=== PATIENT | male | born 1955 | race Caucasian/White ===

== ENCOUNTER → 2017-03-22 05:00 | Outpatient (REF) | payer MEDICARE, MEDICAID, SELFPAY ==
[2017-03-22 08:47] LABS: AST(SGOT) 18 U/L (15-37); Alanine Aminotransfer ALT/SGPT 33 U/L (12-78); Albumin, Serum 3.3 g/dL (3.4-5.0); Alkaline Phosphatase 115 U/L (45-117); Cholesterol 133 mg/dL (200); Globulin 3.8 g/dL (2.2-4.2); Glucose 122 mg/dL (70-110); High Density Lipoprotein 53 mg/dL; Protein, Total 7.1 g/dL (6.4-8.2); Triglycerides 114 mg/dL; Very Low Density Lipoprotein 23 mg/dL (5-40)
[2017-03-22 08:48] LABS: Hemoglobin A1c 6.5 % (4.2-6.3)
== END ==
LOC: OLS.ACH 05:00
PROVIDERS: Visit Provider Family Medicine
DX: E11.9 Type 2 diabetes mellitus without complications (principal); E78.00 Pure hypercholesterolemia, unspecified
CPT/HCPCS: 36415; 80061; 80076; 82947; 83036

== ENCOUNTER → 2017-06-21 05:00 | Outpatient (REF) | payer MEDICARE, MEDICAID, SELFPAY ==
[2017-06-21 07:54] LABS: Hemoglobin A1c 6.6 % (4.2-6.3)
[2017-06-21 07:57] LABS: ALB/GLOB Ratio 0.9 RATIO (0.9-2.4); AST(SGOT) 18 U/L (15-37); Alanine Aminotransfer ALT/SGPT 28 U/L (16-61); Albumin, Serum 3.3 g/dL (3.2-5.0); Alkaline Phosphatase 113 U/L (45-117); Anion Gap 6 (5-15); BUN 7 mg/dL (7-18); BUN/Creat Ratio 8.2 RATIO (10-20); Bilirubin, Direct < 0.05 mg/dL (0.00-0.30); Calcium,Total 8.5 mg/dL (8.5-10.1); Chloride 99 mmol/L (98-107); Creatinine, Serum 0.85 mg/dL (0.70-1.30); EST Glomerular Filtration Rate 97 mL/min (>60); Est Glom Filt Rate - Afr Amer 117 mL/min (>60); Globulin 3.6 g/dL (2.2-4.2); Glucose 117 mg/dL (74-106); Potassium 4.1 mmol/L (3.5-5.1); Protein, Total 6.9 g/dL (6.4-8.2); Sodium Level 135 mmol/L (136-145)
== END ==
LOC: OLS.ACH 05:00
PROVIDERS: Visit Provider Family Medicine
DX: E11.9 Type 2 diabetes mellitus without complications (principal)
CPT/HCPCS: 36415; 80053; 82248; 83036

== ENCOUNTER → 2017-08-16 05:00 | Outpatient (REF) | payer MEDICARE, MEDICAID, SELFPAY ==
[2017-08-16 08:10] LABS: AST(SGOT) 20 U/L (15-37); Alanine Aminotransfer ALT/SGPT 31 U/L (16-61); Albumin, Serum 3.4 g/dL (3.2-5.0); Alkaline Phosphatase 115 U/L (45-117); Bilirubin, Direct 0.07 mg/dL (0.00-0.30); Cholesterol 130 mg/dL (200); Globulin 4.1 g/dL (2.2-4.2); Glucose 126 mg/dL (74-106); High Density Lipoprotein 47 mg/dL; PSA,Total - Annual Screen 3.41 ng/mL (0.00-4.00); Protein, Total 7.5 g/dL (6.4-8.2); Triglycerides 130 mg/dL; Very Low Density Lipoprotein 26 mg/dL (5-40)
[2017-08-16 08:16] LABS: Hemoglobin A1c 6.7 % (4.2-6.3)
== END ==
LOC: OLS.ACH 05:00
PROVIDERS: Visit Provider Family Medicine
DX: E11.9 Type 2 diabetes mellitus without complications (principal); E78.00 Pure hypercholesterolemia, unspecified; Z12.5 Encounter for screening for malignant neoplasm of prostate
CPT/HCPCS: 36415; 80061; 80076; 82947; 83036; 84153; G0103

== ENCOUNTER → 2017-12-21 05:00 | Outpatient (REF) | payer MEDICARE, MEDICAID, SELFPAY ==
[2017-12-21 08:33] LABS: AST(SGOT) 20 U/L (15-37); Alanine Aminotransfer ALT/SGPT 35 U/L (16-61); Albumin, Serum 3.7 g/dL (3.2-5.0); Alkaline Phosphatase 122 U/L (45-117); Bilirubin, Direct 0.09 mg/dL (0.00-0.30); Globulin 4.2 g/dL (2.2-4.2); Glucose 134 mg/dL (74-106); Protein, Total 7.9 g/dL (6.4-8.2)
[2017-12-21 08:38] LABS: Hemoglobin A1c 6.6 % (4.2-6.3)
== END ==
LOC: OLS.ACH 05:00
PROVIDERS: Visit Provider Family Medicine
DX: E11.9 Type 2 diabetes mellitus without complications (principal)
CPT/HCPCS: 36415; 80076; 82947; 83036

== ENCOUNTER → 2018-03-21 05:00 | Outpatient (REF) | payer MEDICARE, MEDICAID, SELFPAY ==
[2018-03-21 08:28] LABS: Hematocrit 34.8 % (40-54); Hemoglobin 11.2 g/dl (13.0-16.5); Mean Corp Hgb Conc 32.2 g/gl (32-36); Mean Corpuscular Volume 90.2 fL (80-94); Mean Platelet Vol. 9.7 fl (6.2-12.0); Platelet Count 247 K/mm3 (150-450); RBC Distribution Width CV 13.3 % (11.6-14.6); RBC Distribution Width SD 43.1 fl (35.1-43.9); Red Blood Count 3.86 M/mm3 (4.6-6.2); White Blood Count 11.5 K/mm3 (4.4-11.0)
[2018-03-21 08:37] LABS: AST(SGOT) 26 U/L (15-37); Alanine Aminotransfer ALT/SGPT 40 U/L (16-61); Albumin, Serum 3.4 g/dL (3.2-5.0); Alkaline Phosphatase 108 U/L (45-117); Anion Gap 7 (5-15); BUN 10 mg/dL (7-18); BUN/Creat Ratio 10.8 RATIO (10-20); Bilirubin, Direct 0.07 mg/dL (0.00-0.30); Calcium,Total 8.7 mg/dL (8.5-10.1); Chloride 97 mmol/L (98-107); Cholesterol 121 mg/dL (200); Creatinine, Serum 0.93 mg/dL (0.70-1.30); EST Glomerular Filtration Rate 87 mL/min (>60); Est Glom Filt Rate - Afr Amer 105 mL/min (>60); Globulin 3.6 g/dL (2.2-4.2); Glucose 120 mg/dL (74-106); High Density Lipoprotein 42 mg/dL; Potassium 4.2 mmol/L (3.5-5.1); Sodium Level 135 mmol/L (136-145); T4 Free Direct 0.77 ng/dL (0.76-1.46); Thyroid Stim Hormone (TSH) 1.64 uIU/mL (0.358-3.74); Triglycerides 140 mg/dL; Very Low Density Lipoprotein 28 mg/dL (5-40)
[2018-03-21 08:40] LABS: Scan Indicated on CBC? Y/N NO
[2018-03-21 08:58] LABS: Hemoglobin A1c 7.3 % (4.2-6.3)
== END ==
LOC: OLS.ACH 05:00
PROVIDERS: Visit Provider Family Medicine
DX: E11.9 Type 2 diabetes mellitus without complications (principal); F25.9 Schizoaffective disorder, unspecified
CPT/HCPCS: 36415; 80048; 80061; 80076; 83036; 84439; 84443; 85027

== ENCOUNTER → 2018-06-20 05:00 | Outpatient (REF) | payer MEDICARE, MEDICAID, SELFPAY ==
[2018-06-20 08:45] LABS: AST(SGOT) 23 U/L (15-37); Alanine Aminotransfer ALT/SGPT 31 U/L (16-61); Albumin, Serum 3.5 g/dL (3.2-5.0); Alkaline Phosphatase 117 U/L (45-117); Bilirubin, Direct 0.07 mg/dL (0.00-0.30); Globulin 3.7 g/dL (2.2-4.2); Glucose 131 mg/dL (74-106); Protein, Total 7.2 g/dL (6.4-8.2)
== END ==
LOC: OLS.ACH 05:00
PROVIDERS: Visit Provider Family Medicine
DX: E11.9 Type 2 diabetes mellitus without complications (principal)
CPT/HCPCS: 36415; 80076; 82947

== ENCOUNTER → 2018-09-19 | Outpatient (REF) | payer MEDICARE, MEDICAID, SELFPAY ==
[2018-09-19 08:34] LABS: Hematocrit 34.2 % (40-54); Hemoglobin 11.2 g/dL (13.0-16.5); Mean Corp Hgb Conc 32.7 g/dL (32-36); Mean Corpuscular Hgb 28.8 pg (27.0-32.0); Mean Corpuscular Volume 87.9 fL (80-94); Mean Platelet Vol. 10.3 fl (6.2-12.0); Platelet Count 218 K/mm3 (150-450); RBC Distribution Width CV 13.4 % (11.6-14.6); RBC Distribution Width SD 42.9 fl (35.1-43.9); Red Blood Count 3.89 M/mm3 (4.6-6.2); White Blood Count 8.9 K/mm3 (4.4-11.0)
[2018-09-19 08:46] LABS: AST(SGOT) 20 U/L (15-37); Alanine Aminotransfer ALT/SGPT 34 U/L (16-61); Albumin, Serum 3.4 g/dL (3.2-5.0); Alkaline Phosphatase 111 U/L (45-117); Anion Gap 7 (5-15); BUN 13 mg/dL (7-18); BUN/Creat Ratio 13.2 RATIO (10-20); Bilirubin, Direct 0.05 mg/dL (0.00-0.30); Calcium,Total 8.9 mg/dL (8.5-10.1); Chloride 99 mmol/L (98-107); Creatinine, Serum 0.98 mg/dL (0.70-1.30); EST Glomerular Filtration Rate 82 mL/min (>60); Est Glom Filt Rate - Afr Amer 99 mL/min (>60); Globulin 3.5 g/dL (2.2-4.2); Glucose 155 mg/dL (74-106); Protein, Total 6.9 g/dL (6.4-8.2); Sodium Level 138 mmol/L (136-145)
== END | disposition home or self-care (01) ==
LOC: OLS.ACH 05:00
PROVIDERS: Visit Provider Family Medicine
DX: E11.9 Type 2 diabetes mellitus without complications (principal); F25.9 Schizoaffective disorder, unspecified
CPT/HCPCS: 36415; 80048; 80076; 83036; 85027

== ENCOUNTER → 2018-12-19 05:00 | Outpatient (REF) | payer MEDICARE, MEDICAID, SELFPAY ==
[2018-12-19 09:12] LABS: AST(SGOT) 15 U/L (15-37); Alanine Aminotransfer ALT/SGPT 29 U/L (16-61); Albumin, Serum 3.5 g/dL (3.2-5.0); Alkaline Phosphatase 116 U/L (45-117); Bilirubin, Direct 0.08 mg/dL (0.00-0.30); Globulin 3.9 g/dL (2.2-4.2); Glucose 116 mg/dL (74-106); Protein, Total 7.4 g/dL (6.4-8.2)
== END ==
LOC: OLS.ACH 05:00
PROVIDERS: Visit Provider Family Medicine
DX: E11.9 Type 2 diabetes mellitus without complications (principal)
CPT/HCPCS: 36415; 80076; 82947

== ENCOUNTER → 2019-02-25 05:00 | Outpatient (REF) | payer MEDICARE, MEDICAID, SELFPAY ==
[2019-02-25 08:23] LABS: Thyroid Stim Hormone (TSH) 0.97 uIU/mL (0.358-3.74); Valproic Acid (Depakene) Level < 3 ug/mL (50-100)
== END ==
LOC: OLS.ACH 05:00
PROVIDERS: Visit Provider Family Medicine
DX: F25.9 Schizoaffective disorder, unspecified (principal); E11.9 Type 2 diabetes mellitus without complications
CPT/HCPCS: 36415; 80164; 84443

== ENCOUNTER → 2019-03-05 16:54 | Outpatient (CLI) | payer MEDICARE, MEDICAID, SELFPAY ==
--- NOTE | 2019-03-05 17:13 | RAD_ITS ---
STUDY: X-RAY - LUMBAR SPINE REASON FOR EXAM: Male, 63 years old. lower back pain TECHNIQUE: 3 view(s) of the lumbar spine were obtained. COMPARISON: None FINDINGS: Normal lumbar lordosis. There is no substantial scoliosis. There is a normal alignment of the vertebrae. There is diffuse demineralization with multi-level endplate spondylosis. There is multi-level degenerative disc disease with multi-level disc space narrowing. Mild compression deformity of T12 and L1 are likely chronic without discrete fracture line is identified. Multilevel facet arthropathy in the mid and lower lumbar spine. There is atherosclerotic calcification of the abdominal aorta without a demonstrated aneurysm. RAD/Lumbar Spine 2 or 3 Views IMPRESSION: Degenerative disc disease and facet arthropathy. No acute appearing compression fracture identified. Electronically Signed: Alan Garcia MD ([place]) at 8:31 EST , Service support ,
== END ==
PROVIDERS: Family Provider Family Medicine; PCP Family Medicine; Referring Provider Anesthesiology Pain Medicine; Visit Provider Anesthesiology Pain Medicine
DX: M54.9 Dorsalgia, unspecified (principal)
CPT/HCPCS: 72100

== ENCOUNTER → 2019-03-12 05:00 | Outpatient (REF) | payer MEDICARE, MEDICAID, SELFPAY ==
[2019-03-12 08:03] LABS: Hematocrit 33.1 % (40-54); Hemoglobin 11.1 g/dL (13.0-16.5); Mean Corp Hgb Conc 33.5 g/dL (32-36); Mean Corpuscular Hgb 29.1 pg (27.0-32.0); Mean Corpuscular Volume 86.6 fL (80-94); Mean Platelet Vol. 9.5 fl (6.2-12.0); Platelet Count 266 K/mm3 (150-450); RBC Distribution Width CV 13.1 % (11.6-14.6); RBC Distribution Width SD 40.9 fl (35.1-43.9); Red Blood Count 3.82 M/mm3 (4.6-6.2); White Blood Count 7.2 K/mm3 (4.4-11.0)
[2019-03-12 08:15] LABS: AST(SGOT) 22 U/L (15-37); Alanine Aminotransfer ALT/SGPT 35 U/L (16-61); Albumin, Serum 3.4 g/dL (3.2-5.0); Alkaline Phosphatase 101 U/L (45-117); Anion Gap 5 (5-15); BUN 26 mg/dL (7-18); BUN/Creat Ratio 31.1 RATIO (10-20); Calcium,Total 8.9 mg/dL (8.5-10.1); Chloride 100 mmol/L (98-107); Creatinine, Serum 0.84 mg/dL (0.70-1.30); EST Glomerular Filtration Rate 98 mL/min (>60); Est Glom Filt Rate - Afr Amer 119 mL/min (>60); Globulin 3.3 g/dL (2.2-4.2); Glucose 100 mg/dL (74-106); PSA,Total - Annual Screen 4.98 ng/mL (0.00-4.00); Potassium 4.3 mmol/L (3.5-5.1); Protein, Total 6.7 g/dL (6.4-8.2); Sodium Level 134 mmol/L (136-145)
== END ==
LOC: OLS.ACH 05:00
PROVIDERS: Family Provider Family Medicine; PCP Family Medicine; Visit Provider Family Medicine
DX: F25.9 Schizoaffective disorder, unspecified (principal); E11.9 Type 2 diabetes mellitus without complications
CPT/HCPCS: 36415; 80053; 84153; 85027; G0103

== ENCOUNTER → 2019-03-12 15:20 | Outpatient (CLI) | payer MEDICARE, MEDICAID, SELFPAY ==
--- NOTE | 2019-03-12 15:23 | MRI_ITS ---
STUDY: MRI LUMBAR SPINE WITHOUT CONTRAST REASON FOR EXAM: Male, 63 years old. BACK PAIN and left leg x 6 months TECHNIQUE: Standardized fat and water weighted pulse sequences were obtained in the sagittal and axial planes. COMPARISON: Lumbar spine X-rays on March 05, 2019 FINDINGS: T12-L1: Degenerative endplate changes.. Narrowed disc space with desiccation of the disc and minimal annular bulge.. Normal bilateral facet joints. Normal central canal and bilateral lateral recesses. Normal bilateral intervertebral neural foramina. Normal lumbar lordosis. There is no substantial scoliosis. Normal conus medullaris that terminates at T12 L1-2: Narrowed disc space with degenerative endplate changes. Desiccation of the disc and mild annular bulge with small bilateral foraminal disc protrusions. Normal bilateral facet joints. Mild to moderate narrowing of the central canal. Normal bilateral recesses. Mild bilateral neuroforaminal stenosis. L2-3: Minor endplate spurring.. Normal disc height, desiccation and normal morphology. Normal bilateral facet joints. Normal central canal and bilateral lateral recesses. Normal bilateral intervertebral neural foramina. L3-4: Minor endplate spurring.. Normal disc height, desiccation and minor annular bulge. Mild facet arthropathy.. Normal central canal and bilateral lateral recesses. Moderate bilateral neural foraminal encroachment. L4-5: Mild endplate spurring.. Normal disc height, hydration and mild annular bulge with small left foraminal disc protrusion.. Bilateral facet arthropathy and thickening of ligamenta flava.. Normal central canal. Moderate bilateral recess stenosis. Moderate right neuroforaminal stenosis and severe narrowing on the left L5-S1: Normal endplates. Normal disc height, desiccation and mild annular bulge.. Bilateral facet arthropathy.. Normal central canal and bilateral lateral recesses. Moderate bilateral neuroforaminal stenosis Normal visualized sacral ala. Normal visualized paraspinous soft tissue structures. No significant change since prior exam considering differences in imaging modality MRI/Spine Lumbar (Routine) IMPRESSION: No evidence for acute fracture or subluxation. Moderate spondylosis. Multilevel spinal stenosis secondary to disc disease and bony hypertrophy most pronounced at L4-5 greater on the left. Other findings as above Electronically Signed: Aaron Dahl MD at 19:29 EST , Service support ,
== END ==
PROVIDERS: Family Provider Family Medicine; PCP Family Medicine; Referring Provider Anesthesiology Pain Medicine; Visit Provider Anesthesiology Pain Medicine
DX: M79.605 Pain in left leg (principal); M54.9 Dorsalgia, unspecified; E11.9 Type 2 diabetes mellitus without complications; F25.9 Schizoaffective disorder, unspecified; Z12.5 Encounter for screening for malignant neoplasm of prostate
CPT/HCPCS: 36415; 72148; 80053; 84153; 85027; G0103

== ENCOUNTER → 2019-03-20 05:00 | Outpatient (REF) | payer MEDICARE, MEDICAID, SELFPAY ==
[2019-03-20 08:00] LABS: Hematocrit 32.5 % (40-54); Hemoglobin 11.4 g/dL (13.0-16.5); Mean Corp Hgb Conc 35.1 g/dL (32-36); Mean Corpuscular Hgb 29.3 pg (27.0-32.0); Mean Corpuscular Volume 83.5 fL (80-94); Mean Platelet Vol. 9.1 fl (6.2-12.0); Platelet Count 324 K/mm3 (150-450); RBC Distribution Width SD 39.5 fl (35.1-43.9); Red Blood Count 3.89 M/mm3 (4.6-6.2); White Blood Count 8.2 K/mm3 (4.4-11.0)
[2019-03-20 08:27] LABS: AST(SGOT) 18 U/L (15-37); Alanine Aminotransfer ALT/SGPT 28 U/L (16-61); Albumin, Serum 3.3 g/dL (3.2-5.0); Alkaline Phosphatase 93 U/L (45-117); Anion Gap 6 (5-15); BUN 12 mg/dL (7-18); Bilirubin, Direct 0.11 mg/dL (0.00-0.30); Calcium,Total 8.8 mg/dL (8.5-10.1); Chloride 90 mmol/L (98-107); Cholesterol 105 mg/dL (200); Creatinine, Serum 0.75 mg/dL (0.70-1.30); EST Glomerular Filtration Rate 111 mL/min (>60); Est Glom Filt Rate - Afr Amer 135 mL/min (>60); Globulin 3.3 g/dL (2.2-4.2); Glucose 96 mg/dL (74-106); High Density Lipoprotein 56 mg/dL; Potassium 4.1 mmol/L (3.5-5.1); Protein, Total 6.6 g/dL (6.4-8.2); Sodium Level 125 mmol/L (136-145); T4 Free Direct 1.23 ng/dL (0.76-1.46); Thyroid Stim Hormone (TSH) 1.52 uIU/mL (0.358-3.74); Triglycerides 82 mg/dL; Very Low Density Lipoprotein 16 mg/dL (5-40)
== END ==
LOC: OLS.ACH 05:00
PROVIDERS: PCP Family Medicine; Visit Provider Family Medicine
DX: E11.9 Type 2 diabetes mellitus without complications (principal); F25.9 Schizoaffective disorder, unspecified
CPT/HCPCS: 36415; 80048; 80061; 80076; 83036; 84439; 84443; 85027

== ENCOUNTER → 2019-03-26 16:40 | Outpatient (REF) | payer MEDICARE, MEDICAID, SELFPAY ==
[2019-03-26 17:50] LABS: Urine Sodium 46 mmol/L (Not Establ.)
[2019-03-26 18:01] LABS: Osmolality, Urine 702 mOsm/KG
== END ==
LOC: OLS.ACH 16:40
PROVIDERS: PCP Family Medicine; Visit Provider Family Medicine
DX: E11.42 Type 2 diabetes mellitus with diabetic polyneuropathy (principal); M62.81 Muscle weakness (generalized)
CPT/HCPCS: 83935; 84300

== ENCOUNTER → 2019-06-16 04:00 | Outpatient (REF) | payer MEDICARE, MEDICAID, SELFPAY ==
[2019-06-16 07:49] LABS: AST(SGOT) 16 U/L (15-37); Alanine Aminotransfer ALT/SGPT 25 U/L (16-61); Albumin, Serum 3.3 g/dL (3.2-5.0); Alkaline Phosphatase 117 U/L (45-117); Bilirubin, Direct 0.08 mg/dL (0.00-0.30); Glucose 94 mg/dL (74-106); Protein, Total 6.3 g/dL (6.4-8.2); Thyroid Stim Hormone (TSH) 1.32 uIU/mL (0.358-3.74)
== END ==
LOC: OLS.ACH 04:00
PROVIDERS: PCP Family Medicine; Visit Provider Family Medicine
DX: E11.9 Type 2 diabetes mellitus without complications (principal); F25.9 Schizoaffective disorder, unspecified
CPT/HCPCS: 36415; 80076; 82947; 84443

== ENCOUNTER → 2019-09-15 04:30 | Outpatient (REF) | payer MEDICARE, SELFPAY ==
[2019-09-15 10:11] LABS: Albumin, Serum 3.5 g/dL (3.2-5.0); BUN 11 mg/dL (7-18); BUN/Creat Ratio 14.3 RATIO (10-20); Chloride 97 mmol/L (98-107); Creatinine, Serum 0.77 mg/dL (0.70-1.30); EST Glomerular Filtration Rate 108 mL/min (>60); Est Glom Filt Rate - Afr Amer 130 mL/min (>60); Glucose 83 mg/dL (74-106); PSA,Total - Annual Screen 4.57 ng/mL (0.00-4.00); Phosphorus 3.6 mg/dL (2.5-4.9); Potassium 4.7 mmol/L (3.5-5.1); Sodium Level 131 mmol/L (136-145); Thyroid Stim Hormone (TSH) 0.79 uIU/mL (0.358-3.74)
== END ==
LOC: OLS.ACH 04:30
PROVIDERS: PCP Family Medicine; Visit Provider Family Medicine
DX: E11.9 Type 2 diabetes mellitus without complications (principal); F25.9 Schizoaffective disorder, unspecified; M62.81 Muscle weakness (generalized); Z12.5 Encounter for screening for malignant neoplasm of prostate
CPT/HCPCS: 36415; 80069; 84153; 84443; G0103

== ENCOUNTER → 2019-09-18 05:00 | Outpatient (REF) | payer MEDICARE, MEDICAID, SELFPAY ==
[2019-09-18 08:45] LABS: Hemoglobin 10.2 g/dL (13.0-16.5); Mean Corpuscular Hgb 29.9 pg (27.0-32.0); Platelet Count 262 K/mm3 (150-450); RBC Distribution Width CV 12.7 % (11.6-14.6); RBC Distribution Width SD 40.5 fl (35.1-43.9); Red Blood Count 3.41 M/mm3 (4.6-6.2); White Blood Count 10.4 K/mm3 (4.4-11.0)
[2019-09-18 08:52] LABS: Anion Gap 5 (5-15); BUN 11 mg/dL (7-18); BUN/Creat Ratio 12.3 RATIO (10-20); Calcium,Total 8.7 mg/dL (8.5-10.1); Chloride 98 mmol/L (98-107); Creatinine, Serum 0.89 mg/dL (0.70-1.30); EST Glomerular Filtration Rate 91 mL/min (>60); Est Glom Filt Rate - Afr Amer 110 mL/min (>60); Glucose 84 mg/dL (74-106); Potassium 3.9 mmol/L (3.5-5.1); Sodium Level 132 mmol/L (136-145)
[2019-09-18 08:59] LABS: Hemoglobin A1c 5.6 % (3.8-5.6)
== END ==
LOC: OLS.ACH 05:00
PROVIDERS: PCP Family Medicine; Referring Provider Family Medicine; Visit Provider Family Medicine
DX: F25.9 Schizoaffective disorder, unspecified (principal); Z79.899 Other long term (current) drug therapy
CPT/HCPCS: 36415; 80048; 83036; 85027

== ENCOUNTER → 2019-11-12 08:51 | Outpatient (REF) | payer MEDICARE, MEDICAID, SELFPAY | LOC: LABSPEC 08:51 | PROVIDERS: PCP Family Medicine; Referring Provider Family Medicine; Visit Provider Family Medicine | DX: Z11.59 Encounter for screening for other viral diseases (principal) | CPT/HCPCS: 87635; U0003 ==

== ENCOUNTER → 2019-11-19 05:00 | Outpatient (REF) | payer MEDICARE, MEDICAID, SELFPAY | LOC: OLS.ACH 05:00 | PROVIDERS: PCP Family Medicine; Referring Provider Family Medicine; Visit Provider Family Medicine | DX: Z11.59 Encounter for screening for other viral diseases (principal) | CPT/HCPCS: 87635; U0003 ==

== ENCOUNTER → 2019-11-24 11:03 | Outpatient (REF) | payer MEDICARE, MEDICAID, SELFPAY | LOC: OLS.ACH 11:03 | PROVIDERS: PCP Family Medicine; Visit Provider Family Medicine | DX: Z11.59 Encounter for screening for other viral diseases (principal) | CPT/HCPCS: 87635; U0003 ==

== ENCOUNTER → 2019-11-28 12:53 | Outpatient (REF) | payer MEDICARE, MEDICAID, SELFPAY | LOC: OLS.ACH 12:53 | PROVIDERS: PCP Family Medicine; Referring Provider Family Medicine; Visit Provider Family Medicine | DX: Z03.818 Encounter for observation for suspected exposure to other biological agents ruled out (principal) | CPT/HCPCS: 87635; U0003 ==

== ENCOUNTER → 2019-12-01 08:00 | Outpatient (REF) | payer MEDICARE, MEDICAID, SELFPAY | LOC: OLS.ACH 08:00 | PROVIDERS: Referring Provider Family Medicine; Visit Provider Family Medicine | DX: Z03.818 Encounter for observation for suspected exposure to other biological agents ruled out (principal) | CPT/HCPCS: 87635; U0003 ==

== ENCOUNTER → 2019-12-05 10:16 | Outpatient (REF) | payer MEDICARE, MEDICAID, SELFPAY | LOC: OLS.ACH 10:16 | PROVIDERS: Referring Provider Family Medicine; Visit Provider Family Medicine | DX: Z03.818 Encounter for observation for suspected exposure to other biological agents ruled out (principal) | CPT/HCPCS: 87635; U0003 ==

== ENCOUNTER → 2019-12-08 14:05 | Outpatient (REF) | payer MEDICARE, MEDICAID, SELFPAY | LOC: OLS.ACH 14:05 | PROVIDERS: Referring Provider Family Medicine; Visit Provider Family Medicine | DX: Z03.818 Encounter for observation for suspected exposure to other biological agents ruled out (principal) | CPT/HCPCS: 87635; U0003 ==

== ENCOUNTER → 2019-12-12 10:46 | Outpatient (REF) | payer MEDICARE, MEDICAID, SELFPAY | LOC: OLS.ACH 10:46 | PROVIDERS: Family Medicine; Referring Provider Family Medicine; Visit Provider Family Medicine | DX: Z03.818 Encounter for observation for suspected exposure to other biological agents ruled out (principal) | CPT/HCPCS: 87635; U0003 ==

== ENCOUNTER → 2019-12-15 04:00 | Outpatient (REF) | payer MEDICARE, MEDICAID, SELFPAY ==
[2019-12-15 08:59] LABS: AST(SGOT) 16 U/L (15-37); Alanine Aminotransfer ALT/SGPT 29 U/L (16-61); Albumin, Serum 3.3 g/dL (3.2-5.0); Alkaline Phosphatase 113 U/L (45-117); Bilirubin, Direct 0.07 mg/dL (0.00-0.30); Globulin 3.3 g/dL (2.2-4.2); Glucose 80 mg/dL (74-106); Protein, Total 6.6 g/dL (6.4-8.2); Thyroid Stim Hormone (TSH) 0.83 uIU/mL (0.358-3.74)
== END ==
LOC: OLS.ACH 04:00
PROVIDERS: Referring Provider Family Medicine; Visit Provider Family Medicine
DX: E11.9 Type 2 diabetes mellitus without complications (principal); F25.9 Schizoaffective disorder, unspecified
CPT/HCPCS: 36415; 80076; 82947; 84443

== ENCOUNTER → 2019-12-16 11:30 | Outpatient (REF) | payer MEDICARE, MEDICAID, SELFPAY | LOC: OLS.ACH 11:30 | PROVIDERS: Family Medicine; Referring Provider Family Medicine; Visit Provider Family Medicine | DX: Z03.818 Encounter for observation for suspected exposure to other biological agents ruled out (principal) | CPT/HCPCS: 87635; U0003 ==

== ENCOUNTER → 2019-12-19 12:25 | Outpatient (REF) | payer MEDICARE, MEDICAID, SELFPAY | LOC: OLS.ACH 12:25 | PROVIDERS: Referring Provider Family Medicine; Visit Provider Family Medicine | DX: Z03.818 Encounter for observation for suspected exposure to other biological agents ruled out (principal) | CPT/HCPCS: 87635; U0003 ==

== ENCOUNTER → 2019-12-23 17:09 | Outpatient (REF) | payer MEDICARE, MEDICAID, SELFPAY | LOC: OLS.ACH 17:09 | PROVIDERS: Family Medicine; Referring Provider Family Medicine; Visit Provider Family Medicine | DX: Z03.818 Encounter for observation for suspected exposure to other biological agents ruled out (principal) | CPT/HCPCS: 87635; U0003 ==

== ENCOUNTER → 2019-12-30 07:35 | Outpatient (REF) | payer MEDICARE, MEDICAID, SELFPAY | LOC: OLS.ACH 07:35 | PROVIDERS: Referring Provider Family Medicine; Visit Provider Family Medicine | DX: Z03.818 Encounter for observation for suspected exposure to other biological agents ruled out (principal) | CPT/HCPCS: 87635; U0003 ==

== ENCOUNTER → 2020-01-06 14:31 | Outpatient (REF) | payer MEDICARE, MEDICAID, SELFPAY | LOC: OLS.ACH 14:31 | PROVIDERS: Visit Provider Family Medicine | DX: Z03.818 Encounter for observation for suspected exposure to other biological agents ruled out (principal) | CPT/HCPCS: 87635; U0003 ==

== ENCOUNTER → 2020-01-13 08:09 | Outpatient (REF) | payer MEDICARE, MEDICAID, SELFPAY | LOC: OLS.ACH 08:09 | PROVIDERS: PCP Family Medicine; Referring Provider Family Medicine; Visit Provider Family Medicine | DX: Z03.818 Encounter for observation for suspected exposure to other biological agents ruled out (principal) | CPT/HCPCS: 87635; U0003 ==

== ENCOUNTER → 2020-01-27 10:06 | Outpatient (REF) | payer MEDICARE, MEDICAID, SELFPAY | LOC: OLS.ACH 10:06 | PROVIDERS: PCP Family Medicine; Referring Provider Family Medicine; Visit Provider Family Medicine | DX: Z03.818 Encounter for observation for suspected exposure to other biological agents ruled out (principal) | CPT/HCPCS: 87635; U0003 ==

== ENCOUNTER → 2020-02-10 08:36 | Outpatient (REF) | payer MEDICARE, MEDICAID, SELFPAY | LOC: OLS.ACH 08:36 | PROVIDERS: Family Medicine; PCP Family Medicine; Referring Provider Family Medicine; Visit Provider Family Medicine | DX: Z03.818 Encounter for observation for suspected exposure to other biological agents ruled out (principal) | CPT/HCPCS: 87635; U0003 ==

== ENCOUNTER → 2020-02-24 08:43 | Outpatient (REF) | payer MEDICARE, MEDICAID, SELFPAY | LOC: OLS.ACH 08:43 | PROVIDERS: PCP Family Medicine; Referring Provider Family Medicine; Visit Provider Family Medicine | DX: Z03.818 Encounter for observation for suspected exposure to other biological agents ruled out (principal) | CPT/HCPCS: 87635; U0003 ==

== ENCOUNTER → 2020-03-09 09:14 | Outpatient (REF) | payer MEDICARE, MEDICAID, SELFPAY | LOC: OLS.ACH 09:14 | PROVIDERS: PCP Family Medicine; Referring Provider Family Medicine; Visit Provider Family Medicine | DX: Z03.818 Encounter for observation for suspected exposure to other biological agents ruled out (principal) | CPT/HCPCS: 87635; U0005; U0003 ==

== ENCOUNTER → 2020-03-16 05:00 | Outpatient (REF) | payer MEDICARE, MEDICAID, SELFPAY ==
[2020-03-16 07:49] LABS: Absolute Lymphocyte Count 2.32 X10^3/uL (0.83-4.51); Absolute Neutrophil Count 5.3 X10^3/uL (2.0-7.7); Basophil# 0.05 X10^3/uL; Basophil% 0.6 % (0-1); Eosinophil# 0.47 X10^3/uL; Eosinophils% 5.3 % (0-5); Hemoglobin 10.7 g/dL (13.0-16.5); Lymphocyte # 2.32 X10^3/ul (4.0); Lymphocyte % 26.2 % (19-41); Mean Corp Hgb Conc 32.4 g/dL (32-36); Mean Corpuscular Hgb 28.9 pg (27.0-32.0); Mean Corpuscular Volume 89.2 fL (80-94); Mean Platelet Vol. 9.8 fl (6.2-12.0); Monocyte# 0.58 X10^3/uL; Monocyte% 6.6 % (0-10); NRBC Flagged by Analyzer 0 % (0-5); Neutrophil # 5.33 X10^3/uL (2.7-7.7); Neutrophil % 60.3 % (47-70); Platelet Count 198 K/mm3 (150-450); RBC Distribution Width CV 12.8 % (11.6-14.6); RBC Distribution Width SD 42.2 fl (35.1-43.9); White Blood Count 8.8 K/mm3 (4.4-11.0)
[2020-03-16 08:28] LABS: AST(SGOT) 19 U/L (15-37); Alanine Aminotransfer ALT/SGPT 23 U/L (16-61); Albumin, Serum 3.3 g/dL (3.2-5.0); Alkaline Phosphatase 114 U/L (45-117); Anion Gap 5 (5-15); BUN 11 mg/dL (7-18); BUN/Creat Ratio 15.2 RATIO (10-20); Bilirubin, Direct 0.09 mg/dL (0.00-0.30); Calcium,Total 8.3 mg/dL (8.5-10.1); Chloride 101 mmol/L (98-107); Creatinine, Serum 0.72 mg/dL (0.70-1.30); EST Glomerular Filtration Rate 115 mL/min (>60); Est Glom Filt Rate - Afr Amer 140 mL/min (>60); Globulin 3.3 g/dL (2.2-4.2); Glucose 79 mg/dL (74-106); Potassium 4.1 mmol/L (3.5-5.1); Protein, Total 6.6 g/dL (6.4-8.2); Sodium Level 136 mmol/L (136-145)
[2020-03-16 08:41] LABS: Hemoglobin A1c 5.6 % (3.8-5.6)
== END ==
LOC: OLS.ACH 05:00
PROVIDERS: PCP Family Medicine; Visit Provider Family Medicine
DX: E11.9 Type 2 diabetes mellitus without complications (principal); N40.0 Benign prostatic hyperplasia without lower urinary tract symptoms; E78.5 Hyperlipidemia, unspecified; Z12.5 Encounter for screening for malignant neoplasm of prostate
CPT/HCPCS: 36415; 80048; 80076; 83036; 84153; 84439; 84443; 85025; G0103

== ENCOUNTER → 2020-03-23 09:36 | Outpatient (REF) | payer MEDICARE, MEDICAID, SELFPAY | LOC: OLS.ACH 09:36 | PROVIDERS: PCP Family Medicine; Visit Provider Family Medicine | DX: Z03.818 Encounter for observation for suspected exposure to other biological agents ruled out (principal) | CPT/HCPCS: 87635; U0003 ==

== ENCOUNTER → 2020-04-20 12:10 | Outpatient (REF) | payer MEDICARE, MEDICAID, SELFPAY | LOC: OLS.ACH 12:10 | PROVIDERS: PCP Family Medicine; Referring Provider Family Medicine; Visit Provider Family Medicine | DX: Z03.818 Encounter for observation for suspected exposure to other biological agents ruled out (principal) | CPT/HCPCS: 87635; U0005; U0003 ==

== ENCOUNTER → 2020-05-04 10:00 | Outpatient (REF) | payer MEDICARE, MEDICAID, SELFPAY | LOC: OLS.ACH 10:00 | PROVIDERS: PCP Family Medicine; Visit Provider Family Medicine | DX: Z03.818 Encounter for observation for suspected exposure to other biological agents ruled out (principal) | CPT/HCPCS: 87635; U0005; U0003 ==

== ENCOUNTER → 2020-06-07 04:00 | Outpatient (REF) | payer MEDICARE, MEDICAID, SELFPAY ==
[2020-06-07 07:36] LABS: AST(SGOT) 18 U/L (15-37); Alanine Aminotransfer ALT/SGPT 28 U/L (16-61); Albumin, Serum 3.3 g/dL (3.2-5.0); Alkaline Phosphatase 94 U/L (45-117); Bilirubin, Direct 0.07 mg/dL (0.00-0.30); Glucose 78 mg/dL (74-106); Protein, Total 6.3 g/dL (6.4-8.2); Thyroid Stim Hormone (TSH) 0.68 uIU/mL (0.358-3.74)
== END ==
LOC: OLS.ACH 04:00
PROVIDERS: PCP Family Medicine; Visit Provider Family Medicine
DX: F25.9 Schizoaffective disorder, unspecified (principal); E11.9 Type 2 diabetes mellitus without complications; D64.9 Anemia, unspecified; E11.42 Type 2 diabetes mellitus with diabetic polyneuropathy
CPT/HCPCS: 36415; 80076; 82947; 84443

== ENCOUNTER → 2020-08-31 04:00 | Outpatient (REF) | payer MEDICARE, MEDICAID, SELFPAY ==
[2020-08-31 08:16] LABS: Absolute Lymphocyte Count 1.61 X10^3/uL (0.83-4.51); Absolute Neutrophil Count 5.2 X10^3/uL (2.0-7.7); Basophil# 0.03 X10^3/uL; Basophil% 0.4 % (0-1); Eosinophil# 0.24 X10^3/uL; Eosinophils% 3.2 % (0-5); Hemoglobin 10.8 g/dL (13.0-16.5); Lymphocyte # 1.61 X10^3/ul (0.83-4.51); Lymphocyte % 21.3 % (19-41); Mean Corp Hgb Conc 32.7 g/dL (32-36); Mean Corpuscular Hgb 29.1 pg (27.0-32.0); Mean Corpuscular Volume 88.9 fL (80-94); Mean Platelet Vol. 9.5 fl (6.2-12.0); Monocyte# 0.49 X10^3/uL; Monocyte% 6.5 % (0-10); NRBC Flagged by Analyzer 0 % (0-5); Neutrophil # 5.17 X10^3/uL (2.7-7.7); Neutrophil % 68.2 % (47-70); Platelet Count 242 K/mm3 (150-450); RBC Distribution Width CV 12.7 % (11.6-14.6); RBC Distribution Width SD 41.5 fl (35.1-43.9); Red Blood Count 3.71 M/mm3 (4.6-6.2); White Blood Count 7.6 K/mm3 (4.4-11.0)
[2020-08-31 08:33] LABS: Hemoglobin A1c 4.9 % (3.8-5.6)
[2020-08-31 08:40] LABS: AST(SGOT) 18 U/L (15-37); Alanine Aminotransfer ALT/SGPT 25 U/L (16-61); Albumin, Serum 3.4 g/dL (3.2-5.0); Alkaline Phosphatase 101 U/L (45-117); Anion Gap 5 (5-15); BUN 9 mg/dL (7-18); BUN/Creat Ratio 12.6 RATIO (10-20); Bilirubin, Direct 0.13 mg/dL (0.00-0.30); Calcium,Total 8.5 mg/dL (8.5-10.1); Chloride 97 mmol/L (98-107); Creatinine, Serum 0.72 mg/dL (0.70-1.30); EST Glomerular Filtration Rate 117 mL/min (>60); Est Glom Filt Rate - Afr Amer 142 mL/min (>60); Globulin 3.3 g/dL (2.2-4.2); Glucose 82 mg/dL (74-106); Potassium 3.9 mmol/L (3.5-5.1); Protein, Total 6.7 g/dL (6.4-8.2); Sodium Level 134 mmol/L (136-145)
== END ==
LOC: OLS.ACH 04:00
PROVIDERS: PCP Family Medicine; Referring Provider Family Medicine; Visit Provider Family Medicine
DX: F25.9 Schizoaffective disorder, unspecified (principal); E11.9 Type 2 diabetes mellitus without complications; D64.9 Anemia, unspecified; E11.42 Type 2 diabetes mellitus with diabetic polyneuropathy
CPT/HCPCS: 36415; 80048; 80076; 83036; 84443; 85025

== ENCOUNTER → 2020-10-15 05:00 | Outpatient (REF) | payer MEDICARE, MEDICAID, SELFPAY ==
[2020-10-15 08:56] LABS: Hemoglobin A1c 5.4 % (3.8-5.6)
[2020-10-15 08:57] LABS: AST(SGOT) 13 U/L (15-37); Alanine Aminotransfer ALT/SGPT 26 U/L (16-61); Albumin, Serum 3.5 g/dL (3.2-5.0); Alkaline Phosphatase 116 U/L (45-117); Anion Gap 5 (5-15); BUN 8 mg/dL (7-18); BUN/Creat Ratio 11.1 RATIO (10-20); Chloride 99 mmol/L (98-107); Cholesterol 143 mg/dL (200); Creatinine, Serum 0.72 mg/dL (0.70-1.30); EST Glomerular Filtration Rate 116 mL/min (>60); Est Glom Filt Rate - Afr Amer 140 mL/min (>60); Globulin 3.6 g/dL (2.2-4.2); Glucose 99 mg/dL (74-106); High Density Lipoprotein 62 mg/dL; PSA,Total - Annual Screen 5.53 ng/mL (0.00-4.00); Potassium 4.5 mmol/L (3.5-5.1); Protein, Total 7.1 g/dL (6.4-8.2); Sodium Level 134 mmol/L (136-145); Triglycerides 94 mg/dL; Very Low Density Lipoprotein 19 mg/dL (5-40)
[2020-10-15 09:58] LABS: Creatinine, Urine (random) < 13.00 mg/dL (NO RANGE EST.); Microalbumin,Random Urine < 5.0 mg/L (NO RANGE EST.)
== END ==
LOC: OLS.ACH 05:00
PROVIDERS: PCP Family Medicine; Visit Provider Family Medicine
DX: E11.9 Type 2 diabetes mellitus without complications (principal); R97.20 Elevated prostate specific antigen [PSA]; E78.00 Pure hypercholesterolemia, unspecified; Z12.5 Encounter for screening for malignant neoplasm of prostate
CPT/HCPCS: 36415; 80053; 80061; 82043; 82570; 83036; 84153; G0103

== ENCOUNTER → 2020-11-22 05:00 | Outpatient (REF) | payer MEDICARE, MEDICAID, SELFPAY ==
[2020-11-22 08:57] LABS: AST(SGOT) 23 U/L (15-37); Alanine Aminotransfer ALT/SGPT 26 U/L (16-61); Albumin, Serum 3.3 g/dL (3.2-5.0); Alkaline Phosphatase 108 U/L (45-117); Bilirubin, Direct 0.08 mg/dL (0.00-0.30); Globulin 3.6 g/dL (2.2-4.2); Glucose 85 mg/dL (74-106); Protein, Total 6.9 g/dL (6.4-8.2); Thyroid Stim Hormone (TSH) 1.39 uIU/mL (0.358-3.74)
== END ==
LOC: OLS.ACH 05:00
PROVIDERS: PCP Family Medicine; Visit Provider Family Medicine
DX: F25.9 Schizoaffective disorder, unspecified (principal); E11.9 Type 2 diabetes mellitus without complications
CPT/HCPCS: 36415; 80076; 82947; 84443

== ENCOUNTER → 2020-12-27 05:00 | Outpatient (REF) | payer MEDICARE, MEDICAID, SELFPAY ==
[2020-12-27 09:24] LABS: AST(SGOT) 18 U/L (15-37); Alanine Aminotransfer ALT/SGPT 22 U/L (16-61); Albumin, Serum 3.1 g/dL (3.2-5.0); Alkaline Phosphatase 106 U/L (45-117); Cholesterol 124 mg/dL (200); Globulin 3.8 g/dL (2.2-4.2); High Density Lipoprotein 54 mg/dL; Protein, Total 6.9 g/dL (6.4-8.2); Triglycerides 77 mg/dL; Very Low Density Lipoprotein 15 mg/dL (5-40)
== END ==
LOC: OLS.ACH 05:00
PROVIDERS: PCP Family Medicine; Visit Provider Family Medicine
DX: F25.9 Schizoaffective disorder, unspecified (principal); E78.5 Hyperlipidemia, unspecified
CPT/HCPCS: 36415; 80061; 80076

== ENCOUNTER → 2021-02-14 04:00 | Outpatient (REF) | payer MEDICARE, MEDICAID, SELFPAY ==
[2021-02-14 06:21] LABS: Absolute Neutrophil Count 4.3 X10^3/uL (2.0-7.7); Basophil# 0.07 X10^3/uL; Basophil% 0.9 % (0-1); Eosinophil# 0.41 X10^3/uL; Eosinophils% 5.4 % (0-5); Hematocrit 32.5 % (40-54); Hemoglobin 10.8 g/dL (13.0-16.5); Mean Corp Hgb Conc 33.2 g/dL (32-36); Mean Corpuscular Hgb 28.7 pg (27.0-32.0); Mean Corpuscular Volume 86.4 fL (80-94); Mean Platelet Vol. 9.7 fl (6.2-12.0); Monocyte# 0.57 X10^3/uL; Monocyte% 7.5 % (0-10); NRBC Flagged by Analyzer 0 % (0-5); Neutrophil % 56.7 % (47-70); Platelet Count 217 K/mm3 (150-450); RBC Distribution Width CV 13.2 % (11.6-14.6); RBC Distribution Width SD 41.2 fl (35.1-43.9); Red Blood Count 3.76 M/mm3 (4.6-6.2); White Blood Count 7.6 K/mm3 (4.4-11.0)
[2021-02-14 07:32] LABS: AST(SGOT) 17 U/L (15-37); Alanine Aminotransfer ALT/SGPT 26 U/L (16-61); Albumin, Serum 3.2 g/dL (3.2-5.0); Alkaline Phosphatase 102 U/L (45-117); Anion Gap 6 (5-15); BUN 14 mg/dL (7-18); BUN/Creat Ratio 18.3 RATIO (10-20); Bilirubin, Direct < 0.05 mg/dL (0.00-0.30); Chloride 98 mmol/L (98-107); Creatinine, Serum 0.77 mg/dL (0.70-1.30); EST Glomerular Filtration Rate 108 mL/min (>60); Est Glom Filt Rate - Afr Amer 130 mL/min (>60); Globulin 3.8 g/dL (2.2-4.2); Glucose 84 mg/dL (74-106); Potassium 4.1 mmol/L (3.5-5.1); Sodium Level 135 mmol/L (136-145); Thyroid Stim Hormone (TSH) 1.12 uIU/mL (0.358-3.74)
[2021-02-14 09:04] LABS: Hemoglobin A1c 5.4 % (3.8-5.6)
== END ==
LOC: OLS.ACH 04:00
PROVIDERS: PCP Family Medicine; Referring Provider Family Medicine; Visit Provider Family Medicine
DX: F25.9 Schizoaffective disorder, unspecified (principal); E11.9 Type 2 diabetes mellitus without complications; D64.9 Anemia, unspecified
CPT/HCPCS: 36415; 80048; 80076; 83036; 84443; 85025

== ENCOUNTER 2021-03-14 05:00 | Outpatient (REF) | payer MEDICARE, MEDICAID, SELFPAY ==
[2021-03-14 11:06] LABS: T4 Free Direct 0.75 ng/dL (0.76-1.46)
== END 2021-03-14 23:59 | disposition home or self-care (01) ==
LOC: OLS.ACH 05:00
PROVIDERS: PCP Family Medicine; Visit Provider Family Medicine
DX: F25.9 Schizoaffective disorder, unspecified (principal); Z79.899 Other long term (current) drug therapy
CPT/HCPCS: 36415; 84439

== ENCOUNTER → 2021-05-09 | Outpatient (REF) | payer MEDICARE, MEDICAID, SELFPAY ==
[2021-05-09 09:07] LABS: AST(SGOT) 15 U/L (15-37); Alanine Aminotransfer ALT/SGPT 23 U/L (16-61); Albumin, Serum 3.4 g/dL (3.2-5.0); Alkaline Phosphatase 110 U/L (45-117); Bilirubin, Direct 0.07 mg/dL (0.00-0.30); Globulin 3.5 g/dL (2.2-4.2); Glucose 104 mg/dL (74-106); Protein, Total 6.9 g/dL (6.4-8.2)
== END | disposition home or self-care (01) ==
LOC: OLS.ACH 05:00
PROVIDERS: PCP Family Medicine; Visit Provider Family Medicine
DX: F25.9 Schizoaffective disorder, unspecified (principal); E11.9 Type 2 diabetes mellitus without complications
CPT/HCPCS: 36415; 80076; 82947; 84443

== ENCOUNTER → 2021-08-01 | Outpatient (REF) | payer MEDICARE, MEDICAID, SELFPAY ==
[2021-08-01 10:00] LABS: Absolute Lymphocyte Count 1.72 X10^3/uL (0.83-4.51); Absolute Neutrophil Count 5.8 X10^3/uL (2.0-7.7); Basophil# 0.05 X10^3/uL; Basophil% 0.6 % (0-1); Eosinophil# 0.26 X10^3/uL; Eosinophils% 3.1 % (0-5); Hematocrit 34.5 % (40-54); Hemoglobin 11.1 g/dL (13.0-16.5); Lymphocyte # 1.72 X10^3/ul (0.83-4.51); Lymphocyte % 20.5 % (19-41); Mean Corp Hgb Conc 32.2 g/dL (32-36); Mean Corpuscular Hgb 28.8 pg (27.0-32.0); Mean Corpuscular Volume 89.6 fL (80-94); Mean Platelet Vol. 9.6 fl (6.2-12.0); Monocyte# 0.54 X10^3/uL; Monocyte% 6.4 % (0-10); NRBC Flagged by Analyzer 0 % (0-5); Neutrophil # 5.79 X10^3/uL (2.7-7.7); Neutrophil % 68.9 % (47-70); Platelet Count 219 K/mm3 (150-450); RBC Distribution Width CV 13.5 % (11.6-14.6); RBC Distribution Width SD 43.8 fl (35.1-43.9); Red Blood Count 3.85 M/mm3 (4.6-6.2); White Blood Count 8.4 K/mm3 (4.4-11.0)
[2021-08-01 10:12] LABS: Hemoglobin A1c 5.7 % (3.8-5.6)
[2021-08-01 10:13] LABS: AST(SGOT) 17 U/L (15-37); Alanine Aminotransfer ALT/SGPT 26 U/L (16-61); Albumin, Serum 3.4 g/dL (3.2-5.0); Alkaline Phosphatase 102 U/L (45-117); Anion Gap 6 (5-15); BUN 13 mg/dL (7-18); BUN/Creat Ratio 16.4 RATIO (10-20); Bilirubin, Direct 0.08 mg/dL (0.00-0.30); Chloride 98 mmol/L (98-107); EST Glomerular Filtration Rate 103 mL/min (>60); Est Glom Filt Rate - Afr Amer 125 mL/min (>60); Globulin 3.4 g/dL (2.2-4.2); Glucose 95 mg/dL (74-106); Potassium 4.3 mmol/L (3.5-5.1); Protein, Total 6.8 g/dL (6.4-8.2); Sodium Level 133 mmol/L (136-145); Thyroid Stim Hormone (TSH) 1.05 uIU/mL (0.358-3.74)
== END | disposition home or self-care (01) ==
LOC: OLS.ACH 05:00
PROVIDERS: PCP Family Medicine; Visit Provider Family Medicine
DX: F25.9 Schizoaffective disorder, unspecified (principal); E11.42 Type 2 diabetes mellitus with diabetic polyneuropathy; D64.9 Anemia, unspecified
CPT/HCPCS: 36415; 80048; 80076; 83036; 84443; 85025

== ENCOUNTER → 2021-10-24 | Outpatient (REF) | payer MEDICARE, MEDICAID, SELFPAY ==
[2021-10-24 08:35] LABS: AST(SGOT) 20 U/L (15-37); Alanine Aminotransfer ALT/SGPT 31 U/L (16-61); Albumin, Serum 3.3 g/dL (3.2-5.0); Alkaline Phosphatase 102 U/L (45-117); Bilirubin, Direct 0.06 mg/dL (0.00-0.30); Globulin 3.6 g/dL (2.2-4.2); Glucose 94 mg/dL (74-106); Protein, Total 6.9 g/dL (6.4-8.2); Thyroid Stim Hormone (TSH) 0.75 uIU/mL (0.358-3.74)
== END ==
LOC: OLS.ACH 05:00
PROVIDERS: PCP Family Medicine; Visit Provider Family Medicine
DX: E11.9 Type 2 diabetes mellitus without complications (principal); F25.9 Schizoaffective disorder, unspecified
CPT/HCPCS: 36415; 80076; 82947; 84443

== ENCOUNTER → 2021-12-26 | Outpatient (REF) | payer MEDICARE, MEDICAID, SELFPAY ==
[2021-12-26 08:33] LABS: AST(SGOT) 24 U/L (15-37); Alanine Aminotransfer ALT/SGPT 26 U/L (16-61); Albumin, Serum 3.7 g/dL (3.2-5.0); Alkaline Phosphatase 110 U/L (45-117); Bilirubin, Direct 0.07 mg/dL (0.00-0.30); Cholesterol 165 mg/dL (200); Globulin 4.2 g/dL (2.2-4.2); High Density Lipoprotein 62 mg/dL; Protein, Total 7.9 g/dL (6.4-8.2); Triglycerides 105 mg/dL; Very Low Density Lipoprotein 21 mg/dL (5-40)
== END ==
LOC: OLS.ACH2 05:00
PROVIDERS: PCP Family Medicine; Visit Provider Family Medicine
DX: F25.9 Schizoaffective disorder, unspecified (principal)
CPT/HCPCS: 36415; 80061; 80076

== ENCOUNTER → 2022-01-16 | Outpatient (REF) | payer MEDICARE, MEDICAID, SELFPAY ==
[2022-01-16 08:56] LABS: Absolute Lymphocyte Count 1.61 X10^3/uL (0.83-4.51); Absolute Neutrophil Count 6.8 X10^3/uL (2.0-7.7); Basophil# 0.07 X10^3/uL; Basophil% 0.7 % (0-1); Eosinophil# 0.33 X10^3/uL; Eosinophils% 3.4 % (0-5); Hemoglobin 11.1 g/dL (13.0-16.5); Lymphocyte # 1.61 X10^3/ul (0.83-4.51); Lymphocyte % 16.6 % (19-41); Mean Corp Hgb Conc 32.6 g/dL (32-36); Mean Corpuscular Hgb 29.3 pg (27.0-32.0); Mean Corpuscular Volume 89.7 fL (80-94); Mean Platelet Vol. 9.8 fl (6.2-12.0); Monocyte% 7.2 % (0-10); NRBC Flagged by Analyzer 0 % (0-5); Neutrophil # 6.84 X10^3/uL (2.7-7.7); Neutrophil % 70.9 % (47-70); Platelet Count 252 K/mm3 (150-450); RBC Distribution Width CV 13.6 % (11.6-14.6); RBC Distribution Width SD 44.5 fl (35.1-43.9); Red Blood Count 3.79 M/mm3 (4.6-6.2); White Blood Count 9.7 K/mm3 (4.4-11.0)
[2022-01-16 09:25] LABS: AST(SGOT) 17 U/L (15-37); Alanine Aminotransfer ALT/SGPT 26 U/L (16-61); Albumin, Serum 3.4 g/dL (3.2-5.0); Alkaline Phosphatase 122 U/L (45-117); Anion Gap 7 (5-15); BUN 11 mg/dL (7-18); BUN/Creat Ratio 13.4 RATIO (10-20); Bilirubin, Direct 0.07 mg/dL (0.00-0.30); Calcium,Total 8.6 mg/dL (8.5-10.1); Chloride 98 mmol/L (98-107); Creatinine, Serum 0.82 mg/dL (0.70-1.30); EST Glomerular Filtration Rate 99 mL/min (>60); Est Glom Filt Rate - Afr Amer 120 mL/min (>60); Globulin 3.7 g/dL (2.2-4.2); Glucose 135 mg/dL (74-106); Potassium 4.8 mmol/L (3.5-5.1); Protein, Total 7.1 g/dL (6.4-8.2); Sodium Level 134 mmol/L (136-145); Thyroid Stim Hormone (TSH) 1.59 uIU/mL (0.358-3.74)
[2022-01-16 09:50] LABS: Hemoglobin A1c 6.1 % (3.8-5.6)
== END ==
LOC: OLS.ACH2 05:00
PROVIDERS: PCP Family Medicine; Visit Provider Family Medicine
DX: D64.9 Anemia, unspecified (principal); F25.9 Schizoaffective disorder, unspecified; E11.42 Type 2 diabetes mellitus with diabetic polyneuropathy; E78.00 Pure hypercholesterolemia, unspecified
CPT/HCPCS: 36415; 80048; 80076; 83036; 84443; 85025

== ENCOUNTER → 2022-03-13 | Outpatient (REF) | payer MEDICARE, MEDICAID, SELFPAY | LOC: OLS.ACH2 04:00 | PROVIDERS: PCP Family Medicine; Referring Provider Family Medicine; Visit Provider Family Medicine | DX: F25.9 Schizoaffective disorder, unspecified (principal); Z79.899 Other long term (current) drug therapy | CPT/HCPCS: 36415; 84439 ==

== ENCOUNTER → 2022-04-12 | Outpatient (REF) | payer MEDICARE, MEDICAID, SELFPAY ==
[2022-05-23 14:54] LABS: Albumin, Serum 3.3 g/dL (3.2-5.0); Globulin 3.7 g/dL (2.2-4.2); Glucose 98 mg/dL (74-106)
[2022-05-23 14:55] LABS: AST(SGOT) 21 U/L (15-37); Alanine Aminotransfer ALT/SGPT 24 U/L (16-61); Alkaline Phosphatase 103 U/L (45-117); Bilirubin, Direct 0.05 mg/dL (0.00-0.30); Thyroid Stim Hormone (TSH) 0.89 uIU/mL (0.358-3.74)
== END ==
LOC: OLS.ACH2 05:00
PROVIDERS: PCP Family Medicine; Visit Provider Family Medicine
DX: F25.9 Schizoaffective disorder, unspecified (principal); E11.9 Type 2 diabetes mellitus without complications
CPT/HCPCS: 36415; 80076; 82947; 84443

== ENCOUNTER → 2022-07-03 | Outpatient (REF) | payer MEDICARE, MEDICAID, SELFPAY ==
[2022-07-03 09:57] LABS: Absolute Lymphocyte Count 1.66 X10^3/uL (0.83-4.51); Absolute Neutrophil Count 5.2 X10^3/uL (2.0-7.7); Basophil# 0.04 X10^3/uL; Basophil% 0.5 % (0-1); Eosinophil# 0.29 X10^3/uL; Eosinophils% 3.8 % (0-5); Hematocrit 35.7 % (40-54); Hemoglobin 11.3 g/dL (13.0-16.5); Lymphocyte # 1.66 X10^3/ul (0.83-4.51); Lymphocyte % 21.6 % (19-41); Mean Corp Hgb Conc 31.7 g/dL (32-36); Mean Corpuscular Hgb 27.8 pg (27.0-32.0); Mean Corpuscular Volume 87.7 fL (80-94); Mean Platelet Vol. 10.2 fl (6.2-12.0); Monocyte# 0.48 X10^3/uL; Monocyte% 6.3 % (0-10); NRBC Flagged by Analyzer 0 % (0-5); Neutrophil # 5.15 X10^3/uL (2.7-7.7); Neutrophil % 67.1 % (47-70); Platelet Count 241 K/mm3 (150-450); RBC Distribution Width CV 13.7 % (11.6-14.6); RBC Distribution Width SD 44.1 fl (35.1-43.9); Red Blood Count 4.07 M/mm3 (4.6-6.2); White Blood Count 7.7 K/mm3 (4.4-11.0)
[2022-07-03 10:16] LABS: Hemoglobin A1c 5.7 % (3.8-5.6)
[2022-07-03 10:23] LABS: AST(SGOT) 15 U/L (15-37); Alanine Aminotransfer ALT/SGPT 22 U/L (16-61); Albumin, Serum 3.3 g/dL (3.2-5.0); Alkaline Phosphatase 107 U/L (45-117); Anion Gap 6 (5-15); BUN 14 mg/dL (7-18); BUN/Creat Ratio 16.4 RATIO (10-20); Bilirubin, Direct < 0.05 mg/dL (0.00-0.30); Calcium,Total 9.1 mg/dL (8.5-10.1); Chloride 102 mmol/L (98-107); Creatinine, Serum 0.86 mg/dL (0.70-1.30); EST Glomerular Filtration Rate 95 mL/min (>60); Est Glom Filt Rate - Afr Amer 115 mL/min (>60); Globulin 3.6 g/dL (2.2-4.2); Glucose 103 mg/dL (74-106); Potassium 4.2 mmol/L (3.5-5.1); Protein, Total 6.9 g/dL (6.4-8.2); Sodium Level 138 mmol/L (136-145); Thyroid Stim Hormone (TSH) 1.02 uIU/mL (0.358-3.74)
== END ==
LOC: OLS.ACH2 04:00
PROVIDERS: PCP Family Medicine; Referring Provider Family Medicine; Visit Provider Family Medicine
DX: D64.9 Anemia, unspecified (principal); E11.42 Type 2 diabetes mellitus with diabetic polyneuropathy; Z79.899 Other long term (current) drug therapy
CPT/HCPCS: 36415; 80048; 80076; 83036; 84443; 85025

== ENCOUNTER → 2022-09-25 | Outpatient (REF) | payer MEDICARE, MEDICAID, SELFPAY ==
[2022-09-25 09:48] LABS: AST(SGOT) 19 U/L (15-37); Alanine Aminotransfer ALT/SGPT 22 U/L (16-61); Albumin, Serum 3.4 g/dL (3.2-5.0); Alkaline Phosphatase 109 U/L (45-117); Bilirubin, Direct 0.11 mg/dL (0.00-0.30); Globulin 3.6 g/dL (2.2-4.2); Glucose 99 mg/dL (74-106); Thyroid Stim Hormone (TSH) 1.11 uIU/mL (0.358-3.74)
== END ==
LOC: OLS.ACH2 04:00
PROVIDERS: PCP Family Medicine; Referring Provider Family Medicine; Visit Provider Family Medicine
DX: F25.9 Schizoaffective disorder, unspecified (principal); E11.9 Type 2 diabetes mellitus without complications; Z79.899 Other long term (current) drug therapy
CPT/HCPCS: 36415; 80076; 82947; 84443

== ENCOUNTER → 2022-12-18 | Outpatient (REF) | payer MEDICARE, MEDICAID, SELFPAY ==
[2022-12-18 09:04] LABS: Absolute Lymphocyte Count 2.06 X10^3/uL (0.83-4.51); Absolute Neutrophil Count 6.8 X10^3/uL (2.0-7.7); Basophil# 0.05 X10^3/uL; Basophil% 0.5 % (0-1); Eosinophil# 0.33 X10^3/uL; Eosinophils% 3.3 % (0-5); Hematocrit 38.1 % (40-54); Hemoglobin 12.4 g/dL (13.0-16.5); Lymphocyte # 2.06 X10^3/ul (0.83-4.51); Lymphocyte % 20.5 % (19-41); Mean Corp Hgb Conc 32.5 g/dL (32-36); Mean Corpuscular Hgb 28.8 pg (27.0-32.0); Mean Corpuscular Volume 88.6 fL (80-94); Mean Platelet Vol. 10.1 fl (6.2-12.0); Monocyte# 0.72 X10^3/uL; Monocyte% 7.2 % (0-10); NRBC Flagged by Analyzer 0 % (0-5); Neutrophil # 6.83 X10^3/uL (2.7-7.7); Neutrophil % 67.9 % (47-70); Platelet Count 255 K/mm3 (150-450); RBC Distribution Width CV 13.3 % (11.6-14.6); RBC Distribution Width SD 43.3 fl (35.1-43.9); White Blood Count 10.1 K/mm3 (4.4-11.0)
[2022-12-18 09:23] LABS: Hemoglobin A1c 5.8 % (3.8-5.6)
[2022-12-18 09:34] LABS: AST(SGOT) 20 U/L (15-37); Alanine Aminotransfer ALT/SGPT 26 U/L (16-61); Albumin, Serum 3.5 g/dL (3.2-5.0); Alkaline Phosphatase 114 U/L (45-117); Anion Gap 7 (5-15); BUN 13 mg/dL (7-18); BUN/Creat Ratio 13.9 RATIO (10-20); Calcium,Total 8.9 mg/dL (8.5-10.1); Chloride 100 mmol/L (98-107); Cholesterol 134 mg/dL (200); Creatinine, Serum 0.94 mg/dL (0.70-1.30); EST Glomerular Filtration Rate 85 mL/min (>60); Est Glom Filt Rate - Afr Amer 103 mL/min (>60); Globulin 4.1 g/dL (2.2-4.2); Glucose 116 mg/dL (74-106); High Density Lipoprotein 57 mg/dL; Potassium 4.6 mmol/L (3.5-5.1); Protein, Total 7.6 g/dL (6.4-8.2); Sodium Level 135 mmol/L (136-145); Triglycerides 85 mg/dL; Very Low Density Lipoprotein 17 mg/dL (5-40)
== END ==
LOC: OLS.ACH2 05:00
PROVIDERS: PCP Family Medicine; Visit Provider Family Medicine
DX: F25.9 Schizoaffective disorder, unspecified (principal); D64.9 Anemia, unspecified; E11.42 Type 2 diabetes mellitus with diabetic polyneuropathy
CPT/HCPCS: 36415; 80048; 80061; 80076; 83036; 84443; 85025

== ENCOUNTER → 2023-03-12 | Outpatient (REF) | payer MEDICARE, MEDICAID, SELFPAY ==
--- OUTSIDE RECORDS SUMMARY | 2023-03-12 04:18 | XMS RPT_ITS | CCD ---
Author Name Unknown Address [address] [place] [address] Organization [facility] Care Team Providers Care Bridge/Structure Inspection Team Leader Name Role Phone Unavailable Primary Care Provider Kaley Franco MD Primary Care Provider Grace BRENNAN, Kaley Deluna Primary Care Provider Kaley Mendenhall MD Primary Care Provider Kaley Mendenhall Primary Care Provider KENNEY LAWRENCE Attending Unavailable KALEY MENDENHALL Primary Care UnavailKaley Kwon MD Primary Care Provider KALEY MENDENHALL Attending Unavailable KALEY MENDENHALL Attending Unavailable KALEY MENDNEHALL Primary Care Unavailable KALEY MENDENHALL Attending Unavailable KALEY MENDENHALL Primary Care Unavailable Allergies Allergy Classification Reported Allergen(s) Allergy Type Date of Onset Reaction(s) Facility (4 sources) bee venom Propensity to adverse reactions to drug 5 Anaphylaxis [facility] (3 sources) Honey bee venom Propensity to adverse reactions 5 Anaphylaxis [facility] (1 source) VENOM-HONEY BEE; Translations: [VENOM-HONEY BEE] Propensity to adverse reactions to drug (disorder) 5 [facility] Repository Medications Current Medications Medication Drug Class(es) Dates Sig (Normalized) Sig (Original) acetaminophen 325 mg oral tablet (7 sources) take 2 tablets by mouth every six hours as needed acetaminophen (Tylenol) 325 MG tablet Take 650 mg by mouth every 6 hours as needed. 0 Active Completed/Discontinued Medications Medication Drug Class(es) Dates Sig (Normalized) Sig (Original) atorvastatin 10 mg oral tablet (7 sources) HMG-CoA Reductase Inhibitor Start: 12-18-2020 atorvastatin (LIPITOR) 10 mg tablet bisacodyl 5 mg delayed release oral tablet (1 source) Stimulant Laxative Start: 01-07-2021 Bisacodyl (DULCOLAX) 5 mg tab Use as directed for Miralax / Gatorade Bowel Prep Kit 4 tablet 0 01/07/2021 Active Problems Active Problems Problem Classification Problem Date Documented Date Episodic/Chronic Anxiety disorders (5 sources) Anxiety; Translations: [Anxiety disorder, unspecified] Onset: 11-07-2022 08-10-2022 Chronic Chronic obstructive pulmonary disease and bronchiectasis (4 sources) Chronic obstructive lung disease; Translations: [Chronic obstructive pulmonary disease, unspecified] Onset: 11-07-2022 11-07-2022 Chronic Diabetes mellitus with complications (4 sources) Type 2 diabetes mellitus; Translations: [Type 2 diabetes mellitus with diabetic polyneuropathy] Onset: 08-28-2016 11-07-2022 Chronic Diabetes mellitus without complication (9 sources) Type 2 diabetes mellitus without complication; Translations: [Type 2 diabetes mellitus without complications] Onset: 09-02-2014 Resolved: 08-28-2016 08-28-2016 Chronic Disorders of lipid metabolism (9 sources) Hyperlipidemia; Translations: [Hyperlipidemia, unspecified] Onset: 09-02-2014 09-02-2014 Chronic Esophageal disorders (1 source) Geronimo's esophagus; 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] Chronic Essential hypertension (9 sources) Essential hypertension; Translations: [Essential (primary) hypertension] Onset: 10-14-2020 10-14-2020 Chronic Other nutritional; endocrine; and metabolic disorders (7 sources) Morbid obesity; Translations: [Morbid (severe) obesity due to excess calories] Onset: 09-17-2018 09-17-2018 Chronic Other nutritional; endocrine; and metabolic disorders (2 sources) Morbid (severe) obesity due to excess calories; Translations: [Morbid (severe) obesity due to excess calories (HCC)] Onset: 12-09-2021 Chronic Other screening for suspected conditions (not mental disorders or infectious disease) (8 sources) Raised prostate specific antigen; Translations: [Elevated prostate specific antigen [PSA]] Onset: 11-07-2022 Episodic Schizophrenia and other psychotic disorders (9 sources) Schizoaffective disorder; Translations: [Schizoaffective disorder, unspecified] Onset: 09-02-2014 09-02-2014 Chronic Past or Other Problems Problem Classification Problem Date Documented Da te Episodic/Chronic Mood disorders (1 source) Mood disorders Onset: 11-06-2022 11-06-2022 Other lower respiratory disease (4 sources) Dyspnea on exertion; Translations: [Other forms of dyspnea] Onset: 02-09-2022 02-09-2022 Episodic Other lower respiratory disease (2 sources) Other forms of dyspnea; Translations: [Other forms of dyspnea] Onset: 02-09-2022 Episodic Other non-traumatic joint disorders (4 sources) Pain in right hip joint; Translations: [Pain in right hip] Onset: 02-09-2022 02-09-2022 Episodic Other non-traumatic joint disorders (2 sources) Pain in right hip; Translations: [Pain in right hip] Onset: 02-09-2022 Episodic Results Test Name Value Interpretation Reference Range Facil ity Vital Signs Date Time Vital Sign Value Performing Clinician Faci lity 11-07-2022 09:16-0400 Body height 164.5 cm Kaley Mendenhall MD Work Phone: [facility] 11-07-2022 09:16-0400 Body mass index (BMI) [Ratio] 39.27 kg/m2 Kaley Mendenhall MD Work Phone: [facility] 11-07-2022 09:16-0400 Body weight 106.23 kg Kaley Mendenhall MD Work Phone: [facility] 11-07-2022 09:16-0400 Diastolic blood pressure 80 mm[Hg] Kaley Mendenhall MD Work Phone: [facility] 11-07-2022 09:16-0400 Heart rate 61 /min Kaley Mendenhall MD Work Phone: [facility] 11-07-2022 09:16-0400 SaO2% (BldA) [Mass fraction] 90 % Kaley Mendenhall MD Work Phone: [facility] 11-07-2022 09:16-0400 Systolic blood pressure 129 mm[Hg] Kaley Mendenhall MD Work Phone: [email or web address] 06-29-2022 13:57-0400 Body height 172.7 cm Kenney Lawrence MD Work Phone: [facility] 06-29-2022 13:57-0400 Body weight 106.14 kg Kenney Lawrence MD Work Phone: [facility] 06-29-2022 13:57-0400 Diastolic blood pressure 78 mm[Hg] Kenney Lawrence MD Work Phone: [facility] 06-29-2022 13:57-0400 Heart rate 68 /min Kenney Lawrence MD Work Phone: [facility] 06-29-2022 13:57-0400 Systolic blood pressure 132 mm[Hg] Kenney Lawrence MD Work Phone: [facility] Encounters Encounter Date Encounter Type Care Provider Facility Start: 11-07-2022 End: 11-07-2022 ambulatory [facility] Start: 11-07-2022 End: 11-07-2022 Encounter for general adult medical examination without abnormal findings [facility] Start: 11-07-2022 End: 11-07-2022 Patient encounter procedure Kaley Mendenhall MD Work Phone: [facility] Procedures Date Procedure Procedure Detail Performing Clinician Start: 11-06-2022 Adult depression scr eening assessment Kaley Mendenhall MD Work Phone: Start: 05-18-2022 Adult depression scr eening assessment Kaley Mendenhall MD Work Phone: Start: 11-22-2021 Us abdominal aorta r eal time screen study aaa Kaley Mendenhall MD Work Phone: Start: 11-01-2021 Lipid 1996 panel - S miguel ángel or Plasma Kaley Mendenhall MD Work Phone: Start: 04-05-2021 Colonoscopy Kaley gold MD Work Phone: Start: 01-06-2021 Assay of prostate sp ecific antigen total Thapaaba Shreyas Troy [employer] 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 Start: 04-05-[address] [facility] Start: 04-05-2026 COLORECTAL CANCER SCREENING COLORECTAL CANCER SCREENING [facility] Start: 01-06-2026 PROSTATE CANCER SCREENING DISCUSSION PROSTATE CANCER SCREENING DISCUSSION [facility] Start: 10-12-2025 Screening for malignant neoplasm of colon Colon cancer screen colonoscopy [facility] Start: 05-18-2025 DIABETES SCREEN DIABETES SCREEN [facility] Start: 11-12-2023 End: 11-12-2023 Patient encounter procedure 11/12/2023 9:30 AM EDT Office Visit [address] [phone] Kaley Mendenhall MD [address] [place] [address] [phone] [facility] Start: 11-07-2023 Depression Screening Depression Screening [facility] Start: 05-19-2023 Depression Screening Depression Screening [facility] Start: 05-19-2023 Hemoglobin A1c measurement Diabetes: Hemoglobin A1C [facility] Start: 02-09-2023 Diabetic foot examination Diabetes: Foot Exam [facility] Start: 11-07-2022 End: 11-07-2023 Comprehensive metabolic 1998 panel - Serum or Plasma Comprehensive metabolic panel Lab Routine Type 2 diabetes mellitus with diabetic polyneuropathy, without long-term current use of insulin (CMS/HCC) (HCC) Expected: 11/07/2022 (Approximate), Expires: 11/07/2023 [facility] Immunizations Immunization Date Immunization Notes Care Provider Fa cility 12-21-2021 Covid-19, Pfizer Biv alent Booster, (Age 12y+), Im, 30 Mcg/0e Kaley Mendenhall MD Work Phone: [facility] 11-01-2021 Pneumococcal conjuga te PCV20, PF (Prevnar 20) Kaley Mendenhall MD Work Phone: [facility] Work Phone: 08-03-2021 COVID-19, PFIZER PUR PLE top, DILUTE for use, (age 12 y+), 30mcg/0.3mL Kaley Mendenhall MD Work Phone: [facility] 12-24-2020 Pfizer SARS-CoV-2 Vaccination Kaley Mendenhall MD Work Phone: [facility] 11-30-2020 influenza, high dose seasonal, preservative-free Kaley Mendenhall MD Work Phone: [facility] 11-30-2020 influenza virus vacc ine, unspecified formulation Kaley Mendenhall MD Work Phone: [facility] 03-25-2020 Pfizer SARS-CoV-2 Vaccination Kaley Mendenhall MD Work Phone: [facility] 03-04-2020 Pfizer SARS-CoV-2 Vaccination Kaley Mendenhall MD Work Phone: [facility] 01-10-2020 pneumococcal conjuga te vaccine, 13 valent Kaley Mendenhall MD Work Phone: [facility] Work Phone: 11-18-2019 Influenza, injectabl e, Madin Shena Canine Kidney, preservative free, quadrivalent Kaley Mendenhall MD Work Phone: [facility] 11-11-2018 Influenza, injectabl e, Madin Shena Canine Kidney, preservative free, quadrivalent Kaley Mendenhall MD Work Phone: [facility] 10-27-2018 influenza virus vacc ine, unspecified formulation Zachsybakari Troy 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 2018 Medicaid [id number] 1986 Medicare [id number] 1986 Medicare [id number] Social History Date Type Detail Facility Tobacco smoking stat [facility] Unknown if ever smoked [facility] Start: 1955 Sex Assigned At Not on file [facility] Start: 08-13-2014 End: 05-18-2022 Tobacco smoking status [facility] Ex-smoker [employer] Work Phone: End: 11-29-2005 History of tobacco use Current smoker [employer] Work Phone: Start: 08-13-2014 End: 11-06-2022 Cigarettes smoked current (pack per day) - Reported 1 [employer] Phone: Start: 08-13-2014 End: 05-18-2022 Tobacco use and exposure Smokeless tobacco non-user [facility] Work Phone: Start: 01-06-2021 End: 11-07-2022 Alcohol intake Current non-drinker of alcohol (finding) [facility] Work Phone: Start: 10-14-2020 End: 01-07-2021 History SDOH Alcohol Frequency 1 [employer] Work Phone: Start: 10-12-2015 History SDOH Alcohol Comment SOBER 20 YEARS [facility] Work Phone: Start: 09-17-2018 End: 10-14-2020 History SDOH Physical Activity DPW 4 [employer] Work Phone: Start: 09-17-2018 History SDOH Physica l Activity MPS 3 [facility] Work Phone: Start: 10-14-2020 End: 10-26-2021 History SDOH Transport Med 2 [facility] Work Phone: End: 11-29-2005 History of tobacco use Cigarette Smoker [facility] Work Phone: Start: 10-26-2021 History SDOH Alcohol Std Drinks 0 [facility] Work Phone: Start: 10-26-2021 History SDOH Financial 5 [facility] Work Phone: Start: 10-28-2021 End: 11-07-2022 Exposure to SARS-CoV-2 (event) Not sure [facility] Start: 06-29-2022 Alcohol intake Lifetime non-d isha (finding) [facility] Start: 05-18-2022 End: 11-06-2022 Tobacco use panel [facility] How often to you hav e a drink containing alcohol? Never [facility] How many standard drinks containing alcohol do you have on a typical day? Patient does not drink [facility] (I/We) worried wheth er (my/our) food would run out before (I/we) got money to buy more. Never true [facility] In the past 12 month s, was there a time when you were not able to pay the mortgage or rent on time? No [facility] Goals Date Patient Goal Desired Activity /State Clinical Notes 05-26-2022 to 11-07-2022 Assessment & Plan Note - Kaley Mendenhall MD - 11/07/2022 9:58 AM EDTAssessment & Plan Note - Kaley Mendenhall MD - 11/07/2022 9:58 AM Nando Ugalde MA - 11/07/2022 9:30 AM EDT Note Date & Type Note Facility 11-07-2022 Evaluation + Plan note Associated Problem(s): Schizoaffective disorder with good prognostic features (CMS/HCC) (HCC) Stable, continue current medications and follow-up with psych as scheduled. [facility] 11-07-2022 Evaluation + Plan note Associated Problem(s): Hyperlipidemia Controlled, continue atorvastatin 10 mg daily [facility] 11-07-2022 Miscellaneous Notes Associated Problem(s): Schizoaffective disorder with good prognostic features (CMS/HCC) (HCC) Stable, continue current medications and follow-up with psych as scheduled. Associated Problem(s): Hyperlipidemia Controlled, continue atorvastatin 10 mg daily Associated Problem(s): Anxiety Stable, continue clonazepam 0.5 mg twice a day and Lexapro 20 mg 2 daily Associated Problem(s): Morbidly obese (HCC) Weight loss has occurred encouraged continued weight loss Associated Problem(s): Essential hypertension Controlled, continue lisinopril 10 mg daily Associated Problem(s): Chronic obstructive pulmonary disease, unspecified COPD type (HCC) Stable, continue albuterol as needed Associated Problem(s): Type 2 diabetes mellitus with diabetic polyneuropathy, without long-term current use of insulin (CMS/HCC) (HCC) Stable, will get repeat lab work today he is to continue metformin 1000 mg twice a day documented in this encounter [facility] 11-07-2022 Evaluation + Plan note Associated Problem(s): Anxiety Stable, continue clonazepam 0.5 mg twice a day and Lexapro 20 mg 2 daily [facility] 11-07-2022 Evaluation + Plan note Associated Problem(s): Morbidly obese (HCC) Weight loss has occurred encouraged continued weight loss [facility] 11-07-2022 Evaluation + Plan note Associated Problem(s): Essential hypertension Controlled, continue lisinopril 10 mg daily [facility] 11-07-2022 Evaluation + Plan note Associated Problem(s): Chronic obstructive pulmonary disease, unspecified COPD type (HCC) Stable, continue albuterol as needed [facility] 11-07-2022 Evaluation + Plan note Associated Problem(s): Type 2 diabetes mellitus with diabetic polyneuropathy, without long-term current use of insulin ([facility]/HCC) (HCC) Stable, will get repeat lab work today he is to continue metformin 1000 mg twice a day [facility] 11-07-2022 History of Presen t illness Narrative Patient verified by last name and date of . Images from the original note were not included. [facility] [address] [facility] [address] [facility] [id number] Visit type: Established Patient Reason for Visit: Medicare Annual Wellness Visit Subsequent, Blood Work, and Health Maintenance (DM eye exam-had one in the past year at Dr. Troncoso in [place]-need to request report/FIT test-agrees/Tetanus-thinks he had one last year/Shingrix-thought he had this last year) Assessment and Plan Problem List Items Addressed This Visit Nervous Type 2 diabetes mellitus with diabetic polyneuropathy, without long-term current use of insulin (CMS/HCC) (HCC) Stable, will get repeat lab work today he is to continue metformin 1000 mg twice a day Relevant Orders Comprehensive metabolic panel Microalbumin / creatinine urine ratio Hemoglobin A1c Respiratory Chronic obstructive pulmonary disease, unspecified COPD type (HCC) Stable, continue albuterol as needed Circulatory Essential hypertension Controlled, continue lisinopril 10 mg daily Endocrine/Metabolic Morbidly obese ([facility]) Weight loss has occurred encouraged continued weight loss Other Anxiety Stable, continue clonazepam 0.5 mg twice a day and Lexapro 20 mg 2 daily Relevant Medications clonazePAM (KlonoPIN) 0.5 MG tablet Schizoaffective disorder with good prognostic features (CMS/HCC) (HCC) Stable, continue current medications and follow-up with psych as scheduled. Hyperlipidemia Controlled, continue atorvastatin 10 mg daily Relevant Orders Lipid panel Other Visit Diagnoses Medicare annual wellness visit, subsequent - Primary Screening for prostate cancer Relevant Orders PSA Total (Screening) Screening for colon cancer Relevant Orders Fecal Immunochemical Test Follow up in about 1 year (around 11/08/2023). Subjective HILLARY Sellers comes in today for his annual Medicare well visit, he is also here for follow-up on his anxiety, schizoaffective disorder COPD, diabetes hypertension and hypercholesterolemia. He says he has no complaints today, see ROS. I have reviewed and reconciled the medication list with the patient today. Current Outpatient Medications Medication Sig Dispense Refill acetaminophen (Tylenol) 325 MG tablet Take 650 mg by mouth every 6 hours as needed. albuterol 108 (90 Base) MCG/ACT inhaler Inhale 2 puffs every 6 hours as needed for wheezing. 1 each 0 ammonium lactate (Amlactin) 12 % cream Apply topically. Ascorbic Acid (vitamin C) 500 MG tablet Take 500 mg by mouth daily. aspirin 325 MG tablet Take 325 mg by mouth daily. atorvastatin (Lipitor) 10 MG tablet Take 10 mg by mouth daily. buPROPion SR (Wellbutrin SR) 150 MG 12 hr tablet Take 150 mg by mouth 2 times daily. Calcium Carbonate-Vitamin D (calcium-vitamin D) 500-200 MG-UNIT tablet Take 1 tablet by mouth daily. carbamide peroxide (Debrox) 6.5 % otic solution 5 drops 2 times daily. cholecalciferol (HM Vitamin D3) 25 MCG (1000 UT) tablet Take by mouth. clobetasol (Temovate) 0.05 % external solution clonazePAM (KlonoPIN) 0.5 MG tablet Take 0.5 tablets (0.25 mg) by mouth 2 times daily. 30 tablet 0 cyanocobalamin (Vitamin B-12) 1000 MCG tablet Take 1,000 mcg by mouth daily. dextran 70-hypromellose PF (Tears Naturale Free) 0.1-0.3 % ophthalmic solution 1 drop. dextromethorphan-guaiFENesin (Robitussin-DM) 10-100 MG/5ML liquid Take 5 mL by mouth. Diclofenac Sodium (Voltaren) 1 % gel Apply topically 2 times daily. docusate sodium (Colace) 100 MG capsule Take 100 mg by mouth if needed. EPINEPHrine (EPIPEN IJ) Inject as directed escitalopram (Lexapro) 20 MG tablet Take 40 mg by mouth daily. ferrous sulfate 325 (65 Fe) MG tablet Take 325 mg by mouth. fluticasone (Flonase) 50 MCG/ACT nasal spray Administer 1 spray into affected nostril(s) daily. gabapentin (Neurontin) 300 MG capsule Take 300 mg by mouth 3 times daily. glucagon 1 MG injection Infuse 1 kit into a venous catheter. haloperidol (Haldol) 20 MG tablet Take 10 mg by mouth 2 times daily. ibuprofen 200 MG tablet Take 400 mg by mouth every 6 hours as needed. ketoconazole (NIZOral) 2 % shampoo lisinopril 10 MG tablet Take 10 mg by mouth daily. loperamide (Imodium) 2 MG capsule Take 2 mg by mouth. Lumigan 0.01 % ophthalmic solution magnesium hydroxide (Milk of Magnesia) 400 MG/5ML suspension Take 30 mL by mouth. Melatonin 5 MG capsule Take by mouth. metFORMIN (Glucophage) 1000 MG tablet Take 1,000 mg by mouth in the morning and 1,000 mg in the evening. Take with meals. naphazoline-pheniramine (Naphcon-A) 0.025-0.3 % ophthalmic solution Administer 1 drop into affected eye(s). Nystatin powder Apply topically 2 times daily. OLANZapine (ZyPREXA) 10 MG tablet Take 10 mg by mouth Nightly. omeprazole (PriLOSEC) [address] capsule Take 20 mg by mouth daily. Probiotic Product (PROBIOTIC-10 PO) Take by mouth. propranolol (Inderal) 10 MG tablet Pseudoephedrine-guaiFENesin (GUAIFENESIN-P PO) Take by mouth. senna-docusate (Celena-Colace) 8.6-50 MG tablet Take by mouth. sodium phosphate (Fleets) 7-19 GM/118ML enema enema Insert into the rectum. tacrolimus (Protopic) 0.1 % ointment traZODone (Desyrel) 100 MG tablet Take 100 mg by mouth Nightly. Zinc Sulfate (ZINC-220 PO) Take by mouth. No current facility-administered medications for this visit. Medications Discontinued During This Encounter Medication Reason clonazePAM (KlonoPIN) 0.5 MG tablet Dose adjustment List of current healthcare providers: Patient Care Team: Kaley Mendenhall MD as PCP - General Over the past 2 weeks, how often have you been bothered by any of the following problems? Trouble falling or staying asleep, or sleeping too much: Not at all Feeling tired or having little energy: Not at all Poor appetite or overeating: Not at all Feeling bad about yourself - or that you are a failure or have let yourself or your family down: Not at all Trouble concentrating on things, such as reading the newspaper or watching television: Not at all Moving or speaking so slowly that other people could have noticed? Or the opposite - being so fidgety or restless that you have been moving around a lot more than usual.: Not at all Thoughts that you would be better off or hurting yourself in some way: Not at all Patient Health Questionnaire-9 Score: 0 The following health maintenance schedule was reviewed with the patient and provided in printed form in the after visit summary: Health Maintenance Topic Date Due Medicare Annual Wellness (AWV) Never done Diabetes: Dental Exam Never done DTaP/Tdap/Td Vaccines (1 - Tdap) Never done Zoster Vaccines (1 of 2) 10/13/2015 Colorectal Cancer Screening 10/14/2021 Diabetes: Retinopathy Screening 07/06/2022 Lipid Panel 11/01/2022 Influenza Vaccine (1) 10/27/2022 Diabetes: Foot Exam 02/09/2023 Diabetes: Hemoglobin A1C 05/19/2023 Depression Screening 11/07/2023 Pneumococcal Vaccine: 65+ Years Completed Hepatitis C Screening Completed COVID-19 Vaccine Completed HIB Vaccines Aged Out Hepatitis B Vaccines Aged Out IPV Vaccines Aged Out Hepatitis A Vaccines Aged Out Meningococcal Vaccine Aged Out Rotavirus Vaccines Aged Out HPV Vaccines Aged Out Orders Placed This Encounter Procedures Fecal Immunochemical Test Standing Status: Future Number of Occurrences: 1 Standing Expiration Date: 11/07/2023 Lipid panel Standing Status: Future Number of Occurrences: 1 Standing Expiration Date: 11/07/2023 Comprehensive metabolic panel Standing Status: Future Number of Occurrences: 1 Standing Expiration Date: 11/07/2023 Microalbumin / creatinine urine ratio Standing Status: Future Number of Occurrences: 1 Standing Expiration Date: 11/07/2023 Hemoglobin A1c Standing Status: Future Number of Occurrences: 1 Standing Expiration Date: 11/07/2023 PSA Total (Screening) Health Risk Assessment: General In general, how would you say your health is?: Good In the past 7 days, have you experienced any of the following: New or Increased Pain, New or Increased Fatigue, Loneliness, Social Isolation, Stress or Anger?: No Do you get the social and emotional suppport you need?: Yes Interventions: Health Habits / Nutrition On average, how many days per week do you engage in moderate to strenous exercise (like a brisk walk)?: (!) 0 days On average, how man minutes do you engage in exercise at this level?: (!) 0 min Have you lost any weight without trying in the past 3 months? : No Have you seen the dentist within the past year?: (!) No Interventions: Hearing / Vision Do you or your family notice any trouble with your hearing that hasn't been managed with hearing aids?: No Do you have difficulty driving, watching TV, or doing any of your daily activities because of your eyesight?: No Have you had an eye exam within the past year?: Yes No results found. Interventions: Safety Do you have a working smoke detector?: Yes Do you have any tripping hazards - loose or unsecured carpets or rugs?: No Do you have any tripping hazards - clutter in doorways, halls, or stairs?: No Do you have either shower bars, grab bars, non-slip mats or non-slip surfaces in your shower or bathtub? : Yes Do all your stairways have a railing or banister? : Yes Do you fasten your seatbelt when you are in a car?: Yes Interventions: ADL In the past 7 days, did you need help from others to perform any of the following everyday activities: Eating, dressing, grooming,bathing, toileting, or walking / balance? : No In the past 7 days, did you need help from others to take care of any of the following: laundry, housekeeping, banking / finances,shopping, telephone use, food preparation, transportation, or taking medications? : Yes Select all that apply: Transportation Interventions: Living Will Do you have a living will?: No Interventions: Advance Care Planning addressed with patient today Cognitive: Cognitive Screening: Mini-Cog Clock Drawing Test (CDT): 2 Words Recalled: 3 Total Score: 5 Total Score Interpretation: Normal Mini-Cog Interventions: Fall Risk: Interventions: No falls Depression Screening: Over the past 2 weeks, how often have you been bothered by any of the following problems? Little interest or pleasure in doing things: Not at all Feeling down, depressed, or hopeless: Not at all Patient Health Questionnaire-2 Score: 0 Over the past 2 weeks, how often have you been bothered by any of the following problems? Trouble falling or staying asleep, or sleeping too much: Not at all Feeling tired or having little energy: Not at all Poor appetite or overeating: Not at all Feeling bad about yourself - or that you are a failure or have let yourself or your family down: Not at all Trouble concentrating on things, such as reading the newspaper or watching television: Not at all Moving or speaking so slowly that other people could have noticed? Or the opposite - being so fidgety or restless that you have been moving around a lot more than usual.: Not at all Thoughts that you would be better off or hurting yourself in some way: Not at all Patient Health Questionnaire-9 Score: 0 If you checked off any problems on this questionnaire so far, How difficult have these problems made it for you to do your work, take care of things at home, or get along with other people?: Not difficult at all Interventions: Tobacco Use: Social History Tobacco Use Smoking Status Former Packs/day: 1.00 Types: Cigarettes Quit date: 11/29/2005 Years since quittin.9 Smokeless Tobacco Never Interventions: Alcohol Use: Audit Alcohol Screening Q1: How often do you have a drink containing alcohol?: Never Q2: How many drinks containing alcohol do you have on a typical day when you are drinking?: Patient does not drink Q3: How often do you have six or more drinks on one occasion?: Never Audit-C Score: 0 Skip to questions 9-10?: 1 Interventions: Drug Use: Interventions: Review of Systems Constitutional: Negative for activity change, appetite change, chills, fever and unexpected weight change. HENT: Negative for ear pain and sore throat. Respiratory: Negative for shortness of breath. Cardiovascular: Negative for chest pain and palpitations. Gastrointestinal: Negative for abdominal pain, blood in stool, constipation and diarrhea. Genitourinary: Negative for dysuria, frequency, hematuria and urgency. Musculoskeletal: Negative for arthralgias and back pain. Skin: Negative. Neurological: Negative for weakness and numbness. Psychiatric/Behavioral: Negative for dysphoric mood. The patient is not nervous/anxious. Immunization History Administered Date(s) Administered Covid-19, Pfizer Bivalent Booster, (Age 12y+), Im, 30 Mcg/0e 12/21/2021 Influenza, High Dose Seasonal, Preservative Free 11/30/2020 Influenza, Unspecified 10/27/2018 Influenza, injectable, MDCK, preservative free, quadrivalent 11/11/2018, 11/18/2019 Pfizer SARS-CoV-2 Vaccination 03/04/2020, 03/25/2020, 12/24/2020, 08/03/2021 Pneumococcal Conjugate PCV 13 01/10/2020 Pneumococcal Conjugate PCV20, Pf (Prevnar 20) 11/01/2021 Pneumococcal Polysaccharide PPSV23 08/29/2008, 08/18/2015 Zoster, live 08/18/2015 Allergies Allergen Reactions Bee Venom Anaphylaxis Outpatient Medications Prior to Visit Medication Sig Dispense Refill acetaminophen (Tylenol) 325 MG tablet Take 650 mg by mouth every 6 hours as needed. albuterol 108 (90 Base) MCG/ACT inhaler Inhale 2 puffs every 6 hours as needed for wheezing. 1 each 0 ammonium lactate (Amlactin) 12 % cream Apply topically. Ascorbic Acid (vitamin C) 500 MG tablet Take 500 mg by mouth daily. aspirin 325 MG tablet Take 325 mg by mouth daily. atorvastatin (Lipitor) 10 MG tablet Take 10 mg by mouth daily. buPROPion SR (Wellbutrin SR) 150 MG 12 hr tablet Take 150 mg by mouth 2 times daily. Calcium Carbonate-Vitamin D (calcium-vitamin D) 500-200 MG-UNIT tablet Take 1 tablet by mouth daily. carbamide peroxide (Debrox) 6.5 % otic solution 5 drops 2 times daily. cholecalciferol (HM Vitamin D3) 25 MCG (1000 UT) tablet Take by mouth. clobetasol (Temovate) 0.05 % external solution cyanocobalamin (Vitamin B-12) 1000 MCG tablet Take 1,000 mcg by mouth daily. dextran 70-hypromellose PF (Tears Naturale Free) 0.1-0.3 % ophthalmic solution 1 drop. dextromethorphan-guaiFENesin (Robitussin-DM) 10-100 MG/5ML liquid Take 5 mL by mouth. Diclofenac Sodium (Voltaren) 1 % gel Apply topically 2 times daily. docusate sodium (Colace) 100 MG capsule Take 100 mg by mouth if needed. EPINEPHrine (EPIPEN IJ) Inject as directed escitalopram (Lexapro) 20 MG tablet Take 40 mg by mouth daily. ferrous sulfate 325 (65 Fe) MG tablet Take 325 mg by mouth. fluticasone (Flonase) 50 MCG/ACT nasal spray Administer 1 spray into affected nostril(s) daily. gabapentin (Neurontin) 300 MG capsule Take 300 mg by mouth 3 times daily. glucagon 1 MG injection Infuse 1 kit into a venous catheter. haloperidol (Haldol) 20 MG tablet Take 10 mg by mouth 2 times daily. ibuprofen 200 MG tablet Take 400 mg by mouth every 6 hours as needed. ketoconazole (NIZOral) 2 % shampoo lisinopril 10 MG tablet Take 10 mg by mouth daily. loperamide (Imodium) 2 MG capsule Take 2 mg by mouth. Lumigan 0.01 % ophthalmic solution magnesium hydroxide (Milk of Magnesia) 400 MG/5ML suspension Take 30 mL by mouth. Melatonin 5 MG capsule Take by mouth. metFORMIN (Glucophage) 1000 MG tablet Take 1,000 mg by mouth in the morning and 1,000 mg in the evening. Take with meals. naphazoline-pheniramine (Naphcon-A) 0.025-0.3 % ophthalmic solution Administer 1 drop into affected eye(s). Nystatin powder Apply topically 2 times daily. OLANZapine (ZyPREXA) 10 MG tablet Take 10 mg by mouth Nightly. omeprazole (PriLOSEC) [address] capsule Take 20 mg by mouth daily. Probiotic Product (PROBIOTIC-10 PO) Take by mouth. propranolol (Inderal) 10 MG tablet Pseudoephedrine-guaiFENesin (GUAIFENESIN-P PO) Take by mouth. senna-docusate (Celena-Colace) 8.6-50 MG tablet Take by mouth. sodium phosphate (Fleets) 7-19 GM/118ML enema enema Insert into the rectum. tacrolimus (Protopic) 0.1 % ointment traZODone (Desyrel) 100 MG tablet Take 100 mg by mouth Nightly. Zinc Sulfate (ZINC-220 PO) Take by mouth. clonazePAM (KlonoPIN) 0.5 MG tablet Take 1 tablet (0.5 mg) by mouth in the morning and 1 tablet (0.5 mg) before bedtime. (Patient taking differently: Take 0.25 mg by mouth 2 times daily.) 60 tablet 2 No facility-administered medications prior to visit. Past Medical History: Diagnosis Date Depression Diverticulosis GERD (gastroesophageal reflux disease) Hyperlipidemia Osteoarthritis Polyp of colon Schizo affective schizophrenia (HCC) Type II or unspecified type diabetes mellitus without mention of complication, not stated as uncontrolled (HCC) Social History Socioeconomic History Marital status: Tobacco Use Smoking status: Former Packs/day: 1.00 Types: Cigarettes Quit date: 11/29/2005 Years since quittin.9 Smokeless tobacco: Never Substance and Sexual Activity Alcohol use: No Drug use: No Social Determinants of Health Financial Resource Strain: Low Risk (11/06/2022) Overall Financial Resource Strain (CARDIA) Difficulty of Paying Living Expenses: Not hard at all Food Insecurity: No Food Insecurity (11/06/2022) Hunger Vital Sign Worried About Running Out of Food in the Last Year: Never true Ran Out of Food in the Last Year: Never true Transportation Needs: No Transportation Needs (11/06/2022) PRAPARE - Transportation Lack of Transportation (Medical): No Lack of Transportation (Non-Medical): No Physical Activity: Inactive (11/06/2022) Exercise Vital Sign Days of Exercise per Week: 0 days Minutes of Exercise per Session: 0 min Housing Stability: Low Risk (11/06/2022) Housing Stability Vital Sign Unable to Pay for Housing in the Last Year: No Number of Places Lived in the Last Year: 1 Unstable Housing in the Last Year: No Past Surgical History: Procedure Laterality Date APPENDECTOMY 2001 COLONOSCOPY UPPER GASTROINTESTINAL ENDOSCOPY 03/2016 Past Surgical History: Procedure Laterality Date APPENDECTOMY 2001 COLONOSCOPY UPPER GASTROINTESTINAL ENDOSCOPY 03/2016 Family History Problem Relation Name Age of Onset Mental illness Father Heart disease Mother Mental illness Mother Cancer Father Prostate Objective BP 129/80 Pulse 61 Ht 5' 4.75 (1.645 m) Wt 234 lb 3.2 oz (106 kg) SpO2 90% BMI 39.27 kg/m Physical Exam Vitals and nursing note reviewed. Constitutional: General: He is not in acute distress. Appearance: Normal appearance. He is obese. HENT: Right Ear: Tympanic membrane, ear canal and external ear normal. Left Ear: Tympanic membrane, ear canal and external ear normal. Mouth/Throat: Mouth: Mucous membranes are moist. Pharynx: Oropharynx is clear. Eyes: Extraocular Movements: Extraocular movements intact. Pupils: Pupils are equal, round, and reactive to light. Neck: Vascular: No carotid bruit. Cardiovascular: Rate and Rhythm: Normal rate and regular rhythm. Heart sounds: Normal heart sounds. No murmur heard. Pulmonary: Effort: Pulmonary effort is normal. Breath sounds: Normal breath sounds. Abdominal: General: Bowel sounds are normal. Palpations: Abdomen is soft. Tenderness: There is no abdominal tenderness. Genitourinary: Prostate: Normal. Rectum: Normal. Musculoskeletal: General: Normal range of motion. Cervical back: Neck supple. Lymphadenopathy: Cervical: No cervical adenopathy. Skin: General: Skin is warm and dry. Neurological: General: No focal deficit present. Mental Status: He is alert and oriented to person, place, and time. Psychiatric: Mood and Affect: Mood normal. Data Reviewed Labs: Imaging/Testing: Kaley Mendenhall MD 11/07/2022 9:59 AM documented in this encounter [facility] 08-11-2022 Telephone encounter Note Notified Ana. [facility] 08-11-2022 Miscellaneous Notes Notified Ana. This medication comes from his psychiatrist Dr. Arechiga CSA not found Medication name: clonazePAM (KlonoPIN) 0.5 MG tablet Medication dosage: 0.5 mg (Miligrams Monthly quantity needed: 60 How many day supply requestin days Medication route: oral (PO) Medication administration time(s): bedtime (HS) If taking medication PRN, reason for taking medication: Anxiety [F41.9] If this is a controlled substance do you receive this or any other controlled medication from any other doctor or facility: N/A Ordering provider: Dr Mendenhall Date of last office visit: 05/18/22 Date of next office visit: 11/07/22 Date of last refill: (see medication tab): Updated/Validated preferred pharmacy: Yes Patient instructed to contact the pharmacy prior to picking up the medication: Yes documented in this encounter [facility] 08-10-2022 Telephone encounter Note This medication comes from his psychiatrist Dr. Arechiga [facility] 08-10-2022 Telephone encounter Note CSA not found [facility] 08-10-2022 Telephone encounter Note Medication name: clonazePAM (KlonoPIN) 0.5 MG tablet Medication dosage: 0.5 mg (Miligrams Monthly quantity needed: 60 How many day supply requestin days Medication route: oral (PO) Medication administration time(s): bedtime (HS) If taking medication PRN, reason for taking medication: Anxiety [F41.9] If this is a controlled substance do you receive this or any other controlled medication from any other doctor or facility: N/A Ordering provider: Dr Mendenhall Date of last office visit: 05/18/22 Date of next office visit: 11/07/22 Date of last refill: (see medication tab): Updated/Validated preferred pharmacy: Yes Patient instructed to contact the pharmacy prior to picking up the medication: Yes T [facility] 06-29-2022 Note HNO ID: [id number] Author: Kenney Lawrence MD Service: ? Author Type: Physician Type: Progress Notes Filed: 06/29/2022 3:24 PM Note Text: Recheck (GERD w/Geronimo's esophagus) HILLARY Moon is a 67 year old male here today for follow-up. 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 Also has h/o- hiatal hernia. Also has h/o- colonic polyps in 2012. However, recent colonoscopy in 2021 did not show any polyps He denies any GI symptoms. No h/o- nausea, vomiting, loss of appetite, hematemesis, bleeding LA, unexplained weight loss, diarrhea, tenesmus, nocturnal diarrhea. Current Outpatient Medications Medication Sig gabapentin (NEURONTIN) 400 mg capsule Clobetasol Propionate (TEMOVATE) 0.05 % external solution ketoconazole (NIZORAL) 2 % shampoo propranolol (INDERAL) 10 mg tablet haloperidol (HALDOL) 10 mg tablet acetaminophen (TYLENOL) 325 mg tablet Take 650 mg by mouth. aspirin 325 mg tablet Take 325 mg by mouth. atorvastatin (LIPITOR) 10 mg tablet buPROPion XL (WELLBUTRIN XL) 150 mg 24 hr tablet escitalopram oxalate (LEXAPRO) 20 mg tablet ferrous sulfate 325 mg (65 mg iron) tablet Take 325 mg by mouth. fluticasone (FLONASE) 50 mcg/actuation nasal spray lisinopril (ZESTRIL, PRINIVIL) 10 mg tablet LUMIGAN 0.01 % drop ophthalmic drops OLANZapine (ZYPREXA) 10 mg tablet omeprazole (PRILOSEC) 20 mg capsule tacrolimus (PROTOPIC) 0.1 % ointment cyanocobalamin (VITAMIN B-12) 1,000 mcg tab Take 1,000 mcg by mouth. bmbfjlk-lctkdhsqy-nwqzmjx D3 500 mg(1,250mg) -200 unit per tablet Take 1 tablet by mouth once daily. clonazePAM (KLONOPIN) 0.5 mg tablet metFORMIN (GLUCOPHAGE) 1,000 mg tablet ammonium lactate (LAC-HYDRIN) 12 % cream Apply to affected area. dextran 70-hypromellose (TEARS PURE) ophthalmic solution 1 Drop. glucagon (GLUCAGEN) 1 mg injection Inject 1 Kit intravenously. guaiFENesin-dextromethorphan (ROBITUSSIN DM) 100-10 mg/5 mL syrup Take 5 mL by mouth. ibuprofen (MOTRIN) 600 mg tablet loperamide (IMODIUM) 2 mg cap(s) Take 2 mg by mouth. Melatonin 5 mg cap Take by mouth. magnesium hydroxide (MOM) 400 mg/5 mL suspension Take 30 mL by mouth. NYAMYC powder senna-docusate (SENNA-S) 8.6-50 mg per tablet Take by mouth. traZODone (DESYREL) 100 mg tablet Take 100 mg by mouth. naphazoline-pheniramine eye drops (NAPHCON-A) 0.025-0.3 % ophthalmic solution 1 Drop. diclofenac (VOLTAREN) 1 % topical gel EPINEPHrine (EPIPEN) 0.3 mg/0.3 mL auto-injector Inject 0.3 mg intramuscularly as needed. polyethylene glycol 3350 (MIRALAX, GLYCOLAX) 17 gram/dose powder Use as directed for Miralax / Gatorade Bowel Prep Kit Gatorade Sports Drink Use as directed for Miralax / Gatorade Bowel Prep Kit Bisacodyl (DULCOLAX) 5 mg tab Use as directed for Miralax / Gatorade Bowel Prep Kit No current facility-administered medications for this visit. ALLERGIES Allergen Reactions Venom-Honey Bee Anaphylaxis Social History Tobacco Use Smoking status: Former Smokeless tobacco: Never Vaping Use Vaping Use: Never used Substance Use Topics Alcohol use: Never Drug use: Never PAST MEDICAL HISTORY Diagnosis Date Geronimo's esophagus Long Segment Diabetes (HCC) GERD (gastroesophageal reflux disease) Hyperlipidemia Osteoarthritis Schizoaffective disorder (HCC) Sciatica Sleep apnea Type 2 diabetes (HCC) PAST SURGICAL HISTORY Procedure Laterality Date COLONOSCOPY GEN ANES 10/13/2015 large obstructive lipoma, sigmoid colon COLONOSCOPY GEN ANES 10/30/2012 tubular adenoma in cecum, diverticulosis, angioectasia in the sigmoid, diverticulosis, lipoma COLONOSCOPY SCREENING 04/05/2021 poor prep, stool in entire colon, diverticulosis EGD 03/16/2016 long segment Geronimo's esophagus, hiatal hernia EGD 01/06/2014 long segment Geronimo's esophagus, hiatal hernia EGD 04/05/2021 long segment Geronimo's esophagus SIGMOIDOSCOPY 03/16/2016 moderate diverticulosis of the sigmoid colon FAMILY HISTORY Problem Relation Age of Onset Colon Cancer No Family History REVIEW OF SYSTEMS Review of Systems No results found for: HB, HCT, WBC, PLT CMP: Glucose 61 10/03/2008 BUN 9 10/03/2008 Creatinine 0.7 10/03/2008 Sodium 127 10/03/2008 Potassium 4.4 10/03/2008 Chloride 90 10/03/2008 CO2 28 10/03/2008 Protein, Total 7.9 10/03/2008 Albumin 4.1 10/03/2008 Calcium 8.9 10/03/2008 Alkaline Phosphatase 68 10/03/2008 Bilirubin, Total 0.2 10/03/2008 AST 13 10/03/2008 ALT 9 10/03/2008 PHYSICAL EXAM There were no vitals taken for this visit. General appearance: Well appearing, alert, in no acute distress, well-hydrated, well nourished. Skin: Skin color, texture, turgor normal Head: Normocephalic, no masses, lesions, tenderness or abnormalities Eyes: Anicteric sclera. Pupils are equally round. Oropharynx: Lips, mucosa, and tongue normal, teeth and gums normal, oropharynx normal Neck: Supple, no adenopa (more content not included)... [facility] 06-29-2022 History of Presen t illness Narrative Recheck (GERD w/Geronimo's esophagus) HILLARY Moon is a 67 year old male here today for follow-up. 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 Also has h/o- hiatal hernia. Also has h/o- colonic polyps in 2012. However, recent colonoscopy in 2021 did not show any polyps He denies any GI symptoms. No h/o- nausea, vomiting, loss of appetite, hematemesis, bleeding LA, unexplained weight loss, diarrhea, tenesmus, nocturnal diarrhea. Current Outpatient Medications Medication Sig gabapentin (NEURONTIN) 400 mg capsule Clobetasol Propionate (TEMOVATE) 0.05 % external solution ketoconazole (NIZORAL) 2 % shampoo propranolol (INDERAL) 10 mg tablet haloperidol (HALDOL) 10 mg tablet acetaminophen (TYLENOL) 325 mg tablet Take 650 mg by mouth. aspirin 325 mg tablet Take 325 mg by mouth. atorvastatin (LIPITOR) 10 mg tablet buPROPion XL (WELLBUTRIN XL) 150 mg 24 hr tablet escitalopram oxalate (LEXAPRO) 20 mg tablet ferrous sulfate 325 mg (65 mg iron) tablet Take 325 mg by mouth. fluticasone (FLONASE) 50 mcg/actuation nasal spray lisinopril (ZESTRIL, PRINIVIL) 10 mg tablet LUMIGAN 0.01 % drop ophthalmic drops OLANZapine (ZYPREXA) 10 mg tablet omeprazole (PRILOSEC) 20 mg capsule tacrolimus (PROTOPIC) 0.1 % ointment cyanocobalamin (VITAMIN B-12) 1,000 mcg tab Take 1,000 mcg by mouth. jygvlpo-xoswrpobo-uxktmud D3 500 mg(1,250mg) -200 unit per tablet Take 1 tablet by mouth once daily. clonazePAM (KLONOPIN) 0.5 mg tablet metFORMIN (GLUCOPHAGE) 1,000 mg tablet ammonium lactate (LAC-HYDRIN) 12 % cream Apply to affected area. dextran 70-hypromellose (TEARS PURE) ophthalmic solution 1 Drop. glucagon (GLUCAGEN) 1 mg injection Inject 1 Kit intravenously. guaiFENesin-dextromethorphan (ROBITUSSIN DM) 100-10 mg/5 mL syrup Take 5 mL by mouth. ibuprofen (MOTRIN) 600 mg tablet loperamide (IMODIUM) 2 mg cap(s) Take 2 mg by mouth. Melatonin 5 mg cap Take by mouth. magnesium hydroxide (MOM) 400 mg/5 mL suspension Take 30 mL by mouth. NYAMYC powder senna-docusate (SENNA-S) 8.6-50 mg per tablet Take by mouth. traZODone (DESYREL) 100 mg tablet Take 100 mg by mouth. naphazoline-pheniramine eye drops (NAPHCON-A) 0.025-0.3 % ophthalmic solution 1 Drop. diclofenac (VOLTAREN) 1 % topical gel EPINEPHrine (EPIPEN) 0.3 mg/0.3 mL auto-injector Inject 0.3 mg intramuscularly as needed. polyethylene glycol 3350 (MIRALAX, GLYCOLAX) 17 gram/dose powder Use as directed for Miralax / Gatorade Bowel Prep Kit Gatorade Sports Drink Use as directed for Miralax / Gatorade Bowel Prep Kit Bisacodyl (DULCOLAX) 5 mg tab Use as directed for Miralax / Gatorade Bowel Prep Kit No current facility-administered medications for this visit. ALLERGIES Allergen Reactions Venom-Honey Bee Anaphylaxis Social History Tobacco Use Smoking status: Former Smokeless tobacco: Never Vaping Use Vaping Use: Never used Substance Use Topics Alcohol use: Never Drug use: Never PAST MEDICAL HISTORY Diagnosis Date Geronimo's esophagus Long Segment Diabetes (HCC) GERD (gastroesophageal reflux disease) Hyperlipidemia Osteoarthritis Schizoaffective disorder (HCC) Sciatica Sleep apnea Type 2 diabetes (HCC) PAST SURGICAL HISTORY Procedure Laterality Date COLONOSCOPY GEN ANES 10/13/2015 large obstructive lipoma, sigmoid colon COLONOSCOPY GEN ANES 10/30/2012 tubular adenoma in cecum, diverticulosis, angioectasia in the sigmoid, diverticulosis, lipoma COLONOSCOPY SCREENING 04/05/2021 poor prep, stool in entire colon, diverticulosis EGD 03/16/2016 long segment Geronimo's esophagus, hiatal hernia EGD 01/06/2014 long segment Geronimo's esophagus, hiatal hernia EGD 04/05/2021 long segment Geronimo's esophagus SIGMOIDOSCOPY 03/16/2016 moderate diverticulosis of the sigmoid colon FAMILY HISTORY Problem Relation Age of Onset Colon Cancer No Family History REVIEW OF SYSTEMS Review of Systems No results found for: HB, HCT, WBC, PLT CMP: Glucose 61 10/03/2008 BUN 9 10/03/2008 Creatinine 0.7 10/03/2008 Sodium 127 10/03/2008 Potassium 4.4 10/03/2008 Chloride 90 10/03/2008 CO2 28 10/03/2008 Protein, Total 7.9 10/03/2008 Albumin 4.1 10/03/2008 Calcium 8.9 10/03/2008 Alkaline Phosphatase 68 10/03/2008 Bilirubin, Total 0.2 10/03/2008 AST 13 10/03/2008 ALT 9 10/03/2008 PHYSICAL EXAM There were no vitals taken for this visit. General appearance: Well appearing, alert, in no acute distress, well-hydrated, well nourished. Skin: Skin color, texture, turgor normal Head: Normocephalic, no masses, lesions, tenderness or abnormalities Eyes: Anicteric sclera. Pupils are equally round. Oropharynx: Lips, mucosa, and tongue normal, teeth and gums normal, oropharynx normal Neck: Supple, no adenopathy; thyroid symmetric, normal size, no bruits Lungs: Lungs clear to auscultation. No wheezing, rhonchi, rales. Heart: RRR without murmur, gallop, or rubs. No ectopy Abdomen: Normal abdominal exam, Abdomen soft, non-tender. Bowel sounds normal. No masses, organomegaly Extremities: No deformities, edema, skin discoloration, clubbing or cyanosis. Good capillary refill. ASSESSMENT: 67 year old male patient who is in our clinic with GERD with Geronimo's esophagus. Doing well PLAN: Repeat EGD in 2023 for Geronimo's surveillance. Discussed the etiology of GERD with patient. Encouraged lifestyle changes and the need for a lifelong regimen of medications to help reduce symptoms. Discussed the potential for serious complications if symptoms are not resolved. Discussed raising the head of the bed 4 to 6 inches; avoiding chocolate, coffee, peppermint, fruit juices, tomatoes, greasy and spicy foods. Encouraged moderation of alcoholic beverages, and avoidance of smoking. Kenney Lawrence MD DATE: 06/29/22 TIME: 1:57 PM documented in this encounter [facility] 05-30-2022 Telephone encounter Note Addressed on hard copy today [facility] 05-30-2022 Miscellaneous Notes Addressed on hard copy today Message printed to be taken to Dr Mendenhall to address Is there someone covering for Dr. Mendenhall at the correction while he is out this week? Name of caller: Kimmie Contact phone number: [phone] Relationship to Patient: [facility] Provider: Dr Mendenhall Practice: [facility] Chief Complaint/Reason for Call: intermediate calling in BP readings. 146/76 on right arm sitting. Please advise. Best time of day caller can be reached: any Patient advised that office/PCP has 24-48 business hours to return their call: No documented in this encounter [facility] 05-30-2022 Telephone encounter Note Message printed to be taken to Dr Mendenhall to address [facility] 05-29-2022 Telephone encounter Note Is there someone covering for Dr. Mendenhall at the correction while he is out this week? [facility] 05-26-2022 Telephone encounter Note Name of caller: Kimmie Contact phone number: [phone] Relationship to Patient: [facility] Provider: Dr Mendenhall Practice: [facility] Chief Complaint/Reason for Call: intermediate calling in BP readings. 146/76 on right arm sitting. Please advise. 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 Diagnosis Anxiety Anxiety state, unspecified [facility] Diagnosis Medicare annual wellness visit, subsequent- Primary Anxiety Anxiety state, unspecified Chronic obstructive pulmonary disease, unspecified COPD type (HCC) Type 2 diabetes mellitus with diabetic polyneuropathy, without long-term current use of insulin (CMS/HCC) (HCC) Essential hypertension Unspecified essential hypertension Morbidly obese (HCC) Morbid obesity Pure hypercholesterolemia Schizoaffective disorder with good prognostic features (CMS/HCC) (HCC) Screening for prostate cancer Special screening for malignant neoplasm of prostate Screening for colon cancer Special screening for malignant neoplasms, colon documented in this encounter [facility] Advance Directives No Advanced Directives Records FoundDocuments on File Type Date Recorded Patient Flavorings Compounder Expl anation ACP-Advance Directive ACP-Power of Television Anchor Latest Code Status on File Code Status Date Activated Date Inactivated Comments Full Code 10/13/2015 10:54 AM 10/14/2015 2:37 AM Latest Code Status on File Code Status Date Activated Date Inactivated Comments Full Code 10/13/2015 10:54 AM 10/14/2015 2:37 AM Summary Purpose Family History No Family History Records FoundNo Family History Records FoundNo Family History Records Found Reason for Referral Specialty Diagnoses / Procedures Referred By Osmani hancock Referred To Contact Radiology Diagnoses Encounter for abdominal aortic aneurysm (AAA) screening Procedures VL AAA SCREENING [place] [address] Referral ID Status Reason Start Date Expiration Date Visits Re quested Visits Authorized [id number] Open 11/01/2021 11/01/2022 1 1 Additional Source Comments Source Comments (unrecognize d section and content) In the event this informatio n is protected by the Federal Confidentiality of Alcohol and Drug Abuse Patient Records regulations: The Federal rules restrict any use of the information to criminally investigate or prosecute any alcohol or drug abuse patient.[facility] event this information is protected by the Federal Confidentiality of Alcohol and Drug Abuse Patient Records regulations: The Federal rules restrict any use of the information to criminally investigate or prosecute any alcohol or drug abuse patient.[facility] Care Teams (unrecognized sec tion and content) Bridge/Structure Inspection Team Leader Relationship Specialty Start Date End Date [facility] [place] [address] PCP - General Family Medicine 08/15/14 Bridge/Structure Inspection Team Leader Relationship Specialty Start Date End Date [facility] [place] [id number] PCP - General 07/27/18 Bridge/Structure Inspection Team Leader Relationship Specialty Start Date End Date Kaley Mendenhall [address] [facility] [place] [id number] PCP - General Family Medicine 12/01/20 Bridge/Structure Inspection Team Leader Relationship Specialty Start Date End Date Kaley Mendenhall MD [address] [place], [place] [address] [id number] PCP - General 07/27/18 Bridge/Structure Inspection Team Leader Relationship Specialty Start Date End Date Kaley Mendenhall MD [address] [place], [place] [address] [phone] PCP - General 07/27/18 (unrecognized sect ion and content) No Status Records FoundNo Status Records FoundNo Status Records Found INFORMATION SOURCE (unrecogn ized section and content) DATE CREATED AUTHOR AUTHOR'S ORGANIZ ATION 07/01/2022 [facility] DATE CREATED AUTHOR AUTHOR'S ORGANIZ ATION 01/25/2023 [facility] Reason for Visit (unrecogniz ed section and content) Reason Comments Recheck GERD w/Geronimo's eso phagus Reason Onset Date Comments Med Refill 08/10/2022 Reason Comments Medicare Annual Wellness Visit Subsequen t Blood Work Health Maintenance DM eye exam-had one in the past year at Dr. [place]ron[place] in [place]-need to request reportFIT [id number] he had one last yearShingrix-thought he had this last year FOR RECORDS PERTAINING TO PATIENTS WHO ARE OR HAVE BEEN ENROLLED IN A CHEMICAL DEPENDENCY/SUBSTANCEABUSE PROGRAM, SOME INFORMATION MAY BE OMITTED. This clinical summary was aggregated from multiple sources. Caution should be exercised in using it in the provision of clinical care. This summary normalizes information from multiple sources, and as a consequence, information in this document may materially change the coding, format and clinical context of patient data. In addition, data may be omitted in some cases. CLINICAL DECISIONS SHOULD BE BASED ON THE PRIMARY CLINICAL RECORDS. [employer] [facility]. provides no warranty or guarantee of the accuracy or completeness of information in this document.
[2023-03-12 10:51] LABS: AST(SGOT) 16 U/L (15-37); Alanine Aminotransfer ALT/SGPT 20 U/L (16-61); Albumin, Serum 3.4 g/dL (3.2-5.0); Alkaline Phosphatase 108 U/L (45-117); Bilirubin, Direct 0.07 mg/dL (0.00-0.30); Globulin 3.5 g/dL (2.2-4.2); Glucose 99 mg/dL (74-106); Protein, Total 6.9 g/dL (6.4-8.2); Thyroid Stim Hormone (TSH) 1.37 uIU/mL (0.358-3.74)
== END ==
LOC: OLS.ACH2 05:00
PROVIDERS: PCP Family Medicine; Visit Provider Family Medicine
DX: F25.9 Schizoaffective disorder, unspecified (principal); E11.9 Type 2 diabetes mellitus without complications
CPT/HCPCS: 36415; 80076; 82947; 84439; 84443

== ENCOUNTER → 2023-06-04 | Outpatient (REF) | payer MEDICARE, MEDICAID, SELFPAY ==
[2023-06-04 09:16] LABS: Absolute Lymphocyte Count 1.73 X10^3/uL (0.83-4.51); Absolute Neutrophil Count 5.9 X10^3/uL (2.0-7.7); Basophil# 0.07 X10^3/uL; Basophil% 0.8 % (0-1); Eosinophil# 0.35 X10^3/uL; Hematocrit 35.5 % (40-54); Hemoglobin 11.4 g/dL (13.0-16.5); Lymphocyte # 1.73 X10^3/ul (0.83-4.51); Lymphocyte % 19.8 % (19-41); Mean Corp Hgb Conc 32.1 g/dL (32-36); Mean Corpuscular Hgb 28.1 pg (27.0-32.0); Mean Corpuscular Volume 87.7 fL (80-94); Mean Platelet Vol. 10.1 fl (6.2-12.0); Monocyte# 0.63 X10^3/uL; Monocyte% 7.2 % (0-10); NRBC Flagged by Analyzer 0 % (0-5); Neutrophil # 5.89 X10^3/uL (2.7-7.7); Neutrophil % 67.4 % (47-70); Platelet Count 252 K/mm3 (150-450); RBC Distribution Width CV 13.5 % (11.6-14.6); RBC Distribution Width SD 43.3 fl (35.1-43.9); Red Blood Count 4.05 M/mm3 (4.6-6.2); White Blood Count 8.7 K/mm3 (4.4-11.0)
[2023-06-04 09:44] LABS: AST(SGOT) 17 U/L (15-37); Alanine Aminotransfer ALT/SGPT 22 U/L (16-61); Albumin, Serum 3.2 g/dL (3.2-5.0); Alkaline Phosphatase 104 U/L (45-117); Anion Gap 5 (5-15); BUN 14 mg/dL (7-18); Bilirubin, Direct 0.06 mg/dL (0.00-0.30); Chloride 104 mmol/L (98-107); Creatinine, Serum 0.87 mg/dL (0.70-1.30); EST Glomerular Filtration Rate 92 mL/min (>60); Est Glom Filt Rate - Afr Amer 112 mL/min (>60); Globulin 3.5 g/dL (2.2-4.2); Glucose 99 mg/dL (74-106); Potassium 4.4 mmol/L (3.5-5.1); Protein, Total 6.7 g/dL (6.4-8.2); Sodium Level 140 mmol/L (136-145); Thyroid Stim Hormone (TSH) 1.39 uIU/mL (0.358-3.74)
[2023-06-04 10:52] LABS: Hemoglobin A1c 5.7 % (3.8-5.6)
== END ==
LOC: OLS.ACH2 05:00
PROVIDERS: PCP Family Medicine; Visit Provider Family Medicine
DX: F25.9 Schizoaffective disorder, unspecified (principal); E11.9 Type 2 diabetes mellitus without complications; D64.9 Anemia, unspecified
CPT/HCPCS: 36415; 80048; 80076; 83036; 84443; 85025

== ENCOUNTER → 2023-08-27 | Outpatient (REF) | payer MEDICARE, MEDICAID, SELFPAY ==
[2023-08-27 09:03] LABS: AST(SGOT) 13 U/L (15-37); Alanine Aminotransfer ALT/SGPT 22 U/L (16-61); Albumin, Serum 3.2 g/dL (3.2-5.0); Alkaline Phosphatase 128 U/L (45-117); Bilirubin, Direct < 0.05 mg/dL (0.00-0.30); Globulin 3.3 g/dL (2.2-4.2); Glucose 127 mg/dL (74-106); Protein, Total 6.5 g/dL (6.4-8.2); Thyroid Stim Hormone (TSH) 1.35 uIU/mL (0.358-3.74)
== END ==
LOC: OLS.ACH2 04:00
PROVIDERS: PCP Family Medicine; Visit Provider Family Medicine
DX: F25.9 Schizoaffective disorder, unspecified (principal); E11.9 Type 2 diabetes mellitus without complications
CPT/HCPCS: 36415; 80076; 82947; 84443

== ENCOUNTER → 2023-11-19 05:00 | Outpatient (REF) | payer MEDICARE, MEDICAID, SELFPAY ==
[2023-11-19 08:17] LABS: Absolute Lymphocyte Count 1.68 X10^3/uL (0.83-4.51); Absolute Neutrophil Count 5.6 X10^3/uL (2.0-7.7); Basophil# 0.06 X10^3/uL; Basophil% 0.7 % (0-1); Eosinophil# 0.28 X10^3/uL; Eosinophils% 3.4 % (0-5); Hematocrit 34.7 % (40-54); Lymphocyte # 1.68 X10^3/ul (0.83-4.51); Lymphocyte % 20.5 % (19-41); Mean Corp Hgb Conc 31.7 g/dL (32-36); Mean Corpuscular Hgb 28.1 pg (27.0-32.0); Mean Corpuscular Volume 88.5 fL (80-94); Mean Platelet Vol. 9.9 fl (6.2-12.0); Monocyte# 0.56 X10^3/uL; Monocyte% 6.8 % (0-10); NRBC Flagged by Analyzer 0 % (0-5); Neutrophil # 5.56 X10^3/uL (2.7-7.7); Neutrophil % 68.1 % (47-70); Platelet Count 217 K/mm3 (150-450); RBC Distribution Width CV 13.7 % (11.6-14.6); RBC Distribution Width SD 44.4 fl (35.1-43.9); Red Blood Count 3.92 M/mm3 (4.6-6.2); White Blood Count 8.2 K/mm3 (4.4-11.0)
[2023-11-19 08:27] LABS: Hemoglobin A1c 5.5 % (3.8-5.6)
[2023-11-19 08:50] LABS: AST(SGOT) 12 U/L (15-37); Alanine Aminotransfer ALT/SGPT 18 U/L (16-61); Albumin, Serum 3.3 g/dL (3.2-5.0); Alkaline Phosphatase 103 U/L (45-117); Anion Gap 7 (5-15); BUN 13 mg/dL (7-18); BUN/Creat Ratio 14.7 RATIO (10-20); Bilirubin, Direct 0.11 mg/dL (0.00-0.30); Calcium,Total 9.2 mg/dL (8.5-10.1); Chloride 102 mmol/L (98-107); Creatinine, Serum 0.88 mg/dL (0.70-1.30); EST Glomerular Filtration Rate 91 mL/min (>60); Est Glom Filt Rate - Afr Amer 110 mL/min (>60); Globulin 3.5 g/dL (2.2-4.2); Glucose 104 mg/dL (74-106); Potassium 4.5 mmol/L (3.5-5.1); Protein, Total 6.8 g/dL (6.4-8.2); Sodium Level 138 mmol/L (136-145)
== END ==
LOC: OLS.ACH2 05:00
PROVIDERS: PCP Family Medicine; Visit Provider Family Medicine
DX: E11.9 Type 2 diabetes mellitus without complications (principal); F25.9 Schizoaffective disorder, unspecified
CPT/HCPCS: 36415; 80048; 80076; 83036; 84443; 85025

== ENCOUNTER → 2023-12-17 | Outpatient (REF) | payer MEDICARE, MEDICAID, SELFPAY ==
[2023-12-17 10:26] LABS: AST(SGOT) 23 U/L (15-37); Alanine Aminotransfer ALT/SGPT 21 U/L (16-61); Albumin, Serum 3.4 g/dL (3.2-5.0); Alkaline Phosphatase 115 U/L (45-117); Bilirubin, Direct 0.11 mg/dL (0.00-0.30); Cholesterol 126 mg/dL (200); Globulin 3.5 g/dL (2.2-4.2); High Density Lipoprotein 57 mg/dL; Protein, Total 6.9 g/dL (6.4-8.2); Triglycerides 67 mg/dL; Very Low Density Lipoprotein 13 mg/dL (5-40)
== END ==
LOC: OLS.ACH2 05:00
PROVIDERS: PCP Family Medicine; Visit Provider Family Medicine
DX: F25.9 Schizoaffective disorder, unspecified (principal); Z79.899 Other long term (current) drug therapy
CPT/HCPCS: 36415; 80061; 80076

== ENCOUNTER → 2024-02-11 | Outpatient (REF) | payer MEDICARE, MEDICAID, SELFPAY ==
[2024-02-11 09:53] LABS: AST(SGOT) 19 U/L (15-37); Alanine Aminotransfer ALT/SGPT 25 U/L (16-61); Albumin, Serum 3.4 g/dL (3.2-5.0); Alkaline Phosphatase 99 U/L (45-117); Bilirubin, Direct 0.09 mg/dL (0.00-0.30); Globulin 3.4 g/dL (2.2-4.2); Glucose 96 mg/dL (74-106); Protein, Total 6.8 g/dL (6.4-8.2)
== END ==
LOC: OLS.ACH2 05:00
PROVIDERS: PCP Family Medicine; Visit Provider Family Medicine
DX: E11.9 Type 2 diabetes mellitus without complications (principal); F25.9 Schizoaffective disorder, unspecified
CPT/HCPCS: 36415; 80076; 82947; 84443

== ENCOUNTER → 2024-03-10 05:00 | Outpatient (REF) | payer MEDICARE, MEDICAID, SELFPAY ==
[2024-03-17 09:44] LABS: T4 Free Direct 0.99 ng/dL (0.76-1.46)
== END ==
LOC: OLS.ACH2 05:00
PROVIDERS: PCP Family Medicine; Visit Provider Internal Medicine
DX: F25.9 Schizoaffective disorder, unspecified (principal)
CPT/HCPCS: 36415; 84439

== ENCOUNTER → 2024-05-05 | Outpatient (REF) | payer MEDICARE, MEDICAID, SELFPAY ==
[2024-05-05 08:19] LABS: Absolute Lymphocyte Count 2.52 X10^3/uL (0.83-4.51); Absolute Neutrophil Count 5.6 X10^3/uL (2.0-7.7); Basophil# 0.09 X10^3/uL; Eosinophil# 0.44 X10^3/uL; Eosinophils% 4.7 % (0-5); Hematocrit 33.6 % (40-54); Hemoglobin 11.3 g/dL (13.0-16.5); Lymphocyte # 2.52 X10^3/ul (0.83-4.51); Lymphocyte % 26.7 % (19-41); Mean Corp Hgb Conc 33.6 g/dL (32-36); Mean Corpuscular Hgb 28.5 pg (27.0-32.0); Mean Corpuscular Volume 84.8 fL (80-94); Mean Platelet Vol. 9.9 fl (6.2-12.0); Monocyte# 0.71 X10^3/uL; Monocyte% 7.5 % (0-10); NRBC Flagged by Analyzer 0 % (0-5); Neutrophil # 5.57 X10^3/uL (2.7-7.7); Platelet Count 203 K/mm3 (150-450); RBC Distribution Width CV 13.2 % (11.6-14.6); RBC Distribution Width SD 40.9 fl (35.1-43.9); Red Blood Count 3.96 M/mm3 (4.6-6.2); White Blood Count 9.4 K/mm3 (4.4-11.0)
[2024-05-05 10:23] LABS: AST(SGOT) 19 U/L (<=37); Alanine Aminotransfer ALT/SGPT 17 U/L (<=46); Albumin, Serum 3.9 g/dL (3.4-4.8); Alkaline Phosphatase 93 U/L (40-129); Anion Gap 12 (5-15); BUN 13 mg/dL (4-19); BUN/Creat Ratio 15.6 RATIO (10-20); Bilirubin, Direct 0.16 mg/dL (0.00-0.30); Calcium,Total 9.1 mg/dL (7.6-11.0); Carbon Dioxide 25.3 mmol/L (21.0-32.0); Chloride 97 mmol/L (98-108); Creatinine, Serum 0.85 mg/dL (0.70-1.20); EST Glomerular Filtration Rate 94 (>60); Globulin 2.8 g/dL (2.2-4.2); Glucose 95 mg/dL (70-99); Potassium 4.2 mmol/L (3.3-5.1); Protein, Total 6.7 g/dL (5.9-8.4); Sodium Level 134 mmol/L (133-145); Total Bilirubin 0.37 mg/dL (0.00-1.30)
== END ==
LOC: OLS.ACH2 05:00
PROVIDERS: PCP Family Medicine; Visit Provider Family Medicine
DX: F25.9 Schizoaffective disorder, unspecified (principal); D64.9 Anemia, unspecified; E11.42 Type 2 diabetes mellitus with diabetic polyneuropathy
CPT/HCPCS: 36415; 80048; 80076; 83036; 84443; 85025

== ENCOUNTER → 2024-07-11 05:00 | Outpatient (REF) | payer MEDICARE, MEDICAID, SELFPAY ==
[2024-07-11 09:14] LABS: Vitamin B12 1152 pg/mL (180-914)
== END ==
LOC: OLS.ACH2 05:00
PROVIDERS: PCP Family Medicine; Visit Provider Family Medicine
DX: K58.0 Irritable bowel syndrome with diarrhea (principal)
CPT/HCPCS: 36415; 82607

== ENCOUNTER → 2024-07-28 | Outpatient (REF) | payer MEDICARE, MEDICAID, SELFPAY ==
[2024-07-28 08:58] LABS: AST(SGOT) 20 U/L (<=37); Alanine Aminotransfer ALT/SGPT 17 U/L (<=46); Albumin, Serum 4.3 g/dL (3.4-4.8); Alkaline Phosphatase 101 U/L (40-129); Bilirubin, Direct 0.15 mg/dL (0.00-0.30); Glucose 92 mg/dL (70-99); Protein, Total 7.3 g/dL (5.9-8.4); Total Bilirubin 0.32 mg/dL (0.00-1.30)
== END ==
LOC: OLS.ACH2 04:00
PROVIDERS: PCP Family Medicine; Referring Provider Family Medicine; Visit Provider Family Medicine
DX: F25.9 Schizoaffective disorder, unspecified (principal); E11.9 Type 2 diabetes mellitus without complications
CPT/HCPCS: 36415; 80076; 82947; 84443

== ENCOUNTER → 2024-10-20 | Outpatient (REF) | payer MEDICARE, MEDICAID, SELFPAY ==
[2024-10-20 08:23] LABS: Hematocrit 39.3 % (40-54); Hemoglobin 13.0 g/dL (13.0-16.5); Immature Granulocytes Count 0.060 X10^3/uL (0.0-0.0); Mean Corp Hgb Conc 33.1 g/dL (32-36); Mean Corpuscular Volume 87.7 fL (80-94); Mean Platelet Vol. 10.1 fl (6.2-12.0); NRBC Flagged by Analyzer 0 % (0-5); Platelet Count 221 K/mm3 (150-450); RBC Distribution Width CV 13.4 % (11.6-14.6); RBC Distribution Width SD 43.1 fl (35.1-43.9); Red Blood Count 4.48 M/mm3 (4.6-6.2); White Blood Count 9.7 K/mm3 (4.4-11.0)
[2024-10-20 08:55] LABS: AST(SGOT) 22 U/L (<=37); Alanine Aminotransfer ALT/SGPT 19 U/L (<=46); Albumin, Serum 4.3 g/dL (3.4-4.8); Alkaline Phosphatase 100 U/L (40-129); Anion Gap 11 (5-15); BUN 11 mg/dL (4-19); BUN/Creat Ratio 13.0 RATIO (10-20); Bilirubin, Direct 0.12 mg/dL (0.00-0.30); Calcium,Total 9.8 mg/dL (7.6-11.0); Carbon Dioxide 30.1 mmol/L (21.0-32.0); Chloride 98 mmol/L (98-108); Globulin 3.0 g/dL (2.2-4.2); Glucose 94 mg/dL (70-99); Potassium 4.7 mmol/L (3.3-5.1)
== END ==
LOC: OLS.ACH2 04:00
PROVIDERS: PCP Family Medicine; Referring Provider Family Medicine; Visit Provider Family Medicine
DX: F25.9 Schizoaffective disorder, unspecified (principal); D64.9 Anemia, unspecified; E11.42 Type 2 diabetes mellitus with diabetic polyneuropathy
CPT/HCPCS: 36415; 80048; 80076; 83036; 84443; 85025

== ENCOUNTER → 2024-12-15 05:00 | Outpatient (REF) | payer MEDICARE, MEDICAID, SELFPAY ==
[2024-12-15 08:34] LABS: AST(SGOT) 19 U/L (<=37); Alanine Aminotransfer ALT/SGPT 18 U/L (<=46); Albumin, Serum 4.0 g/dL (3.4-4.8); Alkaline Phosphatase 89 U/L (40-129); Bilirubin, Direct 0.11 mg/dL (0.00-0.30); Cholesterol 129 mg/dL (<=200); Globulin 2.8 g/dL (2.2-4.2); Low Density Lipoprotein Calc. 60 mg/dL; Triglycerides 84 mg/dL; Very Low Density Lipoprotein 17 mg/dL (5-40); cholesterol:hdl ratio screen 2.44
== END ==
LOC: OLS.ACH2 05:00
PROVIDERS: PCP Family Medicine; Visit Provider Family Medicine
DX: F25.9 Schizoaffective disorder, unspecified (principal)
CPT/HCPCS: 36415; 80061; 80076

== ENCOUNTER → 2025-01-12 | Outpatient (REF) | payer MEDICARE, MEDICAID, SELFPAY ==
--- OUTSIDE RECORDS SUMMARY | 2025-01-12 03:56 | XMS RPT_ITS | CCD ---
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 Name Role Phone Unavailable Primary Care Provider UnavailEfrain Kwon MD Primary Care Provider Efrain Mendenhall MD Primary Care Provider Efrain Mendenhall MD Primary Care Provider Efrain Mendenhall Primary Care Provider [phone] Za BRENNAN, Efrain Deluna Primary Care Provider Efrain Mendenhall Primary Care Provider Efrain Mendenhall MD Primary Care Provider Unavail able Efrain Mendenhall MD Attending Provider UnavailFaisal Ca MD Attending Provider Unavailable Efrain Mendenhall MD Primary Care Provider Unavail able Efrain Mendenhall MD Attending Provider UnavailEfrain Kwon MD Referring Provider UnavailEfrain Kwon Primary Care Provider [phone] EDA CASANOVA Attending Unavailable SILAS MENDENHALLRELL CHERYLE Primary Care UnavailParas Griffin MD Unavailable EFRAIN MENDENHALL Attending Unavailable ZA, EFRAIN Primary Care Unavailable Za OLS, Efrain Primary Care Unavailable Za DAXA Efrain Attending Unavailable Za DAXA Efrain Attending Unavailable Za OLS, Efrain Primary Care Unavailable Za OLS, Efrain Primary Care Unavailable Za OLS, Efrain Attending Unavailable Za OLS, Efrain Primary Care Unavailable Deperro Faisal MITTAL Attending Unavailable Za OLS, Efrain Primary Care Unavailable Za OLS, Efrain Attending Unavailable Za OLS, Efrain Primary Care Unavailable Za OLS, Efrain Attending Unavailable Za DAXA, Efrain Referring Unavailable Za OLS, Efrain Primary Care Unavailable Za OLS, Efrain Attending Unavailable Efrain Maldonado Referring Unavailable Allergies Allergy Classification Reported Allergen(s) Allergy Type Date of Onset Reaction(s) Facility (17 sources) bee venom Propensity to adverse reactions to drug 5 Anaphylaxis [facility] (3 sources) Honey bee venom Propensity to adverse reactions 5 Anaphylaxis [facility] (1 source) VENOM-HONEY BEE; Translations: [VENOM-HONEY BEE] Propensity to adverse reactions to drug (disorder) [address] [facility] (5 sources) brimonidine Drug Allergy 5 [facility] (5 sources) latanoprost Drug Allergy 5 [facility] (5 sources) Timolol Drug Allergy 5 [facility] Medications Current Medications Medication Drug Class(es) Dates Sig (Normalized) Sig (Original) acetaminophen 325 mg oral tablet (20 sources) take 2 tablets by mouth every six hours as needed acetaminophen (Tylenol) 325 MG tablet Take 650 mg by mouth every 6 hours as needed. Active Comment on above: Take 650 mg by mouth . [id number] actuat albuterol 0.09 mg/actuat metered dose inhaler (17 sources) beta2-Adrenergic Agonist Start: 02-09-2022 take 2 puff(s) by inhalation every six hours as needed for wheezing albuterol 108 (90 Base) MCG/ACT inhaler Inhale 2 puffs every 6 hours as needed for wheezing. 1 each 02/09/2022 Active ALBUTEROL INHALA TION Inhale as instructed. Active ALBUTEROL INHALA TION Inhale as instructed. 0 Active Comment on above: Inhale as instructed . atorvastatin 10 mg oral tablet (20 sources) HMG-CoA Reductase Inhibitor Start: 12-18-2020 atorvastatin (LIPITOR) 10 mg tablet 12/18/2020 Active B.animalis,bifid,infanti s,long (PROBIOTIC 4X ORAL) (6 sources) B.animalis,bifid ,infanti s,long (PROBIOTIC 4X ORAL) Take by mouth. Active B.animalis,bifid ,infantis,long (PROBIOTIC 4X ORAL) Take by mouth. 0 Active Comment on above: Take by mouth. bimatoprost 0.1 mg/ml ophthalmic solution (19 sources) Prostaglandin Analog Start: 12-08-2020 Lumigan 0.01 % ophthalmic solution 09/29/2021 Active Start: 12-08-2020 LUMIGAN 0.01 % drop ophthalmic drops 12/08/2020 Active 24 hr buPROPion hydrochloride 150 mg extended release oral tablet (20 sources) Aminoketone Start: 01-03-2021 buPROPion XL ( Wellbutrin XL) 150 MG 24 hr tablet 09/27/2023 Active End: 11-21-2023 take 1 tablet by mouth twice daily buPROPion SR (Wellbutrin SR) 150 MG 12 hr tablet Take 150 mg by mouth 2 times daily. 11/21/2023 Discontinued calcium carbonate 1250 mg / cholecalciferol 200 unt oral tablet (15 sources) Vitamin D take 1 tablet by mouth once daily nhjagms-yrzrafanq-kbflxsl D3 500 mg(1,250mg) -200 unit per tablet Take 1 tablet by mouth once daily. Active Comment on above: Take 1 tablet by bianca once daily. Calcium Carbonate-Vitamin D (calcium-vitamin D) 500-200 MG-UNIT tablet (5 sources) take 1 tablet by mouth once daily Calcium Carbonate-Vitamin D (calcium-vitamin D) 500-200 MG-UNIT tablet Take 1 tablet by mouth daily. Active Avddbzh-Htljuor-Edkz yl Gerald (HM SALONPAS PAIN RELIEF EX) (5 sources) Camphor-Menthol- Methyl Gerald (HM SALONPAS PAIN RELIEF EX) Apply topically. Active carbamide peroxide 65 mg/ml otic solution (11 sources) carbamide peroxi de (Debrox) 6.5 % otic solution 5 drops 2 times daily. Active cholecalciferol 0.025 mg oral tablet (11 sources) Vitamin D cholecalciferol (HM Vitamin D3) 25 MCG (1000 UT) tablet Take by mouth. Active clobetasol propionate 0.5 mg/ml topical solution (18 sources) Corticosteroid Start : 05-10 clobetasol (Temovate) 0.05 % external solution 05/10/2022 Active clonazePAM 0.5 mg oral tablet (19 sources) Benzodiazepine Start : 12-21 End: 10-09 take 0.5 tablet by mouth twice daily clonazePAM (KlonoPIN) 0.5 MG tablet Indications: Anxiety Take 0.5 tablets (0.25 mg) by mouth 2 times daily. 30 tablet 11/07/2022 Active dextran 70 1 mg/ml / hypromellose 3 mg/ml ophthalmic solution (20 sources) Plasma Volume Thread Winder Automatic dextran 70-hypromell ose PF (Tears Naturale Free) 0.1-0.3 % ophthalmic solution 1 drop. Active dextran 70-hypro mellose (TEARS PURE) ophthalmic solution 1 Drop. Active Comment on above: 1 Drop. dextromethorphan hydrobromid e 2 mg/ml / guaiFENesin 20 mg/ml oral suspension (20 sources) Uncompetitive S-fuouei-A-aspartate Receptor Antagonist, Sigma-1 Agonist dextromethorphan-gua i FENesin (Robitussin-DM) 10-100 MG/5ML liquid Take 5 mL by mouth. Active guaiFENesin-dext romethorphan (ROBITUSSIN DM) 100-10 mg/5 mL syrup Take 5 mL by mouth. Active take 5 mL by mouth t hree times daily as needed for cough guaiFENesin-dextromethorphan (ROBITUSSIN DM) 100-10 MG/5ML syrup Take 5 mLs by mouth 3 times daily as needed for Cough 0 Active Comment on above: Take 5 mL by mouth. diclofenac sodium 0.01 mg/mg topical gel (20 sources) Nonsteroidal Anti-inflammatory Drug Start: 1 diclofenac (VOLTAREN) 1 % topical gel 12/28/2020 Active docusate sodium 100 mg oral capsule (19 sources) End: 4 take 1 capsule by mouth in the morning Docusate Sodium (DSS) 100 MG capsule Take 100 mg by mouth in the morning and 100 mg in the evening. Active Docusate Sodium (COLACE PO) Take 100 mg by mouth as needed 0 Active Comment on above: Take 100 mg by mouth two times a day. docusate sodium 50 mg / sennosides, snf 8.6 mg oral tablet (20 sources) senna-docusate (Celena-Colace) 8.6-50 MG tablet Take by mouth. Active senna-docusate ( SENNA-S) 8.6-50 mg per tablet Take by mouth. Active take 2 tablets [facility] once daily at bedtime Sennosides-Docusate Sodium (SENNA) 8.6-5 0 MG TABS Indications: 2 tabs daily and qhs Take by mouth Indications: 2 tabs daily and qhs 0 Active Comment on above: Take by mouth. [id number] 0.3 ml EPINEPHrine 1 mg/ml auto-injector (20 sources) alpha-Adrenergic Agonist, beta-Adrenergic Agonist, Catecholamine EPINEPHrine (Epipen) 0.3 MG/0.3ML injection syringe Inject 0.3 mg into the shoulder, thigh, or buttocks. Active EPINEPHrine (EPI PEN) 0.3 mg/0.3 mL auto-injector Inject 0.3 mg intramuscularly as needed. Active End: 11-21-2023 EPINEPHrine (EPIPEN IJ) Inje ct as directed 11/21/2023 Discontinued EPINEPHrine (EPI PEN IJ) Inject as directed Active EPINEPHrine (EPI PEN IJ) Inject as directed 0 Active Comment on above: Inject 0.3 mg intram uscularly as needed. escitalopram 20 mg oral tablet (20 sources) Serotonin Reuptake Inhibitor Start: 12-18-2020 escitalopram oxalate (LEXAPRO) 20 mg tablet 12/18/2020 Active take 2 tablets by mouth once sarah ly escitalopram (Lexapro) 20 MG tablet Take 40 mg by mouth daily. Active ferrous sulfate 325 mg oral tablet (20 sources) ferrous sulfate 325 (65 Fe) MG tablet Take 325 mg by mouth. Active Comment on above: Take 325 mg by mouth . fluticasone propionate 0.05 mg/actuat metered dose nasal spray (20 sources) Corticosteroid Start: 1 fluticasone (FLONASE) 50 mcg/actuation nasal spray 01/01/2021 Active gabapentin 400 mg oral capsule (20 sources) Anti-epileptic Agent Start: 3 take 1 capsule by mouth three times daily gabapentin (Neurontin) 400 MG capsule Take 400 mg by mouth 3 times daily. 06/01/2022 Active Start: 12-27-2020 End: 11-21-2023 take 1 capsule by mouth three times daily gabapentin (Neurontin) 300 MG capsule Take 300 mg by mouth 3 times daily. 01/20/2022 11/21/2023 Discontinued Start: 01-20-2019 gabapentin (NE URONTIN) 100 MG capsule Indications: Chronic midline low back pain with left-sided sciatica Take 1 capsule by mouth nightly for 30 days. Intended supply: 90 days 30 capsule 0 01/20/2019 Active glucagon (rdna) 1 mg injection (15 sources) Antihypoglycemic Agent glucagon (GLUCAGEN) 1 mg injection Inject 1 Kit intravenously. Active glucagon 1 MG in jection Infuse 1 kit intravenously once 0 Active Comment on above: Inject 1 Kit intrave nously. glucagon 1 MG injection (5 sources) glucagon 1 MG injection Infuse 1 kit into a venous catheter. Active haloperidol 5 mg oral tablet (20 sources) Typical Antipsychotic Start: take 1 tablet by mouth once daily haloperidol (Haldol) 5 MG tablet Take 5 mg by mouth daily. 08/26/2024 Active Start: 01-03-2021 take 1 tablet by bianca th twice daily haloperidol (Haldol) 10 MG tablet Take 10 mg by mouth 2 times daily. 09/27/2023 Active End: 11-21-2023 take 10 mg by mouth twice daily haloperidol (Haldol) 2 0 MG tablet Take 10 mg by mouth 2 times daily. 11/21/2023 Discontinued take 1 tablet by bianca th once daily haloperidol (HALDOL) 20 MG tablet Take 20 mg by mouth nightly 0 Active ibuprofen 600 mg oral tablet (20 sources) Nonsteroidal Anti-inflammatory Drug Start: 10-08-2020 ibuprofen (MOTRIN ) 600 mg tablet 10/08/2020 Active take 2 tablets by mo [facility] every six hours as needed ibuprofen 200 MG tablet Take 400 mg by mouth every 6 hours as needed. Active ketoconazole 20 mg/ml medicated shampoo (18 sources) Azole Antifungal Start: 05-10-2022 ketoconazole (NIZOral) 2 % shampoo Apply to scalp prn for flares- lather and allow to sit for a few minutes before rinsing Apply to scal topically 1 tme per day every M,W, F for dry scalp unsupervised self administration lther and allow to sit for few minutes before rinsing 05/10/2022 Active Start: 05-10-2022 ketoconazole ( NIZOral) 2 % shampoo 05/10/2022 Active ammonium lactate 120 mg/ml topical cream (20 sources) ammonium lactate (Amlactin) 12 % cream Apply topically. Active Comment on above: Apply to affected ar ea. lidocaine 0.04 mg/mg medicated patch (4 sources) Antiarrhythmic, Amide Local Anesthetic apply 1 dose transdermal route once daily Lidocaine (Salonpas Pain Relieving) 4 % patch Place 1 patch on the skin daily. Active lisinopril 20 mg oral tablet (20 sources) Angiotensin Converting Enzyme Inhibitor Start: lisinopril 20 MG tablet 08/26/2024 Active Start: 12-15-2020 End: 12-23-2024 lisinopril (ZESTRIL, PRINIVI L) 10 mg tablet 12/15/2020 10/09/2024 Discontinued loperamide hydrochloride 2 mg oral capsule (20 sources) Opioid Agonist Start: 12-02-2018 loperamide (Im odium) 2 MG capsule Take 2 mg by mouth. 12/02/2018 Active Comment on above: Take 2 mg by mouth. magnesium hydroxide 80 mg/ml oral suspension (20 sources) magnesium hydrox bernie (Milk of Magnesia) 400 MG/5ML suspension Take 30 mL by mouth. Active take 30 mL by mouth four times daily as needed for constipation magnesium hydroxide (MILK OF MAGNESIA) 400 MG/5ML suspension Take 30 mLs by mouth 4 times daily as needed for Constipation 0 Active Comment on above: Take 30 mL by mouth. melatonin 5 mg oral capsule (20 sources) Melatonin 5 MG c apsule Take by mouth. Active Comment on above: Take by mouth. metFORMIN hydrochloride 1000 mg oral tablet (20 sources) Biguanide Start: 01-07-2021 metFORMIN (GLUCOPHAGE) 1,000 mg tablet 01/07/2021 Active naphazoline hydrochloride 0.25 mg/ml / pheniramine maleate 3 mg/ml ophthalmic solution (20 sources) naphazoline-phen iramine (Naphcon-A) 0.025-0.3 % ophthalmic solution Administer 1 drop into affected eye(s). Active naphazoline-phen iramine eye drops (NAPHCON-A) 0.025-0.3 % ophthalmic solution 1 Drop. Active take 1 drop(s) into the eye(s) four times daily as needed naphazoline-pheniramine (NAPHCON-A) 0.02 5-0.3 % ophthalmic solution Place 1 drop into both eyes 4 times daily as needed 0 Active Comment on above: 1 Drop. nystatin 100 unt/mg topical powder (18 sources) Polyene Antifungal Start: 12-20-2020 [facility] [place] 12/20/2020 Active Nystatin powder Apply topically 2 times daily. Active Nystatin powder Apply topically 2 times daily. 0 Active nystatin (MYCOSTATIN) POWD powder (1 source) nystatin (MYCOST ATIN) POWD powder Apply topically 2 times daily 0 Active OLANZapine 10 mg oral tablet (20 sources) Atypical Antipsychotic Start: 01-01-2021 End: 12-23-2024 OLANZapine (ZYPREXA) 10 mg tablet 01/01/2021 Active OLANZapine (ZyPR EXA) 7.5 MG tablet 7.5 mg Nightly. 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 On empty stomach at least 30 minutes before eating. 90 capsule 3 10/09/2024 Active Start: 12-30-2020 End: 06-21-2023 omeprazole (PRILOSEC) 20 mg capsule Probiotic Product (PROBIOTIC DAILY PO) (1 source) Probiotic Produc t (PROBIOTIC DAILY PO) Take by mouth 0 Active Probiotic Product (PROBIOTIC -10 PO) (11 sources) Probiotic Produc t (PROBIOTIC-10 PO) Take by mouth. Active Probiotic Produc t (PROBIOTIC-10 PO) Take by mouth. 0 Active 24 hr propranolol hydrochloride 80 mg extended release oral capsule (20 sources) beta-Adrenergic Mohan Start: 08-26-2024 propra nolol ER (INDERAL LA) 80 mg 24 hr capsule 08/26/2024 Active Start: 05-03-2022 End: 12-23-2024 propranolol (Inderal) 80 MG tablet 05/03/2022 12/23/2024 Discontinued (Therapy completed) Start: 05-03-2022 End: 10-09-2024 propranolol (INDERAL) 10 mg tablet 06/02/2022 10/09/2024 Discontinued take 1 capsule by mo ut once daily propranolol LA (Inderal LA) 80 MG 24 hr capsule Take 80 mg by mouth daily. Do not crush, chew, or split. Active Pseudoephedrine-guaiFENesin (GUAIFENESIN-P PO) (11 sources) Pseudoephedrine- guaiFENesin (GUAIFENESIN-P PO) Take by mouth. Active Pseudoephedrine- guaiFENesin (GUAIFENESIN-P PO) Take by mouth. 0 Active sodium phosphate, dibasic 35.5 mg/ml / sodium phosphate, monobasic 96.4 mg/ml enema (12 sources) sodium phosphate (Fleets) 7-19 GM/118ML enema enema Insert into the rectum. Active tacrolimus 0.001 mg/mg topical ointment (18 sources) Calcineurin Inhibitor Immunosuppressant Start: 021 End: 024 tacrolimus (Protopic) 0.1 % ointment 10/12/2020 Active traZODone hydrochloride 100 mg oral tablet (20 sources) Serotonin Reuptake Inhibitor take 1 tablet by mouth once daily traZODone (Desyrel) 100 MG tablet Take 100 mg by mouth Nightly. Active Comment on above: Take 100 mg by mouth . valbenazine 40 mg oral capsule (6 sources) Start: take 1 capsule by mouth once daily valbenazine tosylate (Ingrezza) 40 MG capsule Take 40 mg by mouth Nightly. 09/24/2024 Active vitamin b12 1 mg oral tablet (20 sources) Vitamin B12 take 1 tablet by mouth once daily cyanocobalamin (Vitamin B-12) 1000 MCG tablet Take 1,000 mcg by mouth daily. Active Comment on above: Take 1,000 mcg by [facility]. Zinc Sulfate (11 sources) Zinc Sulfate (ZINC-220 PO) Take by mouth. Active Zinc Sulfate (ZI NC-220 PO) Take by mouth. 0 Active Completed/Discontinued Medications Medication Drug Class(es) Dates Sig (Normalized) Sig (Original) ascorbic acid 500 mg chewable tablet (10 sources) Vitamin C End: 12-25-2024 take 1 tablet by mouth once daily Ascorbic Acid (vitamin C) 500 MG tablet Take 500 mg by mouth daily. 12/25/2024 Discontinued (Therapy completed) aspirin 325 mg oral tablet (19 sources) Platelet Aggregation Inhibitor, Nonsteroidal Anti-inflammatory Drug End: 12-25-2024 take 1 tablet by mouth once daily aspirin 325 MG tablet Take 325 mg by mouth daily. 12/25/2024 Discontinued (Therapy completed) Comment on above: Take 325 mg by mouth . bisacodyl 5 mg delayed release oral tablet (2 sources) Stimulant Laxative Start: 01-07-2021 End: 05-09-2023 Bisacodyl (DULCOLAX) 5 mg tab Use as directed for Miralax / Gatorade Bowel Prep Kit 4 tablet 0 01/07/2021 05/09/2023 Discontinued Comment on above: Use as directed for Miralax / Gatorade Bowel Prep Kit Gatorade Sports Drink (2 sources) Start: 01-07-2021 End: 05-09-2023 Gatorade Sports Drink Use as directed for Miralax / Gatorade Bowel Prep Kit 0 01/07/2021 05/09/2023 Discontinued Start: 01-07-2021 Gatorade Sport s Drink Use as directed for Miralax / Gatorade Bowel Prep Kit 0 01/07/2021 Active Comment on above: Use as directed for Miralax / Gatorade Bowel Prep Kit polyethylene glycol 3350 42062 mg powder for oral solution (2 sources) Osmotic Laxative Start: 01-07-2021 End: 05-09-2023 polyethylene glycol 3350 (MIRALAX, GLYCOLAX) 17 gram/dose powder Use as directed for Miralax / Gatorade Bowel Prep Kit 238 g 0 01/07/2021 05/09/2023 Discontinued Comment on above: Use as directed for Miralax / Gatorade Bowel Prep Kit Problems Active Problems Problem Classification Problem Date Documented Da te Episodic/Chronic Abdominal hernia (3 sources) Hiatal hernia; Translations: [Diaphragmatic hernia without obstruction or gangrene] Onset: 10-09-2024 10-10-2023 Episodic Anxiety disorders (17 sources) Anxiety; Translations: [Anxiety disorder, unspecified] Onset: 11-07-2022 08-10-2022 Chronic Chronic obstructive pulmonary disease and bronchiectasis (16 sources) Chronic obstructive lung disease; Translations: [Chronic obstructive pulmonary disease, unspecified] Onset: 11-07-2022 11-07-2022 Chronic Deficiency and other anemia (1 source) Anemia, unspecified; Translations: [Anemia, unspecified] Onset: 12-26-2024 Episodic Diabetes mellitus with complications (17 sources) Type 2 diabetes mellitus; Translations: [Type 2 diabetes mellitus with diabetic polyneuropathy] Onset: 08-28-2016 11-07-2022 Chronic Diabetes mellitus without complication (8 sources) Type 2 diabetes mellitus without complication; Translations: [Type 2 diabetes mellitus without complications] Onset: 09-02-2014 Resolved: 08-28-2016 08-28-2016 Chronic Disorders of lipid metabolism (20 sources) Hyperlipidemia; Translations: [Hyperlipidemia, unspecified] Onset: 09-02-2014 09-02-2014 Chronic Esophageal disorders (7 sources) Geronimo's esophagus; 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] Onset: 10-09-2024 Chronic Essential hypertension (20 sources) Essential hypertension; Translations: [Essential (primary) hypertension] Onset: 10-14-2020 10-14-2020 Chronic Other gastrointestinal disorders (1 source) Irritable bowel syndrome with diarrhea; Translations: [Irritable bowel syndrome with diarrhea] Onset: 08-14-2024 Chronic Other gastrointestinal disorders (1 source) Constipation; Translations: [Other constipation] 05-09-2023 Episodic Other nutritional; endocrine; and metabolic disorders (16 sources) Morbid obesity; Translations: [Morbid (severe) obesity due to excess calories] Onset: 09-17-2018 09-17-2018 Chronic Other nutritional; endocrine; and metabolic disorders (7 sources) Severe obesity; Translations: [Class 2 severe obesity due to excess calories with serious comorbidity and body mass index (BMI) of 38.0 to 38.9 in adult] Onset: 12-25-2024 12-25-2024 Chronic Other nutritional; endocrine; and metabolic disorders (2 sources) Morbid (severe) obesity due to excess calories; Translations: [Morbid (severe) obesity due to excess calories (CMS/HCC)] Onset: 12-09-2021 Chronic Other screening for suspected conditions (not mental disorders or infectious disease) (11 sources) Raised prostate specific antigen; Translations: [Elevated prostate specific antigen [PSA]] Onset: 12-23-2024 Episodic Schizophrenia and other psychotic disorders (20 sources) Schizoaffective disorder; Translations: [Schizoaffective disorder, unspecified] Onset: 09-02-2014 09-02-2014 Chronic Past or Other Problems Problem Classification Problem Date Documented Da te Episodic/Chronic Mood disorders (8 sources) Mood disorders Onset: 11-06-2022 11-06-2022 Other lower respiratory disease (11 sources) Dyspnea on exertion; Translations: [Other forms of dyspnea] Onset: 02-09-2022 02-09-2022 Episodic Other non-traumatic joint disorders (5 sources) Pain in right hip joint; Translations: [Pain in right hip] Onset: 02-09-2022 02-09-2022 Episodic Other non-traumatic joint disorders (6 sources) Hip pain; Translations: [Pain in right hip] Onset: 02-09-2022 02-09-2022 Episodic Results Test Name Value Interpretation Reference Range Facility Laboratory - Chemistry and C hemistry - challengeon 12-24-2024 Prostate specific Ag [Mass/Vol] 5.22 ng/mL High < OR = 4.00 [facility] Comment on above: The total PSA value from this assay system is standardized against the WHO standard. The test result will be approximately 20% lower when compared to the equimolar-standardized total PSA (Aurelio Dada). Comparison of serial PSA results should be interpreted with this fact in mind. This test was performed using the Siemens chemiluminescent method. Values obtained from different assay methods cannot be used interchangeably. PSA levels, regardless of value, should not be interpreted as absolute evidence of the presence or absence of disease. No Panel Informationon 12-24 Interpretation and review of laboratory results Abnormal [facility] 29on 12-23-2024 29 Addended by: Rocío UGALDE on: 12/25/2024 07:51 AM Modules accepted: Orders Normal [facility] 29 Addended by: EFRAIN MENDENHALL on: 12/25/2024 01:07 PM Modules accepted: Orders Normal [facility] 37on 12-23-2024 37 Personalized Preventative Plan for Milad Ríos He - 12/23/2024 Medicare offers a range of preventative health benefits. Some of the tests and screenings are paid in full while others may be subject to a deductible, co-insurance, and / or copay. Some of these benefits include a comprehensive review of your medical history including lifestyle, illnesses that may run in your family, and various assessments and screenings as appropriate. After reviewing your medical record and screening and assessments performed today, your provider may have ordered immunizations, labs, imaging, and / or referrals for you. A list of these orders (if applicable) as well as your Preventative Care list are included within your After Visit Summary for your review. Other Preventative Recommendations: A preventive eye exam by an veterinary milk specialist is recommended every 1-2 years to screen for glaucoma, cataracts, macular degeneration, and other eye disorders. A preventive dental visit is recommended every 6 months. Try to get at least 150 minutes of exercise per week or 10,000 steps per day on a pedometer. You need 1200-1500mg of calcium and [id number] international units of vitamin D per day. It is possible to meet your calcium requirement with diet alone, but a vitamin D supplement is usually necessary to meet this goal. When exposed to the sun, use a sunscreen that protects against both UVA and UVB radiation with an SPF of 30 or greater. Reapply every 2-3 hours or after sweating, drying off with a towel, or swimming. Always wear a seat belt when traveling in a car. Always wear a helmet when riding a bicycle or a motorcycle [facility] Office Visiton 12-23-2024 Follow-up visit [id number] EddiejamarMilad Khushbu 1955 [facility] 12/23/2024 [id number] [facility] Family History Problem Relation Age of Onset Mental illness Father Heart disease Mother Mental illness Mother Cancer Father Comments: Prostate Family Status - Relation Status Age at Father Mother Level of Service:G0439 PA PPPS, SUBSEQ VISIT Reason for Visit and Comments: Medicare Annual Wellness Visit Subsequent [817] Blood Work [949799] Health Maintenance [872] - Shingles vaccine-refuse Flu vaccine- done at [facility] 7th covid vaccine- not done Rsv vaccine- not done Eye exam- Dr Carroll Troncoso in [place] will send for record Dental exam- not done Tdap vaccine- refuse Normal [facility] Progress Noteon 12-23-2024 Progress Note Stable, continue albuterol 2 puffs every 6 hours as needed Normal [facility] Progress Note Controlled, continue metformin 1000 mg twice a day Normal [facility] Progress Note Has multiple comorbidities, encourage patient to lose weight with diet and exercise Normal [facility] Progress Note Patient verified by last name and date of . Normal [facility] Progress Note Encourage weight los s with diet and exercise Normal [facility] Progress Note Blood pressure was initially elevated, recheck was even higher continue lisinopril 20 mg daily, propranolol 80 mg daily Normal [facility] Progress Note Controlled, continue atorvastatin 10 mg daily Normal [facility] Progress Note Remission, continue Lexapro 20 mg daily and clonazepam 0.25 mg twice a day Normal [facility] Progress Note [facility] [address] [facility] [address] Dept: [phone] Dept Chief Complaint: Milad Moon is an 69 y.o. male here for an annual wellness visit. Assessment/Plan : Assessment & Plan Routine general medical examination at health care facility Type 2 diabetes mellitus with diabetic polyneuropathy, without long-term current use of insulin (HCC) Controlled, continue metformin 1000 mg twice a day Chronic obstructive pulmonary disease, unspecified COPD type (HCC) Stable, continue albuterol 2 puffs every 6 hours as needed Essential hypertension Blood pressure was initially elevated, recheck was even higher continue lisinopril 20 mg daily, propranolol 80 mg daily Pure hypercholesterolemia Controlled, continue atorvastatin 10 mg daily Schizoaffective disorder with good prognostic features (HCC) Remission, continue Wellbutrin 150 mg daily, Lexapro 20 mg daily Haldol 10 mg daily and 5 mg daily Zyprexa 7.5 mg daily, and Ingrezza 40 mg nightly Anxiety Remission, continue Lexapro 20 mg daily and clonazepam 0.25 mg twice a day Screening for prostate cancer Orders: PSA Total (Screening); Future Class 2 severe obesity due to excess calories with serious comorbidity and body mass index (BMI) of 38.0 to 38.9 in adult Has multiple comorbidities, encourage patient to lose weight with diet and exercise I have reviewed and reconciled the medication list with the patient today. Current Outpatient Medications Medication Sig Dispense Refill acetaminophen (Tylenol) 325 MG tablet Take 650 mg by mouth every 6 hours as needed. albuterol 108 (90 Base) MCG/ACT inhaler Inhale 2 puffs every 6 hours as needed for wheezing. 1 each 0 ammonium lactate (Amlactin) 12 % cream Apply topically. atorvastatin (Lipitor) 10 MG tablet Take 10 mg by mouth daily. buPROPion XL (Wellbutrin XL) 150 MG 24 hr tablet Calcium Carbonate-Vitamin D (calcium-vitamin D) 500-200 MG-UNIT tablet Take 1 tablet by mouth daily. Lskwibd-Fteznry-Ocjoyy Gerald (HM SALONPAS PAIN RELIEF EX) Apply topically. carbamide peroxide (Debrox) 6.5 % otic solution 5 drops 2 times daily. cholecalciferol ( Vitamin D3) 25 MCG (1000 UT) tablet Take by mouth. cyanocobalamin (Vitamin B-12) 1000 MCG tablet Take 1,000 mcg by mouth daily. (Patient taking differently: Take 500 mcg by mouth daily.) Diclofenac Sodium (Voltaren) 1 % gel Apply topically 2 times daily. Docusate Sodium (DSS) 100 MG capsule Take 100 mg by mouth in the morning and 100 mg in the evening. EPINEPHrine (Epipen) 0.3 MG/0.3ML injection syringe Inject 0.3 mg into the shoulder, thigh, or buttocks. escitalopram (Lexapro) 20 MG tablet Take 20 mg by mouth daily. ferrous sulfate 325 (65 Fe) MG tablet Take 325 mg by mouth. fluticasone (Flonase) 50 MCG/ACT nasal spray Administer 1 spray into affected nostril(s) daily. (Patient taking differently: Administer 2 sprays into affected nostril(s) daily.) gabapentin (Neurontin) 400 MG capsule Take 400 mg by mouth 3 times daily. glucagon 1 MG injection Infuse 1 kit into a venous catheter. haloperidol (Haldol) 10 MG tablet Take 10 mg by mouth 2 times daily. (Patient taking differently: Take 10 mg by mouth daily.) haloperidol (Haldol) 5 MG tablet Take 5 mg by mouth daily. ibuprofen 200 MG tablet Take 400 mg by mouth every 6 hours as needed. ketoconazole (NIZOral) 2 % shampoo Apply to scalp prn for flares- lather and allow to sit for a few minutes before rinsing Apply to scal topically 1 tme per day every ,, for dry scalp unsupervised self administration lther and allow to sit for few minutes before rinsing Lidocaine (Salonpas Pain Relieving) 4 % patch Place 1 patch on the skin daily. lisinopril 20 MG tablet loperamide (Imodium) 2 MG capsule Take 2 mg by mouth. Lumigan 0.01 % ophthalmic solution magnesium hydroxide (Milk of Magnesia) 400 MG/5ML suspension Take 30 mL by mouth. OLANZapine (ZyPREXA) 7.5 MG tablet 7.5 mg Nightly. omeprazole (PriLOSEC) [address] capsule Take 40 mg by mouth daily. Probiotic Product (PROBIOTIC-10 PO) Take by mouth. propranolol LA (Inderal LA) 80 MG 24 hr capsule Take 80 mg by mouth daily. Do not crush, chew, or split. Pseudoephedrine-guaiFEN esin (GUAIFENESIN-P PO) Take by mouth. senna-docusate (Celena-Colace) 8.6-50 MG tablet Take by mouth. sodium phosphate (Fleets) 7-19 GM/118ML enema enema Insert into the rectum. tacrolimus (Protopic) 0.1 % ointment valbenazine tosylate (Ingrezza) 40 MG capsule Take 40 mg by mouth Nightly. Ascorbic Acid (vitamin C) 500 MG tablet Take 500 mg by mouth daily. (Patient not taking: Reported on 12/25/2024) aspirin 325 MG tablet Take 325 mg by mouth daily. (Patient not taking: Reported on 12/25/2024) clobetasol (Temovate) 0.05 % external solution (Patient not taking: Reported on 12/25/2024) clonazePAM (KlonoPIN) 0.5 MG tablet Take 0.5 tablets (0.25 mg) by mouth 2 times daily. (more content not included)... Normal [facility] Progress Note Remission, continue Wellbutrin 150 mg daily, Lexapro 20 mg daily Haldol 10 mg daily and 5 mg daily Zyprexa 7.5 mg daily, and Ingrezza 40 mg nightly Normal [facility] Lipid Profileon 12-15-2024 CHOL:HDL 2.44 Normal [facility] Comment on above: Order Comment: 414.1 Performed By: #### L 500.3400, L500.2500, L100.0100, L501.9985, L501.9520 #### [facility] [address] [place], [address] Cholesterol [Mass/Vol] 129 mg/dL Normal <=200 [facility] Comment on above: Order Comment: 414.1 Result Comment: Chol esterol level, Desirable <200 mg/dL Borderline high cholesterol 200-239 mg/dL High cholesterol >=240 mg/dL Recommendations of the NCEP Adult Treatment Panel for the following risk-cutoff thresholds for the [place] population. Performed By: #### L 500.3400, L500.2500, L100.0100, L501.9985, L501.9520 #### [facility] [address], [address] Cholesterol in HDL [Mass/Vol] 53 mg/dL Normal [facility] Comment on above: Order Comment: 414.1 Result Comment: Triny onal Cholesterol Education Program (NCEP) guidelines: <40 mg/dL: Low HDL-cholesterol (major risk factor for CHD) >= 60 mg/dL: High HDL-cholesterol (negative risk factor for CHD) HDL-cholesterol is affected by a number of factors, e.g. smoking, exercise, hormones, sex and age. Performed By: #### L 500.3400, L500.2500, L100.0100, L501.9985, L501.9520 #### [facility] [address] [place], [address] Cholesterol in LDL [Mass/Vol] 60 mg/dL Normal [facility] Comment on above: Order Comment: 414.1 Result Comment: Bord beuygj=323-615 mg/dL Higher Jgsg=072 mg/dL or greater Avila Equation 2020 for LDL-C Performed By: #### L 500.3400, L500.2500, L100.0100, L501.9985, L501.9520 #### [facility] [address] [place], [address] Cholesterol in VLDL [Mass/Vol] 17 mg/dL Normal 5-40 [facility] Comment on above: Order Comment: 414.1 Performed By: #### L 500.3400, L500.2500, L100.0100, L501.9985, L501.9520 #### [facility] [address] [place], [address] Triglyceride [Mass/Vol] 84 mg/dL Normal [facility] Comment on above: Order Comment: 414.1 Result Comment: The drugs N-Acetylcysteine and Metamizole may falsely depress this assay. Normal range: <150 mg/dL Borderline High: 150-199 mg/dL High: 200-499 mg/dL Very High: >500 mg/dL Performed By: #### L 500.3400, L500.2500, L100.0100, L501.9985, L501.9520 #### [facility] [address] [place], [address] Liver Profileon 12-15-2024 Albumin [Mass/Vol] 4.0 g/dL Normal 3.4-4.8 [facility] Comment on above: Order Comment: 414.1 Performed By: #### L 500.3400, L500.2500, L100.0100, L501.9985, L501.9520 #### [facility] [address] [place], [address] ALK PHOS 89 U/L Normal 40-129 [facility] Comment on above: Order Comment: 414.1 Performed By: #### L 500.3400, L500.2500, L100.0100, L501.9985, L501.9520 #### [facility] [address] [place], [address] ALT [Catalytic activity/Vol] 18 U/L Normal <=46 [facility] Comment on above: Order Comment: 414.1 Performed By: #### L 500.3400, L500.2500, L100.0100, L501.9985, L501.9520 #### [facility] [address] [place], [address] AST [Catalytic activity/Vol] 19 U/L Normal <=37 [facility] Comment on above: Order Comment: 414.1 Performed By: #### L 500.3400, L500.2500, L100.0100, L501.9985, L501.9520 #### [facility] [address] [place], [address] Bilirubin [Mass/Vol] 0.27 mg/dL Normal 0.00-1.30 [facility] Comment on above: Order Comment: 414.1 Performed By: #### L 500.3400, L500.2500, L100.0100, L501.9985, L501.9520 #### [facility] [address] [place], [address] Bilirubin.direct [Mass/Vol] 0.11 mg/dL Normal 0.00-0.30 [facility] Comment on above: Order Comment: 414.1 Performed By: #### L 500.3400, L500.2500, L100.0100, L501.9985, L501.9520 #### [facility] [address] [place], [address] Globulin (S) [Mass/Vol] 2.8 g/dL Normal 2.2-4.2 [facility] Comment on above: Order Comment: 414.1 Performed By: #### L 500.3400, L500.2500, L100.0100, L501.9985, L501.9520 #### [facility] [address] [place], [address] T PROT 6.8 g/dL Normal 5.9-8.4 [facility] Comment on above: Order Comment: 414.1 Performed By: #### L 500.3400, L500.2500, L100.0100, L501.9985, L501.9520 #### [facility] [address] [place], [address] Basic Metabolic Profile (BMP )on 10-20-2024 BUN/CRE 13.0 RATIO Normal 10-20 [facility] Comment on above: Order Comment: 414.1 Performed By: #### L 500.3400, L500.2500, L100.0100, L501.9985, L501.9520 #### [facility] [address] [place], [address] Calcium [Mass/Vol] 9.8 mg/dL Normal 7.6-11.0 [facility] Comment on above: Order Comment: 414.1 Performed By: #### L 500.3400, L500.2500, L100.0100, L501.9985, L501.9520 #### [facility] [address] [place], [address] Chloride [Moles/Vol] 98 mmol/L Normal 98-108 [facility] Comment on above: Order Comment: 414.1 Performed By: #### L 500.3400, L500.2500, L100.0100, L501.9985, L501.9520 #### [facility] [address] [place], [address] CO2 [Moles/Vol] 30.1 mmol/L Normal 21.0-32.0 [facility] Comment on above: Order Comment: 414.1 Performed By: #### L 500.3400, L500.2500, L100.0100, L501.9985, L501.9520 #### [facility] [address] [place], [address] Creatinine [Mass/Vol] 0.88 mg/dL Normal 0.70-1.20 [facility] Comment on above: Order Comment: 414.1 Performed By: #### L 500.3400, L500.2500, L100.0100, L501.9985, L501.9520 #### [facility] [address] [place], [address] GAP 11 Normal 5-15 [facility] Comment on above: Order Comment: 414.1 Performed By: #### L 500.3400, L500.2500, L100.0100, L501.9985, L501.9520 #### [facility] [address] [place], [address] GFR/1.73 sq M.predicted among non-blacks MDRD (S/P/Bld) [Vol rate/Area] 93 mL/min/{1.73_m2} Normal >60 [facility] Comment on above: Order Comment: 414.1 Result Comment: mL/m in/1.73m2 CKD-EPI Creatinine Equation (2020) Performed By: #### L 500.3400, L500.2500, L100.0100, L501.9985, L501.9520 #### [facility] [address] [place], [address] Glucose [Mass/Vol] 94 mg/dL Normal 70-99 [facility] Comment on above: Order Comment: 414.1 Performed By: #### L 500.3400, L500.2500, L100.0100, L501.9985, L501.9520 #### [facility] [address] [place], [address] Potassium [Moles/Vol] 4.7 mmol/L Normal 3.3-5.1 [facility] Comment on above: Order Comment: 414.1 Performed By: #### L 500.3400, L500.2500, L100.0100, L501.9985, L501.9520 #### [facility] [address] [place], [address] Sodium [Moles/Vol] 139 mmol/L Normal 133-145 [facility] Comment on above: Order Comment: 414.1 Performed By: #### L 500.3400, L500.2500, L100.0100, L501.9985, L501.9520 #### [facility] [address] [place], [address] Urea nitrogen [Mass/Vol] 11 mg/dL Normal 4-19 [facility] Comment on above: Order Comment: 414.1 Performed By: #### L 500.3400, L500.2500, L100.0100, L501.9985, L501.9520 #### [facility] [address] [place], [address] CBC W/Diff, Automatedon 08-2 5-2024 Absolute Lymph 1.70 X10 3/uL Normal 0.83-4.51 [facility] Comment on above: Order Comment: 414.1 Performed By: #### L 500.3400, L500.2500, L100.0100, L501.9985, L501.9520 #### [facility] [address] [place], [address] Absolute Neut 6.8 X10 3/uL Normal 2.0-7.7 [facility] Comment on above: Order Comment: 414.1 Performed By: #### L 500.3400, L500.2500, L100.0100, L501.9985, L501.9520 #### [facility] [address] [place], [address] Basophils/100 WBC (Bld) 0.9 % Normal 0-1 [facility] Comment on above: Order Comment: 414.1 Performed By: #### L 500.3400, L500.2500, L100.0100, L501.9985, L501.9520 #### [facility] [address] [place], [address] Eosinophils/100 WBC (Bld) 4.0 % Normal 0-5 [facility] Comment on above: Order Comment: 414.1 Performed By: #### L 500.3400, L500.2500, L100.0100, L501.9985, L501.9520 #### [facility] [address] [place], [address] Erythrocyte distribution width (RBC) [Ratio] 13.4 % Normal 11.6-14.6 [facility] Comment on above: Order Comment: 414.1 Performed By: #### L 500.3400, L500.2500, L100.0100, L501.9985, L501.9520 #### [facility] [address] [place], [address] Hematocrit (Bld) [Volume fraction] 39.3 % Low 40-54 [facility] Comment on above: Order Comment: 414.1 Performed By: #### L 500.3400, L500.2500, L100.0100, L501.9985, L501.9520 #### [facility] [address] [place], [address] Hemoglobin (Bld) [Mass/Vol] 13.0 g/dL Normal 13.0-16.5 [facility] Comment on above: Order Comment: 414.1 Performed By: #### L 500.3400, L500.2500, L100.0100, L501.9985, L501.9520 #### [facility] [address] [place], [address] IG% 0.600 Normal 0.0-0.9 [facility] Comment on above: Order Comment: 414.1 Result Comment: IG% - Immature Granulocytes (promyelocytes, myelocytes and metamyelocytes) > 1% indicates that a LEFT SHIFT is Present. Performed By: #### L 500.3400, L500.2500, L100.0100, L501.9985, L501.9520 #### [facility] [address] [place], [address] Lymphocytes/100 WBC (Bld) 17.6 % Low 19-41 [facility] Comment on above: Order Comment: 414.1 Performed By: #### L 500.3400, L500.2500, L100.0100, L501.9985, L501.9520 #### [facility] [address] [place], [address] MCH (RBC) [Entitic mass] 29.0 pg Normal 27.0-32.0 [facility] Comment on above: Order Comment: 414.1 Performed By: #### L 500.3400, L500.2500, L100.0100, L501.9985, L501.9520 #### [facility] [address] [place], [address] MCHC (RBC) [Mass/Vol] 33.1 g/dL Normal 32-36 [facility] Comment on above: Order Comment: 414.1 Performed By: #### L 500.3400, L500.2500, L100.0100, L501.9985, L501.9520 #### [facility] [address] [place], [address] MCV (RBC) [Entitic vol] 87.7 fL Normal 80-94 [facility] Comment on above: Order Comment: 414.1 Performed By: #### L 500.3400, L500.2500, L100.0100, L501.9985, L501.9520 #### [facility] [address] [place], [address] Monocytes/100 WBC (Bld) 6.1 % Normal 0-10 [facility] Comment on above: Order Comment: 414.1 Performed By: #### L 500.3400, L500.2500, L100.0100, L501.9985, L501.9520 #### [facility] [address] [place], [address] Neutrophils/100 WBC (Bld) 70.8 % High 47-70 [facility] Comment on above: Order Comment: 414.1 Performed By: #### L 500.3400, L500.2500, L100.0100, L501.9985, L501.9520 #### [facility] [address] [place], [address] Nucleated RBC (Bld) [#/Vol] 0 10*3/uL Normal 0-5 [facility] Comment on above: Order Comment: 414.1 Performed By: #### L 500.3400, L500.2500, L100.0100, L501.9985, L501.9520 #### [facility] [address] [place], [address] Platelet mean volume (Bld) [Entitic vol] 10.1 fL Normal 6.2-12.0 [facility] Comment on above: Order Comment: 414.1 Performed By: #### L 500.3400, L500.2500, L100.0100, L501.9985, L501.9520 #### [facility] [address] [place], [address] Platelets (Bld) [#/Vol] 221 10*3/uL Normal 150-450 [facility] Comment on above: Order Comment: 414.1 Performed By: #### L 500.3400, L500.2500, L100.0100, L501.9985, L501.9520 #### [facility] [address] [place], [address] RBC (Bld) [#/Vol] 4.48 10*6/uL Low 4.6-6.2 [facility] Comment on above: Order Comment: 414.1 Performed By: #### L 500.3400, L500.2500, L100.0100, L501.9985, L501.9520 #### [facility] [address] [place], [address] RDW SD 43.1 fl Normal 35.1-43.9 [facility] Comment on above: Order Comment: 414.1 Performed By: #### L 500.3400, L500.2500, L100.0100, L501.9985, L501.9520 #### [facility] [address] [place], [address] WBC (Bld) [#/Vol] 9.7 10*3/uL Normal 4.4-11.0 [facility] Comment on above: Order Comment: 414.1 Performed By: #### L 500.3400, L500.2500, L100.0100, L501.9985, L501.9520 #### [facility] [address] [place], [address] Hemoglobin A1con 10-20-2024 HbA1c (Bld) [Mass fraction] 5.7 % Normal <=5.6 [facility] Comment on above: Order Comment: 414.1 Result Comment: Norm al < 5.7 % Prediabetic 5.7 - 6.4 % Diabetic >or= 6.5 % Please note range changes. Performed By: #### L 500.3400, L500.2500, L100.0100, L501.9985, L501.9520 #### [facility] [address] [place], [address] Liver Profileon 10-20-2024 Albumin [Mass/Vol] 4.3 g/dL Normal 3.4-4.8 [facility] Comment on above: Order Comment: 414.1 Performed By: #### L 500.3400, L500.2500, L100.0100, L501.9985, L501.9520 #### [facility] [address] [place], [address] ALK PHOS 100 U/L Normal 40-129 [facility] Comment on above: Order Comment: 414.1 Performed By: #### L 500.3400, L500.2500, L100.0100, L501.9985, L501.9520 #### [facility] [address] [place], [address] ALT [Catalytic activity/Vol] 19 U/L Normal <=46 [facility] Comment on above: Order Comment: 414.1 Performed By: #### L 500.3400, L500.2500, L100.0100, L501.9985, L501.9520 #### [facility] [address] [place], [address] AST [Catalytic activity/Vol] 22 U/L Normal <=37 [facility] Comment on above: Order Comment: 414.1 Performed By: #### L 500.3400, L500.2500, L100.0100, L501.9985, L501.9520 #### [facility] [address] [place], [address] Bilirubin [Mass/Vol] 0.31 mg/dL Normal 0.00-1.30 [facility] Comment on above: Order Comment: 414.1 Performed By: #### L 500.3400, L500.2500, L100.0100, L501.9985, L501.9520 #### [facility] [address] [place], [address] Bilirubin.direct [Mass/Vol] 0.12 mg/dL Normal 0.00-0.30 [facility] Comment on above: Order Comment: 414.1 Performed By: #### L 500.3400, L500.2500, L100.0100, L501.9985, L501.9520 #### [facility] [address] [place], [address] Globulin (S) [Mass/Vol] 3.0 g/dL Normal 2.2-4.2 [facility] Comment on above: Order Comment: 414.1 Performed By: #### L 500.3400, L500.2500, L100.0100, L501.9985, L501.9520 #### [facility] [address] [place], [address] T PROT 7.3 g/dL Normal 5.9-8.4 [facility] Comment on above: Order Comment: 414.1 Performed By: #### L 500.3400, L500.2500, L100.0100, L501.9985, L501.9520 #### [facility] [address] [place], [address] Thyroid Stim Hormone (TSH)on 10-20-2024 TSH 1.790 uIU/mL Normal 0.300-4.200 [facility] Comment on above: Order Comment: 414.1 Performed By: #### L 500.3400, L500.2500, L100.0100, L501.9995, L501.9510 #### [facility] [place], [address] CNOVon 10-09-2024 CNOV Office Visit ([facility] ) MILAD MOON ([id number]) 1955 M Date Time Provider Department 10/09/24 2:40 PM EDA CASANOVA [facility] During your visit today, we recorded the following information about you: Pulse Blood pressure Weight Height 58/minute 132/70 101.7 kg 1.702 m Eda Casanova PA-C 10/09/2024 3:11 PM Signed CHIEF COMPLAINT: Patient presents with: Recheck: Geronimo's Esophagus, Hiatal Hernia, Alternating bowel habits HPI Resident at [facility] Milad Moon is a 69 year old male here PMHx pos for HLD, DM II, schizoaffective disorder today for Recheck (Geronimo's Esophagus, Hiatal Hernia, Alternating bowel habits ). Taking Prilosec 40 mg daily with relief in GERD. Taking Colace BID, having a daily Bms, occasionally alternates in consistency but overall reports Bms have been regular for him, no blood. Denies dysphagia, abd pain, N/V, weight loss. 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 Biopsied. - 5 cm hiatal hernia. - Normal stomach. - Normal duodenal bulb and second portion of the duodenum. Component FINAL DIAGNOSIS A. Esophagus, distal, biopsy: - Geronimo's esophagus, negative for dysplasia. EGD/Colon 2021 Impression: - Esophagogastric landmarks identified. - Esophageal mucosal changes secondary to established long-segment Geronimo's disease. Biopsied. - Normal stomach. - Normal first portion of the duodenum and second portion of the duodenum. Impression: - Preparation of the colon was fair. - Diverticulosis in the sigmoid colon, in the descending colon, in the transverse colon and in the ascending colon. - Internal hemorrhoids. - Stool in the entire examined colon. - No specimens collected. CONVERTED FINAL DIAGNOSIS A. Esophagus, 34 cm, biopsy - Specialized columnar epithelium with goblet cells, consistent with Geronimo's esophagus, negative for dysplasia. - Squamous epithelium is not present. B. Esophagus, at 32 cm, biopsy - Specialized columnar epithelium with goblet cells, consistent with Geronimo's esophagus, negative for dysplasia. - Scant reactive squamous epithelium. OV 2023 Milad Moon is a 68 year old male PMHx pos for HLD, DM II, schizoaffective disorder here today for Procedure Follow Up (EGD 06/19/23). Seen last for h/o Geronimo's, constipation. Taking Prilosec 40 mg daily, Colace BID. Bms improved with dietary fiber. Having a BM daily, formed consistency, no blood. Denies abd pain, N/V, dysphagia, melena, weight loss. Current Outpatient Medications Medication Sig INGREZZA 40 mg capsule haloperidol (HALDOL) 5 mg tablet lisinopril (ZESTRIL) 20 mg tablet propranolol ER (INDERAL LA) 80 mg 24 hr capsule omeprazole (PRILOSEC) 40 mg capsule Take 1 capsule by mouth once daily. On empty stomach at least 30 minutes before eating. ALBUTEROL INHALATION Inhale as instructed. docusate sodium (COLACE) 100 mg capsule Take 100 mg by mouth two times a day. B.animalis,bifid,infant is,long (PROBIOTIC 4X ORAL) Take by mouth. gabapentin (NEURONTIN) 400 mg capsule ketoconazole (NIZORAL) 2 % shampoo haloperidol (HALDOL) 10 mg tablet acetaminophen (TYLENOL) 325 mg tablet Take 650 mg by mouth. atorvastatin (LIPITOR) 10 mg tablet buPROPion XL (WELLBUTRIN XL) 150 mg 24 hr tablet escitalopram oxalate (LEXAPRO) 20 mg tablet ferrous sulfate 325 mg (65 mg iron) tablet Take 325 mg by mouth. fluticasone (FLONASE) 50 mcg/actuation nasal spray LUMIGAN 0.01 % drop ophthalmic drops OLANZapine (ZYPREXA) 10 mg tablet cyanocobalamin (VITAMIN B-12) 1,000 mcg tab Take 1,000 mcg by mouth. ylbzxmg-nwnskmiix-kasjh in D3 500 mg(1,250mg) -200 unit per tablet Take 1 tablet by mouth once daily. ammonium lactate (LAC-HYDRIN) 12 % cream Apply to affected area. dextran 70-hypromellose (TEARS PURE) ophthalmic solution 1 Drop. glucagon (GLUCAGEN) 1 mg injection Inject 1 Kit intravenously. guaiFENesin-dextrometho rphan (ROBITUSSIN DM) 100-10 mg/5 mL syrup Take [...] auto-injector Inject 0.3 mg intramuscularly as needed. Clobetasol Propionate (TEMOVATE) 0.05 % external solution (Patient not taking: Reported on 10/09/2024) aspirin 325 mg tablet Take 325 mg by mouth. (Patient not taking: Reported on 10/09/2024) metFORMIN (GLUCOPHAGE) 1,000 mg tablet (Patient not taking: Reported on 10/09/2024) No (more content not included)... Normal [facility] 08-04-2024 36 [place] nurse at [facility] will speak with pt and see what he needs Normal [facility] 36 Lm to return call Normal [facility] 36on 08-01-2024 36 LM for pt to return call [place] [address] Name of caller: Milad Contact phone number: [phone] Relationship to Patient: [facility] Provider: Dr. Mendenhall Practice: [facility] Chief Complaint/Reason for Call: Requesting call back to clarify lab orders Pt gets LAST 5 and a hepatic function panel test every 85 days Please advise Best time of day caller can be reached: Any Patient advised that office/PCP has 24-48 business hours to return their call: No Normal [facility] Bilirubin directOrdered By: Efrain Mendenhall on 07-28-2024 Bilirubin.direct [Mass/Vol] 0.15 mg/dL 0.00-0.30 [facility] Bilirubin, totalOrdered By: Efrain Mendenhall on 07-28-2024 Bilirubin [Mass/Vol] 0.32 mg/dL 0.00-1.30 [facility] Glucoseon 07-28-2024 Glucose [Mass/Vol] 92 mg/dL Normal 70-99 [facility] Comment on above: Order Comment: 414.1 Performed By: #### L 500.3400, L500.2500, L100.0100, L501.9985, L501.9520 #### [facility] [address] [place], [place], [id number] Laboratory - Chemistry and C hemistry - challengeOrdered By: Efrain Mendenhall on 07-28-2024 AST [Catalytic activity/Vol] 20 U/L <38 [facility] Liver Profileon 07-28-2024 Albumin [Mass/Vol] 4.3 g/dL Normal 3.4-4.8 [facility] Comment on above: Order Comment: 414.1 Performed By: #### L 500.3400, L500.2500, L100.0100, L501.9985, L501.9520 #### [facility] [address] [place], [address] ALK PHOS 101 U/L Normal 40-129 [facility] Comment on above: Order Comment: 414.1 Performed By: #### L 500.3400, L500.2500, L100.0100, L501.9985, L501.9520 #### [facility] [address] [place], [address] ALT [Catalytic activity/Vol] 17 U/L Normal <=46 [facility] Comment on above: Order Comment: 414.1 Performed By: #### L 500.3400, L500.2500, L100.0100, L501.9985, L501.9520 #### [facility] [address] [place], [address] AST [Catalytic activity/Vol] 20 U/L Normal <=37 [facility] Comment on above: Order Comment: 414.1 Performed By: #### L 500.3400, L500.2500, L100.0100, L501.9985, L501.9520 #### [facility] [address] [place], [address] Bilirubin [Mass/Vol] 0.32 mg/dL Normal 0.00-1.30 [facility] Comment on above: Order Comment: 414.1 Performed By: #### L 500.3400, L500.2500, L100.0100, L501.9985, L501.9520 #### [facility] [address] [place], [address] Bilirubin.direct [Mass/Vol] 0.15 mg/dL Normal 0.00-0.30 [facility] Comment on above: Order Comment: 414.1 Performed By: #### L 500.3400, L500.2500, L100.0100, L501.9985, L501.9520 #### [facility] [address] [place], [address] Globulin (S) [Mass/Vol] 3.0 g/dL Normal 2.2-4.2 [facility] Comment on above: Order Comment: 414.1 Performed By: #### L 500.3400, L500.2500, L100.0100, L501.9985, L501.9520 #### [facility] [address] [place], [address] T PROT 7.3 g/dL Normal 5.9-8.4 [facility] Comment on above: Order Comment: 414.1 Performed By: #### L 500.3400, L500.2500, L100.0100, L501.9985, L501.9520 #### [facility] [address] [place], [place], [id number] Serum globulin measurementOr dered By: Efrain Mendenhall on 07-28-2024 Globulin (S) [Mass/Vol] 3.0 g/dL 2.2-4.2 [facility] Serum glucose measurement (m ass/volume)Ordered By: Efrain Mendenhall on 07-28-2024 Glucose [Mass/Vol] 92 mg/dL 70-99 [facility] Serum or plasma alanine sommers otransferase (ALT) measurementOrdered By: Efrain Mendenhall on 07-28-2024 ALT [Catalytic activity/Vol] 17 U/L <47 [facility] Serum or plasma albumin caterina urement (mass/volume)Ordered By: Efrain Mendenhall on 07-28-2024 Albumin [Mass/Vol] 4.3 g/dL 3.4-4.8 [facility] Serum or plasma alkaline petr sphatase measurementOrdered By: Efrain Mendenhall on 07-28-2024 ALP [Catalytic activity/Vol] 101 U/L 40-129 [facility] TSH DL <= 0.005 mIU/L QnOrde red By: Efrain Mendenhall on 07-28-2024 TSH Qn 1.660 uIU/mL 0.300-4.200 [facility] Thyroid Stim Hormone (TSH)on 07-28-2024 TSH 1.660 uIU/mL Normal 0.300-4.200 [facility] Comment on above: Order Comment: 414.1 Performed By: #### L 500.3400, L500.2500, L100.0100, L501.9985, L501.9520 #### [facility] [address] [place], [address] Total proteinOrdered By: Silas Mendenhall on 07-28-2024 Protein [Mass/Vol] 7.3 g/dL 5.9-8.4 [facility] Vitamin B12on 07-11-2024 Cobalamin (Vitamin B12) [Mass/Vol] 1152 pg/mL High 180-914 [facility] Comment on above: Order Comment: 414.1 Performed By: #### L 503.0106 #### [facility] [address] [place], [place], [id number] Vitamin B12 ser/plasOrdered By: Efrain Mendenhall on 07-11-2024 Cobalamin (Vitamin B12) [Mass/Vol] 1152 pg/mL High 180-914 [facility] Absolute lymphocyte countOrd ered By: Efrain Mendenhall on 05-05-2024 Lymphocytes Auto (Unsp spec) [#/Vol] 2.52 10*3/uL 0.83-4.51 [facility] Absolute neutrophil countOrd ered By: Efrain Mendenhall on 05-05-2024 Neutrophils (Bld) [#/Vol] 5.6 10*3/uL 2.0-7.7 [facility] Anion gap in Serum or Plasma Ordered By: Efrain Mendenhall on 05-05-2024 Anion gap [Moles/Vol] 12 mmol/L 07-10 [facility] Automated lymphocyte count a s percentage of total leukocytesOrdered By: Efrain Mendenhall on 05-05-2024 Lymphocytes/100 WBC Auto (Unsp spec) 26.7 % [facility] BUN/creatinine ratioOrdered By: Efrain Mendenhall on 05-05-2024 Urea nitrogen/Creatinine [Mass ratio] 15.6 mg/mg 12-15 [facility] Basic Metabolic Profile (BMP )on 05-05-2024 BUN/CRE 15.6 RATIO Normal 12-15 [facility] Comment on above: Order Comment: 414.1 Performed By: #### L 500.3400, L500.2500, L100.0100, L501.9985, L501.9520 #### [facility] [address] [place], [address] Calcium [Mass/Vol] 9.1 mg/dL Normal 7.6-11.0 [facility] Comment on above: Order Comment: 414.1 Performed By: #### L 500.3400, L500.2500, L100.0100, L501.9985, L501.9520 #### [facility] [address] [place], [address] Chloride [Moles/Vol] 97 mmol/L Low 98-108 [facility] Comment on above: Order Comment: 414.1 Performed By: #### L 500.3400, L500.2500, L100.0100, L501.9985, L501.9520 #### [facility] [address] [place], [address] CO2 [Moles/Vol] 25.3 mmol/L Normal 21.0-32.0 [facility] Comment on above: Order Comment: 414.1 Performed By: #### L 500.3400, L500.2500, L100.0100, L501.9985, L501.9520 #### [facility] [address] [place], [address] Creatinine [Mass/Vol] 0.85 mg/dL Normal 0.70-1.20 [facility] Comment on above: Order Comment: 414.1 Performed By: #### L 500.3400, L500.2500, L100.0100, L501.9985, L501.9520 #### [facility] [address] [place], [address] GAP 12 Normal 5-15 [facility] Comment on above: Order Comment: 414.1 Performed By: #### L 500.3400, L500.2500, L100.0100, L501.9985, L501.9520 #### [facility] [address] [place], [address] GFR/1.73 sq M.predicted among non-blacks MDRD (S/P/Bld) [Vol rate/Area] 94 mL/min/{1.73_m2} Normal >60 [facility] Comment on above: Order Comment: 414.1 Result Comment: mL/m in/1.73m2 CKD-EPI Creatinine Equation (2020) Performed By: #### L 500.3400, L500.2500, L100.0100, L501.9985, L501.9520 #### [facility] [address] [place], [address] Glucose [Mass/Vol] 95 mg/dL Normal 70-99 [facility] Comment on above: Order Comment: 414.1 Performed By: #### L 500.3400, L500.2500, L100.0100, L501.9985, L501.9520 #### [facility] [address] [place], [address] Potassium [Moles/Vol] 4.2 mmol/L Normal 3.3-5.1 [facility] Comment on above: Order Comment: 414.1 Performed By: #### L 500.3400, L500.2500, L100.0100, L501.9985, L501.9520 #### [facility] [address] [place], [address] Sodium [Moles/Vol] 134 mmol/L Normal 133-145 [facility] Comment on above: Order Comment: 414.1 Performed By: #### L 500.3400, L500.2500, L100.0100, L501.9985, L501.9520 #### [facility] [address] [place], [address] Urea nitrogen [Mass/Vol] 13 mg/dL Normal 4-19 [facility] Comment on above: Order Comment: 414.1 Performed By: #### L 500.3400, L500.2500, L100.0100, L501.9985, L501.9520 #### [facility] [address] [place], [address] Basophil percentageOrdered B y: Efrain Mendenhall on 05-05-2024 Basophils/100 WBC (Bld) 1.0 % 0-1 [facility] Bilirubin directOrdered By: Efrain Mendenhall on 05-05-2024 Bilirubin.direct [Mass/Vol] 0.16 mg/dL 0.00-0.30 [facility] Bilirubin, totalOrdered By: Efrain Mendenhall on 05-05-2024 Bilirubin [Mass/Vol] 0.37 mg/dL 0.00-1.30 [facility] CBC W/Diff, Automatedon 04-26 0-2024 Absolute Lymph 2.52 X10 3/uL Normal 0.83-4.51 [facility] Comment on above: Order Comment: 414.1 Performed By: #### L 500.3400, L500.2500, L100.0100, L501.9985, L501.9520 #### [facility] [address] [place], [address] Absolute Neut 5.6 X10 3/uL Normal 2.0-7.7 [facility] Comment on above: Order Comment: 414.1 Performed By: #### L 500.3400, L500.2500, L100.0100, L501.9985, L501.9520 #### [facility] [address] [place], [address] Basophils/100 WBC (Bld) 1.0 % Normal 0-1 [facility] Comment on above: Order Comment: 414.1 Performed By: #### L 500.3400, L500.2500, L100.0100, L501.9985, L501.9520 #### [facility] [address] [place], [address] Eosinophils/100 WBC (Bld) 4.7 % Normal 0-5 [facility] Comment on above: Order Comment: 414.1 Performed By: #### L 500.3400, L500.2500, L100.0100, L501.9985, L501.9520 #### [facility] [address] [place], [address] Erythrocyte distribution width (RBC) [Ratio] 13.2 % Normal 11.6-14.6 [facility] Comment on above: Order Comment: 414.1 Performed By: #### L 500.3400, L500.2500, L100.0100, L501.9985, L501.9520 #### [facility] [address] [place], [address] Hematocrit (Bld) [Volume fraction] 33.6 % Low 40-54 [facility] Comment on above: Order Comment: 414.1 Performed By: #### L 500.3400, L500.2500, L100.0100, L501.9985, L501.9520 #### [facility] [address] [place], [address] Hemoglobin (Bld) [Mass/Vol] 11.3 g/dL Low 13.0-16.5 [facility] Comment on above: Order Comment: 414.1 Performed By: #### L 500.3400, L500.2500, L100.0100, L501.9985, L501.9520 #### [facility] [address] [place], [address] IG% 1.100 High 0.0-0.9 [facility] Comment on above: Order Comment: 414.1 Result Comment: IG% - Immature Granulocytes (promyelocytes, myelocytes and metamyelocytes) > 1% indicates that a LEFT SHIFT is Present. Performed By: #### L 500.3400, L500.2500, L100.0100, L501.9985, L501.9520 #### [facility] [address] [place], [address] Lymphocytes/100 WBC (Bld) 26.7 % Normal 19-41 [facility] Comment on above: Order Comment: 414.1 Performed By: #### L 500.3400, L500.2500, L100.0100, L501.9985, L501.9520 #### [facility] [address] [place], [address] MCH (RBC) [Entitic mass] 28.5 pg Normal 27.0-32.0 [facility] Comment on above: Order Comment: 414.1 Performed By: #### L 500.3400, L500.2500, L100.0100, L501.9985, L501.9520 #### [facility] [address] [place], [address] MCHC (RBC) [Mass/Vol] 33.6 g/dL Normal 32-36 [facility] Comment on above: Order Comment: 414.1 Performed By: #### L 500.3400, L500.2500, L100.0100, L501.9985, L501.9520 #### [facility] [address] [place], [address] MCV (RBC) [Entitic vol] 84.8 fL Normal 80-94 [facility] Comment on above: Order Comment: 414.1 Performed By: #### L 500.3400, L500.2500, L100.0100, L501.9985, L501.9520 #### [facility] [address], [address] Monocytes/100 WBC (Bld) 7.5 % Normal 0-10 [facility] Comment on above: Order Comment: 414.1 Performed By: #### L 500.3400, L500.2500, L100.0100, L501.9985, L501.9520 #### [facility] [address] [place], [address] Neutrophils/100 WBC (Bld) 59.0 % Normal 47-70 [facility] Comment on above: Order Comment: 414.1 Performed By: #### L 500.3400, L500.2500, L100.0100, L501.9985, L501.9520 #### [facility] [address] [place], [address] Nucleated RBC (Bld) [#/Vol] 0 10*3/uL Normal 0-5 [facility] Comment on above: Order Comment: 414.1 Performed By: #### L 500.3400, L500.2500, L100.0100, L501.9985, L501.9520 #### [facility] [address] [place], [address] Platelet mean volume (Bld) [Entitic vol] 9.9 fL Normal 6.2-12.0 [facility] Comment on above: Order Comment: 414.1 Performed By: #### L 500.3400, L500.2500, L100.0100, L501.9985, L501.9520 #### [facility] [address] [place], [address] Platelets (Bld) [#/Vol] 203 10*3/uL Normal 150-450 [facility] Comment on above: Order Comment: 414.1 Performed By: #### L 500.3400, L500.2500, L100.0100, L501.9985, L501.9520 #### [facility] [address] [place], [address] RBC (Bld) [#/Vol] 3.96 10*6/uL Low 4.6-6.2 [facility] Comment on above: Order Comment: 414.1 Performed By: #### L 500.3400, L500.2500, L100.0100, L501.9985, L501.9520 #### [facility] [address] [place], [address] RDW SD 40.9 fl Normal 35.1-43.9 [facility] Comment on above: Order Comment: 414.1 Performed By: #### L 500.3400, L500.2500, L100.0100, L501.9985, L501.9520 #### [facility] [address] [place], [address] WBC (Bld) [#/Vol] 9.4 10*3/uL Normal 4.4-11.0 [facility] Comment on above: Order Comment: 414.1 Performed By: #### L 500.3400, L500.2500, L100.0100, L501.9985, L501.9520 #### [facility] [address] [place], [address] Carbon dioxide, total [Moles /volume] in Central venous bloodOrdered By: Efrain Mendenhall on 05-05-2024 CO2 [Moles/Vol] 25.3 mmol/L 21.0-32.0 [facility] Chloride assayOrdered By: Toney Mendenhall on 05-05-2024 Chloride [Moles/Vol] 97 mmol/L Low 98-108 [facility] Eosinophil percentageOrdered By: Efrain Mendenhall on 05-05-2024 Eosinophils/100 WBC (Bld) 4.7 % 0-5 [facility] Erythrocyte distribution wid th (RBC) [Ratio]Ordered By: Efrain Mendenhall on 05-05-2024 Erythrocyte distribution width (RBC) [Entitic vol] 40.9 fL 35.1-43.9 [facility] Erythrocyte distribution wid th ratioOrdered By: Efrain Mendenhall on 05-05-2024 Erythrocyte distribution width (RBC) [Ratio] 13.2 % 11.6-14.6 [facility] Erythrocyte distribution wid th standard deviationOrdered By: Efrain Mendenhall on 05-05-2024 Erythrocyte distribution width (RBC) [Ratio] 40.9 fl 35.1-43.9 [facility] GFR/1.73 sq M.predicted magdi g non-blacks MDRD (S/P/Bld) [Vol rate/Area]Ordered By: Efrain Mendenhall on 05-05-2024 Estimated GFR (MDRD) Non-Af Amer 94 >60 [facility] Comment on above: mL/min/1.73m2 CKD-EP I Creatinine Equation (2020) Glomerular filtration rate ( GFR) estimation/1.73 sq m using serum, plasma, or whole bOrdered By: Efrain Mendenhall on 05-05-2024 GFR/1.73 sq M.predicted among non-blacks MDRD (S/P/Bld) [Vol rate/Area] 94 mL/min/{1.73_m2} >60 [facility] Comment on above: mL/min/1.73m2 CKD-EP I Creatinine Equation (2020) Hematocrit Auto (Bld) [Volum e fraction]Ordered By: Efrain Mendenhall on 05-05-2024 Hematocrit (Bld) [Volume fraction] 33.6 % Low 40-54 [facility] Hemoglobin A1con 05-05-2024 HbA1c (Bld) [Mass fraction] 6.0 % Normal <=5.6 [facility] Comment on above: Order Comment: 414.1 Performed By: #### L 500.3400, L500.2500, L100.0100, L501.9985, L501.9520 #### [facility] [address] [place], [place] [address]all [facility] [place], [place], [address] Hemoglobin A1c percentageOrd ered By: Efrain Mendenhall on 05-05-2024 HbA1c (Bld) [Mass fraction] 6.0 % >5.7 [facility] Hemoglobin measurementOrdere d By: Efrain Mendenhall on 05-05-2024 Hemoglobin (Bld) [Mass/Vol] 11.3 g/dL Low 13.0-16.5 [facility] Immature granulocytes/100 WB C Auto (Bld)Ordered By: Efrain Mendenhall on 05-05-2024 Immature granulocytes/100 WBC (Bld) 1.100 % High 0.0-0.9 [facility] Comment on above: IG% - Immature Granu locytes (promyelocytes, myelocytes and metamyelocytes) > 1% indicates that a LEFT SHIFT is Present. Laboratory - Chemistry and C hemistry - challengeOrdered By: Efrain Mendenhall on 05-05-2024 AST [Catalytic activity/Vol] 19 U/L <38 [facility] Liver Profileon 05-05-2024 Albumin [Mass/Vol] 3.9 g/dL Normal 3.4-4.8 [facility] Comment on above: Order Comment: 414.1 Performed By: #### L 500.3400, L500.2500, L100.0100, L501.9985, L501.9520 #### [facility] [address] [place], [address] ALK PHOS 93 U/L Normal 40-129 [facility] Comment on above: Order Comment: 414.1 Performed By: #### L 500.3400, L500.2500, L100.0100, L501.9985, L501.9520 #### [facility] [address] [place], [address] ALT [Catalytic activity/Vol] 17 U/L Normal <=46 [facility] Comment on above: Order Comment: 414.1 Performed By: #### L 500.3400, L500.2500, L100.0100, L501.9985, L501.9520 #### [facility] [address] [place], [address] AST [Catalytic activity/Vol] 19 U/L Normal <=37 [facility] Comment on above: Order Comment: 414.1 Performed By: #### L 500.3400, L500.2500, L100.0100, L501.9985, L501.9520 #### [facility] [address] [place], [address] Bilirubin [Mass/Vol] 0.37 mg/dL Normal 0.00-1.30 [facility] Comment on above: Order Comment: 414.1 Performed By: #### L 500.3400, L500.2500, L100.0100, L501.9985, L501.9520 #### [facility] [address] [place], [address] Bilirubin.direct [Mass/Vol] 0.16 mg/dL Normal 0.00-0.30 [facility] Comment on above: Order Comment: 414.1 Performed By: #### L 500.3400, L500.2500, L100.0100, L501.9985, L501.9520 #### [facility] [address] [place], [address] Globulin (S) [Mass/Vol] 2.8 g/dL Normal 2.2-4.2 [facility] Comment on above: Order Comment: 414.1 Performed By: #### L 500.3400, L500.2500, L100.0100, L501.9985, L501.9520 #### [facility] [address] [place], [address] T PROT 6.7 g/dL Normal 5.9-8.4 [facility] Comment on above: Order Comment: 414.1 Performed By: #### L 500.3400, L500.2500, L100.0100, L501.9985, L501.9520 #### [facility] [address] [place], [address] Lymphocytes Auto (Unsp spec) [#/Vol]Ordered By: Efrain Mendenhall on 05-05-2024 Lymphocytes (Bld) [#/Vol] 2.52 10*3/uL 0.83-4.51 [facility] Lymphocytes/100 WBC Auto (Un sp spec)Ordered By: Efrain Mendenhall on 05-05-2024 Lymphocytes/100 WBC (Bld) 26.7 % 19-41 [facility] MCV (mean corpuscular volume ) determinationOrdered By: Efrain Mendenhall on 05-05-2024 MCV (RBC) [Entitic vol] 84.8 fL 80-94 [facility] Mean corpuscular hemoglobin (MCH) determinationOrdered By: Efrain Mendenhall on 05-05-2024 MCH (RBC) [Entitic mass] 28.5 pg 27.0-32.0 [facility] Mean corpuscular hemoglobin concentration (MCHC) determinationOrdered By: Efrain Mendenhall on 05-05-2024 MCHC (RBC) [Mass/Vol] 33.6 g/dL 32-36 [facility] Mean platelet volume determi nationOrdered By: Efrain Mendenhall on 05-05-2024 Platelet mean volume (Bld) [Entitic vol] 9.9 fL 6.2-12.0 [facility] Monocyte percentageOrdered B y: Efrain Mendenhall on 05-05-2024 Monocytes/100 WBC (Bld) 7.5 % 0-10 [facility] Neutrophil percentageOrdered By: Efrain Mendenhall on 05-05-2024 Neutrophils/100 WBC (Bld) 59.0 % 47-70 [facility] Nucleated red blood cell per centageOrdered By: Efrain Mendenhall on 05-05-2024 Nucleated RBC/100 WBC (Bld) [Ratio] 0 % 0-5 [facility] Platelet countOrdered By: Toney Mendenhall on 05-05-2024 Platelets (Bld) [#/Vol] 203 10*3/uL 150-450 [facility] Potassium (Unsp spec) [Mass/ Vol]Ordered By: Efrain Mendenhall on 05-05-2024 Potassium [Moles/Vol] 4.2 mmol/L 3.3-5.1 [facility] Potassium measurement (mass/ volume)Ordered By: Efrain Mendenhall on 05-05-2024 Potassium (Unsp spec) [Mass/Vol] 4.2 mmol/L 3.3-5.1 [facility] RBC Auto (Bld) [#/Vol]Ordere d By: Efrain Mendenhall on 05-05-2024 RBC (Bld) [#/Vol] 3.96 10*6/uL Low 4.6-6.2 [facility] Serum creatinine measurement (mass/volume)Ordered By: Efrain Mendenhall on 05-05-2024 Creatinine [Mass/Vol] 0.85 mg/dL 0.70-1.20 [facility] Serum globulin measurementOr dered By: Efrain Mendenhall on 05-05-2024 Globulin (S) [Mass/Vol] 2.8 g/dL 2.2-4.2 [facility] Serum glucose measurement (m ass/volume)Ordered By: Efrain Mendenhall on 05-05-2024 Glucose [Mass/Vol] 95 mg/dL 70-99 [facility] Serum or plasma alanine sommers otransferase (ALT) measurementOrdered By: Efrain Mendenhall on 05-05-2024 ALT [Catalytic activity/Vol] 17 U/L <47 [facility] Serum or plasma albumin caterina urement (mass/volume)Ordered By: Efrain Mendenhall on 05-05-2024 Albumin [Mass/Vol] 3.9 g/dL 3.4-4.8 [facility] [facility] Serum or plasma alkaline petr sphatase measurementOrdered By: Efrain Mendenhall on 05-05-2024 ALP [Catalytic activity/Vol] 93 U/L 40-129 [facility] Serum or plasma calcium caterina urement (mass/volume)Ordered By: Efrain Mendenhall on 05-05-2024 Calcium [Mass/Vol] 9.1 mg/dL 7.6-11.0 [facility] Serum or plasma urea nitroge n measurement (mass/volume)Ordered By: Efrain Mendenhall on 05-05-2024 Urea nitrogen [Mass/Vol] 13 mg/dL 4-19 [facility] Sodium levelOrdered By: Zhen Mendenhall on 05-05-2024 Sodium [Moles/Vol] 134 mmol/L 133-145 [facility] TSH DL <= 0.005 mIU/L QnOrde red By: Efrain Mendenhall on 05-05-2024 Thyroid Stimulating Hormone (TSH) 1.690 uIU/mL 0.300-4.200 [facility] TSH Qn 1.690 uIU/mL 0.300-4.200 [facility] Thyroid Stim Hormone (TSH)on 05-05-2024 TSH 1.690 uIU/mL Normal 0.300-4.200 [facility] Comment on above: Order Comment: 414.1 Performed By: #### L 500.3400, L500.2500, L100.0100, L501.9985, L501.9520 #### [facility] [address] [place], [place], [id number] Total proteinOrdered By: Silas Mendenhall on 05-05-2024 Protein [Mass/Vol] 6.7 g/dL 5.9-8.4 [facility] White blood cell (WBC) count Ordered By: Efrain Mendenhall on 05-05-2024 WBC (Bld) [#/Vol] 9.4 10*3/uL 4.4-11.0 [facility] T4 Free Directon 03-17-2024 T4 FREE DIRECT 0.99 ng/dL Normal 0.76-1.46 [facility] Comment on above: Order Comment: 414- Result Comment: Re t ransmit patient results per facility Performed By: #### L 506.0400 #### [facility] [address] [place], [address] Direct serum free thyroxine (FT4) measurementOrdered By: Faisal Leo on 03-10-2024 Free T4 [Mass/Vol] 0.99 ng/dL 0.76-1.46 [facility] Comment on above: Re transmit patient results per facilityPrevious reported result: 0.99 ng/dLEdited by: DARRELL on 03/17/24:0944 Bilirubin directOrdered By: Efrain Mendenhall on 02-11-2024 Bilirubin.direct [Mass/Vol] 0.09 mg/dL 0.00-0.30 [facility] Bilirubin, totalOrdered By: Efrain Mendenhall on 02-11-2024 Bilirubin [Mass/Vol] 0.30 mg/dL 0.20-1.00 [facility] Comment on above: For patients on eltr ombopag therapy, use of Dimension [place] TBIL is not recommended. Glucoseon 02-11-2024 Glucose [Mass/Vol] 96 mg/dL Normal 74-106 [facility] Comment on above: Order Comment: 414- Performed By: #### L 500.3400, L501.0100, L501.9520 #### [facility] [address] [place], [address] Glucose measurementOrdered B y: Efrain Mendenhall on 02-11-2024 Glucose [Mass/Vol] 96 mg/dL 74-106 [facility] - Chemistry and C hemistry - challengeOrdered By: Efrain Mendenhall on 02-11-2024 AST [Catalytic activity/Vol] 19 U/L 15-37 [facility] Liver Profileon 02-11-2024 Albumin [Mass/Vol] 3.4 g/dL Normal 3.2-5.0 [facility] Comment on above: Order Comment: 414-1 Performed By: #### L 500.3400, L501.0100, L501.9520 #### [facility] [address] [place], [address] ALK P 99 U/L Normal 45-117 [facility] Comment on above: Order Comment: 414-1 Performed By: #### L 500.3400, L501.0100, L501.9520 #### [facility] [address] [place], [address] ALT [Catalytic activity/Vol] 25 U/L Normal 16-61 [facility] Comment on above: Order Comment: 414-1 Performed By: #### L 500.3400, L501.0100, L501.9520 #### [facility] [address] [place], [address] AST [Catalytic activity/Vol] 19 U/L Normal 15-37 [facility] Comment on above: Order Comment: 414-1 Performed By: #### L 500.3400, L501.0100, L501.9520 #### [facility] [address] [place], [address] Bilirubin [Mass/Vol] 0.30 mg/dL Normal 0.20-1.00 [facility] Comment on above: Order Comment: 414-1 Result Comment: For patients on eltrombopag therapy, use of Dimension [place] TBIL is not recommended. Performed By: #### L 500.3400, L501.0100, L501.9520 #### [facility] [address] [place], [address] Bilirubin.direct [Mass/Vol] 0.09 mg/dL Normal 0.00-0.30 [facility] Comment on above: Order Comment: 414-1 Performed By: #### L 500.3400, L501.0100, L501.9520 #### [facility] [address] [place], [address] Globulin (S) [Mass/Vol] 3.4 g/dL Normal 2.2-4.2 [facility] Comment on above: Order Comment: 414-1 Performed By: #### L 500.3400, L501.0100, L501.9520 #### [facility] [address] [place], [address] T PROT 6.8 g/dL Normal 6.4-8.2 [facility] Comment on above: Order Comment: 414-1 Performed By: #### L 500.3400, L501.0100, L501.9520 #### [facility] [address] [place], [address] Serum globulin measurementOr dered By: Efrain Mendenhall on 02-11-2024 Globulin (S) [Mass/Vol] 3.4 g/dL 2.2-4.2 [facility] Serum or plasma alanine sommers otransferase (ALT) measurementOrdered By: Efrain Mendenhall on 02-11-2024 ALT [Catalytic activity/Vol] 25 U/L 16-61 [facility] Serum or plasma albumin caterina urement (mass/volume)Ordered By: Efrain Mendenhall on 02-11-2024 Albumin [Mass/Vol] 3.4 g/dL 3.2-5.0 [facility] Serum or plasma alkaline petr sphatase measurementOrdered By: Efrain Mendenhall on 02-11-2024 ALP [Catalytic activity/Vol] 99 U/L 45-117 [facility] TSH QnOrdered By: Efrain goinsr on 02-11-2024 Thyroid Stimulating Hormone (TSH) 1.730 uIU/mL 0.358-3.740 [facility] Thyroid Stim Hormone (TSH)on 02-11-2024 TSH 1.730 uIU/mL Normal 0.358-3.740 [facility] Comment on above: Order Comment: 414-1 Performed By: #### L 500.3400, L501.0100, L501.9520 #### [facility] [address] [place], [address] Total proteinOrdered By: Silas Mendenhall on 02-11-2024 Protein [Mass/Vol] 6.8 g/dL 6.4-8.2 [facility] SURGICAL PATHOLOGYOrdered By : Sangeeta Johnson on 06-21-2023 Case Report Surgical Pathology Report Case: [id number] Authorizing Provider: Monica Mcdaniels, Collected: 06/19/2023 10:42 AM Ordering Location: Ambulatory Surgery Received: 06/19/2023 08:38 PM Pathologist: Sangeeta Johnson MD Specimen: Esophagus, Distal, Biopsy [facility] Work Phone: FINAL DIAGNOSIS p0ldyKXoXCPzkHWnFEAs NVx lhsAoZBMgjPXmV9DhsjlbUN pxYW1wAI1ivXspsMKkmGFrE UDhJjAsj5min518cJJxq6nn TNHJmcgghMk8uUerK01ar6A 5GitjY03urJQfAZK8SFZyFU HadGIlJGCpDMQ7MRLgrUGlZ 0lsFQMxYS7ayjrgGUbgAFho TECrwBQ4XUHcbGXuI5HmEXP fEVvbDZFdolv8IoYaDo2xyD VyeTcyMFxwYXJkXHBsYWluX BDoXvUnEL6jHSVqjFouI9Dk VNSmfHX3AJxyYQKhh6DipBz tqUViIY2sTgJspeJ3aGllJY Gqm2FsYPo1pmseyeFmMPOki vHvYf8qQKE6b4TwDCQxOS3z FXXqhbsqJOYlTWPHY9IbeRQ gDS3dRV6kPRR0ZGxlQVJ9 [facility] Work Phone: Gross Description n0dppMDjKJGlwEIGZSC2 MDJ lCS2azTtxrPs1cKtoYEEuii X0uDUfWAbpl0ggRKR6v8tyu qSCKmpvTCQgJH8jGKceEKJj RR0zXhScARCdDwSzGQCbfCM fazGdYwFtJOPavVTfaIE0BO GyRO7aejtmROmoKXunBBQha qT5FZWtvBWhV9QpRQHlWK7d heoxVEI5LKTKFzqtUg8tlJO ibHtcZjFcZmNoYXJzZXQwXG Svf2ffqwVZcgzqqTj3eR7PU EPqV8WyUU5Rh0mfIKAcwHVv BBU8YSwnt9qvNLeoTLH4UKG zPNYmYCWeCK2LIpKuVAFiTf A8YKN8QzY0OYp3XXDJHLZbB CJ2UvU6HYriUOo8EJukWGvk aCBcXHQgMSBcXGZsIFxcbmN 6d0qfUSEhhGNyTVX5TPvbf1 xnSOyjJRK9GYNeAuDpEPMtV B3SFsMoRCOoZlH8NOU6HdV9 PUh0FETMGwYgIrHeGWXuJha 6ChIuHZd5ZVd4GDgOOjPfPf lpWFW9Hpf4YYI1TXY7OXMhB HQgMiBcXHNzIDMgXFxmbCBc XZ3chVarZEGkMM5QSVWlSYf wMZDkQlKhBW8dBSHvmJzrG5 RcILWDpFP6GWgsPQYrp7Ave VxsdHJjaFxwYXIgDQpccGFy ZCANClxwbGFpblxsdHJjaFx bgyXiWCXcgKGUIQB9NN4cST ANClxsdHJwYXIgDQpcZnMyM OYXPPZkjDFkMPAlfxVmi2On YWxpbiBhcmUgbXVsdGlwbGU oaXslJ6CwKL9fQTZmxs7svB 9sMIOzb9G6XRGpw6Q2THYtT 2duCGxcdZpqTtU1oyPrJbpm bCXiTrQxtVRkKyDuS30fMFL dkJTjyAidn7BefTu6oGMpCB uwDTE2rmOcKWYpBWF8ZXCqL SykDETgBNdkaCQbJF7SU9Nf y0DdRAftwIwaMGJkg09kbBM aUz6qxORnMXC4ONLqHULnzD QaFWNHnDzpjDHfTAx6KNUpT ZYzmCtpJUW1KN9xDQYrVZXw eVHzEDuoD2vmCNFwGQQxmBK kTM9CYCXnpsTJMqeJRHU5Kp Z1HwRmNxKhNEW5MxVrYZ8cv GKaCF3GPXCsLaEkSTBtF4ab FENbPJ0EQUCnwODXNZL0US9 kEPyfYGGgV1CnS6FzvmU7o2 srtRyfj8PlhGCnLU4tvXNfW Z8SYOErldHaKHszNeLlDmNG Cn0= [facility] Work Phone: Performing Lab w3irxOOsWXCsvHGnCkJs MDA fHKGqt2ffBELbdORqOySrYj NcZnRuYmpcdWMxXGRlZmYwe 0vht519hZUzj1xcMMXfKwG7 nLSdOTCwbEDwH999UDUzBNe pk6aas5SsRSLipHSgw5Q8VJ YAgfjeoLz5tBjpI24kp4K9U askK5wdEBNjQOGxY7TjYP6x CUJhMyu5LWP8OVL3PZTtAOT aS1RwOL9dDIOtnTEqJGr8r2 cnbBpvRRFiDND8v0ocABobz lQvUN2dld3niMk4m8aclwJk ZFFdEYEnzKCXUJDvB8XjcRh uIg5omFe8kUuzQoixSFX7Zy x0PW1imc63xrk2dNlkLLMiu tudLyX9NDbgTWTukfwvJJo1 NUkrWSPogUW0ZAQuoQWyV2K gUQtvHV5nnwl9JLS5JRzoCH JsFdA8ZZFybYOmLZZskFgmK Cvrf977RRJ8ZkWmLJ3vI2Hu x3R2qJ6csVOrKNJxbLLcPmB sJOFpii6gzRAcMKdpu5UpTJ S1nqP5zNVvfMKgURBySU07P ehkw8PsNomid9RuM06bqCE8 WWpgy7mbVL9xVcN9srBiIKt ac7ijcY2fLgP9NVdjHG0xLG 0zDUHzoX1hqkrpYWDtCaAul zbjFTBuyEccmxJhEh0jjHgm WZU5LXpbZ2mmuJ0eIoQ6HEt iB7wbiI9gFJw1YUzrbIU2RR PilZ6zOE4uadtjw5msZCxaF RojNDJxhpS6anTcIYFswLSu T2QihV8kVVPzUC6ywoxqy4x lDGN4GFybMEGuHMB5RvRlIA Wkj7Shicx9GsBwf1AnzFQqQ QpjL83db624OTFldzLpH8zw bGFpblxwbGFpblxmMFxmczI 0XHFsXHBsYWluXGYxXGZzMj JcbGFuZzEwMzNcaGljaFxmM BmgRaXcLNJgVFtoL4liXcDi RgFbZrBWfIQctt4xjDojTZy psPZnjHFqmVW2dV8hZCVykm Hfyo8iQDEaqMNKeCJ5TSmua pIgZ4bspmdgZNO3ZYBqCZR8 J4vhHYVUxkNsOJMxOQCxvSJ oKURDCMB4CFR4TAMdRTKXTE ChBXA2WWG4PRFvKGVebZJpJ HBhclxwYXJkXHBsYWluXGYw HOFvYnNeuBcazQ0sXlGkXgL kBhleLH4aYVHyY0fbuUGnAD YrZRBtK0rrYrQjkS2yyPrqY VxjZjJcZnMyMlxsdHJjaCBM MHAtmmX1m7E3NPkgrCKhhee mMVxmczIyXGxhbmcxMDMzXG xuP5lyMgOlTRTemDixCJjbh 0FgNOOlLLLmHsGuCGavDUZ2 o3C3KKnanWCzdiQFKoVFYS1 cfPHzeidaQS9YCkuhIFQ1 [facility] Work Phone: [facility] Work Phone: EGD Study observation Narrat andrew 06-19-2023 [facility] Patient Name: Milad Moon Procedure Date: 06/19/2023 10:28 AM Date of : 1955 Admit Type: Outpatient Age: 67 Room: [place] [address] Gender: Male 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 Requesting Provider: Procedure: Pre-Anesthesia Assessment: - Prior to the procedure, a History and Physical was performed, and patient medications and allergies were reviewed. The patient's tolerance of previous anesthesia was also reviewed. The risks and benefits of the procedure and the sedation options and risks were discussed with the patient. All questions were answered, and informed consent was obtained. Prior Anticoagulants: The patient has taken no anticoagulant or antiplatelet agents. ASA Grade Assessment: II - A patient with mild systemic disease. After reviewing the risks and benefits, the patient was deemed in satisfactory condition to undergo the procedure. After obtaining informed consent, the endoscope was passed under direct vision. Throughout the procedure, the patient's blood pressure, pulse, and oxygen saturations were monitored continuously. The Endoscope was introduced through the mouth, and advanced to the second part of duodenum. I was present and participated during the entire procedure, including non-herzog portions, and during the administration and monitoring of Moderate Sedation. The upper GI endoscopy was accomplished without difficulty. The patient tolerated the procedure well. Moderate Sedation: MAC anesthesia was administered by the anesthesia team. 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 The maximum longitudinal extent of these mucosal changes was 4 cm in length. Mucosa was biopsied with a cold forceps for histology in 4 quadrants at intervals of 1 cm from 30 to 34 cm from the incisors. One specimen bottle was sent to pathology. A 5 cm hiatal hernia was present. The entire examined stomach was normal. The duodenal bulb and second portion of the duodenum were normal. 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 Biopsied. - 5 cm hiatal hernia. - Normal stomach. - Normal duodenal bulb and second portion of the duodenum. Recommendation: - Resume previous diet. - Continue present medications. - Await pathology results. - The patient is not currently taking anticoagulant or antiplatelet agents. - Patient has a contact number available for emergencies. The signs and symptoms of potential delayed complications were discussed with the patient. Return to normal activities tomorrow. Written discharge instructions were provided to the patient. - Repeat upper endoscopy in 2 years for surveillance. Procedure Code(s): --- Professional --- 37015, Esophagogastroduodenosc opy, flexible, transoral; with biopsy, single or multiple CPT copyright 2020 [employer]. All rights reserved. The codes documented in this report are preliminary and upon medical records coder review may be revised to meet current compliance requirements. Attending Participation: I personally performed the entire procedure. Scope In: 10:40:46 AM Scope Out: 10:50:39 AM MD Monica Fermin (more content not included)... [employer]OVATION [facility] Radiology Study observation (narrative) [facility] GLUCOSE, BLOOD (POC)on 06-18 Glucose [Mass/Vol] 109 mg/dL Abnormal 74 - 99 mg/dL [facility] Comment on above: Location:[facility], [address], [place], [place], [address] The Accu-Chek Inform II glucose meter has not been approved for testing on patients receiving intensive medical intervention or therapy and results from this point of care glucose test should not be used for patient management decisions in these cases. Inaccurate results may also occur from other interfering factors, such as N-acetylcysteine (blood concentrations of greater than 5mg/dL), galactose, extremes of hematocrit (<10 or >65), or high doses of ascorbic acid (vitamin C) greater than 3mg/dL. Consider alternate testing mechanisms (e.g. core lab, blood gas instrument) in the above situations. Interpretation and review of laboratory results Abnormal [facility] Absolute lymphocyte countOrd ered By: Efrain Mendenhall on 06-04-2023 Lymphocytes Auto (Unsp spec) [#/Vol] 1.73 10*3/uL 0.83-4.51 [facility] Automated lymphocyte count a s percentage of total leukocytesOrdered By: Efrain Mendenhall on 06-04-2023 Lymphocytes/100 WBC Auto (Unsp spec) 19.8 % 19-41 [facility] Basophil percentageOrdered B y: Efrain Mendenhall on 06-04-2023 Basophils/100 WBC (Bld) 0.8 % 0-1 [facility] Bilirubin [Mass/Vol] 0.30 mg/dL 0.20-1.00 [facility] Comment on above: For patients on eltr ombopag therapy, use of Dimension [place] TBIL is not recommended. Chloride [Moles/Vol] 104 mmol/L 98-107 [facility] Eosinophils/100 WBC (Bld) 4.0 % 0-5 [facility] Glucose [Mass/Vol] 99 mg/dL 74-106 [facility] Hemoglobin (Bld) [Mass/Vol] 11.4 g/dL 13.0-16.5 [facility] Monocytes/100 WBC (Bld) 7.2 % 0-10 [facility] Neutrophils (Bld) [#/Vol] 5.9 10*3/uL 2.0-7.7 [facility] Neutrophils/100 WBC (Bld) 67.4 % 47-70 [facility] Potassium [Moles/Vol] 4.4 mmol/L 3.5-5.1 [facility] Protein [Mass/Vol] 6.7 g/dL 6.4-8.2 [facility] Sodium [Moles/Vol] 140 mmol/L 136-145 [facility] WBC (Bld) [#/Vol] 8.7 10*3/uL 4.4-11.0 [facility] Determination of erythrocyte mean corpuscular volume (MCV)Ordered By: Efrain Mendenhall on 06-04-2023 MCV (RBC) [Entitic vol] 87.7 fL 80-94 [facility] Direct bilirubinOrdered By: Efrain Mendenhall on 06-04-2023 Bilirubin.direct [Mass/Vol] 0.06 mg/dL 0.00-0.30 [facility] Erythrocyte distribution wid th ratioOrdered By: Efrain Mendenhall on 06-04-2023 Erythrocyte distribution width (RBC) [Ratio] 13.5 % 11.6-14.6 [facility] Erythrocyte distribution wid th standard deviationOrdered By: Efrain Mendenhall on 06-04-2023 Erythrocyte distribution width (RBC) [Entitic vol] 43.3 fL 35.1-43.9 [facility] Hematocrit Auto (Bld) [Volum e fraction]Ordered By: Efrain Mendenhall on 06-04-2023 Hematocrit (Bld) [Volume fraction] 35.5 % 40-54 [facility] Immature granulocytes/100 WB C Auto (Bld)Ordered By: Efrain Mendenhall on 06-04-2023 Immature granulocytes/100 WBC (Bld) 0.800 % 0.0-0.9 [facility] Comment on above: IG% - Immature Granu locytes (promyelocytes, myelocytes and metamyelocytes) > 1% indicates that a LEFT SHIFT is Present. Laboratory - Chemistry and C hemistry - challengeOrdered By: Efrain Mendenhall on 06-04-2023 ALP [Catalytic activity/Vol] 104 U/L 45-117 [facility] ALT [Catalytic activity/Vol] 22 U/L 16-61 [facility] CO2 [Moles/Vol] 31.0 mmol/L 21.0-32.0 [facility] Globulin (S) [Mass/Vol] 3.5 g/dL 2.2-4.2 [facility] Urea nitrogen/Creatinine [Mass ratio] 16.0 mg/mg 10-20 [facility] - Hematology and Cell countsOrdered By: Efrain Mendenhall on 06-04-2023 MCH (RBC) [Entitic mass] 28.1 pg 27.0-32.0 [facility] MCHC (RBC) [Mass/Vol] 32.1 g/dL 32-36 [facility] Nucleated RBC/100 WBC (Bld) [Ratio] 0 % 0-5 [facility] Platelet mean volume (Bld) [Entitic vol] 10.1 fL 6.2-12.0 [facility] Platelets (Bld) [#/Vol] 252 10*3/uL 150-450 [facility] No Panel InformationOrdered By: Efrain Mendenhall on 06-04-2023 Estimated GFR (MDRD) Amer 112 mL/min >60 [facility] Comment on above: GFR Calc Estimated GFR (MDRD) Non-Af Amer 92 mL/min >60 [facility] Comment on above: Non- GFR Calc RBC Auto (Bld) [#/Vol]Ordere d By: Efrain Mendenhall on 06-04-2023 RBC (Bld) [#/Vol] 4.05 10*6/uL 4.6-6.2 [facility] Serum or plasma calcium caterina urement (mass/volume)Ordered By: Efrain Mendenhall on 06-04-2023 Calcium [Mass/Vol] 9.0 mg/dL 8.5-10.1 [facility] Serum or plasma creatinine m easurement (mass/volume)Ordered By: Efrain Mendenhall on 06-04-2023 Creatinine [Mass/Vol] 0.87 mg/dL 0.70-1.30 [facility] Comment on above: The validity of the calculated GFR & GFRAA in patients over 70 years has not been determined. Clinical correlation is essential. Serum or plasma thyroid stim ulating hormone (TSH) measurement (units/volume)Ordered By: Efrain Mendenhall on 06-04-2023 TSH Qn 1.39 uIU/mL 0.358-3.74 [facility] Serum or plasma urea nitroge n measurement (mass/volume)Ordered By: Efrain Mendenhall on 06-04-2023 Urea nitrogen [Mass/Vol] 14 mg/dL 7-18 [facility] Thin prep Papanicolaou smear with manual screeningOrdered By: Efrain Mendenhall on 06-04-2023 Thin prep Papanicolaou smear with manual screening 3.2 g/dL 3.2-5.0 [facility] Thin prep Papanicolaou smear with manual screening 17 U/L 15-37 [facility] Thin prep Papanicolaou smear with manual screening 5 5-15 [facility] Whole blood hemoglobin A1c/t otal hemoglobin ratio (mass fraction)Ordered By: Efrain Mendenhall on 06-04-2023 HbA1c (Bld) [Mass fraction] 5.7 % 3.8-5.6 [facility] Comment on above: Normal < 5.7 % Predi abetic 5.7 - 6.4 % Diabetic >or= 6.5 % Please note range changes. Basophil percentageOrdered B y: Efrain Mendenhall on 03-12-2023 Bilirubin [Mass/Vol] 0.30 mg/dL 0.20-1.00 [facility] Comment on above: For patients on eltr ombopag therapy, use of Dimension [place] TBIL is not recommended. Glucose [Mass/Vol] 99 mg/dL 74-106 [facility] Protein [Mass/Vol] 6.9 g/dL 6.4-8.2 [facility] Direct bilirubinOrdered By: Efrain eMndenhall on 03-12-2023 Bilirubin.direct [Mass/Vol] 0.07 mg/dL 0.00-0.30 [facility] - Chemistry and C hemistry - challengeOrdered By: Efrain Mendenhall on 03-12-2023 ALP [Catalytic activity/Vol] 108 U/L 45-117 [facility] ALT [Catalytic activity/Vol] 20 U/L 16-61 [facility] Free T4 [Mass/Vol] 0.90 ng/dL 0.76-1.46 [facility] Globulin (S) [Mass/Vol] 3.5 g/dL 2.2-4.2 [facility] No Panel InformationOrdered By: Efrain Mendenhall on 03-12-2023 Thyroid Stimulating Hormone (TSH) 1.37 uIU/mL 0.358-3.74 [facility] Serum or plasma albumin caterina urement (mass/volume)Ordered By: Efrain Mendenhall on 03-12-2023 Albumin [Mass/Vol] 3.4 g/dL 3.2-5.0 [facility] Thin prep Papanicolaou smear with manual screeningOrdered By: Efrain Mendenhall on 03-12-2023 Thin prep Papanicolaou smear with manual screening 16 U/L 15- [facility] Absolute lymphocyte countOrd ered By: Efrain Mendenhall on 12-18-2022 Lymphocytes Auto (Unsp spec) [#/Vol] 2.06 10*3/uL 0.83-4.51 [facility] Basophil percentageOrdered B y: Efrain Mendenhall on 12-18-2022 Basophils/100 WBC (Bld) 0.5 % 0-1 [facility] Bilirubin [Mass/Vol] 0.30 mg/dL 0.20-1.00 [facility] Comment on above: For patients on eltr ombopag therapy, use of Dimension [place] TBIL is not recommended. Chloride [Moles/Vol] 100 mmol/L 98-107 [facility] Cholesterol [Mass/Vol] 134 mg/dL <200 [facility] Comment on above: <200 mg/dL Desirable 200-240 mg/dL Borderline >240 mg/dL High Risk Eosinophils/100 WBC (Bld) 3.3 % 0-5 [facility] Glucose [Mass/Vol] 116 mg/dL 74-106 [facility] Comment on above: Fasting Glucose resu lt from 100 to 125 mg/dL suggests IMPAIRED HOMEOSTASIS per A.D.A. criteria. Neutrophils (Bld) [#/Vol] 6.8 10*3/uL 2.0-7.7 [facility] Neutrophils/100 WBC (Bld) 67.9 % 47-70 [facility] Potassium [Moles/Vol] 4.6 mmol/L 3.5-5.1 [facility] Protein [Mass/Vol] 7.6 g/dL 6.4-8.2 [facility] Sodium [Moles/Vol] 135 mmol/L 136-145 [facility] Triglyceride [Mass/Vol] 85 mg/dL <199 [facility] Comment on above: The drugs N-Acetylcy steine and Metamizole may falsely depress this assay.Serum Triglycerides Reference Interval Normal <150 mg/dL Borderline high 150 - 199 mg/dL High 200 - 499 mg/dL Very High > or = 500 mg/dL WBC (Bld) [#/Vol] 10.1 10*3/uL 4.4-11.0 [facility] Blood erythrocytes count (nu mber/volume)Ordered By: Efrain Mendenhall on 12-18-2022 RBC (Bld) [#/Vol] 4.30 10*6/uL 4.6-6.2 [facility] Blood hemoglobin measurement (mass/volume)Ordered By: Efrain Mendenhall on 12-18-2022 Hemoglobin (Bld) [Mass/Vol] 12.4 g/dL 13.0-16.5 [facility] Blood lymphocytes/100 leukoc ytesOrdered By: Efrain Mendenhall on 12-18-2022 Lymphocytes/100 WBC (Bld) 20.5 % 19-41 [facility] Blood monocytes/100 leukocyt esOrdered By: Efrain Mendenhall on 12-18-2022 Monocytes/100 WBC (Bld) 7.2 % 0-10 [facility] Blood platelet mean volumeOr dered By: Efrain Mendenhall on 12-18-2022 Platelet mean volume (Bld) [Entitic vol] 10.1 fL 6.2-12.0 [facility] Determination of erythrocyte mean corpuscular volume (MCV)Ordered By: Efrain Mendenhall on 12-18-2022 MCV (RBC) [Entitic vol] 88.6 fL 80-94 [facility] Direct bilirubinOrdered By: Efrain Mendenhall on 12-18-2022 Bilirubin.direct [Mass/Vol] 0.10 mg/dL 0.00-0.30 [facility] Hematocrit Auto (Bld) [Volum e fraction]Ordered By: Efrain Mendenhall on 12-18-2022 Hematocrit (Bld) [Volume fraction] 38.1 % 40-54 [facility] - Chemistry and C hemistry - challengeOrdered By: Efrain Mendenhall on 12-18-2022 ALP [Catalytic activity/Vol] 114 U/L 45-117 [facility] ALT [Catalytic activity/Vol] 26 U/L 16-61 [facility] CO2 [Moles/Vol] 28.0 mmol/L 21.0-32.0 [facility] Globulin (S) [Mass/Vol] 4.1 g/dL 2.2-4.2 [facility] Urea nitrogen/Creatinine [Mass ratio] 13.9 mg/mg 10-20 [facility] - Hematology and Cell countsOrdered By: Efrain Mendenhall on 12-18-2022 Erythrocyte distribution width (RBC) [Entitic vol] 43.3 fL 35.1-43.9 [facility] Erythrocyte distribution width (RBC) [Ratio] 13.3 % 11.6-14.6 [facility] Immature granulocytes/100 WBC (Bld) 0.600 % 0.0-0.9 [facility] Comment on above: IG% - Immature Granu locytes (promyelocytes, myelocytes and metamyelocytes) > 1% indicates that a LEFT SHIFT is Present. MCH (RBC) [Entitic mass] 28.8 pg 27.0-32.0 [facility] Nucleated RBC/100 WBC (Bld) [Ratio] 0 % 0-5 [facility] MCHC Auto (RBC) [Mass/Vol]Or dered By: Efrain Mendenhall on 12-18-2022 MCHC (RBC) [Mass/Vol] 32.5 g/dL 32-36 [facility] No Panel InformationOrdered By: Efrain Mendenhall on 12-18-2022 Estimated GFR (MDRD) Amer 103 mL/min >60 [facility] Comment on above: GFR Calc Estimated GFR (MDRD) Non-Af Amer 85 mL/min >60 [facility] Comment on above: Non- GFR Calc Thyroid Stimulating Hormone (TSH) 1.70 uIU/mL 0.358-3.74 [facility] Platelets bldOrdered By: Silas Mendenhall on 12-18-2022 Platelets (Bld) [#/Vol] 255 10*3/uL 150-450 [facility] Serum or plasma albumin caterina urement (mass/volume)Ordered By: Erfain Mendenhall on 12-18-2022 Albumin [Mass/Vol] 3.5 g/dL 3.2-5.0 [facility] Serum or plasma calcium caterina urement (mass/volume)Ordered By: Efrain Mendenhall on 12-18-2022 Calcium [Mass/Vol] 8.9 mg/dL 8.5-10.1 [facility] Serum or plasma cholesterol in HDL measurement (mass/volume)Ordered By: Efrain Mendenhall on 12-18-2022 Cholesterol in HDL [Mass/Vol] 57 mg/dL >40 [facility] Comment on above: The drugs N-Acetylcy steine and Metamizole may falsely depress this assay. Reference Range HDL <40 mg/dL Low HDL Cholesterol HDL >or= 60 mg/dL High HDL Cholesterol Serum or plasma cholesterol in VLDL measurement (mass/volume)Ordered By: Efrain Mendenhall on 12-18-2022 Cholesterol in VLDL [Mass/Vol] 17 mg/dL 5-40 [facility] Serum or plasma creatinine m easurement (mass/volume)Ordered By: Efrain Mendenhall on 12-18-2022 Creatinine [Mass/Vol] 0.94 mg/dL 0.70-1.30 [facility] Comment on above: The validity of the calculated GFR & GFRAA in patients over 70 years has not been determined. Clinical correlation is essential. Serum or plasma low density lipoprotein (LDL) cholesterol measurement (mass/volume)Ordered By: Efrain Mendenhall on 12-18-2022 Cholesterol in LDL [Mass/Vol] 60 mg/dL 0-130 [facility] Serum or plasma urea nitroge n measurement (mass/volume)Ordered By: Efrain Mendenhall on 12-18-2022 Urea nitrogen [Mass/Vol] 13 mg/dL 7-18 [facility] Thin prep Papanicolaou smear with manual screeningOrdered By: Efrain Mendenhall 12-18-2022 Thin prep Papanicolaou smear with manual screening 20 U/L 15-37 [facility] Thin prep Papanicolaou smear with manual screening 7 5-15 [facility] Whole blood hemoglobin A1c/t otal hemoglobin ratio (mass fraction)Ordered By: Efrain Mendenhall on 12-18-2022 HbA1c (Bld) [Mass fraction] 5.8 % 3.8-5.6 [facility] Comment on above: Normal < 5.7 % Predi abetic 5.7 - 6.4 % Diabetic >or= 6.5 % Please note range changes. Basophil percentageOrdered B y: Efrain Mendenhall on 09-25-2022 Bilirubin [Mass/Vol] 0.30 mg/dL 0.20-1.00 [facility] Comment on above: For patients on eltr ombopag therapy, use of Dimension [place] TBIL is not recommended. Glucose [Mass/Vol] 99 mg/dL 74-106 [facility] Protein [Mass/Vol] 7.0 g/dL 6.4-8.2 [facility] Direct bilirubinOrdered By: Efrain Mendenhall on 09-25-2022 Bilirubin.direct [Mass/Vol] 0.11 mg/dL 0.00-0.30 [facility] Laboratory - Chemistry and C hemistry - challengeOrdered By: Efrain Mendenhall on 09-25-2022 ALP [Catalytic activity/Vol] 109 U/L 45-117 [facility] ALT [Catalytic activity/Vol] 22 U/L 16-61 [facility] Globulin (S) [Mass/Vol] 3.6 g/dL 2.2-4.2 [facility] No Panel InformationOrdered By: Efrain Mendenhall on 09-25-2022 Thyroid Stimulating Hormone (TSH) 1.11 uIU/mL 0.358-3.74 [facility] Serum or plasma albumin caterina urement (mass/volume)Ordered By: Efrain Mendenhall on 09-25-2022 Albumin [Mass/Vol] 3.4 g/dL 3.2-5.0 [facility] Thin prep Papanicolaou smear with manual screeningOrdered By: Efrain Mendenhall on 09-25-2022 Thin prep Papanicolaou smear with manual screening 19 U/L 15-37 [facility] Absolute lymphocyte countOrd ered By: Efrain Mendenhall on 07-03-2022 Lymphocytes Auto (Unsp spec) [#/Vol] 1.66 10*3/uL 0.83-4.51 [facility] Basophil percentageOrdered B y: Efrain Mendenhall on 07-03-2022 Basophils/100 WBC (Bld) 0.5 % 0-1 [facility] Bilirubin [Mass/Vol] 0.20 mg/dL 0.20-1.00 [facility] Comment on above: For patients on eltr ombopag therapy, use of Dim[place] TBIL is not recommended. Chloride [Moles/Vol] 102 mmol/L 98-107 [facility] Eosinophils/100 WBC (Bld) 3.8 % 0-5 [facility] Glucose [Mass/Vol] 103 mg/dL 74-106 [facility] Comment on above: Fasting Glucose resu lt from 100 to 125 mg/dL suggests IMPAIRED HOMEOSTASIS per A.D.A. criteria. Neutrophils (Bld) [#/Vol] 5.2 10*3/uL 2.0-7.7 [facility] Neutrophils/100 WBC (Bld) 67.1 % 47-70 [facility] Potassium [Moles/Vol] 4.2 mmol/L 3.5-5.1 [facility] Protein [Mass/Vol] 6.9 g/dL 6.4-8.2 [facility] Sodium [Moles/Vol] 138 mmol/L 136-145 [facility] WBC (Bld) [#/Vol] 7.7 10*3/uL 4.4-11.0 [facility] Blood erythrocytes count (nu mber/volume)Ordered By: Efrain Mendenhall on 07-03-2022 RBC (Bld) [#/Vol] 4.07 10*6/uL 4.6-6.2 [facility] Blood hemoglobin measurement (mass/volume)Ordered By: Efrain Mendenhall on 07-03-2022 Hemoglobin (Bld) [Mass/Vol] 11.3 g/dL 13.0-16.5 [facility] Blood lymphocytes/100 leukoc ytesOrdered By: Efrani Mendenhall on 07-03-2022 Lymphocytes/100 WBC (Bld) 21.6 % 19-41 [facility] Blood monocytes/100 leukocyt esOrdered By: Efrain Mendenhall on 07-03-2022 Monocytes/100 WBC (Bld) 6.3 % 0-10 [facility] Blood platelet mean volumeOr dered By: Efrain Mendenhall on 07-03-2022 Platelet mean volume (Bld) [Entitic vol] 10.2 fL 6.2-12.0 [facility] Determination of erythrocyte mean corpuscular volume (MCV)Ordered By: Efrain Mendenhall on 07-03-2022 MCV (RBC) [Entitic vol] 87.7 fL 80-94 [facility] Direct bilirubinOrdered By: Efrain Mendenhall on 07-03-2022 Bilirubin.direct [Mass/Vol] mg/dL 0.00-0.30 [facility] Hematocrit Auto (Bld) [Volum e fraction]Ordered By: Efrain Mendenhall on 07-03-2022 Hematocrit (Bld) [Volume fraction] 35.7 % 40-54 [facility] Laboratory - Chemistry and C hemistry - challengeOrdered By: Efrain Mendenhall on 07-03-2022 ALP [Catalytic activity/Vol] 107 U/L 45-117 [facility] ALT [Catalytic activity/Vol] 22 U/L 16-61 [facility] CO2 [Moles/Vol] 30.0 mmol/L 21.0-32.0 [facility] Globulin (S) [Mass/Vol] 3.6 g/dL 2.2-4.2 [facility] Urea nitrogen/Creatinine [Mass ratio] 16.4 mg/mg 10-20 [facility] Laboratory - Hematology and Cell countsOrdered By: Efrain Mendenhall on 07-03-2022 Erythrocyte distribution width (RBC) [Entitic vol] 44.1 fL 35.1-43.9 [facility] Erythrocyte distribution width (RBC) [Ratio] 13.7 % 11.6-14.6 [facility] Immature granulocytes/100 WBC (Bld) 0.700 % 0.0-0.9 [facility] Comment on above: IG% - Immature Granu locytes (promyelocytes, myelocytes and metamyelocytes) > 1% indicates that a LEFT SHIFT is Present. MCH (RBC) [Entitic mass] 27.8 pg 27.0-32.0 [facility] Nucleated RBC/100 WBC (Bld) [Ratio] 0 % 0-5 [facility] MCHC Auto (RBC) [Mass/Vol]Or dered By: Efrain Mendenhall on 07-03-2022 MCHC (RBC) [Mass/Vol] 31.7 g/dL 32-36 [facility] No Panel InformationOrdered By: Efrain Mendenhall on 07-03-2022 Estimated GFR (MDRD) Amer 115 mL/min >60 [facility] Comment on above: GFR Calc Estimated GFR (MDRD) Non-Af Amer 95 mL/min >60 [facility] Comment on above: Non- GFR Calc Thyroid Stimulating Hormone (TSH) 1.02 uIU/mL 0.358-3.74 [facility] Platelets bldOrdered By: Silas Mendenhall on 07-03-2022 Platelets (Bld) [#/Vol] 241 10*3/uL 150-450 [facility] Serum or plasma albumin caterina urement (mass/volume)Ordered By: Efrain Mendenhall on 07-03-2022 Albumin [Mass/Vol] 3.3 g/dL 3.2-5.0 [facility] Serum or plasma calcium caterina urement (mass/volume)Ordered By: Efrain Mendenhall on 07-03-2022 Calcium [Mass/Vol] 9.1 mg/dL 8.5-10.1 [facility] Serum or plasma creatinine m easurement (mass/volume)Ordered By: Efrain Mendenhall on 07-03-2022 Creatinine [Mass/Vol] 0.86 mg/dL 0.70-1.30 [facility] Comment on above: The validity of the calculated GFR & GFRAA in patients over 70 years has not been determined. Clinical correlation is essential. Serum or plasma urea nitroge n measurement (mass/volume)Ordered By: Efrain Mendenhall on 07-03-2022 Urea nitrogen [Mass/Vol] 14 mg/dL 7-18 [facility] Thin prep Papanicolaou smear with manual screeningOrdered By: Efrain Mendenhall on 07-03-2022 Thin prep Papanicolaou smear with manual screening 15 U/L 15-37 [facility] Thin prep Papanicolaou smear with manual screening 6 5-15 [facility] Whole blood hemoglobin A1c/t otal hemoglobin ratio (mass fraction)Ordered By: Efrain Mendenhall on 07-03-2022 HbA1c (Bld) [Mass fraction] 5.7 % 3.8-5.6 [facility] Comment on above: Normal < 5.7 % Predi abetic 5.7 - 6.4 % Diabetic >or= 6.5 % Please note range changes. Basophil percentageOrdered B y: Efrain Mendenhall on 04-12-2022 Bilirubin [Mass/Vol] 0.20 mg/dL 0.20-1.00 [facility] Comment on above: For patients on eltr ombopag therapy, use of Dim[place] TBIL is not recommended. For patients on eltr ombopag therapy, use of Dimension [place] TBIL is not recommended..Previous reported result: 0.20 mg/dLEdited by: LAMAR on 05/23/22:1455 AMENDED REPORT 05/23/22 1455 T BILI previously reported as: 0.20 mg/dL For patients on eltrombopag therapy, use of Dimension [place] TBIL is not recommended. Glucose [Mass/Vol] 98 mg/dL 74-106 [facility] Comment on above: .Previous reported r esult: 98 mg/dLEdited by: LAMAR on 05/23/22:1454 AMENDED REPORT 05/23/22 1454 GLU previously reported as: 98 mg/dL Protein [Mass/Vol] 7.0 g/dL 6.4-8.2 [facility] Comment on above: .Previous reported r esult: 7.0 g/dLEdited by: LAMAR on 05/23/22:1454 AMENDED REPORT 05/23/22 1454 T PROT previously reported as: 7.0 g/dL Direct bilirubinOrdered By: Efrain Mendenhall on 04-12-2022 Bilirubin.direct [Mass/Vol] 0.05 mg/dL 0.00-0.30 [facility] Comment on above: .Previous reported r esult: 0.05 mg/dLEdited by: LAMAR on 05/23/22:1455 AMENDED REPORT 05/23/22 1455 D BILI previously reported as: 0.05 mg/dL Laboratory - Chemistry and C hemistry - challengeOrdered By: Efrain Mendenhall on 04-12-2022 ALP [Catalytic activity/Vol] 103 U/L 45-117 [facility] Comment on above: .Previous reported r esult: 103 U/LEdited by: LAMAR on 05/23/22:1455 AMENDED REPORT 05/23/221454 ALK P previously reported as: 103 U/L ALT [Catalytic activity/Vol] 24 U/L 16-61 [facility] Comment on above: .Previous reported r esult: 24 U/LEdited by: LAMAR on 05/23/22:1455 AMENDED REPORT 05/23/22 145 ALT previously reported as: 24 U/L Globulin (S) [Mass/Vol] 3.7 g/dL 2.2-4.2 [facility] Comment on above: .Previous reported r esult: 3.7 g/dLEdited by: LAMAR on 05/23/22:1454 AMENDED REPORT 05/23/221453 GLOB previously reported as: 3.7 g/dL No Panel InformationOrdered By: Efrain Mendenhall on 04-12-2022 Thyroid Stimulating Hormone (TSH) 0.89 uIU/mL 0.358-3.74 [facility] Comment on above: .Previous reported r esult: 0.89 uIU/mLEdited by: LAMAR on 05/23/22:1455 AMENDED REPORT 05/23/221454 TSH previously reported as: 0.89 uIU/mL Serum or plasma albumin caterina urement (mass/volume)Ordered By: Efrain Mendenhall on 04-12-2022 Albumin [Mass/Vol] 3.3 g/dL 3.2-5.0 [facility] Comment on above: .Previous reported r esult: 3.3 g/dLEdited by: LAMAR on 05/23/22:1454 AMENDED REPORT 05/23/22 145 ALB previously reported as: 3.3 g/dL Thin prep Papanicolaou smear with manual screeningOrdered By: Efrain Mendenhall on 04-12-2022 Thin prep Papanicolaou smear with manual screening 21 U/L 15-37 [facility] Comment on above: .Previous reported r esult: 21 U/LEdited by: LAMAR on 05/23/22:1454 AMENDED REPORT 05/23/22 1454 AST previously reported as: 21 U/L Laboratory - Chemistry and C hemistry - challengeOrdered By: Efrain Mendenhall on 03-13-2022 Free T4 [Mass/Vol] 0.90 ng/dL 0.76-1.46 [facility] Absolute lymphocyte countOrd ered By: Efrain Mendenhall on 01-16-2022 Lymphocytes Auto (Unsp spec) [#/Vol] 1.61 10*3/uL 0.83-4.51 [facility] Basophil percentageOrdered B y: Efrain Mendenhall on 01-16-2022 Basophils/100 WBC (Bld) 0.7 % 0-1 [facility] Bilirubin [Mass/Vol] 0.30 mg/dL 0.20-1.00 [facility] Comment on above: For patients on eltr ombopag therapy, use of Dim[place] TBIL is not recommended. Chloride [Moles/Vol] 98 mmol/L 98-107 [facility] Eosinophils/100 WBC (Bld) 3.4 % 0-5 [facility] Glucose [Mass/Vol] 135 mg/dL 74-106 [facility] Comment on above: Fasting Glucose resu lt greater than or equal to 126 mg/dL suggests DIABETES MELLITUS per A.D.A. criteria. Neutrophils (Bld) [#/Vol] 6.8 10*3/uL 2.0-7.7 [facility] Neutrophils/100 WBC (Bld) 70.9 % 47-70 [facility] Potassium [Moles/Vol] 4.8 mmol/L 3.5-5.1 [facility] Protein [Mass/Vol] 7.1 g/dL 6.4-8.2 [facility] Sodium [Moles/Vol] 134 mmol/L 136-145 [facility] WBC (Bld) [#/Vol] 9.7 10*3/uL 4.4-11.0 [facility] Blood erythrocytes count (nu mber/volume)Ordered By: Efrain Mendenhall on 01-16-2022 RBC (Bld) [#/Vol] 3.79 10*6/uL 4.6-6.2 [facility] Blood hemoglobin measurement (mass/volume)Ordered By: Efrain Mendenhall on 01-16-2022 Hemoglobin (Bld) [Mass/Vol] 11.1 g/dL 13.0-16.5 [facility] Blood lymphocytes/100 leukoc ytesOrdered By: Efrain Mendenhall on 01-16-2022 Lymphocytes/100 WBC (Bld) 16.6 % 19-41 [facility] Blood monocytes/100 leukocyt esOrdered By: Efrain Mendenhall on 01-16-2022 Monocytes/100 WBC (Bld) 7.2 % 0-10 [facility] Blood platelet mean volumeOr dered By: Efrain Mendenhall on 01-16-2022 Platelet mean volume (Bld) [Entitic vol] 9.8 fL 6.2-12.0 [facility] Determination of erythrocyte mean corpuscular volume (MCV)Ordered By: Efrain Mendenhall on 01-16-2022 MCV (RBC) [Entitic vol] 89.7 fL 80-94 [facility] Direct bilirubinOrdered By: Efrain Mendenhall on 01-16-2022 Bilirubin.direct [Mass/Vol] 0.07 mg/dL 0.00-0.30 [facility] Hematocrit Auto (Bld) [Volum e fraction]Ordered By: Efrain Mendenhall on 01-16-2022 Hematocrit (Bld) [Volume fraction] 34.0 % 40-54 [facility] Laboratory - Chemistry and C hemistry - challengeOrdered By: Efrain Mendenhall on 01-16-2022 ALP [Catalytic activity/Vol] 122 U/L 45-117 [facility] ALT [Catalytic activity/Vol] 26 U/L 16-61 [facility] CO2 [Moles/Vol] 29.0 mmol/L 21.0-32.0 [facility] Globulin (S) [Mass/Vol] 3.7 g/dL 2.2-4.2 [facility] Urea nitrogen/Creatinine [Mass ratio] 13.4 mg/mg 10-20 [facility] - Hematology and Cell countsOrdered By: Efrain Mendenhall on 01-16-2022 Erythrocyte distribution width (RBC) [Entitic vol] 44.5 fL 35.1-43.9 [facility] Erythrocyte distribution width (RBC) [Ratio] 13.6 % 11.6-14.6 [facility] Immature granulocytes/100 WBC (Bld) 1.200 % 0.0-0.9 [facility] Comment on above: IG% - Immature Granu locytes (promyelocytes, myelocytes and metamyelocytes) > 1% indicates that a LEFT SHIFT is Present. MCH (RBC) [Entitic mass] 29.3 pg 27.0-32.0 [facility] Nucleated RBC/100 WBC (Bld) [Ratio] 0 % 0-5 [facility] MCHC Auto (RBC) [Mass/Vol]Or dered By: Efrain Mendenhall on 01-16-2022 MCHC (RBC) [Mass/Vol] 32.6 g/dL 32-36 [facility] No Panel InformationOrdered By: Efrain Mendenhall on 01-16-2022 Estimated GFR (MDRD) Amer 120 mL/min >60 [facility] Comment on above: GFR Calc Estimated GFR (MDRD) Non-Af Amer 99 mL/min >60 [facility] Comment on above: Non- GFR Calc Thyroid Stimulating Hormone (TSH) 1.59 uIU/mL 0.358-3.74 [facility] Platelets bldOrdered By: Silas Mendenhall on 01-16-2022 Platelets (Bld) [#/Vol] 252 10*3/uL 150-450 [facility] Serum or plasma albumin caterina urement (mass/volume)Ordered By: Efrain Mendenhall on 01-16-2022 Albumin [Mass/Vol] 3.4 g/dL 3.2-5.0 [facility] Serum or plasma calcium caterina urement (mass/volume)Ordered By: Efrain Mendenhall on 01-16-2022 Calcium [Mass/Vol] 8.6 mg/dL 8.5-10.1 [facility] Serum or plasma creatinine m easurement (mass/volume)Ordered By: Efrain Mendenhall on 01-16-2022 Creatinine [Mass/Vol] 0.82 mg/dL 0.70-1.30 [facility] Comment on above: The validity of the calculated GFR & GFRAA in patients over 70 years has not been determined. Clinical correlation is essential. Serum or plasma urea nitroge n measurement (mass/volume)Ordered By: Efrain Mendenhall on 01-16-2022 Urea nitrogen [Mass/Vol] 11 mg/dL 7-18 [facility] Thin prep Papanicolaou smear with manual screeningOrdered By: Efrain Mendenhall on 01-16-2022 Thin prep Papanicolaou smear with manual screening 17 U/L 15-37 [facility] Thin prep Papanicolaou smear with manual screening 7 5-15 [facility] Whole blood hemoglobin A1c/t otal hemoglobin ratio (mass fraction)Ordered By: Efrain Mendenhall on 01-16-2022 HbA1c (Bld) [Mass fraction] 6.1 % 3.8-5.6 [facility] Comment on above: Normal < 5.7 % Predi abetic 5.7 - 6.4 % Diabetic >or= 6.5 % Please note range changes. Basophil percentageOrdered B y: Efrain Mendenhall on 12-26-2021 Bilirubin [Mass/Vol] 0.30 mg/dL 0.20-1.00 [facility] Comment on above: For patients on eltr ombopag therapy, use of Dim[place] TBIL is not recommended. Cholesterol [Mass/Vol] 165 mg/dL <200 [facility] Comment on above: <200 mg/dL Desirable 200-240 mg/dL Borderline >240 mg/dL High Risk Protein [Mass/Vol] 7.9 g/dL 6.4-8.2 [facility] Triglyceride [Mass/Vol] 105 mg/dL <199 [facility] Comment on above: The drugs N-Acetylcy steine and Metamizole may falsely depress this assay.Serum Triglycerides Reference Interval Normal <150 mg/dL Borderline high 150 - 199 mg/dL High 200 - 499 mg/dL Very High > or = 500 mg/dL Direct bilirubinOrdered By: Efrain Mendenhall on 12-26-2021 Bilirubin.direct [Mass/Vol] 0.07 mg/dL 0.00-0.30 [facility] Laboratory - Chemistry and C hemistry - challengeOrdered By: Efrain Mendenhall on 12-26-2021 ALP [Catalytic activity/Vol] 110 U/L 45-117 [facility] ALT [Catalytic activity/Vol] 26 U/L 16-61 [facility] Globulin (S) [Mass/Vol] 4.2 g/dL 2.2-4.2 [facility] Serum or plasma albumin caterina urement (mass/volume)Ordered By: Efrain Mendenhall on 12-26-2021 Albumin [Mass/Vol] 3.7 g/dL 3.2-5.0 [facility] Serum or plasma cholesterol in HDL measurement (mass/volume)Ordered By: Efrain Mendenhall on 12-26-2021 Cholesterol in HDL [Mass/Vol] 62 mg/dL >40 [facility] Comment on above: The drugs N-Acetylcy steine and Metamizole may falsely depress this assay. Reference Range HDL <40 mg/dL Low HDL Cholesterol HDL >or= 60 mg/dL High HDL Cholesterol Serum or plasma cholesterol in VLDL measurement (mass/volume)Ordered By: Efrain Mendenhall on 12-26-2021 Cholesterol in VLDL [Mass/Vol] 21 mg/dL 5-40 [facility] Serum or plasma low density lipoprotein (LDL) cholesterol measurement (mass/volume)Ordered By: Efrain Mendenhall on 12-26-2021 Cholesterol in LDL [Mass/Vol] 82 mg/dL 0-130 [facility] Thin prep Papanicolaou smear with manual screeningOrdered By: Efrain Mendenhall on 12-26-2021 Thin prep Papanicolaou smear with manual screening 24 U/L 15-37 [facility] VL AAA SCREENINGon 2 [facility] -- Aortic Screening for Medicare Patient Milad Moon : 1955 Study 11/22/2021 Name: Khushbu (66yrs) Date: Age: 66 Account: [id number] Gender: M Loc: BP: Ordering Physician: Efrain Mendenhall Inside Sales Advertising Executive: ANALI BrownT Interpreting Physician: Corrine Steinberg -- Location: [facility] -- Indications: Z13.6. -- Conclusions 1. Study is negative for aneurysm and stenosis involving the abdominal aorta. 2. Study is negative for aneurysm and stenosis involving the right common iliac artery. 3. Study is negative for aneurysm and stenosis involving the left common iliac artery. -- History: Risk factors: Former tobacco use. Hypertension. Diabetes mellitus. Hyperlipidemia. -- Study data: Aortic screening for Medicare. Duplex scan, grayscale 2D imaging, color Doppler imaging, and spectral Doppler analysis. Location: Vascular laboratory. Objective: Diagnostic evaluation. Procedure: A vascular evaluation was performed with the patient in the supine position. Images were obtained using a [email or web address] vascular ultrasound machine. The study was technically limited due to patient cooperation - patient had an incontrollable tremor and bowel gas. -- Arterial flow: + + +-------- ----+ +------ -+ +Location +Diameter AP+Diameter +PSV(cm/sec)+Comment+ + + +Tr + + + + + +-------- ----+ +------ -+ +Abdominal aorta , prox+2.67 cm +2.78 +54 +-------+ + + +-------- ----+ +------ -+ +Abdominal aorta , mid +1.93 cm +1.95 +68 +-------+ + + +-------- ----+ +------ -+ +Abdominal aorta , +1.64 cm +1.67 +71 +-------+ +distal + + + + + + + +-------- ----+ +------ -+ +R DANIELA , distal +1.09 cm +1.09 +170 +-------+ + + +-------- ----+ +------ -+ +R IIA + +-------- ----+138 +-------+ + + +-------- ----+ +------ -+ +R EIA + +-------- ----+208 +-------+ + + +-------- ----+ +------ -+ +L DANIELA , distal +1.05 cm +1.18 +118 +-------+ + + +-------- ----+ +------ -+ +L IIA + +-------- ----+ +Not + + + + + +vis. + + + +-------- ----+ +------ -+ +L EIA + +-------- ----+191 +-------+ + + +-------- ----+ +------ -+ Prepared and electronically signed by Corrine Steinberg 11/22/2021 15:08 [facility] Corrine Steinberg MD - 11/22/2021 [facility] -- Aortic Screening for Medicare Patient Milad Moon : 1955 Study 11/22/2021 Name: Khushbu (66yr) Date: Age: 66 Account: [id number] Gender: M Loc: BP: Ordering Physician: Efrain Mendenhall Inside Sales Advertising Executive: Tonny Cheek RVT Interpreting Physician: Corrine Steinberg -- Location: [facility] -- Indications: Z13.6. -- Conclusions 1. Study is negative for aneurysm and stenosis involving the abdominal aorta. 2. Study is negative for aneurysm and stenosis involving the right common iliac artery. 3. Study is negative for aneurysm and stenosis involving the left common iliac artery. -- History: Risk factors: Former tobacco use. Hypertension. Diabetes mellitus. Hyperlipidemia. -- Study data: Aortic screening for Medicare. Duplex scan, grayscale 2D imaging, color Doppler imaging, and spectral Doppler analysis. Location: Vascular laboratory. Objective: Diagnostic evaluation. Procedure: A vascular evaluation was performed with the patient in the supine position. Images were obtained using a [email or web address] vascular ultrasound machine. The study was technically limited due to patient cooperation - patient had an incontrollable tremor and bowel gas. -- Arterial flow: + + +-------- ----+ +------ -+ +Location +Diameter AP+Diameter +PSV(cm/sec)+Comment+ + + +Tr + + + + + +-------- ----+ +------ -+ +Abdominal aorta , prox+2.67 cm +2.78 +54 +-------+ + + +-------- ----+ +------ -+ +Abdominal aorta , mid +1.93 cm +1.95 +68 +-------+ + + +-------- ----+ +------ -+ +Abdominal aorta , +1.64 cm +1.67 +71 +-------+ +distal + + + + + + + +-------- ----+ +------ -+ +R DANIELA , distal +1.09 cm +1.09 +170 +-------+ + + +-------- ----+ +------ -+ +R IIA + +-------- ----+138 +-------+ + + +-------- ----+ +------ -+ +R EIA + +-------- ----+208 +-------+ + + +-------- ----+ +------ -+ +L DANIELA , distal +1.05 cm +1.18 +118 +-------+ + + +-------- ----+ +------ -+ +L IIA + +-------- ----+ +Not + + + + + +vis. + + + +-------- ----+ +------ -+ +L EIA + +-------- ----+191 +-------+ + + +-------- ----+ +------ -+ Prepared and electronically signed by Corrine Steinberg 11/22/2021 15:08 [employer] Work Phone: Radiology Study observation (narrative) [facility] Work Phone: VL AAA SCREENINGOrdered By: Corrine Steinberg on 11-22-2021 [employer] Work Phone: Basophil percentageon 2021 Bilirubin [Mass/Vol] 0.30 mg/dL 0.20-1.00 [facility] Work Phone: Comment on above: For patients on eltr ombopag therapy, use of Dimension [place] TBIL is not recommended. Glucose [Mass/Vol] 94 mg/dL 74-106 [facility] Work Phone: Protein [Mass/Vol] 6.9 g/dL 6.4-8.2 [facility] Work Phone: Direct bilirubinon 2 Bilirubin.direct [Mass/Vol] 0.06 mg/dL 0.00-0.30 [facility] Work Phone: Laboratory - Chemistry and C hemistry - challengeon 10-24-2021 ALP [Catalytic activity/Vol] 102 U/L 45-117 [facility] Work Phone: ALT [Catalytic activity/Vol] 31 U/L 16-61 [facility] Work Phone: Globulin (S) [Mass/Vol] 3.6 g/dL 2.2-4.2 [facility] Work Phone: No Panel Informationon 10-24 Thyroid Stimulating Hormone (TSH) 0.75 uIU/mL 0.358-3.74 [facility] Work Phone: Serum or plasma albumin caterina urement (mass/volume)on 10-24-2021 Albumin [Mass/Vol] 3.3 g/dL 3.2-5.0 [facility] Work Phone: Thin prep Papanicolaou smear with manual screeningon 10-24-2021 Thin prep Papanicolaou smear with manual screening 20 U/L 15-37 [facility] Work Phone: Absolute lymphocyte counton 08-01-2021 Lymphocytes Auto (Unsp spec) [#/Vol] 1.72 10*3/uL 0.83-4.51 [facility] Work Phone: Basophil percentageon 2021 Basophils/100 WBC (Bld) 0.6 % 0-1 [facility] Work Phone: Bilirubin [Mass/Vol] 0.20 mg/dL 0.20-1.00 [facility] Work Phone: Comment on above: For patients on eltr ombopag therapy, use of Dimension [place] TBIL is not recommended. Chloride [Moles/Vol] 98 mmol/L 98-107 [facility] Work Phone: Eosinophils/100 WBC (Bld) 3.1 % 0-5 [facility] Work Phone: Glucose [Mass/Vol] 95 mg/dL 74-106 [facility] Work Phone: Neutrophils (Bld) [#/Vol] 5.8 10*3/uL 2.0-7.7 [facility] Work Phone: Neutrophils/100 WBC (Bld) 68.9 % 47-70 [facility] Work Phone: Potassium [Moles/Vol] 4.3 mmol/L 3.5-5.1 [facility] Work Phone: Protein [Mass/Vol] 6.8 g/dL 6.4-8.2 [facility] Work Phone: [phone] Sodium [Moles/Vol] 133 mmol/L 136-145 [facility] Work Phone: [phone] WBC (Bld) [#/Vol] 8.4 10*3/uL 4.4-11.0 [facility] Work Phone: [phone] Blood erythrocytes count (nu mber/volume)on 08-01-2021 RBC (Bld) [#/Vol] 3.85 10*6/uL 4.6-6.2 [facility] Work Phone: [phone] Blood hemoglobin measurement (mass/volume)on 08-01-2021 Hemoglobin (Bld) [Mass/Vol] 11.1 g/dL 13.0-16.5 [facility] Work Phone: [phone] Blood lymphocytes/100 leukoc yteson 08-01-2021 Lymphocytes/100 WBC (Bld) 20.5 % 19-41 [facility] Work Phone: [phone] Blood monocytes/100 leukocyt eson 08-01-2021 Monocytes/100 WBC (Bld) 6.4 % 0-10 [facility] Work Phone: [phone] Blood platelet mean volumeon 08-01-2021 Platelet mean volume (Bld) [Entitic vol] 9.6 fL 6.2-12.0 [facility] Work Phone: [phone] Determination of erythrocyte mean corpuscular volume (MCV)on 08-01-2021 MCV (RBC) [Entitic vol] 89.6 fL 80-94 [facility] Work Phone: [phone] Direct bilirubinon Bilirubin.direct [Mass/Vol] 0.08 mg/dL 0.00-0.30 [facility] Work Phone: [phone] Hematocrit Auto (Bld) [Volum e fraction]on 08-01-2021 Hematocrit (Bld) [Volume fraction] 34.5 % 40-54 [facility] Work Phone: Laboratory - Chemistry and C hemistry - challengeon 08-01-2021 ALP [Catalytic activity/Vol] 102 U/L 45-117 [facility] Work Phone: [phone] ALT [Catalytic activity/Vol] 26 U/L 16-61 [facility] Work Phone: [phone] CO2 [Moles/Vol] 29.0 mmol/L 21.0-32.0 [facility] Work Phone: [phone] Globulin (S) [Mass/Vol] 3.4 g/dL 2.2-4.2 [facility] Work Phone: [phone] Urea nitrogen/Creatinine [Mass ratio] 16.4 mg/mg 10-20 [facility] Work Phone: [phone] Laboratory - Hematology and Cell countson 08-01-2021 Erythrocyte distribution width (RBC) [Entitic vol] 43.8 fL 35.1-43.9 [facility] Work Phone: [phone] Erythrocyte distribution width (RBC) [Ratio] 13.5 % 11.6-14.6 [facility] Work Phone: [phone] Immature granulocytes/100 WBC (Bld) 0.500 % 0.0-0.9 [facility] Work Phone: [phone] Comment on above: IG% - Immature Granu locytes (promyelocytes, myelocytes and metamyelocytes) > 1% indicates that a LEFT SHIFT is Present. MCH (RBC) [Entitic mass] 28.8 pg 27.0-32.0 [facility] Work Phone: [phone] Nucleated RBC/100 WBC (Bld) [Ratio] 0 % 0-5 [facility] Work Phone: [phone] MCHC Auto (RBC) [Mass/Vol]on 08-01-2021 MCHC (RBC) [Mass/Vol] 32.2 g/dL 32-36 [facility] Work Phone: [phone] Panel Informationon 08-01 Estimated GFR (MDRD) Amer 125 mL/min >60 [facility] Work Phone: [phone] Comment on above: GFR Calc Estimated GFR (MDRD) Non-Af Amer 103 mL/min >60 [facility] Work Phone: Comment on above: Non- GFR Calc Thyroid Stimulating Hormone (TSH) 1.05 uIU/mL 0.358-3.74 [facility] Work Phone: Platelets bldon 08-01-2021 Platelets (Bld) [#/Vol] 219 10*3/uL 150-450 [facility] Work Phone: [phone] Serum or plasma albumin caterina urement (mass/volume)on 08-01-2021 Albumin [Mass/Vol] 3.4 g/dL 3.2-5.0 [facility] Work Phone: [phone] Serum or plasma calcium caterina urement (mass/volume)on 08-01-2021 Calcium [Mass/Vol] 9.0 mg/dL 8.5-10.1 [facility] Work Phone: [phone] Serum or plasma creatinine m easurement (mass/volume)on 08-01-2021 Creatinine [Mass/Vol] 0.80 mg/dL 0.70-1.30 [facility] Work Phone: Comment on above: The validity of the calculated GFR & GFRAA in patients over 70 years has not been determined. Clinical correlation is essential. Serum or plasma urea nitroge n measurement (mass/volume)on 08-01-2021 Urea nitrogen [Mass/Vol] 13 mg/dL 7-18 [facility] Work Phone: [phone] Thin prep Papanicolaou smear with manual screeningon 08-01-2021 Thin prep Papanicolaou smear with manual screening 17 U/L 15-37 [facility] Work Phone: [phone] Thin prep Papanicolaou smear with manual screening 6 5-15 [facility] Work Phone: [phone] Whole blood hemoglobin A1c/t otal hemoglobin ratio (mass fraction)on 08-01-2021 HbA1c (Bld) [Mass fraction] 5.7 % 3.8-5.6 [facility] Work Phone: Comment on above: Normal < 5.7 % Predi abetic 5.7 - 6.4 % Diabetic >or= 6.5 % Please note range changes. Basophil percentageon 2021 Bilirubin [Mass/Vol] 0.30 mg/dL 0.20-1.00 [facility] Work Phone: Comment on above: For patients on eltr ombopag therapy, use of Dimension [place] TBIL is not recommended. Glucose [Mass/Vol] 104 mg/dL 74-106 [facility] Work Phone: Comment on above: Fasting Glucose resu lt from 100 to 125 mg/dL suggests IMPAIRED HOMEOSTASIS per A.D.A. criteria. Protein [Mass/Vol] 6.9 g/dL 6.4-8.2 [facility] Work Phone: [phone] Direct bilirubinon Bilirubin.direct [Mass/Vol] 0.07 mg/dL 0.00-0.30 [facility] Work Phone: Laboratory - Chemistry and C hemistry - challengeon 05-09-2021 ALP [Catalytic activity/Vol] 110 U/L 45-117 [facility] Work Phone: [phone] ALT [Catalytic activity/Vol] 23 U/L 16-61 [facility] Work Phone: [phone] Globulin (S) [Mass/Vol] 3.5 g/dL 2.2-4.2 [facility] Work Phone: [phone] Panel Informationon 05-09 Thyroid Stimulating Hormone (TSH) 1.10 uIU/mL 0.358-3.74 [facility] Work Phone: [phone] Serum or plasma albumin caterina urement (mass/volume)on 05-09-2021 Albumin [Mass/Vol] 3.4 g/dL 3.2-5.0 [facility] Work Phone: [phone] Thin prep Papanicolaou smear with manual screeningon 05-09-2021 Thin prep Papanicolaou smear with manual screening 15 U/L 15-37 [facility] Work Phone: Laboratory - Chemistry and C hemistry - challengeon 03-14-2021 Free T4 [Mass/Vol] 0.75 ng/dL 0.76-1.46 [facility] Work Phone: Absolute lymphocyte counton 02-14-2021 Lymphocytes Auto (Unsp spec) [#/Vol] 2.20 10*3/uL 0.83-4.51 [facility] Work Phone: Basophil percentageon 2020 Bilirubin [Mass/Vol] 0.30 mg/dL 0.20-1.00 [facility] Work Phone: Comment on above: For patients on eltr ombopag therapy, use of Dimension [place] TBIL is not recommended. Chloride [Moles/Vol] 98 mmol/L 98-107 [facility] Work Phone: Eosinophils/100 WBC (Bld) 5.4 % 0-5 [facility] Work Phone: Glucose [Mass/Vol] 84 mg/dL 74-106 [facility] Work Phone: Comment on above: Please note revised GLUCOSE reference range effective 2017. Neutrophils (Bld) [#/Vol] 4.3 10*3/uL 2.0-7.7 [facility] Work Phone: Potassium [Moles/Vol] 4.1 mmol/L 3.5-5.1 [facility] Work Phone: Protein [Mass/Vol] 7.0 g/dL 6.4-8.2 [facility] Work Phone: Sodium [Moles/Vol] 135 mmol/L 136-145 [facility] Work Phone: WBC (Bld) [#/Vol] 7.6 10*3/uL 4.4-11.0 [facility] Work Phone: Blood erythrocytes count (nu mber/volume)on 02-14-2021 RBC (Bld) [#/Vol] 3.76 10*6/uL 4.6-6.2 [facility] Work Phone: Blood hemoglobin measurement (mass/volume)on 02-14-2021 Hemoglobin (Bld) [Mass/Vol] 10.8 g/dL 13.0-16.5 [facility] Work Phone: Blood lymphocytes/100 leukoc yteson 02-14-2021 Lymphocytes/100 WBC (Bld) 29.0 % 19-41 [facility] Work Phone: Blood monocytes/100 leukocyt eson 02-14-2021 Monocytes/100 WBC (Bld) 7.5 % 0-10 [facility] Work Phone: Blood platelet mean volumeon 02-14-2021 Platelet mean volume (Bld) [Entitic vol] 9.7 fL 6.2-12.0 [facility] Work Phone: Determination of erythrocyte mean corpuscular volume (MCV)on 02-14-2021 MCV (RBC) [Entitic vol] 86.4 fL 80-94 [facility] Work Phone: Direct bilirubinon Bilirubin.direct [Mass/Vol] mg/dL 0.00-0.30 [facility] Work Phone: Hematocrit Auto (Bld) [Volum e fraction]on 02-14-2021 Hematocrit (Bld) [Volume fraction] 32.5 % 40-54 [facility] Work Phone: Laboratory - Chemistry and C hemistry - challengeon 02-14-2021 ALP [Catalytic activity/Vol] 102 U/L 45-117 [facility] Work Phone: ALT [Catalytic activity/Vol] 26 U/L 16-61 [facility] Work Phone: CO2 [Moles/Vol] 31.0 mmol/L 21.0-32.0 [facility] Work Phone: Globulin (S) [Mass/Vol] 3.8 g/dL 2.2-4.2 [facility] Work Phone: [phone] Urea nitrogen/Creatinine [Mass ratio] 18.3 mg/mg 10-20 [facility] Work Phone: [phone] Laboratory - Hematology and Cell countson 02-14-2021 Basophils/100 WBC (Unsp spec) 0.9 % 0-1 [facility] Work Phone: [phone] Erythrocyte distribution width (RBC) [Entitic vol] 41.2 fL 35.1-43.9 [facility] Work Phone: [phone] Erythrocyte distribution width (RBC) [Ratio] 13.2 % 11.6-14.6 [facility] Work Phone: [phone] Immature granulocytes/100 WBC (Bld) 0.500 % 0.0-0.9 [facility] Work Phone: [phone] Comment on above: IG% - Immature Granu locytes (promyelocytes, myelocytes and metamyelocytes) > 1% indicates that a LEFT SHIFT is Present. MCH (RBC) [Entitic mass] 28.7 pg 27.0-32.0 [facility] Work Phone: [phone] Neutrophils/100 WBC (Bld) 56.7 % 47-70 [facility] Work Phone: [phone] Nucleated RBC/100 WBC (Bld) [Ratio] 0 % 0-5 [facility] Work Phone: [phone] MCHC Auto (RBC) [Mass/Vol]on 02-14-2021 MCHC (RBC) [Mass/Vol] 33.2 g/dL 32-36 [facility] Work Phone: [phone] Panel Informationon 02-14 Estimated GFR (MDRD) Amer 130 mL/min >60 [facility] Work Phone: [phone] Comment on above: GFR Calc Estimated GFR (MDRD) Non-Af Amer 108 mL/min >60 [facility] Work Phone: [phone] Comment on above: Non- GFR Calc Thyroid Stimulating Hormone (TSH) 1.12 uIU/mL 0.358-3.74 [facility] Work Phone: [phone] Platelets bldon 02-14-2021 Platelets (Bld) [#/Vol] 217 10*3/uL 150-450 [facility] Work Phone: [phone] Serum or plasma albumin caterina urement (mass/volume)on 02-14-2021 Albumin [Mass/Vol] 3.2 g/dL 3.2-5.0 [facility] Work Phone: [phone] Serum or plasma calcium caterina urement (mass/volume)on 02-14-2021 Calcium [Mass/Vol] 9.0 mg/dL 8.5-10.1 [facility] Work Phone: [phone] Serum or plasma creatinine m easurement (mass/volume)on 02-14-2021 Creatinine [Mass/Vol] 0.77 mg/dL 0.70-1.30 [facility] Work Phone: Comment on above: The validity of the calculated GFR & GFRAA in patients over 70 years has not been determined. Clinical correlation is essential. Serum or plasma urea nitroge n measurement (mass/volume)on 02-14-2021 Urea nitrogen [Mass/Vol] 14 mg/dL 7-18 [facility] Work Phone: [phone] Thin prep Papanicolaou smear with manual screeningon 02-14-2021 Thin prep Papanicolaou smear with manual screening 17 U/L 15-37 [facility] Work Phone: [phone] Thin prep Papanicolaou smear with manual screening 6 5-15 [facility] Work Phone: [phone] Whole blood hemoglobin A1c/t otal hemoglobin ratio (mass fraction)on 02-14-2021 HbA1c (Bld) [Mass fraction] 5.4 % 3.8-5.6 [facility] Work Phone: Comment on above: Normal < 5.7 % Predi abetic 5.7 - 6.4 % Diabetic >or= 6.5 % Please note range changes. PSA, Prostatic Specific Anti genon 01-06-2021 Interpretation and review of laboratory results Abnormal [facility] Prostatic Specific Ag 4.278 ng/mL Abnormal <4.000 [facility] Comment on above: Testing performed on the Ortho Vitros 5600 using an immunometric methodology. Results obtained by different methods should not be used interchangeably. Test Performed by [facility], [address] , [place], [place] [id number] [place] [address] LAB [facility] Prostatic Specific Ag- Diagn osticon 01-06-2021 Prostatic Specific Ag 4.278 ng/mL Abnormal < 4.000 [facility] Comment on above: Result Comment: Test ing performed on the Ortho Vitros 5600 using an immunometric methodology. Results obtained by different methods should not be used interchangeably. Performed By: #### P SA3 #### [facility] [address] [place] [address] Otheron 09-27-2001 CONVERTED ELECTRONIC SIGNATURE OLIVIER DIETZ M.D., PATHOLOGIST (Electronic signature on file) Final Signed Out: 09/27/2001 13:16 [facility] CONVERTED FINAL DIAGNOSIS VERMIFORM APPENDIX, EXCISION - ACUTE APPENDICITIS WITH FOCAL AREA OF EXTENSIVE NECROSIS OF THE WALL AND PERFORATION. [facility] CONVERTED ORDERING PROVIDER Ordering Provider: ARMANDO HUANG [facility] Vital Signs Date Time Vital Sign Value Performing Clinician Faci lity 12-23-2024 15:43-0400 Diastolic blood pressure 75 mm[Hg] Efrain Mendenhall MD Work Phone: [facility] 12-23-2024 15:43-0400 Heart rate 66 /min Efrain Mendenhall MD Work Phone: [facility] 12-23-2024 15:43-0400 SaO2% (BldA) [Mass fraction] 94 % Efrain Mendenhall MD Work Phone: [facility] 12-23-2024 15:43-0400 Systolic blood pressure 152 mm[Hg] Efrain Mendenhall MD Work Phone: [facility] 12-23-2024 14:58-0400 Body height 164.5 cm Efrain Mendenhall MD Work Phone: [facility] 12-23-2024 14:58-0400 Body mass index (BMI) [Ratio] 38.13 kg/m2 Efrain Mendenhall MD Work Phone: [facility] 12-23-2024 14:58-0400 Body weight 103.15 kg Efrain Mendenhall MD Work Phone: [facility] 10-09-2024 14:52-0400 Body height 170.2 cm Eda Kalka PA-C Work Phone: [facility] 10-09-2024 14:52-0400 Body mass index (BMI) [Ratio] 35.13 kg/m2 Eda Kalka PA-C Work Phone: [facility] 10-09-2024 14:52-0400 Body weight 101.74 kg Eda Kalka PA-C Work Phone: [facility] 10-09-2024 14:52-0400 Diastolic blood pressure 70 mm[Hg] Eda Kalka PA-C Work Phone: [facility] 10-09-2024 14:52-0400 Heart rate 58 /min Eda Kalka PA-C Work Phone: [facility] 10-09-2024 14:52-0400 Systolic blood pressure 132 mm[Hg] Eda Kalka PA-C Work Phone: [facility] 11-21-2023 14:29-0400 Body height 164.5 cm Efrain Mendenhall MD Work Phone: [facility] 11-21-2023 14:29-0400 Body mass index (BMI) [Ratio] 38.27 kg/m2 Efrain Mendenhall MD Work Phone: [facility] 11-21-2023 14:29-0400 Body weight 103.51 kg Efrain Mendenhall MD Work Phone: [facility] 11-21-2023 14:29-0400 Diastolic blood pressure 79 mm[Hg] Efrain Mendenhall MD Work Phone: [facility] 11-21-2023 14:29-0400 Heart rate 56 /min Efrain Mendenhall MD Work Phone: [facility] 11-21-2023 14:29-0400 SaO2% (BldA) [Mass fraction] 93 % Efrain Mendenhall MD Work Phone: [facility] 11-21-2023 14:29-0400 Systolic blood pressure 131 mm[Hg] Efrain Mendenhall MD Work Phone: [facility] 10-10-2023 14:49-0400 Body height 170.2 cm Eda Kalka PA-C Work Phone: [facility] 10-10-2023 14:49-0400 Body mass index (BMI) [Ratio] 35.4 kg/m2 Eda Kalka PA-C Work Phone: [facility] 10-10-2023 14:49-0400 Body weight 102.51 kg Eda Kalka PA-C Work Phone: [facility] 10-10-2023 14:49-0400 Diastolic blood pressure 62 mm[Hg] Eda Kalka PA-C Work Phone: [facility] 10-10-2023 14:49-0400 Heart rate 60 /min Eda Kalka PA-C Work Phone: [facility] 10-10-2023 14:49-0400 Systolic blood pressure 112 mm[Hg] Eda Kalka PA-C Work Phone: [facility] 06-19-2023 11:17-0400 Diastolic blood pressure 73 mm[Hg] Monica Mcdaniels MD Work Phone: [facility] 06-19-2023 11:17-0400 Heart rate 79 /min Monica Mcdaniels MD Work Phone: [facility] 06-19-2023 11:17-0400 Respiratory rate 18 /min Monica Mcdaniels MD Work Phone: [facility] 06-19-2023 11:17-0400 SaO2% (BldA) [Mass fraction] 95 % Monica Mcdaniels MD Work Phone: [facility] 06-19-2023 11:17-0400 Systolic blood pressure 126 mm[Hg] Monica Mcdaniels MD Work Phone: [facility] 06-19-2023 10:56-0400 Body temperature 97.3 [degF] Monica Mcdaniels MD Work Phone: [facility] 06-19-2023 09:59-0400 Body height 171.5 cm Monica Mcdaniels MD Work Phone: [facility] 06-19-2023 09:59-0400 Body mass index (BMI) [Ratio] 33.95 kg/m2 Monica Mcdaniels MD Work Phone: [facility] 06-19-2023 09:59-0400 Body weight 99.79 kg Monica Mcdaniels MD Work Phone: [facility] 05-09-2023 14:24-0400 Body height 172.7 cm Eda Kalka PA-C Work Phone: [facility] 05-09-2023 14:24-0400 Body weight 103.42 kg Eda Kalka PA-C Work Phone: [facility] 05-09-2023 14:24-0400 Diastolic blood pressure 70 mm[Hg] Eda Kalka PA-C Work Phone: [facility] 05-09-2023 14:24-0400 Heart rate 60 /min Eda Kalka PA-C Work Phone: [facility] 05-09-2023 14:24-0400 Systolic blood pressure 138 mm[Hg] Eda Kalka PA-C Work Phone: [facility] 11-07-2022 09:16-0400 Body height 164.5 cm Efrain Mendenhall MD Work Phone: [employer] 11-07-2022 09:16-0400 Body mass index (BMI) [Ratio] 39.27 kg/m2 Efrain Mendenhall MD Work Phone: [employer] 11-07-2022 09:16-0400 Body weight 106.23 kg Efrain Mendenhall MD Work Phone: [facility] 11-07-2022 09:16-0400 Diastolic blood pressure 80 mm[Hg] Efrain Mendenhall MD Work Phone: [employer] [facility] 11-07-2022 09:16-0400 Heart rate 61 /min Efrain Mendenhall MD Work Phone: [employer] [facility] 11-07-2022 09:16-0400 SaO2% (BldA) [Mass fraction] 90 % Efrain Mendenhall MD Work Phone: [employer] [facility] 11-07-2022 09:16-0400 Systolic blood pressure 129 mm[Hg] Efrain Mendenhall MD Work Phone: [facility] 06-29-2022 13:57-0400 Body height 172.7 cm Miriam Lawrence MD Work Phone: [facility] 06-29-2022 13:57-0400 Body weight 106.14 kg Miriam Lawrence MD Work Phone: [facility] 06-29-2022 13:57-0400 Diastolic blood pressure 78 mm[Hg] Miriam Lawrence MD Work Phone: [facility] 06-29-2022 13:57-0400 Heart rate 68 /min Miriam Lawrence MD Work Phone: [facility] 06-29-2022 13:57-0400 Systolic blood pressure 132 mm[Hg] Miriam Lawrence MD Work Phone: [facility] Encounters Encounter Date Encounter Type Care Provider Facility Start: 12-25-2024 End: 12-25-2024 Telephone encounter Paras Herrera MD Work Phone: [facility] Start: 12-23-2024 End: 12-23-2024 Assay of hemosiderin, quant Efrain Mendenhall MD Work Phone: [facility] Work Phone: Start: 12-23-2024 End: 12-23-2024 Patient encounter procedure Efrain Mendenhall MD Work Phone: [facility] Comment on above: Routine general medi ankur examination at [facility] facility (Primary Dx); Type 2 diabetes mellitus with diabetic polyneuropathy, without long-term current use of insulin (HCC); Chronic obstructive pulmonary disease, unspecified COPD type (HCC); Essential hypertension; Morbidly obese (CMS/HCC); Pure hypercholesterolemia; Schizoaffective disorder with good prognostic features (HCC); Anxiety; Screening for prostate cancer Routine general medi ankur examination at [facility] facility (Primary Dx); Type 2 diabetes mellitus with diabetic polyneuropathy, without long-term current use of insulin (HCC); Chronic obstructive pulmonary disease, unspecified COPD type (HCC); Essential hypertension; Pure hypercholesterolemia; Schizoaffective disorder with good prognostic features (HCC); Anxiety; Screening for prostate cancer; Class 2 severe obesity due to excess calories with serious comorbidity and body mass index (BMI) of 38.0 to 38.9 in adult Start: 12-23-2024 End: 12-23-[address] [facility] Start: 12-23-2024 End: 12-23-2024 Encounter for general adult medical examination without abnormal findings 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 (Primary Dx); Hiatal hernia Start: 07-28-2024 End: 07-28-2024 ambulatory Efrain Mendenhall MD [facility] Work Phone: Start: 07-28-2024 End: 07-28-2024 Departed Referred Efrain Mendenhall MD -[facility] Start: 07-28-2024 End: 07-28-2024 ambulatory Efrain MITTAL Facility:[facility] Start: 07-11-2024 ambulatory Efrain MITTAL Faci lity:[facility] Start: 07-11-2024 Registered Referred Efrain Martin -[facility] Start: 05-05-2024 End: 05-05-2024 ambulatory Efrain Mendenhall MD [facility] Work Phone: Start: 05-05-2024 End: 05-05-2024 Departed Referred Efrain Mendehnall MD -[facility] Start: 05-05-2024 End: 05-05-2024 ambulatory Efrain MITTAL Facility:[facility] Start: 03-10-2024 ambulatory Efrain MITTAL Faci lity:[facility] Start: 03-10-2024 Registered Referred Faisal Leo MD -[facility] Start: 02-11-2024 End: 02-11-2024 Departed Referred Efrain Mendenhall MD -[facility] Start: 02-11-2024 End: 02-11-2024 ambulatory Efrain MITTAL Facility:[facility] Start: 11-21-2023 End: 11-21-2023 Patient encounter procedure Efrain Mendenhall MD Work Phone: [facility] Comment on above: Medicare annual well ness visit, subsequent (Primary Dx); Schizoaffective disorder with good prognostic features (CMS/HCC) (HCC); Chronic obstructive pulmonary disease, unspecified COPD type (HCC); Morbidly obese (HCC); Type 2 diabetes mellitus with diabetic polyneuropathy, without long-term current use of insulin (CMS/HCC) (HCC); Anxiety; Essential hypertension; Pure hypercholesterolemia; Screening for prostate cancer Start: 10-10-2023 End: 10-10-2023 Patient encounter procedure Eda Casanova PA-C Work Phone: [facility] Comment on above: 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 (Primary Dx); Hiatal hernia Start: 10-01-2023 End: 10-01-2023 Telephone encounter Efrain Mendenhall MD Work Phone: [facility] Comment on above: Orders Start: 06-21-2023 Orders Only Eda RAMOS-C Work Phone: [facility] Comment on above: 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 (Primary Dx) Results Start: 06-19-2023 End: 06-19-2023 Subsequent hospital visit by physician Monica Mcdaniels MD Work Phone: [facility] Comment on above: 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 [K22.70] Start: 06-04-2023 End: 06-04-2023 ambulatory [facility] Work Phone: Start: 06-04-2023 End: 06-04-2023 Departed Referred [facility] [place] Start: 05-09-2023 End: 05-09-2023 Patient encounter procedure Eda GONZALEZC Work Phone: [facility] [place] Comment on above: 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 (Primary Dx); Other constipation Start: 03-12-2023 End: 03-12-2023 ambulatory [facility] Work Phone: Start: 03-12-2023 End: 03-12-2023 Departed Referred [facility] [place] Start: 12-18-2022 End: 12-18-2022 ambulatory [facility] Work Phone: Start: 12-18-2022 End: 12-18-2022 Departed Referred [facility] [place] Start: 11-07-2022 End: 11-07-2022 Patient encounter procedure Efrain Mendenhall MD Work Phone: [facility] Comment on above: Medicare annual well ness visit, subsequent (Primary Dx); Anxiety; Chronic obstructive pulmonary disease, unspecified COPD type (HCC); Type 2 diabetes mellitus with diabetic polyneuropathy, without long-term current use of insulin (CMS/HCC) (HCC); Essential hypertension; Morbidly obese (HCC); Pure hypercholesterolemia; Schizoaffective disorder with good prognostic features (CMS/HCC) (HCC); Screening for prostate cancer; Screening for colon cancer Start: 09-25-2022 End: 09-25-2022 ambulatory [facility] Work Phone: Start: 09-25-2022 End: 09-25-2022 Departed Referred [facility] [place] Start: 08-10-2022 Refill Efrain Mendenhall MD Work Phone: [facility] Comment on above: Anxiety Start: 07-03-2022 End: 07-03-2022 ambulatory [facility] Work Phone: Start: 07-03-2022 End: 07-03-2022 Departed Referred [facility] [place] Start: 06-29-2022 End: 06-29-2022 Patient encounter procedure Miriam Lawrence MD Work Phone: [facility] [place] Comment on above: 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 BP reading) Start: 04-12-2022 End: 04-12-2022 ambulatory [facility] Work Phone: Start: 04-12-2022 End: 04-12-2022 Departed Referred [facility] [place] Start: 03-13-2022 End: 03-13-2022 ambulatory [facility] Work Phone: Start: 03-13-2022 End: 03-13-2022 Departed Referred [facility] [place] Start: 01-16-2022 End: 01-16-2022 ambulatory [facility] Work Phone: Start: 01-16-2022 End: 01-16-2022 Departed [facility]erred [facility] Start: 01-16-2022 Registered [facility] Start: 12-26-2021 End: 12-26-2021 ambulatory [facility] Work Phone: Start: 12-26-2021 End: 12-26-2021 Departed [facility]erred [facility] Start: 11-22-2021 End: 11-22-2021 Subsequent hospital visit by physician Efrain Mendenhall MD Work Phone: [facility] Comment on above: Encounter for abdomi nal aortic aneurysm (AAA) screening Start: 10-24-2021 End: 10-24-2021 ambulatory [facility] Work Phone: Start: 10-24-2021 End: 10-24-2021 Departed [facility]erred [facility] Start: 08-01-2021 End: 08-01-2021 Departed Referred [facility] Start: 05-09-2021 End: 05-09-2021 Departed [facility]erred [facility] Start: 05-09-2021 Registered Referred [facility] Start: 03-14-2021 End: 03-14-2021 Departed Referred [facility] Start: 02-14-2021 Registered [facility] Start: 01-06-2021 End: 01-06-2021 Subsequent hospital visit by physician Shayla Carver CNP Work Phone: [facility] Comment on above: Elevated PSA, less t reid 10 ng/ml Start: 09-25-2001 End: 09-25-2001 Patient encounter procedure Armando Huang Work Phone: [facility] Start: 09-25-2001 Results Only Armando Huang Work Phone: [facility] Procedures Date Procedure Procedure Detail Performing Clinician Start: 12-23-2024 PSA TOTAL (SCREENING) Efrain Mendenhall MD Work Phone: Start: 11-21-2023 Adult depression screening assessment Efrain Mendenhall MD Work Phone: Start: 11-21-2023 Lipid 1996 panel - Serum or Plasma Loy carson Kalka PA-C Work Phone: Start: 06-19-2023 Level iv surg pathology gross&microscopic exam Monica Mcdaniels MD Work Phone: Start: 06-19-2023 Esophagogastroduodenoscopy transoral diagnostic Eda RAMOS-C Work Phone: Start: 06-19-2023 Gluc bld gluc mntr dev cleared fda spec home use Monica Mcdaniels MD Work Phone: Start: 11-07-2022 Lipid 1996 panel - Serum or Plasma Loy carson Kalka PA-C Work Phone: Start: 11-06-2022 Adult depression screening assessment Efrain Mendenhall MD Work Phone: Start: 05-18-2022 Adult depression screening assessment Efrain Mendenhall MD Work Phone: Start: 11-22-2021 Us abdominal aorta real time screen study aaa Efrain Mendenhall MD Work Phone: Start: 11-01-2021 Lipid 1996 panel - Serum or Plasma Pam Mendenhall MD Work Phone: Start: 04-05-2021 Colonoscopy Efrain Mendenhall MD Work Phone: Start: 01-06-2021 Assay of prostate specific antigen total Shayla Troy [facility] Work Phone: Start: 09-25-2001 CONVERTED SURGICAL PATHOLOGY Armando Huang Work Phone: Plan of Treatment Date Care Activity Detail Author Start: 02-08-2032 Screening for malignant neoplasm of colon [facility] Start: 2029 RSV Vaccine (1 - 1-dose 75+ series) RSV Vaccine (1 - 1-dose 75+ series) [facility] Start: 11-20-2028 Lipid panel Lipid Screening [facility] Start: 11-08-2027 Lipid panel Lipid Screening [facility] Start: 11-20-2026 Diabetes Screening Diabetes Screening [facility] Start: 11-01-2026 LIPID SCREEN LIPID SCREEN [facility] Start: 04-05-2026 Colonoscopy COLONOSCOPY [facility] Start: 04-05-2026 COLORECTAL CANCER SCREENING COLORECTAL CANCER SCREENING [facility] Start: 04-05-2026 Screening for malignant neoplasm of colon [facility] Start: 01-22-2026 Medicare Annual Wellness (AWV) Medicare Annual Wellness (AWV) [facility] Start: 01-06-2026 PROSTATE CANCER SCREENING DISCUSSION PROSTATE CANCER SCREENING DISCUSSION [facility] Start: 01-06-2026 Prostate specific antigen measurement Prostate Cancer Screening Discussion [facility] Start: 11-07-2025 Diabetes Screening Diabetes Screening [facility] Start: 10-20-2025 Hemoglobin A1c measurement Diabetes: Hemoglobin A1C [facility] Start: 10-12-2025 End: 10-12-2025 Patient encounter procedure 10/12/2025 2:40 PM EDT Office Visit [facility] [address] [facility] [place] [address] Eda Casanova PA-C [address] [facility] [place] [address] F/U 1 year [facility] Comment on above: F/U 1 year Start: 10-12-2025 Screening for malignant neoplasm of colon Colon cancer screen colonoscopy [facility] Start: 05-18-2025 DIABETES SCREEN DIABETES SCREEN [facility] Start: 12-23-2024 End: 12-23-2025 PSA Total (Screening) PSA Total (Screening) Lab Routine Screening for prostate cancer Expected: 12/23/2024 (Approximate), Expires: 12/23/2025 [facility] Work Phone: Comment on above: Expected: 12/23/2024 (Approximate), Expi res: 12/23/2025 Start: 12-20-2024 Medicare Annual Wellness (AWV) Medicare Annual Wellness (AWV) [facility] Start: 12-05-2024 Glaucoma screening Diabetes: Retinopathy Screening [facility] Start: 11-20-2024 Depression Screening Depression Screening [facility] Start: 11-20-2024 Diabetes: Estimated Glomerular Filtration Rate for Kidney Health Diabetes: Estimated Glomerular Filtration Rate for Kidney Health [facility] Start: 11-20-2024 Diabetes: Urine Albumin-Creatinine Ratio for Kidney Health Diabetes: Urine Albumin-Creatinine Ratio for Kidney Health [facility] Start: 11-20-2024 Lipid panel Lipid Panel [facility] Start: 11-20-2024 Preventive dental service Diabetes: Dental Exam [facility] Comment on above: Postponed from 1964 (Patient Refus ed) Start: 10-27-2024 COVID-19 Vaccine () COVID-19 Vaccine () [facility] Start: 10-27-2024 Influenza vaccination Influenza Vaccine (#1) [facility] Start: 10-09-2024 End: 10-09-2024 Patient encounter procedure 10/09/2024 2:40 PM EDT Office Visit [facility] [place] [address] [facility] [id number] Eda Casanova PA-C [address] [place] [address] 1 year follow up office visit, barretts esophagus,hiatal hernia [facility] [place] Comment on above: 1 year follow up office visit, barretts esophagus,hiatal hernia Start: 02-27-2024 Advance Directive Discussion Advance Directive Discussion [facility] Start: 12-08-2023 Medicare Annual Wellness (AWV) Medicare Annual Wellness (AWV) [facility] Start: 11-21-2023 End: 11-21-2023 Patient encounter procedure 11/21/2023 2:30 PM EDT Office Visit [facility] [address] [place] [address] [facility] [place] [address] [facility] Start: 11-21-2023 End: 11-20-2024 Comprehensive metabolic 1998 panel - Serum or Plasma Comprehensive metabolic panel Lab Routine Type 2 diabetes mellitus with diabetic polyneuropathy, without long-term current use of insulin (CMS/HCC) (HCC) Expected: 11/21/2023 (Approximate), Expires: 11/20/2024 [facility] Comment on above: Expected: 11/21/2023 (Approximate), Expi res: 11/20/2024 Start: 11-21-2023 End: 11-20-2024 Hemoglobin A1c measurement Hemoglobin A1c Lab Routine Type 2 diabetes mellitus with diabetic polyneuropathy, without long-term current use of insulin (CMS/HCC) (HCC) Expected: 11/21/2023 (Approximate), Expires: 11/20/2024 [facility] Comment on above: Expected: 11/21/2023 (Approximate), Expi res: 11/20/2024 Start: 11-21-2023 End: 11-20-2024 Lipid 1996 panel - Serum or Plasma Lipid panel Lab Routine Pure hypercholesterolemia Expected: 11/21/2023 (Approximate), Expires: 11/20/2024 [facility] Work Phone: Comment on above: Expected: 11/21/2023 (Approximate), Expi res: 11/20/2024 Start: 11-21-2023 End: 11-20-2024 Microalbumin/Creatinine panel in random Urine Microalbumin / creatinine urine ratio Lab Routine Type 2 diabetes mellitus with diabetic polyneuropathy, without long-term current use of insulin (CMS/HCC) (HCC) Expected: 11/21/2023 (Approximate), Expires: 11/20/2024 [facility] Comment on above: Expected: 11/21/2023 (Approximate), Expi res: 11/20/2024 Start: 11-21-2023 End: 11-20-2024 PSA Total (Screening) PSA Total (Screening) Lab Routine Screening for prostate cancer Expected: 11/21/2023 (Approximate), Expires: 11/20/2024 [facility] Comment on above: Expected: 11/21/2023 (Approximate), Expi res: 11/20/2024 Start: 11-12-2023 End: 11-12-2023 Patient encounter procedure 11/12/2023 9:30 AM EDT Office Visit [facility] Medicine [address] [place] [address] Efrain Mendenhall MD [address] [place] [address] [address] [facility] [place] [address] [facility] Start: 11-08-2023 Diabetes: Estimated Glomerular Filtration Rate for Kidney Health Diabetes: Estimated Glomerular Filtration Rate for Kidney Health [facility] Start: 11-08-2023 Diabetes: Urine Albumin-Creatinine Ratio for Kidney Health Diabetes: Urine Albumin-Creatinine Ratio for Kidney Health [facility] Start: 11-08-2023 Hemoglobin A1c measurement Diabetes: Hemoglobin A1C [facility] Start: 11-08-2023 Lipid panel Lipid Panel [facility] Start: 11-08-2023 Screening for malignant neoplasm of colon [facility] Start: 11-07-2023 Depression Screening Depression Screening [facility] Start: 10-28-2023 Covid-19 Vaccine () Covid-19 Vaccine () [facility] Start: 10-28-2023 Influenza vaccination Influenza Vaccine (#1) [facility] Start: 10-10-2023 End: 10-10-2023 Patient encounter procedure 10/10/2023 3:05 PM EDT Office Visit [facility] [address] [facility] [place] [address] Eda Casanova PA-C [address] [place] [address] follow up from EGD [facility] Comment on above: follow up from EGD Start: 07-19-2023 Covid-19 Vaccine () Covid-19 Vaccine () [facility] Start: 05-19-2023 Depression Screening Depression Screening [facility] Start: 05-19-2023 Hemoglobin A1c measurement Diabetes: Hemoglobin A1C [facility] Start: 02-26-2023 Advance Directive Discussion Advance Directive Discussion [facility] Start: 02-26-2023 Behavioral Health Screening Behavioral Health Screening [facility] Start: 02-26-2023 Depression Assessment Depression Assessment [facility] Start: 02-09-2023 Diabetic foot examination Diabetes: Foot Exam [facility] Start: 11-07-2022 End: 11-07-2023 Comprehensive metabolic 1998 panel - Serum or Plasma Comprehensive metabolic panel Lab Routine Type 2 diabetes mellitus with diabetic polyneuropathy, without long-term current use of insulin ([facility]) ([facility]) Expected: 11/07/2022 (Approximate), Expires: 11/07/2023 [facility] Comment on above: Expected: 11/07/2022 (Approximate), Expi res: 11/07/2023 Start: 11-07-2022 End: 11-07-2023 Hemoglobin A1c/Hemoglobin.total in Blood Hemoglobin A1c Lab Routine Type 2 diabetes mellitus with diabetic polyneuropathy, without long-term current use of insulin ([facility]) ([facility]) Expected: 11/07/2022 (Approximate), Expires: 11/07/2023 [facility] Comment on above: Expected: 11/07/2022 (Approximate), Expi res: 11/07/2023 Start: 11-07-2022 End: 11-07-2023 Hemoglobin.gastrointest inal.lower [Presence] in Stool by Immunoassay [facility] Comment on above: Expected: 11/07/2022 (Approximate), Expi res: 11/07/2023 Start: 11-07-2022 End: 11-07-2023 Lipid 1996 panel - Serum or Plasma Lipid panel Lab Routine Pure hypercholesterolemia Expected: 11/07/2022 (Approximate), Expires: 11/07/2023 [facility] Work Phone: Comment on above: Expected: 11/07/2022 (Approximate), Expi res: 11/07/2023 Start: 11-07-2022 End: 11-07-2023 Microalbumin/Creatinine panel in random Urine Microalbumin / creatinine urine ratio Lab Routine Type 2 diabetes mellitus with diabetic polyneuropathy, without long-term current use of insulin (CMS/HCC) ([facility]) Expected: 11/07/2022 (Approximate), Expires: 11/07/2023 [facility] Comment on above: Expected: 11/07/2022 (Approximate), Expi res: 11/07/2023 Start: 11-07-2022 End: 11-07-2022 Patient encounter procedure [facility] Start: 11-02-2022 Annual Wellness Visit (AWV) Annual Wellness Visit (AWV) [facility] Start: 11-01-2022 Depression Screen Depression Screen [facility] Start: 11-01-2022 Hemoglobin A1c measurement A1C test (Diabetic or Prediabetic) [facility] Start: 11-01-2022 Lipid panel [facility] Start: 11-01-2022 Prostate specific antigen measurement Prostate Specific Antigen (PSA) Screening or Monitoring [facility] Start: 11-01-2022 Urine screening for protein [facility] Start: 10-27-2022 COVID-19 Vaccine ( season) COVID-19 Vaccine ( season) [facility] Start: 10-27-2022 Influenza vaccination [facility] Start: 10-26-2022 DTaP/Tdap/Td vaccine (1 - Tdap) DTaP/Tdap/Td vaccine (1 - Tdap) [facility] Comment on above: Postponed from 1973 (Patient Refus ed) Start: 10-26-2022 DTaP/Tdap/Td Vaccines (1 - Tdap) DTaP/Tdap/Td Vaccines (1 - Tdap) [facility] Comment on above: Postponed from 1973 (Patient Refus ed) Start: 10-26-2022 Shingles vaccine (2 of 3) Shingles vaccine (2 of 3) [facility] Comment on above: Postponed from 10/13/2015 (Patient Refus ed) Start: 10-26-2022 Zoster Vaccines (1 of 2) Zoster Vaccines (1 of 2) [facility] Comment on above: Postponed from 10/13/2015 (Patient Refus ed) Start: 10-18-2022 Diabetic retinal exam Diabetic retinal exam [facility] Start: 10-18-2022 Glaucoma screening Diabetes: Retinopathy Screening [facility] Start: 08-18-2022 Hemoglobin A1c measurement Diabetes: Hemoglobin A1C [facility] Start: 07-06-2022 Glaucoma screening Diabetes: Retinopathy Screening [facility] Start: 05-09-2022 End: 05-09-2022 Patient encounter procedure 05/09/2022 Office Visit Family Medicine Efrain Mendenhall MD [address] [place] [address] [facility] Start: 02-26-2022 ADVANCE DIRECTIVE DISCUSSION ADVANCE DIRECTIVE DISCUSSION [facility] Start: 02-26-2022 DEPRESSION ASSESSMENT DEPRESSION ASSESSMENT [facility] Start: 01-06-2022 Prostate specific antigen measurement PSA counseling [facility] Start: 10-21-2021 Diabetic microalbuminuria test Diabetic microalbuminuria test [facility] Start: 10-15-2021 Annual Wellness Visit (AWV) Annual Wellness Visit (AWV) [facility] Start: 10-14-2021 Hepatitis C screening Hepatitis C screen [facility] Comment on above: Postponed from 1954 (Patient Refus ed) Start: 10-14-2021 Pneumococcal 65+ years Vaccine (1 of 1 - PPSV23) Pneumococcal 65+ years Vaccine (1 of 1 - PPSV23) [facility] Comment on above: Postponed from 08/17/2020 (Patient Refus ed) Start: 10-14-2021 Screening for malignant neoplasm of colon [facility] Start: 10-14-2021 Shingles Vaccine (2 of 3) Shingles Vaccine (2 of 3) [facility] Comment on above: Postponed from 10/13/2015 (Patient Refus ed) Start: 09-26-2021 Influenza vaccination Flu vaccine (#1) [facility] Start: 09-07-2021 Diabetic retinal exam Diabetic retinal exam [facility] Start: 09-17-2020 Hemoglobin A1c measurement A1C test (Diabetic or Prediabetic) [facility] Start: 06-29-2019 PNEUMOCOCCAL: 65+ (1 - PCV) PNEUMOCOCCAL: 65+ (1 - PCV) [facility] Start: 09-14-2018 Diabetic foot examination Diabetic foot exam [facility] Start: 08-16-2018 Lipid panel Lipid screen [facility] Start: 05-05-2017 Creatinine measurement Creatinine monitoring [facility] Start: 10-13-2015 Shingrix Vaccine (2 of 3) Shingrix Vaccine (2 of 3) [facility] Start: 10-13-2015 Zoster Vaccines (1 of 2) Zoster Vaccines (1 of 2) [facility] Start: 08-06-2014 Potassium monitoring Potassium monitoring [facility] Start: 2014 RSV Immunization aged 60 or older (1 - 1-dose 60+ series) RSV Immunization aged 60 or older (1 - 1-dose 60+ series) [facility] Start: 2014 RSV Immunization for Adults (1 - Risk 60-74 years 1-dose series) RSV Immunization for Adults (1 - Risk 60-74 years 1-dose series) [facility] Start: 2014 RSV Vaccine (1 - 1-dose 60+ series) RSV Vaccine (1 - 1-dose 60+ series) [facility] Start: 2004 SHINGRIX VACCINE (1 of 2) SHINGRIX VACCINE (1 of 2) [facility] Start: 06-29-1999 COLOGUARD (FIT-DNA) COLOGUARD (FIT-DNA) [facility] Start: 06-29-[address] COLONOGRAPHY [facility] Start: 06-29-1999 FECAL OCCULT BLOOD FECAL OCCULT BLOOD [facility] Start: 06-29-1999 Screening for malignant neoplasm of colon [facility] Start: 06-29-1999 SIGMOIDOSCOPY SIGMOIDOSCOPY [facility] Start: 07-27-1986 Medicare Annual Wellness Visit Medicare Annual Wellness Visit [facility] Start: 1973 DTaP/Tdap/Td vaccine (1 - Tdap) DTaP/Tdap/Td vaccine (1 - Tdap) [facility] Start: 1973 DTaP/Tdap/Td Vaccines (1 - Tdap) DTaP/Tdap/Td Vaccines (1 - Tdap) [facility] Start: 1973 Urine microalbumin profile [facility] Start: 1972 Anxiety Screening Anxiety Screening [facility] Start: 1972 Depression Screening Depression Screening [facility] Start: 1972 HEPATITIS C SCREENING HEPATITIS C SCREENING [facility] Start: 1964 Preventive dental service Diabetes: Dental Exam [facility] Start: 1954 ABDOMINAL AORTIC ANEURYSM SCREENING ABDOMINAL AORTIC ANEURYSM SCREENING [facility] Start: 1954 Abdominal aortic aneurysm screening Abdominal Aortic Aneurysm Screening [facility] Start: 1954 Hepatitis B Vaccines (1 of 3 - 3-dose series) Hepatitis B Vaccines (1 of 3 - 3-dose series) [facility] Start: 1954 Medicare Annual Wellness (AWV) Medicare Annual Wellness (AWV) [facility] Start: 1954 Screening for malignant neoplasm of colon [facility] End: 05-08-2024 EGD DIAGNOSTIC EGD DIAGNOSTIC Endoscopy Routine 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 1 Occurrences starting 05/09/2023 until 05/08/2024 [facility] Work Phone: Comment on above: 1 Occurrences starting 05/09/2023 until 05/08/2024 PSA Total (Screening) PSA Total (Screening) Lab Routine Screening for prostate cancer Ordered: 11/07/2022 [facility] Comment on above: [facility] Immunization Date Immunization Notes Care Provider [facility] 12-09-2024 influenza, seasonal, injectable Efrain Mendenhall MD Work Phone: [facility] 11-19-2023 influenza, seasonal, injectable Efrain Mendenhall MD Work Phone: [facility] 11-19-2023 influenza virus vacc ine, unspecified formulation Eda Casanova PA-C Work Phone: [facility] 03-20-2023 Pfizer SARS-CoV-2 Vaccination Efrain Mnedenhall MD Work Phone: [facility] 02-15-2023 pneumococcal polysaccharide vaccine, 23 valent Efrain Mendenhall MD Work Phone: [facility] 11-21-2022 influenza virus vacc ine, unspecified formulation Eda Casanova PA-C Work Phone: [facility] 12-21-2021 Covid-19, Pfizer Bivalent Booster, (Age 12y+), Im, 30 Mcg/0e Efrain Mendenhall MD Work Phone: [facility] 12-02-2021 Pneumococcal Conjuga te PCV20, Pf (Prevnar 20) Efrain Mendenahll MD Work Phone: [facility] 11-01-2021 Pneumococcal conjuga te PCV20, PF (Prevnar 20) Efrain Mendenhall MD Work Phone: [facility] Work Phone: 08-03-2021 COVID-19, PFIZER PUR PLE top, DILUTE for use, (age 12 y+), 30mcg/0.3mL Efrain Mendenhall MD Work Phone: [facility] 12-24-2020 Pfizer SARS-CoV-2 Vaccination Efrain Mendenhall MD Work Phone: [facility] 11-30-2020 influenza, high dose seasonal, preservative-free Efrain Mendenhall MD Work Phone: [facility] 11-30-2020 influenza virus vacc ine, unspecified formulation Efrain Mendenhall MD Work Phone: [facility] 03-25-2020 Pfizer SARS-CoV-2 Vaccination Efrain Mendenhall MD Work Phone: [facility] 03-04-2020 Pfizer SARS-CoV-2 Vaccination Efrain Mendenhall MD Work Phone: [facility] 01-10-2020 pneumococcal conjuga te vaccine, 13 valent Efrain Mendenhall MD Work Phone: [facility] Work Phone: 11-18-2019 Influenza, injectabl e, Madin Shena Canine Kidney, preservative free, quadrivalent Efrain Mendenhall MD Work Phone: [facility] 11-11-2018 Influenza, injectabl e, Madin Shena Canine Kidney, preservative free, quadrivalent Efrain Mendenhall MD Work Phone: [facility] 10-27-2018 influenza virus vacc ine, unspecified formulation Zachsybakari Troy [employer] Work Phone: [facility] Work Phone: 08-18-2015 pneumococcal polysaccharide vaccine, 23 valent Thapasya Woodrow [employer] Work Phone: [facility] Work Phone: 08-18-2015 zoster vaccine, live Zachsy bakari Troy [employer] Work Phone: [facility] 08-29-2008 pneumococcal polysaccharide vaccine, 23 valent Efrain Mendenhall MD Work Phone: [facility] Work Phone: Payers Date Payer Category Payer Self-pay [id number] 2019 Medicaid [id number] 2018 Medicaid [id number]. [id number] 1986 Medicare [id number] 1986 Medicare [id number] Unknown [id number] [id number] Unknown [id number] [id number] Unknown [id number] [id number] Unknown [id number] [id number] Unknown [id number] [id number] Unknown [id number] 2.16.8 [id number] Unknown [id number] [id number] [id number] Social History Date Type Detail Facility Tobacco smoking stat [facility] Unknown if ever smoked [facility] Start: 1955 Sex Assigned At Not on file C [facility] Start: 08-13-2014 End: 11-21-2023 Tobacco smoking status PRIS Ex-smoker [employer] Work Phone: End: 11-29-2005 History of tobacco use Current smoker [facility] Work Phone: Start: 08-13-2014 End: 12-25-2024 Cigarettes smoked current (pack per day) - Reported 1 [facility] [employer] Work Phone: Start: 08-13-2014 End: 11-21-2023 Tobacco use and exposure Smokeless tobacco non-user [employer] [facility] [employer] Work Phone: Start: 01-06-2021 End: 12-23-2024 Alcohol intake Current non-drinker of alcohol (finding) [facility] [employer] Work Phone: Start: 10-14-2020 End: 01-07-2021 History SDOH Alcohol Frequency 1 [facility] [employer] Work Phone: Start: 10-12-2015 History SDOH Alcohol Comment SOBER 20 YEARS [employer] [facility] [employer] Work Phone: Start: 09-17-2018 End: 10-14-2020 History SDOH Physical Activity DPW 4 [employer] Work Phone: Start: 09-17-2018 History SDOH Physica l Activity MPS 3 [employer] Work Phone: Start: 10-14-2020 End: 10-26-2021 History SDOH Transport Med 2 [employer] Work Phone: Start: 1955 Sex Assigned At Male [facility] End: 11-29-2005 History of tobacco use Cigarette Smoker [employer] Work Phone: Start: 10-26-2021 History SDOH Alcohol Std Drinks 0 [facility] [employer] Work Phone: Start: 10-26-2021 History SDOH Financial 5 [employer] Work Phone: Start: 10-28-2021 End: 11-07-2022 Exposure to SARS-CoV-2 (event) Not sure [facility] Start: 06-29-2022 End: 10-10-2023 Alcohol intake Lifetime non-drinker (finding) [facility] Start: 05-18-2022 End: 12-25-2024 Tobacco use panel [facility] How often to you hav e a drink containing alcohol? Never [facility] Start: 01-28-2012 How many standard drinks containing alcohol do [...] or rent on time? No [facility] Tobacco smoking stat us [facility] Unknown if ever smoked [facility] Work Phone: Start: 09-26-2021 End: 05-29-2024 Sex Male (finding) [facility] How often do you nee d to have someone help you when you read instructions, pamphlets, or other written material from your doctor or pharmacy [SILS] Rarely [facility] Are you now , , , , never or living with a partner? [facility] Do you feel stress - tense, restless, nervous, or anxious, or unable to sleep at night because your mind is troubled all the time - these days [OSQ] Not at all [facility] Goals Date Patient Goal Desired Activity /State Comment on above: Formatting of this n ote might be different from the original. Self- Management Plan: Obesity/Weight Loss Patient Stated Goal: Do back exercises Daily Barriers to success: lack of motivation Plan for overcoming my barriers: N/A. Encouraged and recommended by provider. Confidence: 04/07 Self-Management Plan: Will strive to achieve goal by 2020 Date goal set: 09/22/19 Patient given educational materials below via AVS. Provider Goal: Healthy diet and exercise. Patient received counseling about current lifestyle goal. Advised approximately 150 minutes of cardio, i.e treadmill, exercise in a week. Advised "strive for 5" a total 5 servings of fruits and vegetables in a day. Advised a diet lower in carbohydrates and simple sugars. They need to watch consumption of bread, rice, pasta, potatoes, corn, soda, sweetened tea, lemonade, and all other sugar drinks. Patient given after visit summary which includes educational information on Nutrition. Discussed use, benefit, and side effects of prescribed medications and barriers to medication compliance addressed, if applicable. All patient questions answered and patient voiced understanding. Patient was given a copy of this, and was advised to call if any questions. Functional Status Date Assessment Result Facility 12-25-2024 Total score [AUDIT-C] 0 12/26/19 25 7:25 AM EDT Ramsey Ugalde MA [facility] 12-23-2024 Alcohol Use Disorder Identification Test [AUDIT] [facility] Clinical Notes 05-26-2022 to 12-25-2024 Telephone Encounter - Lanie Ruiz - 12/25/2024 2:03 PM EDTTelephone Encounter - Lanie Ruiz - 12/25/2024 2:03 PM EDTAssessment & Plan Note - Efrain Mendenhall MD - 12/23/2024 3:00 PM EDT Note Date & Type Note Facility 12-25-2024 Note Received referral fo r elevated PSA. Attempted to reach the patient. Patient is in [facility]. Spoke with Laura Nurse on unit. Offered availability dates and times in [place] with Laura Gustafson will have to arrange for transportation and will call back to schedule. Pt is mobile walks with a walker. [facility] 12-25-2024 Telephone encounter Note Received referral for elevated PSA. Attempted to reach the patient. Patient is in [facility]. Spoke with Laura Nurse on unit. Offered availability dates and times in [place] with Laura Gustafson will have to arrange for transportation and will call back to schedule. Pt is mobile walks with a walker. [facility] 12-25-2024 Miscellaneous Notes Received referral for elevated PSA. Attempted to reach the patient. Patient is in [facility]. Spoke with Laura Nurse on unit. Offered availability dates and times in [place] with Laura Gustafson will have to arrange for transportation and will call back to schedule. Pt is mobile walks with a walker. documented in this encounter [facility] 12-25-2024 Note I will put in a refe rral for a neurologist. Referral done. [facility] 12-23-2024 Evaluation + Plan note Associated Problem(s): Type 2 diabetes mellitus with diabetic polyneuropathy, without long-term current use of insulin (HCC) Controlled, continue metformin 1000 mg twice a day [facility] 12-23-2024 Evaluation + Plan note Associated Problem(s): Chronic obstructive pulmonary disease, unspecified COPD type (HCC) Stable, continue albuterol 2 puffs every 6 hours as needed [facility] 12-23-2024 Evaluation + Plan note Associated Problem(s): Essential hypertension Blood pressure was initially elevated, recheck was even higher continue lisinopril 20 mg daily, propranolol 80 mg daily [facility] 12-23-2024 Evaluation + Plan note Associated Problem(s): Morbidly obese (CMS/HCC) Encourage weight loss with diet and exercise [facility] 12-23-2024 Evaluation + Plan note Associated Problem(s): Hyperlipidemia Controlled, continue atorvastatin 10 mg daily [facility] 12-23-2024 Evaluation + Plan note Associated Problem(s): Schizoaffective disorder with good prognostic features (HCC) Remission, continue Wellbutrin 150 mg daily, Lexapro 20 mg daily Haldol 10 mg daily and 5 mg daily Zyprexa 7.5 mg daily, and Ingrezza 40 mg nightly [facility] 12-23-2024 Evaluation + Plan note Associated Problem(s): Anxiety Remission, continue Lexapro 20 mg daily and clonazepam 0.25 mg twice a day [facility] 12-23-2024 Evaluation + Plan note Associated Problem(s): Class 2 severe obesity due to excess calories with serious comorbidity and body mass index (BMI) of 38.0 to 38.9 in adult Has multiple comorbidities, encourage patient to lose weight with diet and exercise [facility] 12-23-2024 History of Present illness Narrative Patient verified by last name and date of . Images from the original note were not included. [address] [facility] [address] Dept: [phone] Dept Chief Complaint: Milad Moon is an 69 y.o. male here for an annual wellness visit. Assessment/Plan : Assessment & Plan Routine general medical examination at health care facility Type 2 diabetes mellitus with diabetic polyneuropathy, without long-term current use of insulin ([facility]) Controlled, continue metformin 1000 mg twice a day Chronic obstructive pulmonary disease, unspecified COPD type ([facility]) Stable, continue albuterol 2 puffs every 6 hours as needed Essential hypertension Blood pressure was initially elevated, recheck was even higher continue lisinopril 20 mg daily, propranolol 80 mg daily Morbidly obese (CMS/HCC) Encourage weight loss with diet and exercise Pure hypercholesterolemia Controlled, continue atorvastatin 10 mg daily Schizoaffective disorder with good prognostic features (HCC) Remission, continue Wellbutrin 150 mg daily, Lexapro 20 mg daily Haldol 10 mg daily and 5 mg daily Zyprexa 7.5 mg daily, and Ingrezza 40 mg nightly Anxiety Remission, continue Lexapro 20 mg daily and clonazepam 0.25 mg twice a day Screening for prostate cancer Orders: PSA Total (Screening); Future I have reviewed and reconciled the medication list with the patient today. Current Outpatient Medications Medication Sig Dispense Refill acetaminophen (Tylenol) 325 MG tablet Take 650 mg by mouth every 6 hours as needed. albuterol 108 (90 Base) MCG/ACT inhaler Inhale 2 puffs every 6 hours as needed for wheezing. 1 each 0 aspirin 325 MG tablet Take 325 mg by mouth daily. atorvastatin (Lipitor) 10 MG tablet Take 10 mg by mouth daily. buPROPion XL (Wellbutrin XL) 150 MG 24 hr tablet Calcium Carbonate-Vitamin D (calcium-vitamin D) 500-200 MG-UNIT tablet Take 1 tablet by mouth daily. Ssbkqnu-Nhnxdbc-Arrtsx Gerald ( SALONPAS PAIN RELIEF EX) Apply topically. carbamide peroxide (Debrox) 6.5 % otic solution 5 drops 2 times daily. cholecalciferol ( Vitamin D3) 25 MCG (1000 UT) tablet Take by mouth. dextromethorphan-guaiFENesin (Robitussin-DM) 10-100 MG/5ML liquid Take 5 mL by mouth. Docusate Sodium (DSS) 100 MG capsule Take 100 mg by mouth in the morning and 100 mg in the evening. EPINEPHrine (Epipen) 0.3 MG/0.3ML injection syringe Inject 0.3 mg into the shoulder, thigh, or buttocks. escitalopram (Lexapro) 20 MG tablet Take 20 mg by mouth daily. ferrous sulfate 325 (65 Fe) MG tablet Take 325 mg by mouth. fluticasone (Flonase) 50 MCG/ACT nasal spray Administer 1 spray into affected nostril(s) daily. gabapentin (Neurontin) 400 MG capsule Take 400 mg by mouth 3 times daily. glucagon 1 MG injection Infuse 1 kit into a venous catheter. haloperidol (Haldol) 10 MG tablet Take 10 mg by mouth 2 times daily. (Patient taking differently: Take 10 mg by mouth daily.) haloperidol (Haldol) 5 MG tablet Take 5 mg by mouth daily. ibuprofen 200 MG tablet Take 400 mg by mouth every 6 hours as needed. ketoconazole (NIZOral) 2 % shampoo lisinopril 20 MG tablet loperamide (Imodium) 2 MG capsule Take 2 mg by mouth. Lumigan 0.01 % ophthalmic solution magnesium hydroxide (Milk of Magnesia) 400 MG/5ML suspension Take 30 mL by mouth. metFORMIN (Glucophage) 1000 MG tablet Take 1,000 mg by mouth in the morning and 1,000 mg in the evening. Take with meals. OLANZapine (ZyPREXA) 7.5 MG tablet 7.5 mg Nightly. omeprazole (PriLOSEC) [address] capsule Take 40 mg by mouth daily. Probiotic Product (PROBIOTIC-10 PO) Take by mouth. propranolol LA (Inderal LA) 80 MG 24 hr capsule Take 80 mg by mouth daily. Do not crush, chew, or split. senna-docusate (Celena-Colace) 8.6-50 MG tablet Take by mouth. sodium phosphate (Fleets) 7-19 GM/118ML enema enema Insert into the rectum. tacrolimus (Protopic) 0.1 % ointment valbenazine tosylate (Ingrezza) 40 MG capsule Take 40 mg by mouth Nightly. ammonium lactate (Amlactin) 12 % cream Apply topically. Ascorbic Acid (vitamin C) 500 MG tablet Take 500 mg by mouth daily. clobetasol (Temovate) 0.05 % external solution clonazePAM (KlonoPIN) 0.5 MG tablet Take 0.5 tablets (0.25 mg) by mouth 2 times daily. 30 tablet 0 cyanocobalamin (Vitamin B-12) 1000 MCG tablet Take 1,000 mcg by mouth daily. dextran 70-hypromellose PF (Tears Naturale Free) 0.1-0.3 % ophthalmic solution 1 drop. Diclofenac Sodium (Voltaren) 1 % gel Apply topically 2 times daily. Melatonin 5 MG capsule Take by mouth. naphazoline-pheniramine (Naphcon-A) 0.025-0.3 % ophthalmic solution Administer 1 drop into affected eye(s). Nystatin powder Apply topically 2 times daily. Pseudoephedrine-guaiFENesin (GUAIFENESIN-P PO) Take by mouth. traZODone (Desyrel) 100 MG tablet Take 100 mg by mouth Nightly. Zinc Sulfate (ZINC-220 PO) Take by mouth. No current facility-administered medications for this visit. Also reviewed during this visit: The following health maintenance schedule was reviewed with the patient and provided in printed form in the after visit summary: Health Maintenance Topic Date Due Diabetes: Dental Exam Never done DTaP/Tdap/Td Vaccines (1 - Tdap) Never done RSV Immunization for Adults (1 - Risk 60-74 years 1-dose series) Never done Zoster Vaccines (1 of 2) 10/13/2015 Diabetes: Foot Exam 02/09/2023 COVID-19 Vaccine (2024- season) 2024 Depression Screening 11/20/2024 Diabetes: Estimated Glomerular Filtration Rate for Kidney Health 11/20/2024 Diabetes: Urine Albumin-Creatinine Ratio for Kidney Health 11/20/2024 Lipid Panel 11/20/2024 Diabetes: Retinopathy Screening 12/05/2024 Diabetes: Hemoglobin A1C 10/20/2025 Medicare Annual Wellness (AWV) 01/22/2026 Colorectal Cancer Screening 04/05/2031 Influenza Vaccine Completed Pneumococcal Vaccine: 50+ Years Completed Hepatitis C Screening Completed RSV Immunization under 20 Months Aged Out HIB Vaccines Aged Out Hepatitis B Vaccines Aged Out IPV Vaccines Aged Out Hepatitis A Vaccines Aged Out Meningococcal Vaccine Aged Out Rotavirus Vaccines Aged Out HPV Vaccines Aged Out Meningococcal B Vaccine Aged Out List of current healthcare providers: Patient Care Team: Efrain Mendenhall MD as PCP - General Orders Placed This Encounter Procedures PSA Total (Screening) Standing Status: Future Number of Occurrences: 1 Expected Date: 12/23/2024 Expiration Date: 12/23/2025 Review of Systems Constitutional: Negative for activity [...] dysphoric mood. The patient is not nervous/anxious. Physical Exam Vitals and nursing note reviewed. Constitutional: General: He is not in acute distress. Appearance: Normal appearance. He is obese. HENT: Right Ear: Tympanic membrane, ear canal and external ear normal. Left Ear: Tympanic membrane, ear canal and external ear normal. Mouth/Throat: Mouth: Mucous membranes are moist. Pharynx: Oropharynx is clear. Eyes: Extraocular Movements: Extraocular movements intact. Conjunctiva/sclera: Conjunctivae normal. Pupils: Pupils are equal, round, and reactive to light. Neck: Thyroid: No thyromegaly. Vascular: No carotid bruit. Cardiovascular: Rate and Rhythm: Normal rate and regular rhythm. Heart sounds: Normal heart sounds. No murmur heard. Pulmonary: Effort: Pulmonary effort is normal. Breath sounds: Normal breath sounds. Abdominal: General: Bowel sounds are normal. Palpations: Abdomen is soft. Tenderness: There is no abdominal tenderness. Musculoskeletal: General: Normal range of motion. Cervical back: Neck supple. Lymphadenopathy: Cervical: No cervical adenopathy. Skin: General: Skin is warm and dry. Neurological: General: No focal deficit present. Mental Status: He is alert and oriented to person, place, and time. Psychiatric: Mood and Affect: Mood normal. Objective : BP (!) 152/75 Pulse 66 Ht 5' 4.75" (1.645 m) Wt 227 lb 6.4 oz (103 kg) SpO2 94% BMI 38.13 kg/m No results found. Subjective : Milad comes in today for his annual Medicare well visit, he says he has no complaints. He has a history of diabetes and his last A1c done through the [facility] was 5.4, he has a history of COPD which is stable. He has hypertension and his blood pressure is slightly elevated today we will recheck that prior to discharge. He has hypercholesterolemia and morbidly obese. He also has schizoaffective disorder and anxiety and these are both in remission. Health Risk Assessment: General: General In general, how would you say your health is?: Good Are you currently experiencing any of the following? (select all that apply): (!) Increased Fatigue Interventions: Health Habits and Nutrition: Health Habits and Nutrition On average, how many days per week do you engage in moderate to strenous exercise?: (!) 0 Days Have you lost any weight without trying in the past 3 months? : No Have you seen the dentist within the past year?: (!) No Interventions: Dental exam overdue: Patient declines dental evaluation and false teeth Hearing and Vision: Hearing and Vision Do you or your family notice any trouble with your hearing?: No Do you have difficulty driving, watching TV, or doing any of your daily activities because of your eyesight?: No Have you had an eye exam within the past year?: Yes No results found. Safety: Safety Do you have working smoke detectors?: Yes Do you have tripping hazards at home?: No Do you have either shower bars, grab bars, non-slip mats, or non-slip surfaces in your shower or bathtub?: Yes Do all your stairways have a railing or banister? : (!) No (no stairs) Do you always fasten your seatbelt when you are in a car?: Yes Interventions: ADL: ADL Are you needing any help from others to perform any of the following everyday activities?: None Are you needing any help from others to take care of any of the following?: (!) Laundry, Banking/Finances, Shopping, Food Preparation, Transportation, Taking Medications Interventions: All through the assisted living Living Will / POA: Living Will/POA Do you have a living will?: (!) No Do you have a healthcare power of recreation attendant?: (!) No Interventions: Advance Care Planning addressed with patient today Cognitive: Cognitive Screening: Mini-Cog Clock Drawing Test (CDT): 2 Words Recalled: 3 Total Score: 5 Total Score Interpretation: Normal Mini-Cog Fall Risk: Fall Risk One or more falls in the last year:: No Advised to use a cane or walker to get around safely:: Yes Feels unsteady when walking:: Yes Steadies self on furniture while walking at home:: No Worried about falling:: Yes Depression Screening: Tobacco Use: Social History Tobacco Use Smoking Status Former Current packs/day: 0.00 Types: Cigarettes Quit date: 11/29/2005 Years since quittin.0 Smokeless Tobacco Never Alcohol Use: Audit Alcohol Screening Q2: How many drinks containing alcohol do you have on a typical day when you are drinking?: Patient does not drink Social Drivers of Health: SDOH risk assessment performed and documented today by members of the health care team. A total time of 5-10 minutes was spent obtaining information from the patient and discussing options to address the patient's social risk factors and unmet needs. Social Drivers of Health with Concerns Concerns Present Tobacco Use: Medium Risk (12/23/2024) Physical Activity: Inactive (11/06/2022) Unknown Concern Alcohol Use: Unknown (12/23/2024) documented in this encounter [facility] 12-23-2024 History of Present illness Narrative Patient verified by last name and date of . Images from the original note were not included. [address] [place] [address] Dept: [phone] Dept Chief Complaint: Milad Moon is an 69 y.o. male here for an annual wellness visit. Assessment/Plan : Assessment & Plan Routine general medical examination at health care facility Type 2 diabetes mellitus with diabetic polyneuropathy, without long-term current use of insulin (HCC) Controlled, continue metformin 1000 mg twice a day Chronic obstructive pulmonary disease, unspecified COPD type (HCC) Stable, continue albuterol 2 puffs every 6 hours as needed Essential hypertension Blood pressure was initially elevated, recheck was even higher continue lisinopril 20 mg daily, propranolol 80 mg daily Pure hypercholesterolemia Controlled, continue atorvastatin 10 mg daily Schizoaffective disorder with good prognostic features (HCC) Remission, continue Wellbutrin 150 mg daily, Lexapro 20 mg daily Haldol 10 mg daily and 5 mg daily Zyprexa 7.5 mg daily, and Ingrezza 40 mg nightly Anxiety Remission, continue Lexapro 20 mg daily and clonazepam 0.25 mg twice a day Screening for prostate cancer Orders: PSA Total (Screening); Future Class 2 severe obesity due to excess calories with serious comorbidity and body mass index (BMI) of 38.0 to 38.9 in adult Has multiple comorbidities, encourage patient to lose weight with diet and exercise I have reviewed and reconciled the medication list with the patient today. Current Outpatient Medications Medication Sig Dispense Refill acetaminophen (Tylenol) 325 MG tablet Take 650 mg by mouth every 6 hours as needed. albuterol 108 (90 Base) MCG/ACT inhaler Inhale 2 puffs every 6 hours as needed for wheezing. 1 each 0 ammonium lactate (Amlactin) 12 % cream Apply topically. atorvastatin (Lipitor) 10 MG tablet Take 10 mg by mouth daily. buPROPion XL (Wellbutrin XL) 150 MG 24 hr tablet Calcium Carbonate-Vitamin D (calcium-vitamin D) 500-200 MG-UNIT tablet Take 1 tablet by mouth daily. Yeehseh-Kmjoczh-Vvklwg Gerald ( SALONPAS PAIN RELIEF EX) Apply topically. carbamide peroxide (Debrox) 6.5 % otic solution 5 drops 2 times daily. cholecalciferol ( Vitamin D3) 25 MCG (1000 UT) tablet Take by mouth. cyanocobalamin (Vitamin B-12) 1000 MCG tablet Take 1,000 mcg by mouth daily. (Patient taking differently: Take 500 mcg by mouth daily.) Diclofenac Sodium (Voltaren) 1 % gel Apply topically 2 times daily. Docusate Sodium (DSS) 100 MG capsule Take 100 mg by mouth in the morning and 100 mg in the evening. EPINEPHrine (Epipen) 0.3 MG/0.3ML injection syringe Inject 0.3 mg into the shoulder, thigh, or buttocks. escitalopram (Lexapro) 20 MG tablet Take 20 mg by mouth daily. ferrous sulfate 325 (65 Fe) MG tablet Take 325 mg by mouth. fluticasone (Flonase) 50 MCG/ACT nasal spray Administer 1 spray into affected nostril(s) daily. (Patient taking differently: Administer 2 sprays into affected nostril(s) daily.) gabapentin (Neurontin) 400 MG capsule Take 400 mg by mouth 3 times daily. glucagon 1 MG injection Infuse 1 kit into a venous catheter. haloperidol (Haldol) 10 MG tablet Take 10 mg by mouth 2 times daily. (Patient taking differently: Take 10 mg by mouth daily.) haloperidol (Haldol) 5 MG tablet Take 5 mg by mouth daily. ibuprofen 200 MG tablet Take 400 mg by mouth every 6 hours as needed. ketoconazole (NIZOral) 2 % shampoo Apply to scalp prn for flares- lather and allow to sit for a few minutes before rinsing Apply to scal topically 1 tme per day every M,W, F for dry scalp unsupervised self administration lther and allow to sit for few minutes before rinsing Lidocaine (Salonpas Pain Relieving) 4 % patch Place 1 patch on the skin daily. lisinopril 20 MG tablet loperamide (Imodium) 2 MG capsule Take 2 mg by mouth. Lumigan 0.01 % ophthalmic solution magnesium hydroxide (Milk of Magnesia) 400 MG/5ML suspension Take 30 mL by mouth. OLANZapine (ZyPREXA) 7.5 MG tablet 7.5 mg Nightly. omeprazole (PriLOSEC) [address] capsule Take 40 mg by mouth daily. Probiotic Product (PROBIOTIC-10 PO) Take by mouth. propranolol LA (Inderal LA) 80 MG 24 hr capsule Take 80 mg by mouth daily. Do not crush, chew, or split. Pseudoephedrine-guaiFENesin (GUAIFENESIN-P PO) Take by mouth. senna-docusate (Celena-Colace) 8.6-50 MG tablet Take by mouth. sodium phosphate (Fleets) 7-19 GM/118ML enema enema Insert into the rectum. tacrolimus (Protopic) 0.1 % ointment valbenazine tosylate (Ingrezza) 40 MG capsule Take 40 mg by mouth Nightly. Ascorbic Acid (vitamin C) 500 MG tablet Take 500 mg by mouth daily. (Patient not taking: Reported on 12/25/2024) aspirin 325 MG tablet Take 325 mg by mouth daily. (Patient not taking: Reported on 12/25/2024) clobetasol (Temovate) 0.05 % external solution (Patient not taking: Reported on 12/25/2024) clonazePAM (KlonoPIN) 0.5 MG tablet Take 0.5 tablets (0.25 mg) by mouth 2 times daily. (Patient not taking: Reported on 12/25/2024) 30 tablet 0 dextran 70-hypromellose PF (Tears Naturale Free) 0.1-0.3 % ophthalmic solution 1 drop. (Patient not taking: Reported on 12/25/2024) dextromethorphan-guaiFENesin (Robitussin-DM) 10-100 MG/5ML liquid Take 5 mL by mouth. (Patient not taking: Reported on 12/25/2024) Melatonin 5 MG capsule Take by mouth. (Patient not taking: Reported on 12/25/2024) metFORMIN (Glucophage) 1000 MG tablet Take 1,000 mg by mouth in the morning and 1,000 mg in the evening. Take with meals. (Patient not taking: Reported on 12/25/2024) naphazoline-pheniramine (Naphcon-A) 0.025-0.3 % ophthalmic solution Administer 1 drop into affected eye(s). (Patient not taking: Reported on 12/25/2024) Nystatin powder Apply topically 2 times daily. (Patient not taking: Reported on 12/25/2024) traZODone (Desyrel) 100 MG tablet Take 100 mg by mouth Nightly. (Patient not taking: Reported on 12/25/2024) Zinc Sulfate (ZINC-220 PO) Take by mouth. (Patient not taking: Reported on 12/25/2024) No current facility-administered medications for this visit. Also reviewed during this visit: The following health maintenance schedule was reviewed with the patient and provided in printed form in the after visit summary: Health Maintenance Topic Date Due Diabetes: Dental Exam Never done DTaP/Tdap/Td Vaccines (1 - Tdap) Never done RSV Immunization for Adults (1 - Risk 60-74 years 1-dose series) Never done Zoster Vaccines (1 of 2) 10/13/2015 Diabetes: Foot Exam 02/09/2023 COVID-19 Vaccine ( season) 2024 Depression Screening 11/20/2024 Diabetes: Estimated Glomerular Filtration Rate for Kidney Health 11/20/2024 Diabetes: Urine Albumin-Creatinine Ratio for Kidney Health 11/20/2024 Lipid Panel 11/20/2024 Diabetes: Retinopathy Screening 12/05/2024 Diabetes: Hemoglobin A1C 10/20/2025 Medicare Annual Wellness (AWV) 01/22/2026 Colorectal Cancer Screening 04/05/2031 Influenza Vaccine Completed Pneumococcal Vaccine: 50+ Years Completed Hepatitis C Screening Completed RSV Immunization under 20 Months Aged Out HIB Vaccines Aged Out Hepatitis B Vaccines Aged Out IPV Vaccines Aged Out Hepatitis A Vaccines Aged Out Meningococcal Vaccine Aged Out Rotavirus Vaccines Aged Out HPV Vaccines Aged Out Meningococcal B Vaccine Aged Out List of current healthcare providers: Patient Care Team: Efrain Mendenhall MD as PCP - General Orders Placed This Encounter Procedures PSA Total (Screening) Standing Status: Future Number of Occurrences: 1 Expected Date: 12/23/2024 Expiration Date: 12/23/2025 Review of Systems Constitutional: Negative for activity [...] dysphoric mood. The patient is not nervous/anxious. Physical Exam Vitals and nursing note reviewed. Constitutional: General: He is not in acute distress. Appearance: Normal appearance. He is obese. HENT: Right Ear: Tympanic membrane, ear canal and external ear normal. Left Ear: Tympanic membrane, ear canal and external ear normal. Mouth/Throat: Mouth: Mucous membranes are moist. Pharynx: Oropharynx is clear. Eyes: Extraocular Movements: Extraocular movements intact. Conjunctiva/sclera: Conjunctivae normal. Pupils: Pupils are equal, round, and reactive to light. Neck: Thyroid: No thyromegaly. Vascular: No carotid bruit. Cardiovascular: Rate and Rhythm: Normal rate and regular rhythm. Heart sounds: Normal heart sounds. No murmur heard. Pulmonary: Effort: Pulmonary effort is normal. Breath sounds: Normal breath sounds. Abdominal: General: Bowel sounds are normal. Palpations: Abdomen is soft. Tenderness: There is no abdominal tenderness. Musculoskeletal: General: Normal range of motion. Cervical back: Neck supple. Lymphadenopathy: Cervical: No cervical adenopathy. Skin: General: Skin is warm and dry. Neurological: General: No focal deficit present. Mental Status: He is alert and oriented to person, place, and time. Psychiatric: Mood and Affect: Mood normal. Objective : BP (!) 152/75 Pulse 66 Ht 5' 4.75" (1.645 m) Wt 227 lb 6.4 oz (103 kg) SpO2 94% BMI 38.13 kg/m No results found. Subjective : Milad comes in today for his annual Medicare well visit, he says he has no complaints. He has a history of diabetes and his last A1c done through the [facility] was 5.4, he has a history of COPD which is stable. He has hypertension and his blood pressure is slightly elevated today we will recheck that prior to discharge. He has hypercholesterolemia and morbidly obese. He also has schizoaffective disorder and anxiety and these are both in remission. Health Risk Assessment: General: General In general, how would you say your health is?: Good Are you currently experiencing any of the following? (select all that apply): (!) Increased Fatigue Interventions: Health Habits and Nutrition: Health Habits and Nutrition On average, how many days per week do you engage in moderate to strenous exercise?: (!) 0 Days Have you lost any weight without trying in the past 3 months? : No Have you seen the dentist within the past year?: (!) No Interventions: Dental exam overdue: Patient declines dental evaluation and false teeth Hearing and Vision: Hearing and Vision Do you or your family notice any trouble with your hearing?: No Do you have difficulty driving, watching TV, or doing any of your daily activities because of your eyesight?: No Have you had an eye exam within the past year?: Yes No results found. Safety: Safety Do you have working smoke detectors?: Yes Do you have tripping hazards at home?: No Do you have either shower bars, grab bars, non-slip mats, or non-slip surfaces in your shower or bathtub?: Yes Do all your stairways have a railing or banister? : (!) No (no stairs) Do you always fasten your seatbelt when you are in a car?: Yes Interventions: ADL: ADL Are you needing any help from others to perform any of the following everyday activities?: None Are you needing any help from others to take care of any of the following?: (!) Laundry, Banking/Finances, Shopping, Food Preparation, Transportation, Taking Medications Interventions: All through the assisted living Living Will / POA: Living Will/POA Do you have a living will?: (!) No Do you have a healthcare power of recreation attendant?: (!) No Interventions: Advance Care Planning addressed with patient today Cognitive: Cognitive Screening: Mini-Cog Clock Drawing Test (CDT): 2 Words Recalled: 3 Total Score: 5 Total Score Interpretation: Normal Mini-Cog Fall Risk: Fall Risk One or more falls in the last year:: No Advised to use a cane or walker to get around safely:: Yes Feels unsteady when walking:: Yes Steadies self on furniture while walking at home:: No Worried about falling:: Yes Depression Screening: Tobacco Use: Social History Tobacco Use Smoking Status Former Current packs/day: 0.00 Types: Cigarettes Quit date: 11/29/2005 Years since quittin.0 Smokeless Tobacco Never Alcohol Use: Audit Alcohol Screening Q1: How often do you have a drink containing alcohol?: Never Q2: How many drinks containing alcohol do you have on a typical day when you are drinking?: Patient does not drink Q3: How often do you have six or more drinks on one occasion?: Never Audit-C Score: 0 Skip to questions 9-10?: 1 Social Drivers of Health: SDOH risk assessment performed and documented today by members of the health care team. A total time of 5-10 minutes was spent obtaining information from the patient and discussing options to address the patient's social risk factors and unmet needs. Social Drivers of Health with Concerns Concerns Present Tobacco Use: Medium Risk (12/23/2024) Physical Activity: Insufficiently Active (12/25/2024) Social Connections: Moderately Isolated (12/25/2024) Unknown Concern Intimate Partner Violence: Unknown (12/25/2024) documented in this encounter [facility] 12-23-2024 Instructions Efrain Mendenhall MD - 12/23/2024 3:00 PM EDT Personalized Preventative Plan for Milad Moon - 12/23/2024 Medicare offers a range of preventative health benefits. Some of the tests and screenings are paid in full while others may be subject to a deductible, co-insurance, and / or copay. Some of these benefits include a comprehensive review of your medical history including lifestyle, illnesses that may run in your family, and various assessments and screenings as appropriate. After reviewing your medical record and screening and assessments performed today, your provider may have ordered immunizations, labs, imaging, and / or referrals for you. A list of these orders (if applicable) as well as your Preventative Care list are included within your After Visit Summary for your review. Other Preventative Recommendations: A preventive eye exam by an veterinary milk specialist is recommended every 1-2 years to screen for glaucoma, cataracts, macular degeneration, and other eye disorders. A preventive dental visit is recommended every 6 months. Try to get at least 150 minutes of exercise per week or 10,000 steps per day on a pedometer. You need 1200-1500mg of calcium and [id number] international units of vitamin D per day. It is possible to meet your calcium requirement with diet alone, but a vitamin D supplement is usually necessary to meet this goal. When exposed to the sun, use a sunscreen that protects against both UVA and UVB radiation with an SPF of 30 or greater. Reapply every 2-3 hours or after sweating, drying off with a towel, or swimming. Always wear a seat belt when traveling in a car. Always wear a helmet when riding a bicycle or a motorcycle documented in this encounter [facility] 12-23-2024 Instructions Efrain Mendenhall MD - 12/23/2024 3:00 PM EDT Personalized Preventative Plan for Milad Moon - 12/23/2024 Medicare offers a range of preventative health benefits. Some of the tests and screenings are paid in full while others may be subject to a deductible, co-insurance, and / or copay. Some of these benefits include a comprehensive review of your medical history including lifestyle, illnesses that may run in your family, and various assessments and screenings as appropriate. After reviewing your medical record and screening and assessments performed today, your provider may have ordered immunizations, labs, imaging, and / or referrals for you. A list of these orders (if applicable) as well as your Preventative Care list are included within your After Visit Summary for your review. Other Preventative Recommendations: A preventive eye exam by an veterinary milk specialist is recommended every 1-2 years to screen for glaucoma, cataracts, macular degeneration, and other eye disorders. A preventive dental visit is recommended every 6 months. Try to get at least 150 minutes of exercise per week or 10,000 steps per day on a pedometer. You need 1200-1500mg of calcium and [id number] international units of vitamin D per day. It is possible to meet your calcium requirement with diet alone, but a vitamin D supplement is usually necessary to meet this goal. When exposed to the sun, use a sunscreen that protects against both UVA and UVB radiation with an SPF of 30 or greater. Reapply every 2-3 hours or after sweating, drying off with a towel, or swimming. Always wear a seat belt when traveling in a car. Always wear a helmet when riding a bicycle or a motorcycle documented in this encounter [facility] 12-23-2024 Miscellaneous Notes Associated Problem(s): Type 2 diabetes mellitus with diabetic polyneuropathy, without long-term current use of insulin ([facility]) Controlled, continue metformin 1000 mg twice a day Associated Problem(s): Chronic obstructive pulmonary disease, unspecified COPD type ([facility]) Stable, continue albuterol 2 puffs every 6 hours as needed Associated Problem(s): Essential hypertension Blood pressure was initially elevated, recheck was even higher continue lisinopril 20 mg daily, propranolol 80 mg daily Associated Problem(s): Morbidly obese (CMS/HCC) Encourage weight loss with diet and exercise Associated Problem(s): Hyperlipidemia Controlled, continue atorvastatin 10 mg daily Associated Problem(s): Schizoaffective disorder with good prognostic features ([facility]) Remission, continue Wellbutrin 150 mg daily, Lexapro 20 mg daily Haldol 10 mg daily and 5 mg daily Zyprexa 7.5 mg daily, and Ingrezza 40 mg nightly Associated Problem(s): Anxiety Remission, continue Lexapro 20 mg daily and clonazepam 0.25 mg twice a day documented in this encounter [facility] 12-23-2024 Miscellaneous Notes Associated Problem(s): Type 2 diabetes mellitus with diabetic polyneuropathy, without long-term current use of insulin (HCC) Controlled, continue metformin 1000 mg twice a day Associated Problem(s): Chronic obstructive pulmonary disease, unspecified COPD type (HCC) Stable, continue albuterol 2 puffs every 6 hours as needed Associated Problem(s): Essential hypertension Blood pressure was initially elevated, recheck was even higher continue lisinopril 20 mg daily, propranolol 80 mg daily Associated Problem(s): Hyperlipidemia Controlled, continue atorvastatin 10 mg daily Associated Problem(s): Schizoaffective disorder with good prognostic features (HCC) Remission, continue Wellbutrin 150 mg daily, Lexapro 20 mg daily Haldol 10 mg daily and 5 mg daily Zyprexa 7.5 mg daily, and Ingrezza 40 mg nightly Associated Problem(s): Anxiety Remission, continue Lexapro 20 mg daily and clonazepam 0.25 mg twice a day Associated Problem(s): Class 2 severe obesity due to excess calories with serious comorbidity and body mass index (BMI) of 38.0 to 38.9 in adult Has multiple comorbidities, encourage patient to lose weight with diet and exercise Addended by: RAMSEY UGALDE on: 12/25/2024 07:51 AM Modules accepted: Orders Addended by: EFRAIN MENDENHALL on: 12/25/2024 01:07 PM Modules accepted: Orders documented in this encounter [facility] 12-23-2024 Note Addended by: Rocío UGALDE on: 12/25/2024 07:51 AM Modules accepted: Orders [facility] 12-23-2024 Note Addended by: EFRAIN MENDENHALL on: 12/25/2024 01:07 PM Modules accepted: Orders [facility] 12-23-2024 Note Addended by: Rocío UGALDE on: 12/25/2024 07:51 AM Modules accepted: Orders [facility] 12-23-2024 Note Addended by: EFRAIN MENDENHALL on: 12/25/2024 01:07 PM Modules accepted: Orders [facility] 12-23-2024 Note Addended by: Rocío UGALDE on: 12/25/2024 07:51 AM Modules accepted: Orders [facility] 12-23-2024 Note Addended by: EFRAIN MENDENHALL on: 12/25/2024 01:07 PM Modules accepted: Orders [facility] 10-09-2024 Note HNO ID: [id number] Author: EDA CASANOVA PA-C Service: ? Author Type: Physician Arc Trimmer Type: Progress Notes Filed: 10/09/2024 15:11 Note Text: CHIEF COMPLAINT: Patient presents with: Recheck: Geronimo's Esophagus, Hiatal Hernia, Alternating bowel habits HPI Resident at [facility] Milad Moon is a 69 year old male here PMHx pos for HLD, DM II, schizoaffective disorder today for Recheck (Geronimo's Esophagus, Hiatal Hernia, Alternating bowel habits ). Taking Prilosec 40 mg daily with relief in GERD. Taking Colace BID, having a daily Bms, occasionally alternates in consistency but overall reports Bms have been regular for him, no blood. Denies dysphagia, abd pain, N/V, weight loss. 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 Biopsied. - 5 cm hiatal hernia. - Normal stomach. - Normal duodenal bulb and second portion of the duodenum. Component FINAL DIAGNOSIS A. Esophagus, distal, biopsy: - Geronimo's esophagus, negative for dysplasia. EGD/Colon 2021 Impression: - Esophagogastric landmarks identified. - Esophageal mucosal changes secondary to established long-segment Geronimo's disease. Biopsied. - Normal stomach. - Normal first portion of the duodenum and second portion of the duodenum. Impression: - Preparation of the colon was fair. - Diverticulosis in the sigmoid colon, in the descending colon, in the transverse colon and in the ascending colon. - Internal hemorrhoids. - Stool in the entire examined colon. - No specimens collected. CONVERTED FINAL DIAGNOSIS A. Esophagus, 34 cm, biopsy - Specialized columnar epithelium with goblet cells, consistent with Geronimo's esophagus, negative for dysplasia. - Squamous epithelium is not present. B. Esophagus, at 32 cm, biopsy - Specialized columnar epithelium with goblet cells, consistent with Geronimo's esophagus, negative for dysplasia. - Scant reactive squamous epithelium. OV 2023 Milad Moon is a 68 year old male PMHx pos for HLD, DM II, schizoaffective disorder here today for Procedure Follow Up (EGD 06/19/23). Seen last for h/o Geronimo's, constipation. Taking Prilosec 40 mg daily, Colace BID. Bms improved with dietary fiber. Having a BM daily, formed consistency, no blood. Denies abd pain, N/V, dysphagia, melena, weight loss. Current Outpatient Medications Medication Sig INGREZZA 40 mg capsule haloperidol (HALDOL) 5 mg tablet lisinopril (ZESTRIL) 20 mg tablet propranolol ER (INDERAL LA) 80 mg 24 hr capsule omeprazole (PRILOSEC) 40 mg capsule Take 1 capsule by mouth once daily. On empty stomach at least 30 minutes before eating. ALBUTEROL INHALATION Inhale as instructed. docusate sodium (COLACE) 100 mg capsule Take 100 mg by mouth two times a day. B.animalis,bifid,infantis,long (PROBIOTIC 4X ORAL) Take by mouth. gabapentin (NEURONTIN) 400 mg capsule ketoconazole (NIZORAL) 2 % shampoo haloperidol (HALDOL) 10 mg tablet acetaminophen (TYLENOL) 325 mg tablet Take 650 mg by mouth. atorvastatin (LIPITOR) 10 mg tablet buPROPion XL (WELLBUTRIN XL) 150 mg 24 hr tablet escitalopram oxalate (LEXAPRO) 20 mg tablet ferrous sulfate 325 mg (65 mg iron) tablet Take 325 mg by mouth. fluticasone (FLONASE) 50 mcg/actuation nasal spray LUMIGAN 0.01 % drop ophthalmic drops OLANZapine (ZYPREXA) 10 mg tablet cyanocobalamin (VITAMIN B-12) 1,000 mcg tab Take 1,000 mcg by mouth. mlwnjhe-lmwqgoflm-xgfzeln D3 500 mg(1,250mg) -200 unit per tablet Take 1 tablet by mouth once daily. ammonium lactate (LAC-HYDRIN) 12 % cream Apply [...] auto-injector Inject 0.3 mg intramuscularly as needed. Clobetasol Propionate (TEMOVATE) 0.05 % external solution (Patient not taking: Reported on 10/09/2024) aspirin 325 mg tablet Take 325 mg by mouth. (Patient not taking: Reported on 10/09/2024) metFORMIN (GLUCOPHAGE) 1,000 mg tablet (Patient not taking: Reported on 10/09/2024) No current facility-administered medications for this visit. ALLERGIES Allergen Reactions Venom-Honey Bee Anaphylaxis SOCIAL HISTORY[1] PAST MEDICAL HISTORY Diagnosis Date Geronimo's esophagus Long Segment Diabetes (HCC) GERD (gastroe (more content not included)... [facility] 10-09-2024 History of Present illness Narrative CHIEF COMPLAINT: Patient presents with: Recheck: Geronimo's Esophagus, Hiatal Hernia, Alternating bowel habits HPI Resident at [facility] Milad Moon is a 69 year old male here PMHx pos for HLD, DM II, schizoaffective disorder today for Recheck (Geronimo's Esophagus, Hiatal Hernia, Alternating bowel habits ). Taking Prilosec 40 mg daily with relief in GERD. Taking Colace BID, having a daily Bms, occasionally alternates in consistency but overall reports Bms have been regular for him, no blood. Denies dysphagia, abd pain, N/V, weight loss. 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 Biopsied. - 5 cm hiatal hernia. - Normal stomach. - Normal duodenal bulb and second portion of the duodenum. Component FINAL DIAGNOSIS A. Esophagus, distal, biopsy: - Geronimo's esophagus, negative for dysplasia. EGD/Colon 2021 Impression: - Esophagogastric landmarks identified. - Esophageal mucosal changes secondary to established long-segment Geronimo's disease. Biopsied. - Normal stomach. - Normal first portion of the duodenum and second portion of the duodenum. Impression: - Preparation of the colon was fair. - Diverticulosis in the sigmoid colon, in the descending colon, in the transverse colon and in the ascending colon. - Internal hemorrhoids. - Stool in the entire examined colon. - No specimens collected. CONVERTED FINAL DIAGNOSIS A. Esophagus, 34 cm, biopsy - Specialized columnar epithelium with goblet cells, consistent with Geronimo's esophagus, negative for dysplasia. - Squamous epithelium is not present. B. Esophagus, at 32 cm, biopsy - Specialized columnar epithelium with goblet cells, consistent with Geronimo's esophagus, negative for dysplasia. - Scant reactive squamous epithelium. OV 2023 Milad Moon is a 68 year old male PMHx pos for HLD, DM II, schizoaffective disorder here today for Procedure Follow Up (EGD 06/19/23). Seen last for h/o Geronimo's, constipation. Taking Prilosec 40 mg daily, Colace BID. Bms improved with dietary fiber. Having a BM daily, formed consistency, no blood. Denies abd pain, N/V, dysphagia, melena, weight loss. Current Outpatient Medications Medication Sig INGREZZA 40 mg capsule haloperidol (HALDOL) 5 mg tablet lisinopril (ZESTRIL) 20 mg tablet propranolol ER (INDERAL LA) 80 mg 24 hr capsule omeprazole (PRILOSEC) 40 mg capsule Take 1 capsule by mouth once daily. On empty stomach at least 30 minutes before eating. ALBUTEROL INHALATION Inhale as instructed. docusate sodium (COLACE) 100 mg capsule Take 100 mg by mouth two times a day. B.animalis,bifid,infantis,long (PROBIOTIC 4X ORAL) Take by mouth. gabapentin (NEURONTIN) 400 mg capsule ketoconazole (NIZORAL) 2 % shampoo haloperidol (HALDOL) 10 mg tablet acetaminophen (TYLENOL) 325 mg tablet Take 650 mg by mouth. atorvastatin (LIPITOR) 10 mg tablet buPROPion XL (WELLBUTRIN XL) 150 mg 24 hr tablet escitalopram oxalate (LEXAPRO) 20 mg tablet ferrous sulfate 325 mg (65 mg iron) tablet Take 325 mg by mouth. fluticasone (FLONASE) 50 mcg/actuation nasal spray LUMIGAN 0.01 % drop ophthalmic drops OLANZapine (ZYPREXA) 10 mg tablet cyanocobalamin (VITAMIN B-12) 1,000 mcg tab Take 1,000 mcg by mouth. [id number]-[id number] D3 500 mg(1,250mg) -200 unit per tablet Take 1 tablet by mouth once daily. ammonium lactate (LAC-HYDRIN) 12 % cream Apply [...] auto-injector Inject 0.3 mg intramuscularly as needed. Clobetasol Propionate (TEMOVATE) 0.05 % external solution (Patient not taking: Reported on 10/09/2024) aspirin 325 mg tablet Take 325 mg by mouth. (Patient not taking: Reported on 10/09/2024) metFORMIN (GLUCOPHAGE) 1,000 mg tablet (Patient not taking: Reported on 10/09/2024) No current facility-administered medications for this visit. ALLERGIES Allergen Reactions Venom-Honey Bee Anaphylaxis SOCIAL HISTORY[1] PAST MEDICAL HISTORY Diagnosis Date Geronimo's esophagus [...] hernia EGD 04/05/2021 long segment Geronimo's esophagus EGD W/O BRSH SPEC VARICIES INJ 06/19/2023 Geronimo's esophagus, negative for dysplasia SIGMOIDOSCOPY 03/16/2016 moderate diverticulosis of the sigmoid colon FAMILY HISTORY Problem Relation Age of Onset Colon Cancer No Family History REVIEW OF SYSTEMS Review of Systems Gastrointestinal: Positive for constipation and diarrhea. All other systems reviewed and are negative. PHYSICAL EXAM BP 132/70 (BP Site: Left Arm, BP Position: Sitting) Pulse (!) 58 Ht 170.2 cm (5' 7") Wt 101.7 kg (224 lb 4.8 oz) BMI 35.13 kg/m Physical Exam Constitutional: General: He is not in acute distress. Appearance: Normal appearance. He is obese. He is not ill-appearing, toxic-appearing or diaphoretic. HENT: Head: Normocephalic and atraumatic. Nose: Nose normal. Eyes: General: No scleral icterus. Right eye: No discharge. Left eye: No discharge. Extraocular Movements: Extraocular movements intact. Conjunctiva/sclera: Conjunctivae normal. Pupils: Pupils are equal, round, and reactive to light. Cardiovascular: Rate and Rhythm: Normal rate and regular rhythm. Pulses: Normal pulses. Heart sounds: Normal heart sounds. No murmur heard. No friction rub. No gallop. Pulmonary: Effort: No respiratory distress. Breath sounds: Normal breath sounds. No stridor. No wheezing, rhonchi or rales. Chest: Chest wall: No tenderness. Abdominal: General: Bowel sounds are normal. There is no distension. Palpations: Abdomen is soft. There is no mass. Tenderness: There is no abdominal tenderness. There is no right CVA tenderness, left CVA tenderness, guarding or rebound. Hernia: No hernia is present. Musculoskeletal: General: Normal range of motion. Cervical back: Normal range of motion and neck supple. Comments: Ambulates with cane Skin: General: Skin is warm and dry. Neurological: General: No focal deficit present. Mental Status: He is alert. Mental status is at baseline. Psychiatric: Mood and Affect: Mood normal. Behavior: Behavior normal. 1. 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 (Primary) - omeprazole (PRILOSEC) 40 mg capsule; Take 1 capsule by mouth once daily. On empty stomach at least 30 minutes before eating. Dispense: 90 capsule; Refill: 3 - Doing very well with Prilosec 40 mg daily, refilled script - Due for repeat EGD 05/2025 - Due for repeat colonoscopy 03/2026 2. Hiatal hernia - omeprazole (PRILOSEC) 40 mg capsule; Take 1 capsule by mouth once daily. On empty stomach at least 30 minutes before eating. Dispense: 90 capsule; Refill: 3 I spent a total of <10 minutes on the date of the service which included preparing to see the patient, [id number] patient care, completing clinical documentation, obtaining and/or reviewing separately obtained history, performing a medically appropriate examination, counseling and educating the patient/family/caregiver, ordering medications, tests, or procedures, communicating with other HCPs (not separately reported), independently interpreting results (not separately reported), communicating results to the patient/family/caregiver, and care coordination (not separately reported). Eda Casanova PA-C October 09, 2024 3:09 PM [1] Social History Tobacco Use Smoking status: Former Smokeless tobacco: Never Vaping Use Vaping status: Never Used Substance Use Topics Alcohol use: Never Drug use: Never documented in this encounter [facility] 11-21-2023 Evaluation + Plan note Associated Problem(s): Schizoaffective disorder with good prognostic features (CMS/HCC) (HCC) Remission, continue bupropion XL 150 mg daily clonazepam 0.5 mg half a tablet twice a day as needed. Haldol 10 mg twice a day and Zyprexa 10 mg nightly. Also trazodone 100 mg nightly. [facility] 11-21-2023 Miscellaneous Notes Associated Problem(s): Schizoaffective disorder with good prognostic features (CMS/HCC) (HCC) Remission, continue bupropion XL 150 mg daily clonazepam 0.5 mg half a tablet twice a day as needed. Haldol 10 mg twice a day and Zyprexa 10 mg nightly. Also trazodone 100 mg nightly. Associated Problem(s): Hyperlipidemia Controlled, continue atorvastatin 10 mg daily Associated Problem(s): Morbidly obese (HCC) Encourage weight loss Associated Problem(s): Essential hypertension Hold, continue lisinopril 10 mg daily, propranolol 80 mg daily Associated Problem(s): Chronic obstructive pulmonary disease, unspecified COPD type (HCC) Stable, currently on albuterol 2 puffs 6 hours as needed Associated Problem(s): Type 2 diabetes mellitus with diabetic polyneuropathy, without long-term current use of insulin ([facility]/HCC) (HCC) Stable, continue metformin 1000 mg twice a day documented in this encounter [facility] 11-21-2023 Evaluation + Plan note Associated Problem(s): Hyperlipidemia Controlled, continue atorvastatin 10 mg daily [facility] 11-21-2023 Evaluation + Plan note Associated Problem(s): Morbidly obese (HCC) Encourage weight loss [facility] 11-21-2023 Evaluation + Plan note Associated Problem(s): Essential hypertension Hold, continue lisinopril 10 mg daily, propranolol 80 mg daily [facility] 11-21-2023 Evaluation + Plan note Associated Problem(s): Chronic obstructive pulmonary disease, unspecified COPD type (HCC) Stable, currently on albuterol 2 puffs 6 hours as needed [facility] 11-21-2023 Evaluation + Plan note Associated Problem(s): Type 2 diabetes mellitus with diabetic polyneuropathy, without long-term current use of insulin (CMS/HCC) ([facility]) Stable, continue metformin 1000 mg twice a day [facility] 11-21-2023 History of Present illness Narrative Patient verified by last name and date of . Images from the original note were not included. [address] [id number] Visit Type: Medicare Annual Wellness PCP: Efrain Mendenhall MD Reason for Visit: Medicare Annual Wellness Visit Subsequent, Blood Work, and Health Maintenance (Dental exam- not done/Eye exam-done at Dr Carroll Troncoso in [place] will send for record /Tdap vaccine-not done/Rsv vaccine- not dne/Shingles vaccine-refuse/6 covid vaccines-not yet/Flu vaccine- done) Assessment and Plan Problem List Items Addressed This Visit Anxiety Chronic obstructive pulmonary disease, unspecified COPD type (HCC) Stable, currently on albuterol 2 puffs 6 hours as needed Essential hypertension Hold, continue lisinopril 10 mg daily, propranolol 80 mg daily Hyperlipidemia Controlled, continue atorvastatin 10 mg daily Relevant Orders Lipid panel Morbidly obese (HCC) Encourage weight loss Schizoaffective disorder with good prognostic features (CMS/HCC) ([facility]) Remission, continue bupropion XL 150 mg daily clonazepam 0.5 mg half a tablet twice a day as needed. Haldol 10 mg twice a day and Zyprexa 10 mg nightly. Also trazodone 100 mg nightly. Type 2 diabetes mellitus with diabetic polyneuropathy, without long-term current use of insulin ([facility]/HCC) (HCC) Stable, continue metformin 1000 mg twice a day Relevant Orders Comprehensive metabolic panel Microalbumin / creatinine urine ratio Hemoglobin A1c Other Visit Diagnoses Medicare annual wellness visit, subsequent - Primary Screening for prostate cancer Relevant Orders PSA Total (Screening) I have reviewed and reconciled the medication [...] Take 10 mg by mouth daily. buPROPion XL (Wellbutrin XL) 150 MG 24 hr tablet Calcium Carbonate-Vitamin D (calcium-vitamin D) 500-200 MG-UNIT tablet Take 1 tablet by mouth daily. carbamide peroxide (Debrox) 6.5 % otic solution 5 drops 2 times daily. cholecalciferol (HM Vitamin D3) 25 MCG (1000 UT) tablet Take by mouth. clobetasol (Temovate) 0.05 % external solution cyanocobalamin (Vitamin B-12) 1000 MCG tablet Take 1,000 mcg by mouth daily. dextromethorphan-guaiFENesin (Robitussin-DM) 10-100 MG/5ML liquid Take 5 mL by mouth. Diclofenac Sodium (Voltaren) 1 % gel Apply topically 2 times daily. Docusate Sodium (DSS) 100 MG capsule Take 100 mg by mouth in the morning and 100 mg in the evening. EPINEPHrine (Epipen) 0.3 MG/0.3ML injection syringe Inject 0.3 mg into the shoulder, thigh, or buttocks. escitalopram (Lexapro) 20 MG tablet Take 20 mg by mouth daily. ferrous sulfate 325 (65 Fe) MG tablet Take 325 mg by mouth. fluticasone (Flonase) 50 MCG/ACT nasal spray Administer 1 spray into affected nostril(s) daily. gabapentin (Neurontin) 400 MG capsule Take 400 mg by mouth 3 times daily. glucagon 1 MG injection Infuse 1 kit into a venous catheter. haloperidol (Haldol) 10 MG tablet Take 10 mg by [...] mg in the evening. Take with meals. Nystatin powder Apply topically 2 times daily. OLANZapine (ZyPREXA) 10 MG tablet Take 10 mg by mouth Nightly. omeprazole (PriLOSEC) [address] capsule Take 40 mg by mouth daily. Probiotic Product (PROBIOTIC-10 PO) Take by mouth. propranolol (Inderal) 80 MG tablet Pseudoephedrine-guaiFENesin (GUAIFENESIN-P PO) Take by mouth. senna-docusate (Celena-Colace) 8.6-50 MG tablet Take by mouth. sodium phosphate (Fleets) 7-19 GM/118ML enema enema Insert into the rectum. tacrolimus (Protopic) 0.1 % ointment Zinc Sulfate (ZINC-220 PO) Take by mouth. clonazePAM (KlonoPIN) 0.5 MG tablet Take 0.5 tablets (0.25 mg) by mouth 2 times daily. 30 tablet 0 dextran 70-hypromellose PF (Tears Naturale Free) 0.1-0.3 % ophthalmic solution 1 drop. naphazoline-pheniramine (Naphcon-A) 0.025-0.3 % ophthalmic solution Administer 1 drop into affected eye(s). traZODone (Desyrel) 100 MG tablet Take 100 mg by mouth Nightly. No current facility-administered medications for this visit. Medications Discontinued During This Encounter Medication Reason buPROPion SR (Wellbutrin SR) 150 MG 12 hr tablet haloperidol (Haldol) 20 MG tablet gabapentin (Neurontin) 300 MG capsule docusate sodium (Colace) 100 MG capsule EPINEPHrine (EPIPEN IJ) The following health maintenance schedule was reviewed with the patient and provided in printed form in the after visit summary: Health Maintenance Topic Date Due DTaP/Tdap/Td Vaccines (1 - Tdap) Never done RSV Immunization aged 60 or older (1 - 1-dose 60+ series) Never done Zoster Vaccines (1 of 2) 10/13/2015 Diabetes: Retinopathy Screening 10/18/2022 Diabetes: Foot Exam 02/09/2023 COVID-19 Vaccine ( season) 2023 Diabetes: Estimated Glomerular Filtration Rate for Kidney Health 11/08/2023 Diabetes: Urine Albumin-Creatinine Ratio for Kidney Health 11/08/2023 Lipid Panel 11/08/2023 Diabetes: Hemoglobin A1C 11/08/2023 Depression Screening 11/07/2023 Diabetes: Dental Exam 11/20/2024 (Originally 1965) Medicare Annual Wellness (AWV) 12/20/2024 Colorectal Cancer Screening 04/05/2031 Influenza Vaccine Completed Pneumococcal Vaccine: 65+ Years Completed Hepatitis C Screening Completed RSV Immunization under 20 Months Aged Out HIB Vaccines Aged Out Hepatitis B Vaccines Aged Out IPV Vaccines Aged Out Hepatitis A Vaccines Aged Out Meningococcal Vaccine Aged Out Rotavirus Vaccines Aged Out HPV Vaccines Aged Out Orders Placed This Encounter Procedures Lipid panel Standing Status: Future Number of Occurrences: 1 Standing Expiration Date: 11/20/2024 Comprehensive metabolic panel Standing Status: Future Number of Occurrences: 1 Standing Expiration Date: 11/20/2024 Microalbumin / creatinine urine ratio Standing Status: Future Number of Occurrences: 1 Standing Expiration Date: 11/20/2024 Hemoglobin A1c Standing Status: Future Number of Occurrences: 1 Standing Expiration Date: 11/20/2024 PSA Total (Screening) Standing Status: Future Number of Occurrences: 1 Standing Expiration Date: 11/20/2024 Follow up in about 6 months (around 05/20/2024). Veronica Sellers comes in today for his annual Medicare well visit and for follow-up on his multiple health issues. These would include schizoaffective disorder, COPD, morbidly obese, diabetes, anxiety, hypertension and hypercholesterolemia. His medications were updated and he currently denies any complaints at this time, see ROS. List of current healthcare providers: Patient Care Team: Efrain Mendenhall MD as PCP - General Health Risk Assessment: General: General In general, how would you say your health is?: Good In the past 7 days, have you experienced any of the following: New or Increased Pain, New or Increased Fatigue, Loneliness, Social Isolation, Stress or Anger?: No Do you get the social and emotional suppport you need?: Yes Health Habits/Nutrition: Health Habits / Nutrition On average, how [...] within the past year?: (!) No Interventions: Has dentures Hearing/ Vision: Hearing / Vision Do you or your family notice any trouble with your hearing that hasn't been managed with hearing aids?: (!) Yes Do you have difficulty driving, watching TV, or doing any of your daily activities because of your eyesight?: No Have you had an eye exam within the past year?: Yes No results found. Interventions: Safety: Safety Do you have a working smoke detector?: Yes Do you have any tripping hazards - loose or unsecured carpets or rugs?: (!) Yes Do you have any tripping hazards - clutter in doorways, halls, or stairs?: No Do you have either shower bars, grab bars, non-slip mats or non-slip surfaces in your shower or bathtub? : Yes Do all your stairways have a railing or banister? : Not Applicable Do you fasten your seatbelt when you are in a car?: Yes Interventions: ADL: ADL In the past 7 days, did [...] medications? : Yes Select all that apply: Transportation, Taking Medications, Food Preparation, Shopping, Housekeeping, Laundry, Banking / Finances Interventions: Living Will: Living Will Do you have a living will?: No Interventions: Advance Care Planning addressed with patient today Cognitive: Cognitive Screening: Mini-Cog Clock Drawing Test (CDT): 2 Words Recalled: 3 Total Score: 5 Total Score Interpretation: Normal Mini-Cog Fall Risk: Fall Risk One or more falls in the last year:: No Advised to use a cane or walker to get around safely:: No Feels unsteady when walking:: Yes Steadies self on furniture while walking at home:: No Worried about falling:: No Depression Screening: Over the past 2 weeks, how often have you been bothered by any of the following problems? Little interest or pleasure in doing things: Not at all Feeling down, depressed, or hopeless: Not at all Patient Health Questionnaire-2 Score: 0 Interventions: Tobacco Use: Social History Tobacco Use Smoking Status Former Current packs/day: 0.00 Types: Cigarettes Quit date: 11/29/2005 Years since quittin.9 Smokeless Tobacco Never Alcohol Use: Audit Alcohol Screening Q2: How many drinks containing alcohol do you have on a typical day when you are drinking?: Patient does not drink Review of Systems Constitutional: Negative for activity [...] injectable, MDCK, preservative free, quadrivalent 11/11/2018, 11/18/2019 Influenza, seasonal, injectable 11/19/2023 Pfizer SARS-CoV-2 Vaccination 03/04/2020, 03/25/2020, 12/24/2020, 08/03/2021, 03/20/2023 Pneumococcal Conjugate PCV 13 01/10/2020 Pneumococcal Conjugate PCV20, Pf (Prevnar 20) 11/01/2021, 12/02/2021 Pneumococcal Polysaccharide PPSV23 08/29/2008, 08/18/2015, 02/15/2023 Zoster, live 08/18/2015 Allergies Allergen Reactions Bee [...] Take 10 mg by mouth daily. buPROPion XL (Wellbutrin XL) 150 MG 24 hr tablet Calcium Carbonate-Vitamin D (calcium-vitamin D) 500-200 MG-UNIT tablet Take 1 tablet by mouth daily. carbamide peroxide (Debrox) 6.5 % otic solution 5 drops 2 times daily. cholecalciferol (HM Vitamin D3) 25 MCG (1000 UT) tablet Take by mouth. clobetasol (Temovate) 0.05 % external solution cyanocobalamin (Vitamin B-12) 1000 MCG tablet Take 1,000 mcg by mouth daily. dextromethorphan-guaiFENesin (Robitussin-DM) 10-100 MG/5ML liquid Take 5 mL by mouth. Diclofenac Sodium (Voltaren) 1 % gel Apply topically 2 times daily. Docusate Sodium (DSS) 100 MG capsule Take 100 mg by mouth in the morning and 100 mg in the evening. EPINEPHrine (Epipen) 0.3 MG/0.3ML injection syringe Inject 0.3 mg into the shoulder, thigh, or buttocks. escitalopram (Lexapro) 20 MG tablet Take 20 mg by mouth daily. ferrous sulfate 325 (65 Fe) MG tablet Take 325 mg by mouth. fluticasone (Flonase) 50 MCG/ACT nasal spray Administer 1 spray into affected nostril(s) daily. gabapentin (Neurontin) 400 MG capsule Take 400 mg by mouth 3 times daily. glucagon 1 MG injection Infuse 1 kit into a venous catheter. haloperidol (Haldol) 10 MG tablet Take 10 mg by [...] mg in the evening. Take with meals. Nystatin powder Apply topically 2 times daily. OLANZapine (ZyPREXA) 10 MG tablet Take 10 mg by mouth Nightly. omeprazole (PriLOSEC) [address] capsule Take 40 mg by mouth daily. Probiotic Product (PROBIOTIC-10 PO) Take by mouth. propranolol (Inderal) 80 MG tablet Pseudoephedrine-guaiFENesin (GUAIFENESIN-P PO) Take by mouth. senna-docusate (Celena-Colace) 8.6-50 MG tablet Take by mouth. sodium phosphate (Fleets) 7-19 GM/118ML enema enema Insert into the rectum. tacrolimus (Protopic) 0.1 % ointment Zinc Sulfate (ZINC-220 PO) Take by mouth. buPROPion SR (Wellbutrin SR) 150 MG 12 hr tablet Take 150 mg by mouth 2 times daily. docusate sodium (Colace) 100 MG capsule Take 100 mg by mouth if needed. EPINEPHrine (EPIPEN IJ) Inject as directed haloperidol (Haldol) 20 MG tablet Take 10 mg by mouth 2 times daily. clonazePAM (KlonoPIN) 0.5 MG tablet Take 0.5 tablets (0.25 mg) by mouth 2 times daily. 30 tablet 0 dextran 70-hypromellose PF (Tears Naturale Free) 0.1-0.3 % ophthalmic solution 1 drop. naphazoline-pheniramine (Naphcon-A) 0.025-0.3 % ophthalmic solution Administer 1 drop into affected eye(s). traZODone (Desyrel) 100 MG tablet Take 100 mg by mouth Nightly. gabapentin (Neurontin) 300 MG capsule Take 300 mg by mouth 3 times daily. No facility-administered medications prior to visit. Past Medical History: Diagnosis Date Depression Diverticulosis GERD (gastroesophageal reflux disease) Hyperlipidemia Osteoarthritis Polyp of colon Schizo affective schizophrenia (HCC) Type II or unspecified type diabetes mellitus without mention of complication, not stated as uncontrolled (HCC) Social History Socioeconomic History Marital status: Tobacco Use Smoking status: Former Current packs/day: 0.00 Types: Cigarettes Quit date: 11/29/2005 Years since [...] Minutes of Exercise per Session: 0 min Stress: No Stress Concern Present (09/17/2018) Re[facility] from [facility] [place] [facility] - Occupational Stress Questionnaire Feeling of Stress : Not at all Housing Stability: Low Risk (11/06/2022) Housing Stability [...] illness Mother Cancer Father Prostate Objective BP 131/79 Pulse 56 Ht 5' 4.75" (1.645 m) Wt 228 lb 3.2 oz (104 kg) SpO2 93% BMI 38.27 kg/m Physical Exam Vitals and nursing note reviewed. Constitutional: General: He is not in acute distress. Appearance: Normal appearance. He is obese. HENT: Right Ear: Tympanic membrane, ear canal and external ear normal. Left Ear: Tympanic membrane, ear canal and external ear normal. Mouth/Throat: Mouth: Mucous membranes are moist. Pharynx: Oropharynx is clear. Eyes: Extraocular Movements: Extraocular movements intact. Conjunctiva/sclera: Conjunctivae normal. Pupils: Pupils are equal, round, and reactive to light. Neck: Thyroid: No thyromegaly. Vascular: No carotid bruit. Cardiovascular: Rate and Rhythm: Normal rate and regular rhythm. Heart sounds: Normal heart sounds. No murmur heard. Pulmonary: Effort: Pulmonary effort is normal. Breath sounds: Normal breath sounds. Abdominal: General: Bowel sounds are normal. Palpations: Abdomen is soft. Tenderness: There is no abdominal tenderness. Musculoskeletal: General: Normal range of motion. Cervical back: Neck supple. Lymphadenopathy: Cervical: No cervical adenopathy. Skin: General: Skin is warm and dry. Neurological: General: No focal deficit present. Mental Status: He is alert and oriented to person, place, and time. Psychiatric: Mood and Affect: Mood normal. Efrain Mendenhall MD 11/21/2023 3:30 PM documented in this encounter [facility] 10-10-2023 History of Present illness Narrative CHIEF COMPLAINT: Patient presents with: Procedure Follow Up: EGD 06/19/23 HPI Milad Moon is a 68 year old male PMHx pos for HLD, DM II, schizoaffective disorder here today for Procedure Follow Up (EGD 06/19/23). Seen last for h/o Geronimo's, constipation. Taking Prilosec 40 mg daily, Colace BID. Bms improved with dietary fiber. Having a BM daily, formed consistency, no blood. Denies abd pain, N/V, dysphagia, melena, weight loss. 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 Biopsied. - 5 cm hiatal hernia. - Normal stomach. - Normal duodenal bulb and second portion of the duodenum. Component FINAL DIAGNOSIS A. Esophagus, distal, biopsy: - Geronimo's esophagus, negative for dysplasia. FIT 10/2022 negative EGD/Colon 2021 Impression: - Esophagogastric landmarks identified. - Esophageal mucosal changes secondary to established long-segment Geronimo's disease. Biopsied. - Normal stomach. - Normal first portion of the duodenum and second portion of the duodenum. Impression: - Preparation of the colon was fair. - Diverticulosis in the sigmoid colon, in the descending colon, in the transverse colon and in the ascending colon. - Internal hemorrhoids. - Stool in the entire examined colon. - No specimens collected. CONVERTED FINAL DIAGNOSIS A. Esophagus, 34 cm, biopsy - Specialized columnar epithelium with goblet cells, consistent with Geronimo's esophagus, negative for dysplasia. - Squamous epithelium is not present. B. Esophagus, at 32 cm, biopsy - Specialized columnar epithelium with goblet cells, consistent with Geronimo's esophagus, negative for dysplasia. - Scant reactive squamous epithelium. OV 04/2023 Accompanied by legal guardian. Hx obtained through pt Milad Morganib is a 67 year old male with PMHx pos for HLD, DM II, schizoaffective disorder here today for Barretts esophagus (Due for EGD). Previously seen by Dr. Lawrence for h/o Geronimo's. On Prilosec 20 mg daily with relief. Bms are constipated, every other day, no blood/black coloring. Drinks prune juice with relief. Taking NSAIDs daily HS for chronic pains. Denies abd pain, N/V, dysphagia, weight loss. Current Outpatient Medications Medication Sig omeprazole (PRILOSEC) 40 mg capsule Take 1 capsule by mouth once daily. On empty stomach at least 30 minutes before eating. ALBUTEROL INHALATION Inhale as instructed. docusate sodium (COLACE) 100 mg capsule Take 100 mg by mouth two times a day. B.animalis,bifid,infantis,long (PROBIOTIC 4X ORAL) Take by mouth. gabapentin (NEURONTIN) 400 mg capsule Clobetasol Propionate [...] ophthalmic drops OLANZapine (ZYPREXA) 10 mg tablet cyanocobalamin (VITAMIN B-12) 1,000 mcg tab Take 1,000 mcg by mouth. nkrsbjd-vnvgfyixo-cobbrwe D3 500 mg(1,250mg) -200 unit per tablet Take 1 tablet by mouth once daily. metFORMIN (GLUCOPHAGE) 1,000 mg tablet ammonium lactate (LAC-HYDRIN) 12 % cream Apply to affected area. dextran 70-hypromellose (TEARS PURE) ophthalmic solution 1 Drop. guaiFENesin-dextromethorphan (ROBITUSSIN DM) 100-10 mg/5 mL syrup [...] auto-injector Inject 0.3 mg intramuscularly as needed. tacrolimus (PROTOPIC) 0.1 % ointment clonazePAM (KLONOPIN) 0.5 mg tablet glucagon (GLUCAGEN) 1 mg injection Inject 1 Kit intravenously. No current facility-administered medications for this visit. ALLERGIES Allergen Reactions Venom-Honey Bee Anaphylaxis Social History Tobacco Use Smoking status: Former Smokeless tobacco: Never Vaping Use Vaping Use: Never used Substance Use Topics Alcohol use: Never Drug use: Never PAST MEDICAL HISTORY No date: Geronimo's esophagus Comment: Long Segment No date: Diabetes (HCC) No date: GERD (gastroesophageal reflux disease) No date: Hyperlipidemia No date: Osteoarthritis No date: Schizoaffective disorder (HCC) No date: Sciatica No date: Sleep apnea No date: Type 2 diabetes (HCC) PAST SURGICAL HISTORY 10/13/2015: COLONOSCOPY GEN ANES Comment: large obstructive lipoma, sigmoid colon 10/30/2012: COLONOSCOPY GEN ANES Comment: tubular adenoma in cecum, diverticulosis, angioectasia in the sigmoid, diverticulosis, lipoma 04/05/2021: COLONOSCOPY SCREENING Comment: poor prep, stool in entire colon, diverticulosis 03/16/2016: EGD Comment: long segment Geronimo's esophagus, hiatal hernia 01/06/2014: EGD Comment: long segment Geronimo's esophagus, hiatal hernia 04/05/2021: EGD Comment: long segment Geronimo's esophagus 06/19/2023: EGD W/O BRSH SPEC VARICIES INJ Comment: Geronimo's esophagus, negative for dysplasia 03/16/2016: SIGMOIDOSCOPY Comment: moderate diverticulosis of the sigmoid colon FAMILY HISTORY Problem Relation Age of Onset Colon Cancer No Family History REVIEW OF SYSTEMS Review of Systems All other systems reviewed and are negative. PHYSICAL EXAM BP 112/62 Pulse 60 Ht 170.2 cm (5' 7") Wt 102.5 kg (226 lb) BMI 35.40 kg/m Physical Exam Constitutional: General: He is not in acute distress. Appearance: Normal appearance. He is obese. He is not ill-appearing, toxic-appearing or diaphoretic. HENT: Head: Normocephalic and atraumatic. Nose: Nose normal. Eyes: General: No scleral icterus. Right eye: No discharge. Left eye: No discharge. Extraocular Movements: Extraocular movements intact. Conjunctiva/sclera: Conjunctivae normal. Pupils: Pupils are equal, round, and reactive to light. Cardiovascular: Rate and Rhythm: Normal rate and regular rhythm. Pulses: Normal pulses. Heart sounds: Normal heart sounds. No murmur heard. No friction rub. No gallop. Pulmonary: Effort: No respiratory distress. Breath sounds: Normal breath sounds. No stridor. No wheezing, rhonchi or rales. Chest: Chest wall: No tenderness. Abdominal: General: Abdomen is flat. Bowel sounds are normal. There is no distension. Palpations: Abdomen is soft. There is no mass. Tenderness: There is no abdominal tenderness. There is no right CVA tenderness, left CVA tenderness, guarding or rebound. Hernia: No hernia is present. Musculoskeletal: General: Normal range of motion. Cervical back: Normal range of motion and neck supple. Comments: Ambulates with cane Skin: General: Skin is warm and dry. Neurological: General: No focal deficit present. Mental Status: He is alert and oriented to person, place, and time. Psychiatric: Mood and Affect: Mood normal. Behavior: Behavior normal. 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 Could consider surg consult for hx of HH if returning sx despite medication management - Repeat EGD 2025 for surveillance - Due for next colonoscopy 2026 - Follow anti-reflux precautions 2. Hiatal hernia - As noted above Follow up in office 12 months/PRN. Recommended to please call office/go to ER if fever, chills, chest pain, SOB, diarrhea, nausea, emesis, worsening abdominal pain, dehydration occurs I spent a total of <10 minutes on the date of the service which included preparing to see the patient, [id number] patient care, completing clinical documentation, obtaining and/or reviewing separately obtained history, performing a medically appropriate examination, counseling and educating the patient/family/caregiver, ordering medications, tests, or procedures, communicating with other HCPs (not separately reported), independently interpreting results (not separately reported), communicating results to the patient/family/caregiver, and care coordination (not separately reported). Eda Casanova PA-C October 10, 2023 3:03 PM documented in this encounter [facility] 10-01-2023 Telephone encounter Note Okay, thank you [facility] 10-01-2023 Miscellaneous Notes Okay, thank you Notified Justyna, she states they did the 4 day COVID retest and he was negative and is doing fine. As long as he is doing well he does not need extra vitamin D 3 and he does not need to fluticasone inhaler Name of caller: Justyna Contact phone number: [phone] Relationship to Patient: [facility]. Provider: [facility] Practice: [facility] Chief Complaint/Reason for Call: Justyna called in requesting clarification on orders, she stated her and Dr. Mendenhall spoke on Sunday. Justyna stated that the patient tested positive for COVID on , and one of the medications recommended were Vitamin D3 and she stated that the patient is already on Calcium plus D3 twice a day so she held it and did not give him the additional Vitamin D3. She is requesting clarity that Dr. Mendenhall does not want her to give the patient the additional D3. She is also requesting clarity that it is okay that she does not give the patient the Fluticasone Aerosol due to the patient already being on Fluticasone nasal spray once a day, but she stated she will give it to him if Dr. Mendenhall wants him on the medication. Lastly, she stated the patient is doing well, no symptoms, just bored in his room since they are asking him to stay inside, but he does not have any complaints. Please advise and call Justyna to give clarity at [phone] or fax over the clarity to [phone]. Best time of day caller can be reached: any Patient advised that office/PCP has 24-48 business hours to return their call: No documented in this encounter [facility] 10-01-2023 Telephone encounter Note Notified Justyna, she states they did the 4 day COVID retest and he was negative and is doing fine. [facility] 10-01-2023 Telephone encounter Note As long as he is doing well he does not need extra vitamin D 3 and he does not need to fluticasone inhaler [facility] 10-01-2023 Telephone encounter Note Name of caller: Justyna Contact phone number: [phone] Relationship to Patient: [facility]. Provider: [facility] Practice: [facility] Chief Complaint/Reason for Call: Justyna called in requesting clarification on orders, she stated her and Dr. Mendenhall spoke on Sunday. Justyna stated that the patient tested positive for COVID on , and one of the medications recommended were Vitamin D3 and she stated that the patient is already on Calcium plus D3 twice a day so she held it and did not give him the additional Vitamin D3. She is requesting clarity that Dr. Mendenhall does not want her to give the patient the additional D3. She is also requesting clarity that it is okay that she does not give the patient the Fluticasone Aerosol due to the patient already being on Fluticasone nasal spray once a day, but she stated she will give it to him if Dr. Mendenhall wants him on the medication. Lastly, she stated the patient is doing well, no symptoms, just bored in his room since they are asking him to stay inside, but he does not have any complaints. Please advise and call Justyna to give clarity at [phone] or fax over the clarity to [phone]. Best time of day caller can be reached: any Patient advised that office/PCP has 24-48 business hours to return their call: No T [facility] 06-21-2023 Telephone encounter Note Spoke with Lucina at patient's resident facility about EGD results. Results also faxed to [phone]. [facility] 06-21-2023 Miscellaneous Notes Spoke with Lucina at patient's resident facility about EGD results. Results also faxed to [phone]. documented in this encounter [facility] 06-19-[address] Mcdaniels spoke with patient at bedside already. Discharge instructions discussed with patients caregiver. Verbalizes understanding. [facility] 06-19-[address] Mcdaniels spoke with patient at bedside already. Discharge instructions discussed with patients caregiver. Verbalizes understanding. documented in this encounter [facility] 06-19-2023 Note Formatting of this n ote might be different from the original. The patient received a copy of EGD discharge instructions that contain information for how to contact the physician who performed the procedure and when to seek medical care. [facility] 06-19-2023 Miscellaneous Notes The patient received a copy of EGD discharge instructions that contain information for how to contact the physician who performed the procedure and when to seek medical care. Please call patient and advise that EGD was abnormal, Geronimo's esophagus. Repeat EGD Needed in 2 years Monica Mcdaniels MD documented in this encounter [facility] 06-19-2023 History and physical note HISTORY AND PHYSICAL Milad Moon, 67 year old male here for EGD to to evaluate Geronimo's esophagus Current history and physical on file: No Is a new History and Physical required for today's visit? Yes Indication for procedure: Geronimo's esophagus PROCEDURE(S) SCHEDULED FOR: EGD (Esophagogastroduodenoscopy) with or without biopsies, removal of polyps or lesions, dilation ( any means), treatment of bleeding ( any means), Barrx treatment of Nash's Esophagus, image tube placement or cryo therapy treatment based on clinical findings. BASELINE BEHAVIOR: Calm BASELINE ORIENTATION: A & O x3 All medications and allergies reviewed: Yes Skin Assessment: Warm dry muscus membranes pink Airway/Respiratory Assessment: Airway: visualization of the uvula- Yes Mouth: opening greater than 2 fingerbreadths- Yes Neck: full range of motion- Yes Breath sounds clear/equal- Yes Cardiac Assessment: Regular rate and rhythm without murmur Abdominal Assessment: Abdomen soft, non-tender, no masses or organomegaly. Sedation Plan: Deep Additional Comments: None Monica Mcdaniels MD [facility] Work Phone: 06-19-2023 History and physical note HISTORY AND PHYSICAL Milad Moon, 67 year old male here for EGD to to evaluate Geronimo's esophagus Current history and physical on file: No Is a new History and Physical required for today's visit? Yes Indication for procedure: Geronimo's esophagus PROCEDURE(S) SCHEDULED FOR: EGD (Esophagogastroduodenoscopy) with or without biopsies, removal of polyps or lesions, dilation ( any means), treatment of bleeding ( any means), Barrx treatment of Ansh's Esophagus, image tube placement or cryo therapy treatment based on clinical findings. BASELINE BEHAVIOR: Calm BASELINE ORIENTATION: A & O x3 All medications and allergies reviewed: Yes Skin Assessment: Warm dry muscus membranes pink Airway/Respiratory Assessment: Airway: visualization of the uvula- Yes Mouth: opening greater than 2 fingerbreadths- Yes Neck: full range of motion- Yes Breath sounds clear/equal- Yes Cardiac Assessment: Regular rate and rhythm without murmur Abdominal Assessment: Abdomen soft, non-tender, no masses or organomegaly. Sedation Plan: Deep Additional Comments: None Monica Mcdaniels MD documented in this encounter [facility] 06-19-2023 Progress note Formatting of t his note might be different from the original. Please call patient and advise that EGD was abnormal, Geronimo's esophagus. Repeat EGD Needed in 2 years Monica Mcdaniels MD [facility] 05-09-2023 Instructions Eda Casanova PA-C - 05/09/2023 2:48 PM EDT Images from the original note were not included. - Drink around 64 oz water daily - Benefiber daily: 2 teaspoons added to 8 ounces of water up to 3 times daily. Improving Your Health with Fiber This guide provides basic information to help you start increasing dietary fiber in your diet. These are general guidelines that may be tailored to meet your needs. Fiber is an important dietary substance to help support your health. Making changes in your current eating habits will help you eat more healthfully. Most fiber-containing foods are also good sources of vitamins, minerals, and antioxidants, which offer many health benefits. A registered dietitian can provide in-depth nutrition education to help you develop a personal action plan. What is fiber? Fiber is the structural part of plant foods--such as fruits, vegetables, and grains--that our bodies cannot digest or break down. There are two kinds of fiber: soluble and insoluble. Soluble fiber: dissolves in water to form a gummy gel. It can slow down the passage of food from the stomach to the intestine. Examples: dried beans, oats, barley, bananas, potatoes, and soft parts of apples and pears Insoluble fiber: often referred to as "roughage" because it does not dissolve in water. It holds onto water, which helps produce softer, bulkier stools to help regulate bowel movements. Examples: whole bran, whole grain products, nuts, corn, carrots, grapes, berries, and peels of apples and pears What other things does fiber do? Research has shown that a diet rich in fiber is associated with many health benefits, including the following: Lowers cholesterol-Soluble fiber has been shown to lower cholesterol by binding to bile (composed of cholesterol) and taking it out of the body. This may help reduce the risk of heart disease. Better regulates blood sugar levels-A high-fiber meal slows down the digestion of food into the intestines, which may help to keep blood sugars from rising rapidly. Weight control-A high-fiber diet may help keep you longoria longer, which prevents overeating and hunger between meals. May prevent intestinal cancer-Insoluble fiber increases the bulk and speed of food moving through the intestinal tract, which reduces time for harmful substances to build up. Constipation-Constipation can often be relieved by increasing the fiber or roughage in your diet. Fiber works to help regulate bowel movements by pulling water into the colon to produce softer, bulkier stools. This action helps to promote better regularity. How much fiber should I eat? The Academy of Nutrition and Dietetics recommends consuming about 25-35 grams of total fiber per day, with 10-15 grams from soluble fiber or 14g of fiber per 1,000 calories. This can be accomplished by choosing 6 ounces of grains (3 or more ounces from whole grains), 2 cups of vegetables, and 2 cups of fruit per day (based on a 2,000 calorie/day pattern). However, as we age, fiber requirements decrease. For those over the age of 70, the recommendation for women is 21 grams and for men 30 grams of total fiber per day. Note: Eating a high-fiber diet may interfere with the absorption and effectiveness of some medications. Speak to your doctor about which medications to take with caution and when to take them. Fiber also binds with certain nutrients and carries them out of the body. To avoid this, aim for the recommended 20-35 grams of fiber per day. When eating a high-fiber diet, be sure to drink at least eight glasses of fluid each day. Tips for increasing dietary fiber in your diet: Add fiber to your diet slowly. Too much fiber all at once may cause cramping, bloating, and constipation. When adding fiber to your diet, be sure to increase fluids (at least 64 ounces per day) to prevent constipation. Buy bread with 2-4 grams of dietary fiber per slice. Buy cereals with at least 5 grams of dietary fiber per serving. Choose cereals with a whole grain such as whole wheat or whole grain rolled oats. Choose raw fruits and vegetables in place of juice. Choose products that have a whole grain listed as the first ingredient, not enriched flour. Whole wheat flour is a whole grain--wheat flour is not. Try alternative fiber choices such as whole buckwheat, whole wheat couscous, quinoa, bulgur, wheat germ, osman seeds, hemp seeds, lentil pasta, and edamame pasta. Popcorn is a whole grain. Serve it low-fat without butter for a healthier snack choice. Try whole wheat bread and whole wheat pastas. Sprinkle bran in soups, cereals, baked products, spaghetti sauce, ground meat, and casseroles. Bran also mixes well with orange juice. Use dried peas, beans, and legumes in main dishes, salads, or side dishes such as rice or pasta. Eat the skins of raw fruits and vegetables. Add dried fruit to yogurt, cereal, rice, and muffins. Try brown rice and whole grain pastas. Choose crackers with a whole grain listed as the first ingredient. Look for whole grain rye and wheat crackers. Fiber supplements Fiber supplements may be an option if you are not able to get enough fiber from your diet. Fiber supplements can be used to normalize both constipation and diarrhea. Check with your doctor before starting any kind of supplement. Read labels for fiber carefully. Drink at least 8 ounces of liquids with your supplement. Taking some fiber supplements without adequate liquids may cause the fiber to swell and may cause choking and constipation. . Some fiber supplements to consider are Benefiber (wheat dextrin), Metamucil (psyllium), Konsyl (psyllium), Citrucel (methylcellulose), Fibercon (SmartFiber derived from cellulose), and FiberChoice (inulin). Psyllium husk and guar gum are soluble fibers. Consider keeping a food journal and tracking how much fiber you eat in a typical day. Use the fiber content chart in this handout as a guide to meeting your high fiber goal or check with www.NAL.[place].gov/fnic for additional information on the dietary fiber content of food. Fiber Content of Common Foods Food Category Food Serving Size Total Fiber (grams) Soluble Fiber (grams) Starches, Grains, Starchy vegetables Breads Bagel-whole wheat Light white/wheat Louise-whole wheat Pumpernickel Whole wheat Lolita 3 1/2 inches 2 slices 7 inches slice slice slice 3 1 4 3 2 2 1 trace 1 1 trace 1 Cereals Bran flakes Cheerios Oatmeal Fiber One All Bran Kashi Heart to Heart 3/4 cup 1 1/4 cup 1 cup cooked 1/2 cup 2/3 cup 3/4 cup 5 4 4 14 13 5 trace 1 2 1 1 1 Grains Barley Brown rice Pasta-whole wheat Quinoa Lentil pasta Edamame pasta 1/2 cup cooked 1/2 cup 1/2 cup cooked 1/2 cup cooked 1/2 cup cooked 4 2 3 2 17 22 1 trace 1 1 2 3 Legumes and starchy vegetables Garbanzo beans Kidney beans Lentils Potato (with skin) Potatoes, sweet Squash (winter) Green peas, cooked [place] beans [place], cooked 1/2 cup 1/2 cup 1/2 cup 1 medium 1/2 cup 1/2 cup 1/2 cup 1/2 cup 1/2 cup 4 6 5 3 4 3 4 7 2 1 3 1 1 2 2 1 3 trace Nuts and Seeds Almonds Peanuts [place] seeds Walnuts Flaxseed(ground) [place]man Seeds Hemp Seeds 1/4 cup 1/4 cup 1/4 cup 1/4 cup 1/8 c or 2tbsp 1/8 c or 2tbsp 1/8 c or 2tbsp 3 3 3 2 4 10 2 1 1 1 trace 2 7 1 Fruits Apple with skin Banana Blueberries Grapefruit Jewell Pear with skin Prunes Strawberries 1 medium 1 medium 1 cup 1/2 cup 1 medium 1 medium 3 1 cup 3 2 2 1 3 4 2 4 1 1 trace 1 2 2 1 1 Vegetables, non-starchy Broccoli [place]in[place] sprouts Cabbage-green Carrot Cauliflower Green beans Kale Spinach Squash (zucchini) 1/2 cup 1/2 cup 1 cup, fresh 1/2 cup, cooked 1/2 cup, cooked 1/2 cup 1/2 cup 1/2 cup 1/2 cup 3 4 2 2 1 2 3 2 1 1 2 1 1 trace 1 1 1 1 How to read a food label Food labels are standardized by the [place] government's National Labeling and Education Act (NLEA). Nutrition labels and an ingredient list are required on most foods, so that you can make the best selection for a healthy lifestyle. Review the food label below. Determine the total amount of fiber in this product or ask your registered dietitian or healthcare provider to show you how to read food labels and apply the information to your personal needs. In order for a product to be labeled high fiber, it must contain 5 grams or more of dietary fiber per serving. Gastroesophageal Reflux Disease (GERD) Heartburn is a burning sensation in the center of your chest that often occurs after you eat, bend over, exercise, and sometimes at night when you are lying down. Approximately one in 10 adults has heartburn at least once a week and one in three monthly. Some women experience heartburn almost daily as a result of increased pressure on the abdomen and hormonal changes. Despite its name, heartburn has nothing to do with your heart. Heartburn symptoms indicate a condition called gastroesophageal reflux disease, or GERD. This fact sheet offers some tips on how to relieve heartburn caused by this condition. What is GERD? When you swallow, food passes down your throat and through your esophagus to your stomach. A muscle called the lower esophageal sphincter controls the opening between the esophagus and the stomach. The muscle remains tightly closed except when you swallow food. When this muscle fails to close, the acid-containing contents of the stomach can travel back up into the esophagus. This backward movement is called reflux. When stomach acid enters the lower part of the esophagus, it can produce a burning sensation, commonly referred to as heartburn. Several factors might explain why this reflux action occurs and might offer some clues for relief. The most important are: The position of your body after eating (An upright posture helps prevent reflux.) The size of the meal (Smaller meals reduce reflux.) The nature of foods you consume (Certain substances that irritate the esophagus or weaken the sphincter can cause reflux.) How is GERD treated? To treat GERD, we recommend the following: Raise the head of your bed by six inches to allow gravity to help keep the stomach's contents in the stomach. (Do not use piles of pillows because this puts your body into a bent position that actually aggravates the condition by increasing pressure on the abdomen.) Eat meals at least three to four hours before lying down, and avoid bedtime snacks. Eat moderate portions of food and smaller meals. Maintain a healthy weight to eliminate unnecessary intra-abdominal pressure caused by extra pounds. Limit consumption of fatty foods, chocolate, peppermint, coffee, tea, refugio, and alcohol - all of which relax the lower esophageal sphincter. Also, avoid tomatoes and citrus fruits or juices, which contribute additional acid that can irritate the esophagus. Give up smoking, which also relaxes the lower esophageal sphincter. Wear loose belts and clothing. What if my GERD and heartburn persist? Many people will get relief from heartburn, and the pressure that goes with esophageal reflux, by following the tips above. Fnsz-vnj-wrxhmwv liquid antacids can also help in treating occasional heartburn. If your symptoms persist, do not respond to treatment, or occur often, you need to see a doctor for testing and treatment. A visual examination of the esophagus, known as an endoscopy, might be necessary. Sometimes this test shows that the lining of the esophagus is severely inflamed and irritated by stomach acid. This condition, known as esophagitis, might lead to bleeding and difficulty in swallowing. Medical treatment for this condition might be necessary. This usually involves blocking acid production in the stomach. Imgq-sef-ziefdzx medicines, such as Tums , Rolaids , Maalox , Zantac , Tagamet , Prilosec, ,Pepcid , and Axid , can generally relieve esophageal reflux symptoms. Patients with more severe symptoms or those who have been using antacids for more than two weeks should contact their doctors, who can prescribe medicines to control or eliminate acid, such as H2-receptor antagonists and proton pump inhibitors. Only a few people need surgery to correct the disorder. documented in this encounter [facility] 05-09-2023 History of Present illness Narrative CHIEF COMPLAINT: Patient presents with: Barretts esophagus: Due for EGD HPI Accompanied by legal guardian. Hx obtained through pt Milad Ríos Noel is a 67 year old male with PMHx pos for HLD, DM II, schizoaffective disorder here today for Barretts esophagus (Due for EGD). Previously seen by Dr. Lawrence for h/o Geronimo's. On Prilosec 20 mg daily with relief. Bms are constipated, every other day, no blood/black coloring. Drinks prune juice with relief. Taking NSAIDs daily HS for chronic pains. Denies abd pain, N/V, dysphagia, weight loss. FIT 10/2022 negative EGD/Colon 2021 Impression: - Esophagogastric landmarks identified. - Esophageal mucosal changes secondary to established long-segment Geronimo's disease. Biopsied. - Normal stomach. - Normal first portion of the duodenum and second portion of the duodenum. Impression: - Preparation of the colon was fair. - Diverticulosis in the sigmoid colon, in the descending colon, in the transverse colon and in the ascending colon. - Internal hemorrhoids. - Stool in the entire examined colon. - No specimens collected. CONVERTED FINAL DIAGNOSIS A. Esophagus, 34 cm, biopsy - Specialized columnar epithelium with goblet cells, consistent with Geronimo's esophagus, negative for dysplasia. - Squamous epithelium is not present. B. Esophagus, at 32 cm, biopsy - Specialized columnar epithelium with goblet cells, consistent with Geronimo's esophagus, negative for dysplasia. - Scant reactive squamous epithelium. Current Outpatient Medications Medication Sig gabapentin (NEURONTIN) [...] mcg tab Take 1,000 mcg by mouth. oibqjbn-ujvkpudcg-pgywmns D3 500 mg(1,250mg) -200 unit per tablet [...] auto-injector Inject 0.3 mg intramuscularly as needed. No current facility-administered medications for this visit. [...] History REVIEW OF SYSTEMS Review of Systems Gastrointestinal: Positive for constipation. All other systems reviewed and are negative. PHYSICAL EXAM BP 138/70 Pulse 60 Ht 172.7 cm (5' 8") Wt 103.4 kg (228 lb) BMI 34.67 kg/m Physical Exam Constitutional: General: He is not in acute distress. Appearance: Normal appearance. He is normal weight. He is not ill-appearing, toxic-appearing or diaphoretic. HENT: Head: Normocephalic and atraumatic. Nose: Nose normal. Eyes: General: No scleral icterus. Right eye: No discharge. Left eye: No discharge. Extraocular Movements: Extraocular movements intact. Conjunctiva/sclera: Conjunctivae normal. Pupils: Pupils are equal, round, and reactive to light. Cardiovascular: Rate and Rhythm: Normal rate and regular rhythm. Pulses: Normal pulses. Heart sounds: Normal heart sounds. No murmur heard. No friction rub. No gallop. Pulmonary: Effort: No respiratory distress. Breath sounds: Normal breath sounds. No stridor. No wheezing, rhonchi or rales. Chest: Chest wall: No tenderness. Abdominal: General: Abdomen is flat. Bowel sounds are normal. There is no distension. Palpations: Abdomen is soft. There is no mass. Tenderness: There is no abdominal tenderness. There is no right CVA tenderness, left CVA tenderness, guarding or rebound. Hernia: No hernia is present. Musculoskeletal: General: Normal range of motion. Cervical back: Normal range of motion and neck supple. Comments: Ambulates with cane Skin: General: Skin is warm and dry. Neurological: General: No focal deficit present. Mental Status: He is alert and oriented to person, place, and time. Psychiatric: Mood and Affect: Mood normal. Behavior: Behavior normal. 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 Encouraged absolute NSAID cessation. Scheduled to see pain management w/ [place] 05/2023 - Repeat EGD for surveillance, consider increased dosage PPI pending results 2. Other constipation - Taking 4 oz prune juice with relief - Advised to consider starting Metamucil or Benefiber powders daily - Discussed dietary fiber intake and provided edu handout I spent a total of 15 minutes on the date of the service which included preparing to see the patient, woyj-kj-awty patient care, completing clinical documentation, obtaining and/or reviewing separately obtained history, performing a medically appropriate examination, counseling and educating the patient/family/caregiver, ordering medications, tests, or procedures, communicating with other HCPs (not separately reported), independently interpreting results (not separately reported), communicating results to the patient/family/caregiver, and care coordination (not separately reported). Eda Casanova PA-C May 09, 2023 2:54 PM documented in this encounter [facility] 11-07-2022 Evaluation + Plan note Associated Problem(s): Schizoaffective disorder with good prognostic features (CMS/HCC) (HCC) Stable, continue current medications and follow-up with psych as scheduled. [facility] 11-07-2022 Evaluation + Plan note Associated Problem(s): Hyperlipidemia Controlled, continue atorvastatin 10 mg daily [facility] 11-07-2022 Miscellaneous Notes Associated Problem(s): Schizoaffective disorder [...] Chronic obstructive pulmonary disease, unspecified COPD type ([facility]) Stable, continue albuterol as needed Associated Problem(s): Type 2 diabetes mellitus with diabetic polyneuropathy, without long-term current use of insulin ([facility]/HCC) (HCC) Stable, will get repeat lab work today he is to continue metformin 1000 mg twice a day documented in this encounter [facility] 11-07-2022 Evaluation + Plan note Associated Problem(s): Anxiety Stable, continue clonazepam 0.5 mg twice a day and Lexapro 20 mg 2 daily [facility] 11-07-2022 Evaluation + Plan note Associated Problem(s): Morbidly obese (HCC) Weight loss has occurred encouraged continued weight loss [facility] 11-07-2022 Evaluation + Plan note Associated Problem(s): Essential hypertension Controlled, continue lisinopril 10 mg daily [facility] 11-07-2022 Evaluation + Plan note Associated Problem(s): Chronic obstructive pulmonary disease, unspecified COPD type (HCC) Stable, continue albuterol as needed [facility] 11-07-2022 Evaluation + Plan note Associated Problem(s): Type 2 diabetes mellitus with diabetic polyneuropathy, without long-term current use of insulin ([facility]/HCC) (HCC) Stable, will get repeat lab work today he is to continue metformin 1000 mg twice a day [facility] 11-07-2022 History of Present illness Narrative Patient verified by last name and date of . Images from the original note were not included. [facility] [address] [facility] [address] Visit type: Established Patient Reason for Visit: Medicare Annual Wellness Visit Subsequent, Blood Work, and Health Maintenance (DM eye exam-had one in the past year at Dr. Troncoso in [place]-need to request report/FIT test-agrees/Tetanus-thinks he had one last year/Shingrix-thought he had this last year) Assessment and Plan Problem List Items Addressed This Visit Nervous Type 2 diabetes mellitus with diabetic polyneuropathy, without long-term current use of insulin ([facility]/HCC) (HCC) Stable, will get repeat lab work today he is to continue metformin 1000 mg twice a day Relevant Orders Comprehensive metabolic panel Microalbumin / creatinine urine ratio Hemoglobin A1c Respiratory Chronic obstructive pulmonary disease, unspecified COPD type (HCC) Stable, continue albuterol as needed Circulatory Essential hypertension Controlled, continue lisinopril 10 mg daily Endocrine/Metabolic Morbidly obese (HCC) Weight loss has occurred [...] in about 1 year (around 11/08/2023). Subjective HPI Milad comes in today for his annual Medicare [...] of current healthcare providers: Patient Care Team: Efrain Mendenhall MD as PCP - General Over [...] Objective BP 129/80 Pulse 61 Ht 5' 4.75" (1.645 m) Wt 234 lb 3.2 oz [...] Affect: Mood normal. Data Reviewed Labs: Imaging/Testing: Efrain Mendenhall MD 11/07/2022 9:59 AM documented in this encounter [facility] 08-11-2022 Telephone encounter Note Notifzandra Perez. [facility] 08-11-2022 Miscellaneous Notes Notifzandra Perez. This medication comes from his psychiatrist Dr. [...] the medication: Yes documented in this encounter [facility] 08-10-2022 Telephone encounter Note This medication comes from his psychiatrist Dr. Arechiga [facility] 08-10-2022 Telephone encounter Note CSA not found [facility] 08-10-2022 Telephone encounter Note Medication name: clonazePAM [...] to picking up the medication: Yes T [facility] 06-29-2022 History of Present illness Narrative Recheck (GERD w/Geronimo's esophagus) HPI Milad Moon is a 67 year old male [...] nausea, vomiting, loss of appetite, hematemesis, bleeding PA, unexplained weight loss, diarrhea, tenesmus, nocturnal diarrhea. [...] mcg tab Take 1,000 mcg by mouth. etyoepj-cvhzhjjzd-bxkwaxp D3 500 mg(1,250mg) -200 unit per tablet [...] of alcoholic beverages, and avoidance of smoking. Miriam Lawrence MD DATE: 06/29/22 TIME: 1:57 PM documented in this encounter [facility] 05-30-2022 Telephone encounter Note Addressed on hard copy today [facility] 05-30-2022 Miscellaneous Notes Addressed on hard copy today Message printed to be taken to Dr Mendenhall to address Is there [facility] while [facility] this [facility]? Name of caller: Kimmie Contact phone number: [phone] Relationship to Patient: [facility] Provider: Dr Mendenhall Practice: [facility] Chief Complaint/Reason for Call: [facility] calling in BP readings. 146/76 on right arm sitting. Please advise. Best time of day caller can be reached: any Patient advised that office/PCP has 24-48 business hours to return their call: No documented in this encounter [facility] 05-30-2022 Telephone encounter Note Message printed to be taken to Dr Mendenhall to address [facility] 05-29-2022 Telephone encounter Note Is there [facility] while he is [facility] this [facility]? [facility] 05-26-2022 Telephone encounter Note Name of caller: Kimmie Contact phone number: [phone] Relationship to Patient: [facility] Provider: Dr Mendenhall Practice: [facility] Chief Complaint/Reason for Call: [facility] calling in BP readings. 146/76 on right arm sitting. Please advise. 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- Primary Geronimo's esophagus [facility] Diagnosis Anxiety Anxiety state, unspecified documented in this encounter [facility]* Diagnosis Medicare annual wellness visit, subsequent- [...] malignant neoplasms, colon [facility]* Diagnosis 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- Primary Geronimo's esophagus Other constipation documented in this encounter [facility] note* Diagnosis 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- Primary Geronimo's esophagus documented in this encounter [facility] note* Diagnosis 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- Primary Geronimo's esophagus Hiatal hernia Diaphragmatic hernia without mention of obstruction or gangrene documented in this encounter [facility] note* Diagnosis 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 Geronimo's esophagus documented in this encounter [facility] note* Diagnosis Medicare annual wellness visit, subsequent- Primary Schizoaffective disorder with good prognostic features (CMS/HCC) (HCC) Chronic obstructive pulmonary disease, unspecified COPD type (HCC) Morbidly obese (HCC) Morbid obesity Type 2 diabetes mellitus with diabetic polyneuropathy, without long-term current use of insulin (HCC) Anxiety Anxiety state, unspecified Essential hypertension Unspecified essential hypertension Pure hypercholesterolemia Screening for prostate cancer Special screening for malignant neoplasm of prostate documented in this encounter [facility] note* Diagnosis 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- Primary Geronimo's esophagus Hiatal hernia Diaphragmatic hernia without mention of obstruction or gangrene documented in this encounter [facility] note* Diagnosis Essential hypertension- Primary Unspecified essential hypertension Morbidly obese (CMS/HCC) Morbid obesity Type 2 diabetes mellitus without complication, without long-term current use of insulin (HCC) Schizoaffective disorder with good prognostic features (HCC) Pure hypercholesterolemia Dyspnea on exertion Other dyspnea and respiratory abnormality Right hip pain Pain in joint, pelvic region and thigh Essential hypertension- Primary Unspecified essential hypertension Morbidly obese (CMS/HCC) Morbid obesity Type 2 diabetes mellitus without complication, without long-term current use of insulin (HCC) Schizoaffective disorder with good prognostic features (HCC) Pure hypercholesterolemia Medicare annual wellness visit, subsequent- Primary Anxiety Anxiety state, unspecified Chronic obstructive pulmonary disease, unspecified COPD type (HCC) Type 2 diabetes mellitus with diabetic polyneuropathy, without long-term current use of insulin (HCC) Essential hypertension Unspecified essential hypertension Morbidly obese (CMS/HCC) Morbid obesity Pure hypercholesterolemia Schizoaffective disorder with good prognostic features (HCC) Screening for prostate cancer Special screening for malignant neoplasm of prostate Screening for colon cancer Special screening for malignant neoplasms, colon Medicare annual wellness visit, subsequent- Primary Schizoaffective disorder with good prognostic features (HCC) Chronic obstructive pulmonary disease, unspecified COPD type (HCC) Morbidly obese (CMS/HCC) Morbid obesity Type 2 diabetes mellitus with diabetic polyneuropathy, without long-term current use of insulin (HCC) Anxiety Anxiety state, unspecified Essential hypertension Unspecified essential hypertension Pure hypercholesterolemia Screening for prostate cancer Special screening for malignant neoplasm of prostate Routine general medical examination at health care facility- Primary Routine general medical examination at a health care facility Type 2 diabetes mellitus with diabetic polyneuropathy, without long-term current use of insulin (HCC) Chronic obstructive pulmonary disease, unspecified COPD type (HCC) Essential hypertension Unspecified essential hypertension Morbidly obese (CMS/HCC) Morbid obesity Pure hypercholesterolemia Schizoaffective disorder with good prognostic features (HCC) Anxiety Anxiety state, unspecified Screening for prostate cancer Special screening for malignant neoplasm of prostate documented in [facility]* Diagnosis Essential hypertension- Primary Unspecified essential hypertension Morbidly obese (CMS/HCC) Morbid obesity Type 2 diabetes mellitus without complication, without long-term current use of insulin (HCC) Schizoaffective disorder with good prognostic features (HCC) Pure hypercholesterolemia Dyspnea on exertion Other dyspnea and respiratory abnormality Right hip pain Pain in joint, pelvic region and thigh Essential hypertension- Primary Unspecified essential hypertension Morbidly obese (CMS/HCC) Morbid obesity Type 2 diabetes mellitus without complication, without long-term current use of insulin (HCC) Schizoaffective disorder with good prognostic features (HCC) Pure hypercholesterolemia Medicare annual wellness visit, subsequent- Primary Anxiety Anxiety state, unspecified Chronic obstructive pulmonary disease, unspecified COPD type (HCC) Type 2 diabetes mellitus with diabetic polyneuropathy, without long-term current use of insulin (HCC) Essential hypertension Unspecified essential hypertension Morbidly obese (CMS/HCC) Morbid obesity Pure hypercholesterolemia Schizoaffective disorder with good prognostic features (HCC) Screening for prostate cancer Special screening for malignant neoplasm of prostate Screening for colon cancer Special screening for malignant neoplasms, colon Medicare annual wellness visit, subsequent- Primary Schizoaffective disorder with good prognostic features (HCC) Chronic obstructive pulmonary disease, unspecified COPD type (HCC) Morbidly obese (CMS/HCC) Morbid obesity Type 2 diabetes mellitus with diabetic polyneuropathy, without long-term current use of insulin (HCC) Anxiety Anxiety state, unspecified Essential hypertension Unspecified essential hypertension Pure hypercholesterolemia Screening for prostate cancer Special screening for malignant neoplasm of prostate Routine general medical examination at health care facility- Primary Routine general medical examination at a health care facility Type 2 diabetes mellitus with diabetic polyneuropathy, without long-term current use of insulin (HCC) Chronic obstructive pulmonary disease, unspecified COPD type (HCC) Essential hypertension Unspecified essential hypertension Pure hypercholesterolemia Schizoaffective disorder with good prognostic features (HCC) Anxiety Anxiety state, unspecified Screening for prostate cancer Special screening for malignant neoplasm of prostate Class 2 severe obesity due to excess calories with serious comorbidity and body mass index (BMI) of 38.0 to 38.9 in adult documented in this encounter [facility] for referral (narrative)* Outpatient Procedure (Routine) - Authorized Specialty Diagnoses / Procedures Referred By Osmani hancock Referred To Contact [facility] 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 Procedures EGD DIAGNOSTIC ESOPHAGOGASTRODUODENOS COPY TRANSORAL DIAGNOSTIC Eda Casanova PA-C [address] [place] [address] [address] Referral ID Status Reason Start Date Expiration Date Visits Requested Visits Authorized [id number] Authorized Auto-Generat ed Referral 05/09/2023 05/08/2024 1 1 [facility] for referral (narrative)* Outpatient Procedure (Routine) - Closed Specialty Diagnoses / Procedures Referred By Osmani hancock Referred To Contact [facility] 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 Procedures EGD DIAGNOSTIC ESOPHAGOGASTRODUODENOS COPY TRANSORAL DIAGNOSTIC Eda Casanova PA-C [address] [place] [address] [facility] [place] [address] [place] [address] Referral ID Status Reason Start Date Expiration Date V isits Requested Visits Authorized [id number] Closed Auto-Generate d Referral 05/09/2023 05/08/2024 1 1 [facility] for referral (narrative)No reason for referral information availableWCh[facility] Work Phone: Reason for visit Narrative* Outpatient Procedure (Routine) - Closed Specialty Diagnoses / Procedures Referred By Osmani hancock Referred To Contact [facility] 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 Procedures EGD DIAGNOSTIC ESOPHAGOGASTRODUODENOS COPY TRANSORAL DIAGNOSTIC Eda Casanova PA-C [address] [place] [address] [facility] [place] [address] [place] [address] Referral ID Status Reason Start Date Expiration Date V isits Requested Visits Authorized [id number] Closed Auto-Generate d Referral 05/09/2023 05/08/2024 1 1 [facility] Advance Directives No Advanced Directives Records FoundDocuments on File Type Date Recorded Patient Felt Checker Expl anation ACP-Advance Directive ACP-Power of Flow Specialist Latest Code Status on File Code Status Date Activated Date Inactivated Comments Full Code 10/13/2015 10:54 AM 10/14/2015 2:37 AM Latest Code Status on File Code Status Date Activated Date Inactivated Comments Full Code 10/13/2015 10:54 AM 10/14/2015 2:37 AM Chief Complaint and Reason for Visit Chief Complaint PENITENTIARY LAB WOR K PENITENTIARY LABWORK PENITENTIARY LABWORK Chief Complaint PENITENTIARY LABWORK PENITENTIARY LABWORK Chief Complaint PENITENTIARY LABWORK NURSIGN HOME LAB WORK Chief Complaint NURSIGN HOME LAB WOR K LABWORK Chief Complaint LABWORK LABWORK Chief Complaint LABWORK LABWORK PENITENTIARY LAB WORK Chief Complaint PENITENTIARY LAB WOR K PENITENTIARY LAB WORK Chief Complaint PENITENTIARY LAB WOR K PENITENTIARY LAB WORK PENITENTIARY LAB WORK Chief Complaint PENITENTIARY LAB WOR K LABWORK Chief Complaint Admit Date LABWORK February 11, 2024 5:00am LABWORK March 10, 2024 5 :00am PENITENTIARY LAB WORK May 05, 2024 5 :00am Chief Complaint Admit Date PENITENTIARY LAB WORK May 05, 2024 5 :00am PENITENTIARY LAB WORK July 28, 2024 4:0 0am Summary Purpose Family History No Family History Records FoundNo Family History Records FoundNo Family History Records FoundNo Family History Records Found Reason for Referral Specialty Diagnoses / Procedures Referred By Contac t Referred To Contact Radiology Diagnoses Encounter for abdominal aortic aneurysm (AAA) screening Procedures VL AAA SCREENING Efrain Mendenhall MD [address] [facility], [place] [address] Referral ID Status Reason Start Date Expiration Date Visits Re quested Visits Authorized [id number] Open 11/01/2021 11/01/2022 1 1 Additional Source Comments Source Comments (unrecognize d section and content) In the event this informatio n is protected by the Federal Confidentiality of Alcohol and Drug Abuse Patient Records regulations: The Federal rules restrict any use of the information to criminally investigate or prosecute any alcohol or drug abuse patient.[facility] the event this information is protected by the Federal Confidentiality of Alcohol and Drug Abuse Patient Records regulations: The Federal rules restrict any use of the information to criminally investigate or prosecute any alcohol or drug abuse patient.[facility] Hospital[facility] the event this information is protected by the Federal Confidentiality of Alcohol and Drug Abuse Patient Records regulations: The Federal rules restrict any use of the information to criminally investigate or prosecute any alcohol or drug abuse patient.[facility] the event this information is protected by the Federal Confidentiality of Alcohol and Drug Abuse Patient Records regulations: The Federal rules restrict any use of the information to criminally investigate or prosecute any alcohol or drug abuse patient.[facility] Hospital[facility] the event this information is protected by the Federal Confidentiality of Alcohol and Drug Abuse Patient Records regulations: The Federal rules restrict any use of the information to criminally investigate or prosecute any alcohol or drug abuse patient.[facility] Hospital[facility] the event this information is protected by the Federal Confidentiality of Alcohol and Drug Abuse Patient Records regulations: The Federal rules restrict any use of the information to criminally investigate or prosecute any alcohol or drug abuse patient.[facility] Hospital[facility] the event this information is protected by the Federal Confidentiality of Alcohol and Drug Abuse Patient Records regulations: The Federal rules restrict any use of the information to criminally investigate or prosecute any alcohol or drug abuse patient.Grant HospitalIn the event this information is protected by the Federal Confidentiality of Alcohol and Drug Abuse Patient Records regulations: The Federal rules restrict any use of the information to criminally investigate or prosecute any alcohol or drug abuse patient.[facility] Care Teams (unrecognized sec tion and content) Drywall Taper Helper Relationship Specialty Start Date End Date [place] [address] PCP - General Family Medicine 08/15/14 Drywall Taper Helper Relationship Specialty Start Date End Date Efrain Mendenhall MD [place], [place] [id number] PCP - General Family Medicine 08/15/14 Team Status: Active Member Role Status Dates Dr. Efrain Mendenhall MD Family Provider Active Efrain Mendenhall MD Primary Care Provider Active Team Status: Inactive Member Role Status Dates Efrain Mendenhall MD Primary Care Provider, Attending P joni Active Team Status: Inactive Member Role Status Dates Efrain Mendenhall MD Primary Care Provide r, Attending Provider, Referring Provider Active Team Status: Active Member Role Status Dates Dr. Efrain Mendenhall MD Family Provider Active Efrain MITTAL MD Primary Care Provider Active Team Status: Inactive Member Role Status Dates Efrain MITTAL MD Primary Care Prov ider, Attending Provider, Referring Provider Active Team Status: Inactive Member Role Status Dates Efrain MITTAL MD Primary Care Provider, Attendin g Provider Active Drywall Taper Helper Relationship Specialty Start Date End Date [place] [address] PCP - General 07/27/18 Drywall Taper Helper Relationship Specialty Start Date End [place] [address] PCP - General Family Medicine 12/01/20 Drywall Taper Helper Relationship Specialty Start Date End Date [place] [address] PCP - General 07/27/18 Drywall Taper Helper Relationship Specialty Start Date End Date Efrain Mendenhall MD [address] [place] [address] PCP - General 07/27/18 Drywall Taper Helper Relationship Specialty Start Date End Date Efrain Mendenhall [address] [place] [address] PCP - General Family Medicine 12/01/20 Drywall Taper Helper Relationship Specialty Start Date End Date Efrain Mendenhall [address] [place] [address] PCP - General Family Medicine 12/01/20 Drywall Taper Helper Relationship Specialty Start Date End Date Efrain Mendenhall [address] [place] [facility] [place] [address] PCP - General Family Medicine 12/01/20 Drywall Taper Helper Relationship Specialty Start Date End Date Efrain Mendenhall MD [address] [facility] [place] [address] PCP - General 07/27/18 Drywall Taper Helper Relationship Specialty Start Date End Date Efrain Mendenhall [address] [place] [address] PCP - General Family Medicine 12/01/20 Drywall Taper Helper Relationship Specialty Start Date End Date Efrain Mendenhall [address] [place] [place] [address] PCP - General Family Medicine 12/01/20 Drywall Taper Helper Relationship Specialty Start Date End Date Efrain Mendenhall MD [address] [facility] [place] [address] PCP - General 07/27/18 Team Status: Inactive Member Role Status Dates Efrain MITTAL MD Primary Care Provider Active Start: February 11, 2024 End: February 11, 2024 Efrain MITTAL MD Attending Provider Active Start: February 11, 2024 End: February 11, 2024 Team Status: Active Member Role Status Dates Efrain MITTAL MD Primary Care Provider Active Start: March 10, 2024 Faisal Ahmet MITTAL MD Attending Provider Active S tart: March 10, 2024 Team Status: Inactive Member Role Status Dates Efrain MITTAL MD Primary Care Provider Active Start: May 05, 2024 End: May 05, 2024 Efrain MITTAL MD Attending Provider Active Start: May 05, 2024 End: May 05, 2024 Team Status: Active Member Role Status Dates Efrain MITTAL MD Primary Care Provider Active Start: July 11, 2024 Efrain MITTAL MD Attending Provider Active Start: July 11, 2024 Team Status: Inactive Member Role Status Dates Efrain MITTAL MD Primary Care Provider Active Start: July 28, 2024 End: July 28, 2024 Efrain MITTAL MD Attending Provider Active Start: July 28, 2024 End: July 28, 2024 Efrain MITTAL MD Referring Provider Active Start: July 28, 2024 End: July 28, 2024 Drywall Taper Helper Relationship Specialty Start Date End Date Efrain Mendenhall [address] [facility] [place] [address] PCP - General Family Medicine 12/01/20 Drywall Taper Helper Relationship Specialty Start Date End Date Efrain Mendenhall MD [address] [place] [address] PCP - General 07/27/18 Drywall Taper Helper Relationship Specialty Start Date End Date Efrain Mendenhall MD [address] [place] [address] PCP - General 07/27/18 Paras Herrera MD [address] [place] [address] Urology 12/25/24 Drywall Taper Helper Relationship Specialty Start Date End Date Efrain Mendenhall MD [address] [place] [address], [place] [address] PCP - General 07/27/18 Paras Herrera MD [address] [place] [address] Urology 12/25/24 Goals (unrecognized section and content) Goals may be documented in a n alternate sectionGoals may be documented in an alternate sectionGoals may be documented in an alternate sectionGoals may be documented in an alternate sectionGoals may be documented in an alternate sectionGoals may be documented in an alternate sectionGoals may be documented in an alternate sectionGoals may be documented in an alternate sectionGoals may be documented in an alternate sectionGoals may be documented in an alternate sectionGoals may be documented in an alternate sectionGoals may be documented in an alternate sectionGoals may be documented in an alternate sectionGoals may be documented in an alternate sectionGoals may be documented in an alternate section (unrecognized sect ion and content) No Status Records FoundNo Status Records FoundNo Status Records FoundNo Status Records Found INFORMATION SOURCE (unrecogn ized section and content) DATE CREATED AUTHOR 11/01/2021 [facility] DATE CREATED AUTHOR AUTHOR'S ORGANIZ ATION 10/11/2024 [facility] DATE CREATED AUTHOR AUTHOR'S ORGANIZ ATION 12/27/2024 [facility] DATE CREATED AUTHOR AUTHOR'S ORGANIZ ATION 01/05/2025 [facility] Reason for Visit (unrecogniz ed section and content) Reason Onset Date Comments Update on pt 05/26/2022 Update on pt. BP reading Reason Comments Recheck GERD w/Juanpablo's eso phagus Reason Onset Date Comments Med Refill 08/10/2022 Reason Comments Medicare Annual Wellness Visit [facility] Blood Work Health Maintenance DM eye exam-had one in the past year at Dr. Troncoso in [place]-need to request reportFIT [id number] he had one last yearShingrix-thought he had this last year Reason Comments Barretts esophagus Due for EGD Reason Comments Results Reason Onset Date Comments Orders 10/01/2023 Reason Comments Procedure Follow Up EGD 06/19/23 Reason Comments Medicare Annual Wellness Visit [facility] Blood Work Health Maintenance Dental exam- not don eEye exam-done at Dr Carroll Troncoso in [place] will send for record Tdap vaccine-not doneRsv vaccine- not dneShingles vaccine-refuse6 covid vaccines-not yetFlu vaccine- done Reason Comments Recheck Geronimo's Esophagus, Hiatal Hernia, Alternating bowel habits Reason Comments Medicare Annual Wellness Visit [facility] Blood Work Health Maintenance Shingles vaccine-ref useFlu vaccine- [facility]- not doneRsv vaccine- not doneEye exam- Dr Carroll Troncoso in [place] will send for record Dental exam- not doneTdap vaccine- refuse FOR RECORDS PERTAINING TO PATIENTS WHO ARE [...] BE BASED ON THE PRIMARY CLINICAL RECORDS. [employer] provides no warranty or guarantee of the accuracy or completeness of information in this document.
[2025-01-12 09:31] LABS: AST(SGOT) 24 U/L (<=37); Alanine Aminotransfer ALT/SGPT 18 U/L (<=46); Albumin, Serum 4.0 g/dL (3.4-4.8); Alkaline Phosphatase 87 U/L (40-129); Bilirubin, Direct 0.14 mg/dL (0.00-0.30); Globulin 3.0 g/dL (2.2-4.2); Glucose 89 mg/dL (70-99)
== END ==
LOC: OLS.ACH2 04:00
PROVIDERS: PCP Family Medicine; Referring Provider Family Medicine; Visit Provider Family Medicine
DX: F25.9 Schizoaffective disorder, unspecified (principal); E11.42 Type 2 diabetes mellitus with diabetic polyneuropathy
CPT/HCPCS: 36415; 80076; 82947; 84443